=== PATIENT | male | born 1950 | race Caucasian/White ===

== ENCOUNTER → 2017-04-19 09:27 | Outpatient (CLI) | payer MEDICARE, OTHER, SELFPAY ==
[2017-04-19 13:12] LABS: Absolute Lymphocyte Count 1.11 X10^3/ul (0.83-4.51); Absolute Neutrophil Count 2.2 X10^3/uL (2.0-7.7); Basophil# 0.03 X10^3/uL; Basophil% 0.7 % (0-1); Eosinophil# 0.35 X10^3/uL; Eosinophils% 8.4 % (0-5); Hematocrit 38.7 % (40-54); Hemoglobin 12.4 g/dl (13.0-16.5); Lymphocyte # 1.11 X10^3/ul (4.0); Lymphocyte % 26.7 % (19-41); Mean Corpuscular Hgb 27.6 pg (27.0-32.0); Mean Platelet Vol. 10.4 fl (6.2-12.0); Monocyte# 0.52 X10^3/uL; Monocyte% 12.5 % (0-10); Neutrophil # 2.15 X10^3/uL (2.7-7.7); Neutrophil % 51.7 % (47-70); Platelet Count 192 K/mm3 (150-450); RBC Distribution Width CV 13.1 % (11.6-14.6); RBC Distribution Width SD 41.6 fl (35.1-43.9); White Blood Count 4.2 K/mm3 (4.4-11.0)
[2017-04-19 13:13] LABS: POSITIVE COUNT NO; POSITIVE DIFFERENTIAL NO; POSITIVE MORPHOLOGY NO
[2017-04-19 13:40] LABS: ALB/GLOB Ratio 1.2 RATIO (0.9-2.4); AST(SGOT) 14 U/L (15-37); Alanine Aminotransfer ALT/SGPT 23 U/L (16-61); Albumin, Serum 3.5 g/dL (3.2-5.0); Alkaline Phosphatase 82 U/L (45-117); Anion Gap 8 (5-15); BUN 18 mg/dL (7-18); BUN/Creat Ratio 18.8 RATIO (10-20); Calcium,Total 8.6 mg/dL (8.5-10.1); Chloride 106 mmol/L (98-107); Creatinine, Serum 0.96 mg/dL (0.70-1.30); EST Glomerular Filtration Rate 84 mL/min (>60); Est Glom Filt Rate - Afr Amer 101 mL/min (>60); Glucose 89 mg/dL (74-106); PSA,Total - Annual Screen 0.61 ng/mL (0.00-4.00); Potassium 4.3 mmol/L (3.5-5.1); Protein, Total 6.5 g/dL (6.4-8.2); Sodium Level 142 mmol/L (136-145); Thyroid Stim Hormone (TSH) 1.74 uIU/mL (0.358-3.74)
[2017-04-20 07:22] LABS: Hep C Antibodies <0.1 s/co ratio (0.0-0.9)
== END ==
PROVIDERS: Family Provider Family Medicine Geriatric Medicine; PCP Family Medicine Geriatric Medicine; Visit Provider Family Medicine Geriatric Medicine
DX: F52.8 Other sexual dysfunction not due to a substance or known physiological condition (principal); I10 Essential (primary) hypertension; Z12.5 Encounter for screening for malignant neoplasm of prostate; Z13.89 Encounter for screening for other disorder
CPT/HCPCS: 36415; 80053; 84153; 84403; 84443; 85025; 86803; G0103

== ENCOUNTER → 2017-07-12 08:42 | Outpatient (CLI) | payer MEDICARE, OTHER, SELFPAY ==
--- NOTE | 2017-07-12 08:48 | RAD_ITS ---
STUDY: X-RAY - PELVIS AND RIGHT HIP REASON FOR EXAM: Male, 67 years old. Right hip pain, no injury TECHNIQUE: Radiological exam, hip, unilateral, with pelvis when performed; 2 or 3 views. COMPARISON: None. FINDINGS: There is a non-specific bowel gas pattern. Normal visualized soft tissue structures. Normal bilateral iliac wings, sacroiliac joints and visualized sacrum. Normal bilateral superior and inferior pubic rami. Normal pubic symphysis. Normal bilateral ischial tuberosities. There are osteoarthritic changes of the femoral head with marginal osteophyte formation. Normal acetabulum. There is mild articular joint space narrowing of the hip. RAD/Hip 2-3 Views with Pelvis IMPRESSION: Mild degenerative change of the right hip Electronically Signed: Clayton Enriquez DO at 12:26 EDT Tel , Service support ,
== END ==
PROVIDERS: Family Provider Family Medicine Geriatric Medicine; PCP Family Medicine Geriatric Medicine; Visit Provider Nurse Practitioner Family
DX: M25.551 Pain in right hip (principal)
CPT/HCPCS: 73502

== ENCOUNTER → 2017-10-18 10:34 | Outpatient (CLI) | payer MEDICARE, OTHER, SELFPAY ==
[2017-10-18 12:49] LABS: Absolute Lymphocyte Count 1.34 X10^3/ul (0.83-4.51); Absolute Neutrophil Count 2.3 X10^3/uL (2.0-7.7); Basophil# 0.02 X10^3/uL; Basophil% 0.4 % (0-1); Eosinophil# 0.31 X10^3/uL; Eosinophils% 6.8 % (0-5); Hematocrit 41.6 % (40-54); Hemoglobin 14.3 g/dl (13.0-16.5); Lymphocyte # 1.34 X10^3/ul (4.0); Lymphocyte % 29.5 % (19-41); Mean Corp Hgb Conc 34.4 g/gl (32-36); Mean Corpuscular Hgb 29.4 pg (27.0-32.0); Mean Corpuscular Volume 85.4 fL (80-94); Monocyte% 13.2 % (0-10); Neutrophil # 2.27 X10^3/uL (2.7-7.7); Neutrophil % 49.9 % (47-70); Platelet Count 206 K/mm3 (150-450); RBC Distribution Width CV 13.3 % (11.6-14.6); RBC Distribution Width SD 41.5 fl (35.1-43.9); Red Blood Count 4.87 M/mm3 (4.6-6.2); White Blood Count 4.6 K/mm3 (4.4-11.0)
[2017-10-18 12:53] LABS: POSITIVE COUNT NO; POSITIVE DIFFERENTIAL NO; POSITIVE MORPHOLOGY NO
[2017-10-18 13:13] LABS: ALB/GLOB Ratio 1.2 RATIO (0.9-2.4); AST(SGOT) 26 U/L (15-37); Alanine Aminotransfer ALT/SGPT 29 U/L (16-61); Alkaline Phosphatase 82 U/L (45-117); Anion Gap 11 (5-15); BUN 18 mg/dL (7-18); BUN/Creat Ratio 17.6 RATIO (10-20); Calcium,Total 9.1 mg/dL (8.5-10.1); Chloride 103 mmol/L (98-107); Creatinine, Serum 1.02 mg/dL (0.70-1.30); EST Glomerular Filtration Rate 77 mL/min (>60); Est Glom Filt Rate - Afr Amer 94 mL/min (>60); Globulin 3.4 g/dL (2.2-4.2); Glucose 81 mg/dL (74-106); Potassium 4.3 mmol/L (3.5-5.1); Protein, Total 7.4 g/dL (6.4-8.2); Sodium Level 140 mmol/L (136-145); Thyroid Stim Hormone (TSH) 1.66 uIU/mL (0.358-3.74)
[2017-10-19 09:01] LABS: Vitamin D,25 Hydroxy 37.5 ng/mL (29.95-100.01)
[2017-10-22 12:07] LABS: Lyme IgG P18 Ab Absent (.); Lyme IgG P23 Ab Absent (.); Lyme IgG P28 Ab Absent (.); Lyme IgG P30 Ab Absent (.); Lyme IgG P39 Ab Absent (.); Lyme IgG P41 Ab Absent (.); Lyme IgG P45 Ab Absent (.); Lyme IgG P58 Ab Absent (.); Lyme IgG P66 Ab Absent (.); Lyme IgG P93 Ab Absent (.); Lyme IgM P23 Ab Absent (.); Lyme IgM P39 Ab Absent (.); Lyme IgM P41 Ab Absent (.)
[2017-10-22 15:19] LABS: Lyme IgG WB Interpretation Negative (.); Lyme IgM WB Interpretation Negative (.)
== END ==
PROVIDERS: Family Provider Family Medicine Geriatric Medicine; PCP Family Medicine Geriatric Medicine; Visit Provider Family Medicine Geriatric Medicine
DX: E55.9 Vitamin D deficiency, unspecified (principal); F52.8 Other sexual dysfunction not due to a substance or known physiological condition; I10 Essential (primary) hypertension
CPT/HCPCS: 36415; 80053; 82306; 84403; 84443; 85025; 86617

== ENCOUNTER 2017-11-01 12:30 | Outpatient (RCR) | payer MEDICARE, OTHER, SELFPAY ==
--- NOTE | 2017-10-25 12:33 | HP.PTEVAL ---
Patient's Visit Information KATARINA BOWLES is a 67 year old M referred to Physical Therapy by Wallace Chase MD with a diagnosis of BPPV. Date of Evaluation: 10/25/17 Physical Therapist: Wallace Joya DPT, [place] - Visit Plan Frequency: 1x/Week Duration: up to 4 weeks. Plan: weekly as needed for positional treatment with maneuvers and exercises unitl dizzyness abolished. - Subjective Subjective: Saw Dr. Chase from [facility], [place] due to dizzy spells looking up to change lightbulb. Thought it was TMJ initially. Currently gets dizzy with looking up and lying on R side and turning quick. Dizzyness is quick and transient. Feels normal in between these episodes. They have been happening for a year or so. Notices it most with hunting with big caliber gun. Sleep is OK, normal for him. has hemachromatosis. 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 Hobbies include hunting. Basic ADLs are fine. - Objective Walks and trasnfers I and without difficulty with good balance. c/s aROM WFL adn without pain. Hesitant to look up. - L hallpike and + R hallpike behzad for up torsional nystagmus of 10 second duration. Treated with R Morelia and then - Hallpike test. - Goals Goal 1:: Abolish dizzyness with looking up and lying in bed. Goal Time Frame: 2-4 Weeks Goal 2:: Confidently be ready for hunting Goal Time Frame: 2-4 Weeks - Rehabilitation Potential Physical Therapy Diagnosis: R posterior canalithiasis Rehabilitation Potential: Good - Anticipated Interventions Patient/Client Instruction: Educate patient on: Condition, Plan of Care For the Purpose of:: To increase tolerance to activity/condition/position Comment: positional ex and maneuvers For the Purpose of:: To increase tolerance to activity/condition/position Thank you for the opportunity to evaluate your patient. For Medicare and Medicare HMO plans, please review the plan of care and approve it. It will need to be FAXED BACK to us at [phone] for Medicare purposes. Please let me know if there are questions or concerns regarding this plan of care. Physician Signature: Date:
--- NOTE | 2017-11-01 12:33 | HP.PTDCSUM ---
HP - PT D/C Summary It has been my pleasure to treat KATARINA BOWLES under orders from Wallace Chase MD, for the diagnosis of BPPV for a total of 2 visit(s). Discharge Date: 11/01/17 Please see the following information for a summary of their discharge status. - Subjective Subjective: You are awesome. Much better the next day and no dizzyness since. Back on inversion board 4x without a problem. Sleeping is normal but stays elevated a little bit. Walked ridge in [place] without a problem. - Overall Improvement % Improvement: 100 - Objective Objective/Function: Good balance and normal positional tests. - Goals Goal 1:: Abolish dizzyness with looking up and lying in bed. Goal Progress: Goal Met Goal 2:: Confidently be ready for hunting Goal Progress: Goal Met - Plan Plan: D/C - D/C Information Discharge Comments: Positional vertigo treated with Morelia and feeling 100% better. If there are questions or concerns regarding this patient's physical therapy, please feel free to call me at [phone]. Thank you for the referral of this patient. Sincerely, Wallace Joya, ANITAT, [place]
== END 2017-11-01 19:00 | disposition home or self-care (01) ==
LOC: PT 12:30
PROVIDERS: Family Provider Family Medicine Geriatric Medicine; PCP Family Medicine Geriatric Medicine; Visit Provider Otolaryngology
DX: H81.10 Benign paroxysmal vertigo, unspecified ear (principal)
CPT/HCPCS: 97161; 97530

== ENCOUNTER → 2018-02-07 13:05 | Outpatient (CLI) | payer MEDICARE, OTHER, SELFPAY ==
--- NOTE | 2018-02-07 13:35 | MRI_ITS ---
STUDY: MRI RIGHT HIP REASON FOR EXAM: Male, 68 years old. Right hip pain TECHNIQUE: Standardized fat and water weighted pulse sequences were obtained in all 3 orthogonal planes. COMPARISON: X-ray July 12, 2017. FINDINGS: There is mild articular narrowing of the hip joint, with less than 50% loss of the hyaline cartilage. Normal acetabulum. Normal labrum. Normal femoral head. Normal femoral neck and intratrochanteric region. There is no demonstrated fracture. There degenerative changes of the visualized lumbar spine. There is tendinosis with partial tearing of the distal gluteus minimus and medius. Normal iliopsoas tendon and distal insertion. There is trochanteric bursitis, series 5 image /. Normal superior and inferior pubic rami. Normal pubic symphysis. Normal ischial tuberosity. Normal origin of the hamstring tendons. Normal visualized iliac wing, sacroiliac joint, and sacral ala. Normal visualized soft tissue structures of the pelvis. MRI/Lower Ext Joint Only (Routine) IMPRESSION: No fracture or avascular necrosis. Trochanteric bursitis with tendinosis and partial tear of the gluteus medius and minimus. Electronically Signed: Anton Blackwell MD at 9:34 EST , Service support ,
--- OUTSIDE RECORDS SUMMARY | 2018-04-04 17:18 | XMS RPT_ITS ---
:1950 Author Organization [facility] Care Team Providers Name Role Phone GRACEI, CASTRO A Referring Unavailable MASCI, CASTRO A Referring Unavailable MASCI, CASTRO A Referring Unavailable MASCI, CASTRO A Referring Unavailable MASCI, CASTRO A Referring Unavailable MASCI, CASTRO A Referring Unavailable MASCI, CASTRO A Referring Unavailable MASCI, CASTRO A Referring Unavailable MASCI, CASTRO A Attending Unavailable MASCI, CASTRO A Referring Unavailable MASCI, CASTRO A Referring Unavailable MASCI, CASTRO A Referring Unavailable MASCI, CASTRO A Referring Unavailable MASCI, CASTRO A Referring Unavailable MASCI, CASTRO A Referring Unavailable Pramod, John Chi Attending Unavailable Pramod, John Chi Primary Care Unavailable Prebish Ana ASSISTANT HEALTH EDUCATOR-C Attending Unavailable Prebish Ana ASSISTANT HEALTH EDUCATOR-C Referring Unavailable Pramod, John Chi Primary Care Unavailable Pramod, John Chi Attending Unavailable Pramod, John Chi Primary Care Unavailable Wallace Chase Attending Unavailable Wallace Chase Referring Unavailable Pramod, John Chi Primary Care Unavailable Macario Torres Attending Unavailable Macario Torres Referring Unavailable Pramod, John Chi Primary Care Unavailable PROBLEMS PROBLEMS DATE TYPE CONDITION / CODE ATTENDING STATUS SOURCE 11/02/2017 Unknown H81.10 - Benign Chase, Wallace Active [facility] paroxysmal vertigo, Community unspecified ear / Hospital H81.10(ICD-10) Repository 07/12/2017 Unknown M25.551 - Pain in Prebish, Ana Active [facility] right hip / ASSISTANT HEALTH EDUCATOR-C Community M25.551(ICD-10) Hospital Repository 04/19/2017 Unknown 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 - Other sexual Pramod, John Chi Active [facility] dysfunction not due Community to a substance or Hospital known physiological Repository condition / F52.8(ICD-10) 04/19/2017 Unknown I10 - Essential Pramod, John Chi Active [facility] (primary) Community hypertension / Hospital I10(ICD-10) Repository 04/19/2017 Unknown Z12.5 - Encounter for Pramod, John Chi Active [facility] screening for [facility] malignant neoplasm of Hospital prostate / Repository Z12.5(ICD-10) 04/19/2017 Unknown Z13.89 - Encounter Pramod, John Chi Active [facility] for screening for Community other disorder / Hospital Z13.89(ICD-10) Repository 03/30/2017 Active Unknown / NA Active [facility]K(Unknown) [facility] Main [place] Repository 02/19/2015 Active Hereditary NA Active [facility] hemochromatosis / [facility] Main E83.110(ICD-10) [place] Repository PROCEDURES PROCEDURES No Procedure Records FoundRESULTS RESULTS LOWER EXT JOINT ONLY Observed: 02/07/2018 Status: F Source: [place] (ROUTINE) 1:36 PM [facility] REPOSITORY [facility] Imaging Services [address] [place] [id number] Lower Ext Joint Only (Routine) MR#: [id number] Acct: [id number] Name: KATARINA BOWLES Rep #: [id number] : 1950 M 68 From: Anton Blackwell MD PCP: Pramod THAPA,John Schwartz Status: REG CLI Study: Lower Ext Joint Only (Routine) Date of Exam: 02/07/18 Exam# [id number] Ordering Dr: Macario Torres MD STUDY: MRI RIGHT HIP REASON FOR EXAM: Male, 68 years old. Right hip pain TECHNIQUE: Standardized fat and water weighted pulse sequences were obtained in all 3 orthogonal planes. COMPARISON: X-ray July 12, 2017. FINDINGS: There is mild articular narrowing of the hip joint, with less than 50% loss of the hyaline cartilage. Normal acetabulum. Normal labrum. Normal femoral head. Normal femoral neck and intratrochanteric region. There is no demonstrated fracture. There degenerative changes of the visualized lumbar spine. There is tendinosis with partial tearing of the distal gluteus minimus and medius. Normal iliopsoas tendon and distal insertion. There is trochanteric bursitis, series 5 image . Normal superior and inferior pubic rami. Normal pubic symphysis. Normal ischial tuberosity. Normal origin of the hamstring tendons. Normal visualized iliac wing, sacroiliac joint, and sacral ala. Normal visualized soft tissue structures of the pelvis. MRI/Lower Ext Joint Only (Routine) IMPRESSION: No fracture or avascular necrosis. Trochanteric bursitis with tendinosis and partial tear of the gluteus medius and minimus. Electronically Signed: Anton Blackwell MD at 9:34 EST , Service support , CC: Macario Torres; John Benavidez MD Neon Glass Blower: Signed [facility] ABS GR + CBC Collected: 01/29/2018 Status: F Source: [place] 1:44 PM [facility] REPOSITORY TYPE CODE TESTS RESULT OUT OF REFERENCE UNITS RANGE LAB WWBC 3.70-11.00 k/uL [facility] WBC 6.12 LAB WRBC 4.20-6.00 m/uL [facility] RBC 4.81 LAB WHGB 13.0-17.0 g/dL [facility] Hemoglobin 13.9 LAB WHCT 39.0-51.0 % [facility] Hematocrit 42.7 LAB WMCV 80.0-100.0 fL [facility] MCV 88.8 LAB WMCH 26.0-34.0 pg [facility] MCH 28.9 LAB WMCHC 30.5-36.0 g/dL [facility] MCHC 32.6 LAB WRDW 11.5-15.0 % [facility] RDW 14.0 LAB WPLT 150-400 k/uL [facility] Platelet Cnt 200 LAB WMPV 9.0-12.7 fL [facility] MPV 10.4 Result Comment: Test performed at: [facility], [address] [place] [address] Rd[address] [place] [address]. LAB ABGRAN 1.45-7.50 k/uL Absol Gran 3.86 Count FERRITIN Collected: 01/29/2018 Status: F Source: [place] 1:44 PM [facility] REPOSITORY TYPE CODE TESTS RESULT OUT OF REFERENCE UNITS RANGE LAB FERR 30.3-565.7 ng/mL Low Ferritin 19.7 Performed By: #### FERR #### [facility] [address] [address] FERRITIN Collected: 11/22/2017 Status: F Source: [place] 2:27 PM [facility] REPOSITORY TYPE CODE TESTS RESULT OUT OF REFERENCE UNITS RANGE LAB FERR 30.3-565.7 ng/mL Low Ferritin 29.1 Performed By: #### FERR #### [facility] [employer] [address] [address] JANICE ABS GR + CBC Collected: 11/22/2017 Status: F Source: [place] 2:26 PM [facility] REPOSITORY TYPE CODE TESTS RESULT OUT OF REFERENCE UNITS RANGE LAB WWBC 3.70-11.00 k/uL [facility] WBC 10.04 LAB WRBC 4.20-6.00 m/uL [facility] RBC 4.85 LAB WHGB 13.0-17.0 g/dL [facility] Hemoglobin 14.3 LAB WHCT 39.0-51.0 % [facility] Hematocrit 42.8 LAB WMCV 80.0-100.0 fL [facility] MCV 88.2 LAB WMCH 26.0-34.0 pg [facility] MCH 29.5 LAB WMCHC 30.5-36.0 g/dL [facility] MCHC 33.4 LAB WRDW 11.5-15.0 % [facility] RDW 14.1 LAB WPLT 150-400 k/uL [facility] Platelet Cnt 199 LAB WMPV 9.0-12.7 fL [facility] MPV 10.7 Result Comment: Test performed at: [address] [place] [address]. LAB ABGRAN 1.45-7.50 k/uL High Absol 7.83 Gran Count PT D/C SUMMARY (1) Observed: 11/02/2017 Status: F Source: [place] 6:47 AM [facility] REPOSITORY [facility] [address] [place] [address] Fax REHABILITATION SERVICES DISCHARGE SUMMARY MR#: [id number] Acct: [id number] Name: KATARINA BOWLES Rep #: [id number] : 1950 67 From: Wallace Joya DPT, MAITE, CSCS Referring Dr.: Wallace Chase MD Status: REG RCR Insurance: MEDICARE PART A B [employer] HP - PT D/C Summary It has been my pleasure to treat KATARINA BOWLES under orders from Wallace Chase MD, for the diagnosis of BPPV for a total of 2 visit(s). Discharge Date: 11/01/17 Please see the following information for a summary of their discharge status. - Subjective Subjective: You are awesome. Much better the next day and no dizzyness since. Back on inversion board 4x without a problem. Sleeping is normal but stays elevated a little bit. Walked ridge in [place] without a problem. - Overall Improvement % Improvement: 100 - Objective Objective/Function: Good balance and normal positional tests. - Goals Goal 1:: Abolish dizzyness with looking up and lying in bed. Goal Progress: Goal Met Goal 2:: Confidently be ready for hunting Goal Progress: Goal Met - Plan Plan: D/C - D/C Information Discharge Comments: Positional vertigo treated with Morelia and feeling 100% better. If there are questions or concerns regarding this patient's physical therapy, please feel free to call me at [phone]. Thank you for the referral of this patient. Sincerely, Wallace Joya DPT, OC <Electronically signed by Wallace Joya DPT, OCS, CSCS> 11/02/17 0647 CC: Wallace Chase MD; John Benavidez MD EBG Signed INITAL EVALUATION (1) Observed: 10/26/2017 Status: F Source: [place] - PT 6:43 AM [facility] REPOSITORY [facility] [address] [place], [place] [address] Fax REHABILITATION SERVICES INITIAL EVALUATION MR#: [id number] Acct: [id number] Name: KATARINA BOWLES Rep #: [id number] : 1950 67 From: Wallace Joya DPT, OCS, CSCS Referring Dr.: Wallace Chase MD Status: REG RCR Insurance: MEDICARE PART A B [employer] Patient's Visit Information KATARINA BOWLES is a 67 year old M referred to Physical Therapy by Wallace Chase MD with a diagnosis of BPPV. Date of Evaluation: 10/25/17 Physical Therapist: Wallace Joya DPT, OC - Visit Plan Frequency: 1x/Week Duration: up to 4 weeks. Plan: weekly as needed for positional treatment with maneuvers and exercises unitl dizzyness abolished. - Subjective Subjective: Saw Dr. Chase from [facility] due to dizzy spells looking up to change lightbulb. Thought it was TMJ initially. Currently gets dizzy with looking up and lying on R side and turning quick. Dizzyness is quick and transient. Feels normal in between these episodes. They have been happening for a year or so. Notices it most with hunting with big caliber gun. Sleep is OK, normal for him. has hemachromatosis. 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 Hobbies include hunting. Basic ADLs are fine. - Objective Walks and trasnfers I and without difficulty with good balance. c/s aROM WFL adn without pain. Hesitant to look up. - L hallpike and + R hallpike behzad for up torsional nystagmus of 10 second duration. Treated with R Morelia and then - Hallpike test. - Goals Goal 1:: Abolish dizzyness with looking up and lying in bed. Goal Time Frame: 2-4 Weeks Goal 2:: Confidently be ready for hunting Goal Time Frame: 2-4 Weeks - Rehabilitation Potential Physical Therapy Diagnosis: R posterior canalithiasis Rehabilitation Potential: Good - Anticipated Interventions Patient/Client Instruction: Educate patient on: Condition, Plan of Care For the Purpose of:: To increase tolerance to activity/condition/position Comment: positional ex and maneuvers For the Purpose of:: To increase tolerance to activity/condition/position Thank you for the opportunity to evaluate your patient. For Medicare and Medicare HMO plans, please review the plan of care and approve it. It will need to be FAXED BACK to us at [phone] for Medicare purposes. Please let me know if there are questions or concerns regarding this plan of care. Physician Signature: Date: <Electronically signed by Wallace Joya DPT, OCS, CSCS> 10/26/17 0643 CC: Wallace Chase MD; John Benavidez MD EBG Signed For Medicare only, by signing this I certify the plan of care. Physicians Signature Date CBC W/DIFF, AUTOMATED Collected: 10/18/2017 Status: F Source: [place] 10:36 AM [facility] REPOSITORY TYPE CODE TESTS RESULT OUT OF RANGE REFERENCE UNITS LAB L100.1000 4.4-11.0 K/mm3 Normal WBC 4.6 LAB L100.1200 4.6-6.2 M/mm3 Normal RBC 4.87 LAB L100.1300 13.0-16.5 g/dl Normal HGB 14.3 LAB L100.1400 40-54 % Normal HCT 41.6 LAB L100.1500 80-94 fL Normal MCV 85.4 LAB L100.1600 27.0-32.0 pg Normal MCH 29.4 LAB L100.1700 32-36 g/gl Normal MCHC 34.4 LAB L100.1810 11.6-14.6 % Normal RDW CV 13.3 LAB L100.1820 35.1-43.9 fl Normal RDW SD 41.5 LAB L100.1900 150-450 K/mm3 Normal PLT 206 LAB L100.2000 6.2-12.0 fl Normal MPV 11.0 LAB L100.2100 47-70 % Normal NEUT% 49.9 LAB L100.2200 19-41 % Normal LY% 29.5 LAB L100.2300 0-10 % High MONO% 13.2 LAB L100.2400 0-5 % High EO% 6.8 LAB L100.2500 0-1 % Normal BASO% 0.4 LAB L100.2550 0.0-0.9 % Normal IM GRAN % 0.200 Result Comment: IG% - Immature Granulocytes (promyelocytes, myelocytes and metamyelocytes) > 1% indicates that a LEFT SHIFT is Present. LAB L100.2620 2.0-7.7 X10 3/uL Normal Absolute Neut 2.3 LAB L100.2720 0.83-4.51 X10 3/ul Normal Absolute Lymph 1.34 Performed By: #### L100.0100 #### [facility] [address] [place], [address] COMPREHENSIVE METABOLIC Collected: 10/18/2017 Status: F Source: [facility] 10:36 AM [facility] REPOSITORY TYPE CODE TESTS RESULT OUT OF RANGE REFERENCE UNITS LAB L501.0100 74-106 mg/dL Normal GLU 81 Result Comment: Please note revised GLUCOSE reference range effective 2017. LAB L501.1000 7-18 mg/dL Normal BUN 18 LAB L501.1100 0.70-1.30 mg/dL Normal CREAT,SERUM 1.02 Result Comment: The validity of the calculated GFR AND GFRAA in patients over 70 years has not been determined. Clinical correlation is essential. LAB L501.1110 >60 mL/min Normal EST GFR 77 Result Comment: Non- GFR Calc LAB L501.1115 >60 mL/min Normal EST GFR - AA 94 Result Comment: GFR Calc LAB L501.1300 10-20 RATIO Normal BUN/CRE 17.6 LAB L501.1500 6.4-8.2 g/dL T Normal PROT 7.4 LAB L501.1800 3.2-5.0 g/dL Normal ALB 4.0 LAB L501.1950 2.2-4.2 g/dL Normal GLOB 3.4 LAB L501.2000 0.9-2.4 RATIO Normal A/G 1.2 LAB L501.2200 8.5-10.1 mg/dL CA Normal 9.1 LAB L501.4100 15-37 U/L Normal AST 26 LAB L501.4305 45-117 U/L Normal ALK P 82 LAB L501.4405 16-61 U/L Normal ALT 29 LAB L501.4600 0.20-1.00 mg/dL T Normal BILI 0.60 LAB L501.5300 136-145 mmol/L NA Normal 140 LAB L501.5600 3.5-5.1 mmol/L K Normal 4.3 LAB L501.5900 98-107 mmol/L CL Normal 103 LAB L501.6100 21.0-32.0 mmol/L Normal CO2 26.0 LAB L501.6200 5-15 Normal GAP 11 Performed By: #### L500.4050, L501.9520 #### [facility] [address] [place], [place], [address] THYROID STIM HORMONE Collected: 10/18/2017 Status: F Source: [place] (TSH) 10:36 AM [facility] REPOSITORY TYPE CODE TESTS RESULT OUT OF RANGE REFERENCE UNITS LAB L501.9520 0.358-3.74 uIU/mL Normal TSH 1.66 Performed By: #### L500.4050, L501.9520 #### [facility] [address] [place], [place], [address] VITAMIN D,25 HYDROXY Collected: 10/18/2017 Status: F Source: [place] 10:36 AM [facility] REPOSITORY TYPE CODE TESTS RESULT OUT OF RANGE REFERENCE UNITS LAB L506.1000 29.95-100.01 ng/mL Normal Vitamin D 37.5 25-OH Result Comment: Vitamin D 25(OH) Status Range Deficiency <20 ng/mL (50nmol/L) Insuffciency 20 - 30 ng/mL (50 - 75 nmol/L) Sufficiency 30 - 100 ng/mL (75 - 250 nmol/L) Toxicity >100 ng/mL (>250 nmol/L) Performed By: #### L506.1000, L509.3000 #### [facility] [address] [place], [address] TESTOSTERONE, SERUM TOTAL Collected: 10/18/2017 Status: F Source: [place] 10:36 [facility] REPOSITORY TYPE CODE TESTS RESULT OUT OF REFERENCE UNITS RANGE LAB L509.3000 ng/dL Testosterone Normal 521.28 Result Comment: NORMAL REFERENCE RANGES MALE AGE <50 123.06 - 813.86 ng/dL MALE AGE >50 89.98 - 780.10 ng/dL FEMALE PREMENOPAUSE AGE 21 - 60 9.01 - 47.94 ng/dL FEMALE POSTMENOPAUSE AGE 45 - 89 <7.00 - 45.62 ng/dL REFERENCE RANGE AND METHODOLOGY CHANGED 02/28/2017 Performed By: #### L506.1000, L509.3000 #### [facility] [address] [place], [address] LYME ANTIBODIES,W BLOT Collected: 10/18/2017 Status: F Source: [place] 10:36 [facility] REPOSITORY TYPE CODE TESTS RESULT OUT OF RANGE REFERENCE UNITS LAB L7000.5920 . Normal P93 Ab Absent LAB L7000.5940 . Normal P66 Ab Absent LAB L7000.5960 . Normal P58 Ab Absent LAB L7000.5980 . Normal P45 Ab Absent LAB L7000.6000 . Normal P41 Ab Absent LAB L7000.6020 . Normal P39 Ab Absent LAB L7000.6040 . Normal P30 Ab Absent LAB L7000.6060 . Normal P28 Ab Absent LAB L7000.6080 . Normal P23 Ab Absent LAB L7000.6100 . Normal P18 Ab Absent LAB L7000.6200 . Normal LYME IgG Negative INTERP Result Comment: Positive: 5 of the following Borrelia-specific bands: 18,23,28,30,39,41,45,58, 66, and 93. Negative: No bands or banding patterns which do not meet positive criteria. LAB L7000.6320 . Normal P41 Ab Absent LAB L7000.6340 . Normal P39 Ab Absent LAB L7000.6360 . Normal P23 Ab Absent LAB L7000.6400 . Normal LYME IgM Negative INTERP Result Comment: Note: An equivocal or positive EIA result followed by a negative Western Blot result is considered NEGATIVE. An equivocal or positive EIA result followed by a positive Western Blot is considered POSITIVE by the CDC. Positive: 2 of the following bands: 23,39 or 41 Negative: No bands or banding patterns which do not meet positive criteria. Criteria for positivity are those recommended by CDC/ASTPHLD. p23=Osp C, p51=piaxufome Note: Sera from individuals with the following may cross react in the Lyme Western Blot assays: other spirochetal diseases (periodontal disease, leptospirosis, relapsing fever, yaws, and pinta); connective autoimmune (Rheumatoid Arthritis and Systemic Lupus Erythematosus and also individuals with Antinuclear Antibody); other infections (Farber Spotted Fever; Lily-Frazier Virus, and Cytomegalovirus). Performed at: [facility] [id number] Croze Cutter: Lukas Saleh MD, Phone: [phone] Performed By: #### L7000.5800 #### [facility] (refer to report for specific site) refer to report for address and phone number PROGRESS Observed: 09/27/2017 Status: COMPLETED Source: [place] 9:21 AM [facility] [place] REPOSITORY [facility] ID: [id number] Author: Castro Erazo Service: (none) Author Type: Physician Type: Progress Notes Filed: 09/27/2017 9:40 AM Note Text: Diagnosis: 1) Hereditary hemochromatosis. HPI: The patient is a 67 yo male who had iron studies done due to family h/o hemochromatosis. Patient's father had hemochromatosis, but patient didn't know the details of his father's history. Nonfasting iron studies revealed TIBC 145 ug/dL, iron 68 ug/dL and saturation 46.9% with ferritin 1007 ng/mL. 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 Has been undergoing routine phlebotomy since 11/28/10. Presents for ongoing management. Interim history: He continues under the care of pain management for sciatica and right-sided hip bursitis. Has no other complaints. No acute illnesses over the last year. He's had no bouts of fever, chills or night sweats. His appetite is normal. No right upper quadrant pain or episodes of jaundice. No unusual bleeding or unexplained bruising. He's been tolerating phlebotomy well with no post phlebotomy complications. He maintains at least an annual visit with his PCP. He told me today that his cholesterol has been high and when he tries statin drugs he has a lot of leg pain and is very reluctant to undergo medical therapy for hyperlipidemia. I inquired about this based on the results of his ultrasound still demonstrating fatty change of the liver. PMH, medications and allergies as below personally reviewed by me today. Any changes documented in appropriate section. Reconciled outside medications. ROS: Constitutional: Denies episodes of night sweats. Neuro: Denies CISNEROS, vertigo and imbalance. No symptoms of neuropathy. HEENT: No recent change in voice, vision or hearing. Resp: Denies cough, wheeze and hemoptysis. No shortness of breath at rest. No HILTON. CVS: Denies exertional chest pain and LE edema. GI: Denies reflux, n/v, change in bowel habits and abdominal pain. : No dysuria or gross hematuria. Endo: No hot flashes. Musculoskeletal: See above. Derm: No rash. Heme: See above. Psych: Normal mood. PHYSICAL EXAM: Vitals: Blood pressure 133/84, pulse 65, temperature 36.7 ?C (98 ?F), temperature source Oral, weight 87.5 kg (193 lb). Well-appearing and in no acute distress. EYES: Sclerae are anicteric bilaterally. ENT: Oral mucosa is unremarkable. NECK: Supple. LYMPHATIC: There is no palpable cervical, supraclavicular or axillary or inguinal adenopathy. RESPIRATORY: Inspiratory breath sounds are of normal intensity in all silver. No rales, wheezes or rhonchi. Expiratory phase is normal. CARDIOVASCULAR: Rhythm is regular. Normal intensity S1/S2. There is no gallop or murmur. ABDOMEN: The abdomen is nondistended. There is no organomegaly. No tenderness. Extremities: Free of edema. SKIN: No jaundice or rash. No petechiae. NEUROLOGIC: spool carrier II-XII are grossly intact. No focal motor weakness. DTRs are normal. MUSCULOSKELETAL: No joint swelling or tenderness. RADIOLOGY: US 09/24/2017: Pancreas: Not adequately visualized secondary to overlying bowel gas. Liver: ?? ? Echotexture: ?Coarse ?? ? Echogenicity: ?Increased ?? ? Surface contour: ?Smooth ?? ? Lesions: ?None. Biliary: No intrahepatic biliary duct dilation. ?? ? CBD: 0.4 cm at the hilum. ?? ? Gallbladder: ?Normal caliber ?-Contents: ?No cholelithiasis ?-Wall: ?Normal ?-Other: ?No pericholecystic fluid. Right Kidney: No hydronephrosis. ?The right kidney measures approximately 11.5 cm. ASSESSMENT/PLAN: 1) Hereditary hemochromatosis. Tolerating periodic phlebotomy well. Maintaining ferritin under 50 ng/ml. -Currently requiring phlebotomy every other month in order to maintain ferritin under 50. -He has no concerning symptoms or physical exam findings with regards to hemochromatosis. -Reviewed his ultrasound results with him. Persistent changes of fatty liver. -Check hepatitis C. Awaiting results of CMP. Plan: -Continue every other month phlebotomy. -Chemistry panel, ultrasound liver and AFP in a year. -Encouraged him to follow-up with his PCP regarding management of hyperlipidemia and dietary changes to try to address fatty liver. Castro Erazo DO CNOVSP Observed: 09/27/2017 Status: COMPLETED Source: [place] 9:10 AM [facility] REPOSITORY Visit (SP) Office (JOSÉ LUIS) KATARINA BOWLES ([id number]) 1950 M Date Time Provider Department 09/27/17 9:10 AM CASTRO ERAZO During your visit today, we recorded the following information about you: Temperature Pulse Blood pressure Weight 98 degrees 65/minute 133/84 87.5 kg Mamta Blackwell LPN 09/27/2017 9:27 AM Signed Est patient. One year office visit. Discuss recent labs. Mamta Erazo DO 09/27/2017 9:40 AM Signed Diagnosis: 1) Hereditary hemochromatosis. HPI: The patient is a 67 yo male who had iron studies done due to family h/o hemochromatosis. Patient's father had hemochromatosis, but patient didn't know the details of his father's history. Nonfasting iron studies revealed TIBC 145 ug/dL, iron 68 ug/dL and saturation 46.9% with ferritin 1007 ng/mL. 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 Has been undergoing routine phlebotomy since 11/28/10. Presents for ongoing management. Interim history: He continues under the care of pain management for sciatica and right-sided hip bursitis. Has no other complaints. No acute illnesses over the last year. He's had no bouts of fever, chills or night sweats. His appetite is normal. No right upper quadrant pain or episodes of jaundice. No unusual bleeding or unexplained bruising. He's been tolerating phlebotomy well with no post phlebotomy complications. He maintains at least an annual visit with his PCP. He told me today that his cholesterol has been high and when he tries statin drugs he has a lot of leg pain and is very reluctant to undergo medical therapy for hyperlipidemia. I inquired about this based on the results of his ultrasound still demonstrating fatty change of the liver. PMH, medications and allergies as below personally reviewed by me today. Any changes documented in appropriate section. Reconciled outside medications. ROS: Constitutional: Denies episodes of night sweats. Neuro: Denies CISNEROS, vertigo and imbalance. No symptoms of neuropathy. HEENT: No recent change in voice, vision or hearing. Resp: Denies cough, wheeze and hemoptysis. No shortness of breath at rest. No HILTON. CVS: Denies exertional chest pain and LE edema. GI: Denies reflux, n/v, change in bowel habits and abdominal pain. : No dysuria or gross hematuria. Endo: No hot flashes. Musculoskeletal: See above. Derm: No rash. Heme: See above. Psych: Normal mood. PHYSICAL EXAM: Vitals: Blood pressure 133/84, pulse 65, temperature 36.7 ?C (98 ?F), temperature source Oral, weight 87.5 kg (193 lb). Well-appearing and in no acute distress. EYES: Sclerae are anicteric bilaterally. ENT: Oral mucosa is unremarkable. NECK: Supple. LYMPHATIC: There is no palpable cervical, supraclavicular or axillary or inguinal adenopathy. RESPIRATORY: Inspiratory breath sounds are of normal intensity in all silver. No rales, wheezes or rhonchi. Expiratory phase is normal. CARDIOVASCULAR: Rhythm is regular. Normal intensity S1/S2. There is no gallop or murmur. ABDOMEN: The abdomen is nondistended. There is no organomegaly. No tenderness. Extremities: Free of edema. SKIN: No jaundice or rash. No petechiae. NEUROLOGIC: spool carrier II-XII are grossly intact. No focal motor weakness. DTRs are normal. MUSCULOSKELETAL: No joint swelling or tenderness. RADIOLOGY: US 09/24/2017: Pancreas: Not adequately visualized secondary to overlying bowel gas. Liver: ?? ? Echotexture: ?Coarse ?? ? Echogenicity: ?Increased ?? ? Surface contour: ?Smooth ?? ? Lesions: ?None. Biliary: No intrahepatic biliary duct dilation. ?? ? CBD: 0.4 cm at the hilum. ?? ? Gallbladder: ?Normal caliber ?-Contents: ?No cholelithiasis ?-Wall: ?Normal ?-Other: ?No pericholecystic fluid. Right Kidney: No hydronephrosis. ?The right kidney measures approximately 11.5 cm. ASSESSMENT/PLAN: 1) Hereditary hemochromatosis. Tolerating periodic phlebotomy well. Maintaining ferritin under 50 ng/ml. -Currently requiring phlebotomy every other month in order to maintain ferritin under 50. -He has no concerning symptoms or physical exam findings with regards to hemochromatosis. -Reviewed his ultrasound results with him. Persistent changes of fatty liver. -Check hepatitis C. Awaiting results of CMP. Plan: -Continue every other month phlebotomy. -Chemistry panel, ultrasound liver and AFP in a year. -Encouraged him to follow-up with his PCP regarding management of hyperlipidemia and dietary changes to try to address fatty liver. Castro Erazo DO Referring Provider: CASTRO ERAZO [[id number]] Allergies As of Date: 09/27/2017 (No Known Allergies) Date Reviewed: 09/27/2017 Reviewed by: Mamta Blackwell LPN - Fully Assessed Reason for Visit: Established Patient [175] Primary Visit Diagnosis:Hereditary hemochromatosis (HCC) [E83.110] Other Visit Diagnosis:Fatty liver [K76.0] Order(s):US ABD RT UPPER QUADRANT [[id number]] Order #: [id number] FUTURE Follow-up and Disposition History Recorded Prescriptions as of 09/27/2017 Sig: GLUCOSAMINE CHONDROITIN PLUS * Take 4 capsules by mouth once* FINASTERIDE 5 MG TABLET MELOXICAM 7.5 MG TABLET CIALIS 20 MG TABLET 1 tablet. as directed OTC PRODUCT AdvaCAL (1200mg AdvaCAL Calci* AMLODIPINE 10 MG TABLET Take 10 mg by mouth once tyrese* * TRAMADOL 50 MG TABLET Take 50 mg by mouth every 6 h* * ALOE MISC 1 oz daily Medication notes this encounter GLUCOSAMINE CHONDROITIN PLUS ORAL >> Mamta Blackwell LPN 09/27/2017 9:08 AM >> MAMTA BLACKWELL LPN [facility] Sep 27, 2017 9:08 AM Taking twice a day FINASTERIDE 5 MG TABLET >> Mamta Blackwell LPN 09/27/2017 9:08 AM >> MAMTA BLACKWELL LPN [facility] Sep 27, 2017 9:08 AM Once a day MELOXICAM 7.5 MG TABLET >> Mamta Blackewll LPN 09/27/2017 9:08 AM >> MAMTA BLACKWELL LPN [facility] Sep 27, 2017 9:08 AM Taking once a day OTC PRODUCT >> Mamta Blackwell LPN 09/27/2017 9:08 AM >> MAMTA BLACKWELL LPN [facility] Sep 27, 2017 9:08 AM Taking three capsules twice a day Problem List As Of Date 09/27/2017 Noted Resolved Hemochromatosis [E83.119] INVALID FOR*02/19/2015 Hereditary hemochromatosis (HCC) [E83.110] INVALID FOR* Visit Notes: >> Mamta Blackwell LPN [facility] Sep 27, 2017 9:09 AM Status: Signed Est patient. One year office visit. Discuss recent labs. Mamta Blackwell LPN Encounter Status:Closed by CASTRO ERAZO DO on 09/27/17 JANICE ABS GR + CBC Collected: 09/27/2017 Status: F Source: [place] 9:03 AM [facility] [place] REPOSITORY TYPE CODE TESTS RESULT OUT OF REFERENCE UNITS RANGE LAB WWBC 3.70-11.00 k/uL [place] WBC 4.89 LAB WRBC 4.20-6.00 m/uL [place] RBC 4.89 LAB WHGB 13.0-17.0 g/dL [place] Hemoglobin 14.1 LAB WHCT 39.0-51.0 % [place] Hematocrit 41.8 LAB WMCV 80.0-100.0 fL [place] MCV 85.5 LAB WMCH 26.0-34.0 pg [place] MCH 28.8 LAB WMCHC 30.5-36.0 g/dL [place] MCHC 33.7 LAB WRDW 11.5-15.0 % [place] RDW 14.0 LAB WPLT 150-400 k/uL [place] Platelet Cnt 185 LAB WMPV 9.0-12.7 fL [place] MPV 10.4 Result Comment: Test performed at: [facility] [place], [address] [place] [address]. LAB ABGRAN 1.45-7.50 k/uL Absol Gran 2.70 Count COMP METABOLIC PANEL Collected: 09/27/2017 Status: F Source: [place] 9:03 AM [facility] REPOSITORY TYPE CODE TESTS RESULT OUT OF REFERENCE UNITS RANGE LAB TP 6.3-8.0 g/dL Low Protein, Total 5.8 LAB ALB 3.9-4.9 g/dL Albumin 4.0 LAB CA 8.5-10.2 mg/dL Calcium, Total 9.3 LAB TBIL 0.2-1.3 mg/dL Bilirubin, Total 0.5 LAB ALKP 36-108 U/L Alkaline Phosphatase 70 LAB AST 14-40 U/L AST 15 LAB GLU 74-99 mg/dL Glucose 83 Result Comment: The [place] [employer] Association (ADA) provides guidance for cutoff values for fasting glucose and random glucose. The ADA defines fasting as no caloric intake for at least 8 hours. Fas ting plasma glucose results between 100 to 125 mg/dL indicate increased risk for diabetes (prediabetes). Fasting plasma glucose results greater than or equal to 126 mg/dL meet the criteria for diagnosis of diabetes. In the absence of unequivocal hyperglycemia, results should be confirmed by repeat testing. In a patient with classic symptoms of hyperglycemia or hyperglycemic crisis, random plasma glucose results greater than or equal to 200 mg/dL meet the criteria for diagnosis of diabetes. Reference: Standards of Medical Care in Diabetes 2016, [place] [employer] Association. Diabetes Care. 2016.39(Suppl 1). LAB BUN 9-24 mg/dL BUN 17 LAB CRET 0.73-1.22 mg/dL Creatinine 0.99 LAB NA 136-144 mmol/L Sodium 139 LAB K 3.7-5.1 mmol/L Potassium 4.6 LAB CL 97-105 mmol/L Chloride 102 LAB CO2 22-30 mmol/L CO2 29 LAB AGAP 9-18 mmol/L Anion Gap Low 8 LAB ALT 10-54 U/L ALT 14 LAB GFRAA eGFR- Amer. >60 LAB GFRNAA . eGFR-All Other Races >60 Result Comment: eGFR (Estimated GFR) Units of measure: mL/min/1.73 meters squared eGFR is derived from the reexpressed MDRD Study equation using the following parameters: serum creatinine, age, gender and race. The creatinine assay has been calibrated to be traceable to [facility]. An eGFR <60 mL/min/1.73m2 for >3 months is consistent with chronic kidney disease. Refer to KDOQI guidelines for clinical interpretation. In patients with unstable renal function, e.g. those with acute kidney injury, the eGFR may not accurately reflect actual GFR. Performed By: #### CMP, FERR, AFP #### [facility] [address] [place] [address] FERRITIN Collected: 09/27/2017 Status: F Source: [place] 9:03 AM [facility] REPOSITORY TYPE CODE TESTS RESULT OUT OF REFERENCE UNITS RANGE LAB FERR 30.3-565.7 ng/mL Ferritin 31.1 Performed By: #### CMP, FERR, AFP #### [facility] [address] [place] [address] AFP Collected: 09/27/2017 Status: F Source: [place] 9:03 AM [facility] REPOSITORY TYPE CODE TESTS RESULT OUT OF RANGE REFERENCE UNITS LAB AFP <11 ng/mL AFP 3.9 Performed By: #### CMP, FERR, AFP #### [facility] [address] [place] [address] PROGRESS Observed: 09/24/2017 Status: COMPLETED Source: [place] 7:29 AM [facility] REPOSITORY HNO ID: [id number] Author: Yasmeen PopMountain View Regional Medical CenterJody Stewart Service: (none) Author Type: Coverage Specialist Type: Progress Notes Filed: 09/24/2017 7:29 AM Note Text: Radiology Service Progress Note PATIENT NAME: Katarina Bowles DATE OF SERVICE: September 24, 2017 TIME: 7:29 AM PATIENT IDENTITY VERIFICATION COMPLETED USING TWO (2) METHODS: Patient confirmed name verbally and Date of . PATIENT GENDER DATA: Male PATIENT RELEVANT IMPLANT DATA REVIEWED: Not Applicable RADIOLOGY DEPARTMENT: Ultrasound PERIPHERAL IV DATA: Not applicable SIGNED BY: YASMEEN STEWART RDMS RVJose September 24, 2017 7:29 AM US ABD RIGHT UPPER Observed: 09/24/2017 Status: F Source: [facility] 7:26 AM [facility] REPOSITORY * * *Final Report* * * DATE OF EXAM: Sep 24 2017 7:26AM WRU 1032 - US ABD RIGHT UPPER QUADRANT / PROCEDURE REASON: hereditary hemochromatosis * * * * Physician Interpretation * * * * EXAMINATION: RIGHT UPPER QUADRANT ULTRASOUND CLINICAL HISTORY: hereditary hemochromatosis TECHNIQUE: Sonography of the right upper quadrant was performed. Images were obtained and stored in a permanent archive. MQ: [id number]_1 COMPARISON: 03/11/2014. RESULT: Pancreas: Not adequately visualized secondary to overlying bowel gas. Liver: Echotexture: Coarse Echogenicity: Increased Surface contour: Smooth Lesions: None. Biliary: No intrahepatic biliary duct dilation. CBD: 0.4 cm at the hilum. Gallbladder: Normal caliber -Contents: No cholelithiasis -Wall: Normal -Other: No pericholecystic fluid. Right Kidney: No hydronephrosis. The right kidney measures approximately 11.5 cm. Ascites: None. IMPRESSION: Coarse, somewhat heterogeneous and increased liver echotexture, suggesting hepatocellular disease. No focal hepatic mass is identified. No cholelithiasis or biliary dilation. Neon Glass Blower: PSCB Transcribe Date/Time: Sep 24 2017 7:59A Dictated by : VINAYAK KING MD This examination was interpreted and the report reviewed and electronically signed by: VINAYAK KING MD on Sep 24 2017 8:01AM EST [id number] JANICE ABS GR + CBC Collected: 07/19/2017 Status: F Source: [place] 11:39 AM [facility] REPOSITORY TYPE CODE TESTS RESULT OUT OF REFERENCE UNITS RANGE LAB WWBC 3.70-11.00 k/uL [place] WBC 4.20 LAB WRBC 4.20-6.00 m/uL [place] RBC 4.96 LAB WHGB 13.0-17.0 g/dL [place] Hemoglobin 13.6 LAB WHCT 39.0-51.0 % [place] Hematocrit 41.7 LAB WMCV 80.0-100.0 fL [place] MCV 84.1 LAB WMCH 26.0-34.0 pg [place] MCH 27.4 LAB WMCHC 30.5-36.0 g/dL [place] MCHC 32.6 LAB WRDW 11.5-15.0 % [place] RDW 14.1 LAB WPLT 150-400 k/uL [place] Platelet Cnt 179 LAB WMPV 9.0-12.7 fL [place] MPV 10.9 Result Comment: Test performed at: [facility], [address] [place] [address]. LAB ABGRAN 1.45-7.50 k/uL Absol Gran 2.16 Count FERRITIN Collected: 07/19/2017 Status: F Source: [place] 11:39 AM [facility] REPOSITORY TYPE CODE TESTS RESULT OUT OF REFERENCE UNITS RANGE LAB FERR 30.3-565.7 ng/mL Low Ferritin 26.1 Performed By: #### FERR #### [facility] [address] [place] [address] HIP 2-3 VIEWS WITH Observed: 07/12/2017 Status: F Source: [place] PELVIS 8:49 AM [facility] REPOSITORY [facility] Imaging Services [address] [place] [address] Hip 2-3 Views with Pelvis MR#: [id number] Acct: [id number] Name: KATARINA BOWLES Rep #: [id number] : 1950 M 67 From: Clayton Enriquez DO PCP: Pramod THAPA,[facility] Status: REG CLI Study: Hip 2-3 Views with Pelvis Date of Exam: 07/12/17 Exam# [id number] Ordering Dr: Ana Fuentes ASSISTANT HEALTH EDUCATORElisa STUDY: X-RAY - PELVIS AND RIGHT HIP REASON FOR EXAM: Male, 67 years old. Right hip pain, no injury TECHNIQUE: Radiological exam, hip, unilateral, with pelvis when performed; 2 or 3 views. COMPARISON: None. FINDINGS: There is a non-specific bowel gas pattern. Normal visualized soft tissue structures. Normal bilateral iliac wings, sacroiliac joints and visualized sacrum. Normal bilateral superior and inferior pubic rami. Normal pubic symphysis. Normal bilateral ischial tuberosities. There are osteoarthritic changes of the femoral head with marginal osteophyte formation. Normal acetabulum. There is mild articular joint space narrowing of the hip. RAD/Hip 2-3 Views with Pelvis IMPRESSION: Mild degenerative change of the right hip Electronically Signed: Clayton Enriquez DO at 12:26 EDT Tel , Service support , CC: Ana Fuentes; John Benavidez MD Neon Glass Blower: Signed JANICE ABS GR + CBC Collected: 05/24/2017 Status: F Source: [place] 2:33 PM [facility] REPOSITORY TYPE CODE TESTS RESULT OUT OF REFERENCE UNITS RANGE LAB WWBC 3.70-11.00 k/uL [place] WBC 5.49 LAB WRBC 4.20-6.00 m/uL [place] RBC 4.52 LAB WHGB 13.0-17.0 g/dL Low [place] Hemoglobin 12.6 LAB WHCT 39.0-51.0 % Low [place] Hematocrit 38.4 LAB WMCV 80.0-100.0 fL [place] MCV 85.0 LAB WMCH 26.0-34.0 pg [place] MCH 27.9 LAB WMCHC 30.5-36.0 g/dL [place] MCHC 32.8 LAB WRDW 11.5-15.0 % [place] RDW 13.2 LAB WPLT 150-400 k/uL [place] Platelet Cnt 185 LAB WMPV 9.0-12.7 fL [place] MPV 10.4 Result Comment: Test performed at: [facility] [place], [address] [place] [address] [address] [place] [address]. LAB ABGRAN 1.45-7.50 k/uL Absol Gran 2.90 Count FERRITIN Collected: 05/24/2017 Status: F Source: [place] 2:33 PM [facility] REPOSITORY TYPE CODE TESTS RESULT OUT OF REFERENCE UNITS RANGE LAB FERR 30.3-565.7 ng/mL Low Ferritin 20.1 Performed By: #### FERR #### [facility] [address] [place] [id number] CBC W/DIFF, AUTOMATED Collected: 04/19/2017 Status: F Source: [place] 9:29 AM [facility] REPOSITORY TYPE CODE TESTS RESULT OUT OF RANGE REFERENCE UNITS LAB L100.1000 4.4-11.0 K/mm3 Low WBC 4.2 LAB L100.1200 4.6-6.2 M/mm3 Low RBC 4.50 LAB L100.1300 13.0-16.5 g/dl Low HGB 12.4 LAB L100.1400 40-54 % Low HCT 38.7 LAB L100.1500 80-94 fL Normal MCV 86.0 LAB L100.1600 27.0-32.0 pg Normal MCH 27.6 LAB L100.1700 32-36 g/gl Normal MCHC 32.0 LAB L100.1810 11.6-14.6 % Normal RDW CV 13.1 LAB L100.1820 35.1-43.9 fl Normal RDW SD 41.6 LAB L100.1900 150-450 K/mm3 Normal PLT 192 LAB L100.2000 6.2-12.0 fl Normal MPV 10.4 LAB L100.2100 47-70 % Normal NEUT% 51.7 LAB L100.2200 19-41 % Normal LY% 26.7 LAB L100.2300 0-10 % High MONO% 12.5 LAB L100.2400 0-5 % High EO% 8.4 LAB L100.2500 0-1 % Normal BASO% 0.7 LAB L100.2550 0.0-0.9 % Normal IM GRAN % 0.000 Result Comment: IG% - Immature Granulocytes (promyelocytes, myelocytes and metamyelocytes) > 1% indicates that a LEFT SHIFT is Present. LAB L100.2620 2.0-7.7 X10 3/uL Normal Absolute Neut 2.2 LAB L100.2720 0.83-4.51 X10 3/ul Normal Absolute Lymph 1.11 Performed By: #### L100.0100 #### [facility] [address] [place], [place], [address] COMPREHENSIVE METABOLIC Collected: 04/19/2017 Status: F Source: [place] CUE[place] 9:29 AM [facility] REPOSITORY TYPE CODE TESTS RESULT OUT OF RANGE REFERENCE UNITS LAB L501.0100 74-106 mg/dL Normal GLU 89 Result Comment: Please note revised GLUCOSE reference range effective 2017. LAB L501.1000 7-18 mg/dL Normal BUN 18 LAB L501.1100 0.70-1.30 mg/dL Normal CREAT,SERUM 0.96 Result Comment: The validity of the calculated GFR AND GFRAA in patients over 70 years has not been determined. Clinical correlation is essential. LAB L501.1110 >60 mL/min Normal EST GFR 84 Result Comment: Non- GFR Calc LAB L501.1115 >60 mL/min Normal EST GFR - AA 101 Result Comment: GFR Calc LAB L501.1300 10-20 RATIO Normal BUN/CRE 18.8 LAB L501.1500 6.4-8.2 g/dL T Normal PROT 6.5 LAB L501.1800 3.2-5.0 g/dL Normal ALB 3.5 LAB L501.1950 2.2-4.2 g/dL Normal GLOB 3.0 LAB L501.2000 0.9-2.4 RATIO Normal A/G 1.2 LAB L501.2200 8.5-10.1 mg/dL CA Normal 8.6 LAB L501.4100 15-37 U/L Low AST 14 LAB L501.4305 45-117 U/L Normal ALK P 82 LAB L501.4405 16-61 U/L Normal ALT 23 Result Comment: Please note revised ALT reference range effective 2017. LAB L501.4600 0.20-1.00 mg/dL Normal T BILI 0.60 LAB L501.5300 136-145 mmol/L Normal NA 142 LAB L501.5600 3.5-5.1 mmol/L Normal K 4.3 LAB L501.5900 98-107 mmol/L Normal CL 106 LAB L501.6100 21.0-32.0 mmol/L Normal CO2 28.0 LAB L501.6200 5-15 Normal GAP 8 Performed By: #### L500.4050, L501.9520, L501.9910 #### [facility] [address] [place], [place], [address] THYROID STIM HORMONE Collected: 04/19/2017 Status: F Source: [place] (TSH) 9:29 AM [facility] REPOSITORY TYPE CODE TESTS RESULT OUT OF RANGE REFERENCE UNITS LAB L501.9520 0.358-3.74 uIU/mL Normal TSH 1.74 Performed By: #### L500.4050, L501.9520, L501.9910 #### [facility] [address] [facility] [place], [address] PSA,TOTAL - ANNUAL Collected: 04/19/2017 Status: F Source: [place] SCREEN 9:29 AM [facility] REPOSITORY TYPE CODE TESTS RESULT OUT OF RANGE REFERENCE UNITS LAB L501.9910 0.00-4.00 ng/mL Normal PSA,TOT 0.61 SCREEN Result Comment: This test was performed using the TPSA assay method for the Senior[employer] chemistry system. Values obtained with different assay methods cannot be used interchangably. When changing PSA assays in the course of monitoring a patient, additional sequential testing should be carried out to confirm baseline values. Performed By: #### L500.4050, L501.9520, L501.9910 #### [facility] [address] [place], [address] HEPATITIS C ANTIBODIES Collected: 04/19/2017 Status: F Source: [place] 9:29 AM [facility] REPOSITORY TYPE CODE TESTS RESULT OUT OF RANGE REFERENCE UNITS LAB L3100.0650 0.0-0.9 s/co ratio Normal HEP C AB <0.1 Result Comment: Negative: < 0.8 Indeterminate: 0.8 - 0.9 Positive: > 0.9 The CDC recommends that a positive HCV antibody result be followed up with a HCV Nucleic Acid Amplification test (195831). Performed at: [address] [id number] Croze Cutter: Durga Sapp PhD, Phone: [phone] Performed By: #### L3100.0625 #### [facility] (refer to report for specific site) refer to report for address and phone number TESTOSTERONE, SERUM TOTAL Collected: 04/19/2017 Status: F Source: [place] 9:29 AM [facility] REPOSITORY TYPE CODE TESTS RESULT OUT OF REFERENCE UNITS RANGE LAB L509.3000 ng/dL Testosterone Normal 409.40 Result Comment: NORMAL REFERENCE RANGES MALE AGE <50 123.06 - 813.86 ng/dL MALE AGE >50 89.98 - 780.10 ng/dL FEMALE PREMENOPAUSE AGE 21 - 60 9.01 - 47.94 ng/dL FEMALE POSTMENOPAUSE AGE 45 - 89 <7.00 - 45.62 ng/dL REFERENCE RANGE AND METHODOLOGY CHANGED 02/28/2017 Performed By: #### L509.3000 #### [facility] [place], [address] HOSP Observed: 03/30/2017 Status: COMPLETED Source: [place] 2:30 PM [facility] REPOSITORY Infusion Center (HE[facility]) KATARINA BOWLES ([id number]) 1950 M Date Time Provider Department 03/30/17 2:30 PM TREATMENT 7 [facility] W[facility] During your visit today, we recorded the following information about you: Temperature Pulse Blood pressure 97.9 degrees 73/minute 133/92 Referring Provider: CASTRO ERAZO [[id number]] Allergies As of Date: 03/30/2017 (No Known Allergies) Date Reviewed: 03/30/2017 Reviewed by: Kailey (Rn) KANWAL Wise - Fully Assessed Reason for Visit: Phlebotomy [1172] Primary Visit Diagnosis:Hereditary hemochromatosis (HCC) [E83.110] Order(s):[facility] NURSING COMMUNICATION [[id number]] Order #: [id number]: 1 STANDING Prescriptions as of 03/30/2017 Sig: GLUCOSAMINE CHONDROITIN PLUS * Take 4 capsules by mouth once* FINASTERIDE 5 MG TABLET MELOXICAM 7.5 MG TABLET CIALIS 20 MG TABLET 1 tablet. as directed OTC PRODUCT AdvaCAL (1200mg AdvaCAL Calci* AMLODIPINE 10 MG TABLET Take 10 mg by mouth once tyrese* * TRAMADOL 50 MG TABLET Take 50 mg by mouth every 6 h* * ALOE MISC 1 oz daily Problem List As Of Date 03/30/2017 Noted Resolved Hemochromatosis [E83.119] INVALID FOR*02/19/2015 Hereditary hemochromatosis (HCC) [E83.110] INVALID FOR* Encounter Status:Closed by KAILEY WISE on 03/30/17 JANICE ABS GR + CBC Collected: 03/30/2017 Status: F Source: [place] 2:24 PM [facility] REPOSITORY TYPE CODE TESTS RESULT OUT OF REFERENCE UNITS RANGE LAB WWBC 3.70-11.00 k/uL [place] WBC 4.41 LAB WRBC 4.20-6.00 m/uL [place] RBC 4.96 LAB WHGB 13.0-17.0 g/dL [place] Hemoglobin 13.9 LAB WHCT 39.0-51.0 % [place] Hematocrit 42.2 LAB WMCV 80.0-100.0 fL [place] MCV 85.1 LAB WMCH 26.0-34.0 pg [place] MCH 28.0 LAB WMCHC 30.5-36.0 g/dL [place] MCHC 32.9 LAB WRDW 11.5-15.0 % [place] RDW 13.4 LAB WPLT 150-400 k/uL [place] Platelet Cnt 168 LAB WMPV 9.0-12.7 fL [place] MPV 10.1 Result Comment: Test performed at: [facility], [address] [place] [address]. LAB ABGRAN 1.45-7.50 k/uL Absol Gran 2.30 Count FERRITIN Collected: 03/30/2017 Status: F Source: [place] 2:24 PM [facility] REPOSITORY TYPE CODE TESTS RESULT OUT OF REFERENCE UNITS RANGE LAB FERR 30.3-565.7 ng/mL Low Ferritin 23.4 Performed By: #### FERR #### [facility] [address] [place], [place] [address] ALLERGIES ALLERGIES DATE TYPE / CODE NAME / CODE REACTION SEVERITY SOURCE 01/30/2013 Drug No Known Unknown [facility] Allergy/416 Allergies/Y27665 Hospital 633988(SNOM 0388(RXNORM) Repository ED CT) Drug NO KNOWN [facility] Class/94155 ALLERGIES [place] 1003(SNOMED Repository CT) ENCOUNTERS ENCOUNTERS ADMIT/DISCHARGE ACCOUNT ADMITTING ENCOUNTER LOCATION SOURCE NUMBER CLASS 02/07/2018 [id number] [facility] Hospital ing:MRI Repository 01/29/2018/01/31/20 [id number] Ambulatory [address] [place] Repository 01/29/2018/01/31/20 [id number] Ambulatory [address] [place] Repository 11/22/2017/11/24/19 [id number] Ambulatory [address] [place] Repository 11/22/2017/11/24/19 [id number] Ambulatory [address] [place] Repository 11/01/2017/11/02/19 [id number] [address] [facility] ing:PT Repository 10/18/2017 [id number] Ambulatory [facility] Hospital ing:POLAB3 Repository 09/27/2017/09/29/19 [id number] Ambulatory [address] [place] Repository 09/27/2017/09/29/19 [id number] Ambulatory [address] [place] Repository 09/27/2017/09/29/19 [id number] Ambulatory [address] [place] Repository 09/24/2017/09/25/19 [id number] Ambulatory [address] [place] Repository 07/19/2017/07/21/19 [id number] Ambulatory [address] [place] Repository 07/19/2017/07/21/19 [id number] Ambulatory [address] [place] Repository 07/12/2017 [id number] Ambulatory [facility] Hospital ing:RAD Repository 05/24/2017/05/26/19 [id number] Ambulatory [address] [place] Repository 05/24/2017/05/25/19 [id number] Ambulatory [address] [place] Repository 04/19/2017 [id number] [facility] Repository 03/30/2017/04/02/19 [id number] Ambulatory [address] Repository 03/30/2017/03/30/[id number] Repository PAYERS PAYERS ENCOUNTER GUARANTOR PAYER SUBSCRIBER SOURCE 02/07/2018 KATARINA W Primary KATARINA W [place] [id number] Insurance:MEDICARE STEELEDOB: Community [place] PART A BPolicy [place]: [id number] [id number] Repository [address]Bte: 330) Date:2018-02-04 [phone] () 02/07/2018 Secondary KATARINA W [place] Insurance:HUMANA STEELEDOB: [facility] 1990-12-54[facility] Hospital Number: Repository [id number] Date:[id number] [address] [address]BY: 02/07/2018 Tertiary NOT GIVENUNK [place] Insurance:SELF PAY [facility] Number: Effective Repository Date:2018-02-04 11/01/2017 Katarina W Primary Katarina W [place] [id number] Insurance:MEDICARE SteeleDOB: [facility] B[place] PART A BPolicy Number: [id number], [place] [id number] Repository [address]Joq: 330) Date:2014-12-10 [phone] () 11/01/2017 Secondary Katarina W [place] Insurance:HUMANA SteeleDOB: [facility] [id number] Hospital Number: Repository [id number] Date:0428-23-39OY [address] [address]YH: 11/01/2017 Tertiary NOT GIVENUNK [place] Insurance:SELF PAY [facility] Number: Effective Repository Date:2017-10-18 10/18/2017 Katarina W Primary Katarina W [place] [id number] E Insurance:MEDICARE SteeleDOB: [facility] [place] PART A olicy Number: [id number], [place] [id number] Repository [address]Kip: ([phone]) Date:2017-10-18 [phone] () 10/18/2017 Secondary Katarina W Janice Insurance:HUMANA SteeleDOB: [id number] Hospital Number: Repository [id number] Date:[id number] [address] [place] [id number]: 10/18/2017 Tertiary NOT GIVENUNK Janice Insurance:SELF PAY [facility] Number: Effective Repository Date:2017-10-18 07/12/2017 Katarina W Primary Katarina W Janice [id number] Insurance:MEDICARE SteeleDOB: [facility] PART A BPolicy Number: [id number], [place] [id number] Repository [address]Ulr: [phone]) Date:2017-07-12 [phone] () 07/12/2017 Secondary Katarina W Janice Insurance:HUMANA SteeleDOB: [facility] [id number] Hospital Number: Repository [id number] Date:[id number] [address] [place] [id number]: 07/12/2017 Tertiary NOT GIVENUNK [place] Insurance:SELF PAY [facility] Number: Effective Repository Date:2017-07-12 04/19/2017 Katarina W Primary Katarina W [place] [id number] Insurance:MEDICARE SteeleDOB: [facility] PART A BPolicy Number: [id number], [place] [id number] Repository [address]Ray: [phone]) Date:2017-04-19 [phone] () 04/19/2017 Secondary Katarina W Janice Insurance:HUMANA SteeleDOB: [facility] [id number] Hospital Number: Repository [id number] Date:4784-16-18NE [address] [id number]: 04/19/2017 Tertiary NOT GIVENUNK [place] Insurance:SELF PAY [facility] Number: Effective Repository Date:2017-04-19
== END ==
PROVIDERS: Family Provider Family Medicine Geriatric Medicine; PCP Family Medicine Geriatric Medicine; Referring Provider Anesthesiology Pain Medicine; Visit Provider Anesthesiology Pain Medicine
DX: M25.551 Pain in right hip (principal)
CPT/HCPCS: 73721

== ENCOUNTER → 2018-05-10 10:16 | Outpatient (CLI) | payer MEDICARE, OTHER, SELFPAY ==
[2018-05-10 12:45] LABS: Absolute Lymphocyte Count 1.41 X10^3/ul (0.83-4.51); Absolute Neutrophil Count 3.3 X10^3/uL (2.0-7.7); Basophil# 0.02 X10^3/uL; Basophil% 0.4 % (0-1); Eosinophil# 0.23 X10^3/uL; Eosinophils% 4.2 % (0-5); Hematocrit 42.9 % (40-54); Hemoglobin 13.9 g/dl (13.0-16.5); Lymphocyte # 1.41 X10^3/ul (4.0); Mean Corp Hgb Conc 32.4 g/gl (32-36); Mean Corpuscular Hgb 28.1 pg (27.0-32.0); Mean Corpuscular Volume 86.7 fL (80-94); Mean Platelet Vol. 11.4 fl (6.2-12.0); Monocyte# 0.44 X10^3/uL; Monocyte% 8.1 % (0-10); Neutrophil # 3.31 X10^3/uL (2.7-7.7); Neutrophil % 61.1 % (47-70); Platelet Count 232 K/mm3 (150-450); RBC Distribution Width CV 13.8 % (11.6-14.6); RBC Distribution Width SD 42.8 fl (35.1-43.9); Red Blood Count 4.95 M/mm3 (4.6-6.2); White Blood Count 5.4 K/mm3 (4.4-11.0)
[2018-05-10 12:47] LABS: POSITIVE COUNT NO; POSITIVE DIFFERENTIAL NO; POSITIVE MORPHOLOGY NO
[2018-05-10 13:07] LABS: Vitamin D,25 Hydroxy 24.9 ng/mL (29.95-100.01)
[2018-05-10 13:11] LABS: ALB/GLOB Ratio 1.2 RATIO (0.9-2.4); AST(SGOT) 16 U/L (15-37); Alanine Aminotransfer ALT/SGPT 22 U/L (16-61); Alkaline Phosphatase 93 U/L (45-117); Anion Gap 7 (5-15); BUN 21 mg/dL (7-18); BUN/Creat Ratio 21.1 RATIO (10-20); Calcium,Total 8.8 mg/dL (8.5-10.1); Chloride 107 mmol/L (98-107); Creatinine, Serum 0.99 mg/dL (0.70-1.30); EST Glomerular Filtration Rate 79 mL/min (>60); Est Glom Filt Rate - Afr Amer 96 mL/min (>60); Globulin 3.2 g/dL (2.2-4.2); Glucose 82 mg/dL (74-106); PSA,Total - Annual Screen 0.92 ng/mL (0.00-4.00); Potassium 4.6 mmol/L (3.5-5.1); Protein, Total 7.2 g/dL (6.4-8.2); Sodium Level 139 mmol/L (136-145); Thyroid Stim Hormone (TSH) 1.62 uIU/mL (0.358-3.74)
== END ==
PROVIDERS: Family Provider Family Medicine Geriatric Medicine; PCP Family Medicine Geriatric Medicine; Visit Provider Family Medicine Geriatric Medicine
DX: E55.9 Vitamin D deficiency, unspecified (principal); F52.8 Other sexual dysfunction not due to a substance or known physiological condition; I10 Essential (primary) hypertension; Z12.5 Encounter for screening for malignant neoplasm of prostate
CPT/HCPCS: 36415; 80053; 82306; 84153; 84403; 84443; 85025; G0103

== ENCOUNTER → 2018-11-07 | Outpatient (CLI) | payer MEDICARE, OTHER, SELFPAY ==
[2018-11-07 12:16] LABS: Absolute Lymphocyte Count 1.09 X10^3/uL (0.83-4.51); Absolute Neutrophil Count 2.8 X10^3/uL (2.0-7.7); Basophil# 0.03 X10^3/uL; Basophil% 0.7 % (0-1); Eosinophil# 0.05 X10^3/uL; Eosinophils% 1.1 % (0-5); Hematocrit 40.3 % (40-54); Hemoglobin 12.7 g/dL (13.0-16.5); Lymphocyte # 1.09 X10^3/ul (4.0); Lymphocyte % 24.6 % (19-41); Mean Corp Hgb Conc 31.5 g/dL (32-36); Mean Corpuscular Volume 88.8 fL (80-94); Mean Platelet Vol. 10.6 fl (6.2-12.0); Monocyte# 0.49 X10^3/uL; Monocyte% 11.1 % (0-10); NRBC Flagged by Analyzer 0 % (0-5); Neutrophil # 2.76 X10^3/uL (2.7-7.7); Neutrophil % 62.3 % (47-70); Platelet Count 184 K/mm3 (150-450); RBC Distribution Width CV 14.8 % (11.6-14.6); RBC Distribution Width SD 48.3 fl (35.1-43.9); Red Blood Count 4.54 M/mm3 (4.6-6.2); White Blood Count 4.4 K/mm3 (4.4-11.0)
[2018-11-07 12:36] LABS: Vitamin D,25 Hydroxy 27.9 ng/mL (29.95-100.01)
[2018-11-07 12:39] LABS: ALB/GLOB Ratio 1.1 RATIO (0.9-2.4); AST(SGOT) 17 U/L (15-37); Alanine Aminotransfer ALT/SGPT 26 U/L (16-61); Albumin, Serum 3.5 g/dL (3.2-5.0); Alkaline Phosphatase 68 U/L (45-117); Anion Gap 5 (5-15); BUN 22 mg/dL (7-18); BUN/Creat Ratio 19.6 RATIO (10-20); Calcium,Total 8.9 mg/dL (8.5-10.1); Chloride 108 mmol/L (98-107); Creatinine, Serum 1.12 mg/dL (0.70-1.30); EST Glomerular Filtration Rate 69 mL/min (>60); Est Glom Filt Rate - Afr Amer 84 mL/min (>60); Globulin 3.2 g/dL (2.2-4.2); Glucose 104 mg/dL (74-106); Potassium 4.2 mmol/L (3.5-5.1); Protein, Total 6.7 g/dL (6.4-8.2); Sodium Level 141 mmol/L (136-145)
== END | disposition home or self-care (01) ==
LOC: POLAB3 08:37
PROVIDERS: Family Provider Family Medicine Geriatric Medicine; PCP Family Medicine Geriatric Medicine; Visit Provider Family Medicine Geriatric Medicine
DX: E55.9 Vitamin D deficiency, unspecified (principal); F52.8 Other sexual dysfunction not due to a substance or known physiological condition; I10 Essential (primary) hypertension
CPT/HCPCS: 36415; 80053; 82306; 84403; 84443; 85025

== ENCOUNTER 2018-12-20 07:28 | Day surgery (SDC) | payer MEDICARE, OTHER, SELFPAY ==
[2018-12-20 07:53] VITALS: BP 133/87; PULSE 58; RESP 16; TEMP 36.2; O2SAT 99; BMI 27.4
[2018-12-20] MEDS: Lactated Ringers 1,000 ML 100 ML IV (08:10)
[2018-12-20] MEDS: Oxymetazoline 0.05% 1 SPRAY SPRAY.BTL 15 SPRAY (10:20)
[2018-12-20] MEDS: Lidocaine 4% 50 ML Bottle (10:20)
--- NOTE | 2018-12-20 10:28 | PCM.OPRPT ---
Problem List (1) Acquired nasal septal defect Status: Chronic Report of Operation Date of Procedure: 12/20/18 Pre-Operative Diagnosis: Nasal septal perforation Post-Operative Diagnosis: Same Surgery/Procedure Performed:: Placement of 3 cm nasal septal button Description of Surgical Findings:: Alphonso is a 68-year-old male with a nasal septal perforation that caused problems with whistling, crusting, and bleeding. The placement of a Silastic button to cover this and hopefully improve these complaints was offered and he was eager to proceed. The risks, alternatives, potential complications, and benefits were discussed at length and any questions answered to the patient and/or caregiver's satisfaction. Witnessed informed consent was obtained in the office, and the patient and/or caregiver was agreeable to proceed. Procedure went as follows: The patient was identified in the preoperative holding and brought to the operating room, was placed under general anesthesia and intubated. When appropriate anesthesia was obtained, pledgets soaked in a 50-50 mixture of oxymetazoline and 4% topical lidocaine were placed to decongest the nasal mucosa. The nasal septum was then damaged where there is noted to be a larger anterior and smaller posterior septal perforation. A 3 cm Silastic button was then fashioned to fit over both perforations and then placed through the larger anterior perforation and situation within the nasal septum. This resulted in excellent coverage of both areas of perforation in the area any areas that pressed upon the nasal floor were trimmed to alleviate any pressure points. No bleeding was encountered. The patient was then returned to anesthesia, revived and extubated having tolerated the procedure well. Type of Anesthesia:: MAC Anesthesiologist: Isael Bedoya Special Medications: none Specimen's removed: none Drains: none Estimated Blood Loss (mL): 0 mL Fluids Replaced: 100 mL Grafts/Implants Used: 3 cm silastic septal button - Complications none - Admit VTE Documentation VTE Present on Admission: No VTE Mechan Device Prophylaxis: SCD's VTE Pharm Prophylaxis ordered?: No
--- NOTE | 2018-12-20 10:33 | DCINST_ITS ---
- Discharge Diagnoses Current Active Problems: Current Active and Chronic Problems Acquired nasal septal defect (Chronic) You will use the following diet at home:: No restrictions Your food should be the consistency of: Regular Discharge Activity: Return to Normal Activity Call your doctor if your incision/area has: Sudden Increased Bleeding Call your doctor if you observe: Uncontrolled pain Allergies/Adverse Reactions: Allergies No Known Allergies Allergy (Verified 12/13/18 09:58) Medications to take at Discharge Calcium (Elemental) [Caltrate-600] 1,200 mg PO DAILY@0800 01/30/13 Glucosamine HCl/Chondr Armenta A Na [Pv Glucosamine-Chondroit Cplt] 1 each PO DAILY 01/30/13 Meloxicam [Mobic] 7.5 mg PO DAILY 07/24/14 Finasteride 5 mg PO DAILY 12/13/18 Tamsulosin HCl 0.4 mg PO DAILY 12/13/18 Primary Care Physician: John Benavidez Chi, MD [Primary Care Provider] - Test Results: Test results from this visit will be discussed in further detail at your follow- up appointment, if applicable. Please Follow Up With: Wallace Chase MD When: 2 weeks
[2018-12-20 10:35] VITALS: BP 115/86; BP 133/87; PULSE 65; RESP 16; TEMP 36.3; O2SAT 92
[2018-12-20 10:40] VITALS: BP 120/76; BP 133/87; PULSE 65; RESP 16; O2SAT 95
[2018-12-20 10:45] VITALS: BP 125/89; BP 133/87; PULSE 62; RESP 16; O2SAT 96
[2018-12-20 10:50] VITALS: BP 116/87; BP 133/87; PULSE 58; RESP 16; TEMP 36.4; O2SAT 96
[2018-12-20 11:31] VITALS: BP 133/87
== END 2018-12-20 11:33 | disposition home or self-care (01) ==
LOC: SDC 07:28 → AC 07:30
PROVIDERS: Family Provider Family Medicine Geriatric Medicine; PCP Family Medicine Geriatric Medicine; Referring Provider Otolaryngology; Visit Provider Otolaryngology
PROC: (CPT 30520; principal; 2018-12-20 09:00)
DX: J34.89 Other specified disorders of nose and nasal sinuses (principal); H69.93 Unspecified Eustachian tube disorder, bilateral; Z85.828 Personal history of other malignant neoplasm of skin; Z87.891 Personal history of nicotine dependence
CPT/HCPCS: 30220; J7120; J2405

== ENCOUNTER 2019-02-20 06:38 | Day surgery (SDC) | payer MEDICARE, OTHER, SELFPAY ==
--- NOTE | 2019-02-11 12:53 | HP.PCM_ITS ---
Problem List (1) Chronic venous insufficiency Status: Chronic (2) Varicose veins with inflammation Status: Chronic (3) Leg pain, left Status: Chronic (4) BPH (benign prostatic hyperplasia) Status: Chronic (5) History of sciatica Status: Chronic (6) Hemochromatosis Status: Chronic Qualifiers: Hemochromatosis type: hereditary Qualified Code(s): E83.110 - Hereditary hemochromatosis History of Present Illness Date of Admission: 02/20/19 Chief Complaint: Chronic venous insufficiency, varicose veins with inflammation, leg pain?left lower extremity The patient is a 69 year old M with a long-standing history of chronic venous disease in his left lower extremity. For many years, the patient has experienced pain, cutting, hurting, and discomfort in his left lower extremity. His symptoms have become progressively more severe. He denies significant swelling in his lower extremities. He has no history of thrombophlebitis in the past. He is undergone no prior vein procedures. A venous duplex examination was performed, revealing incompetence of the left great saphenous vein, the left small saphenous vein, the left accessory saphenous vein at the S3 position, and the left accessory saphenous vein at the S4 position. The implications of this diagnosis were discussed with the patient in detail. The options of management were fully explained. Conservative treatment measures were implemented, which included leg elevation, avoidance of idle standing and sitting, graduated compression stockings of 20 to 30 mmHg compression, active lifestyle, weight control measures, and anti-inflammatory analgesics. Despite these measures, the patient remained symptomatic, with symptoms which adversely affect the patient's quality of life and daily activities. [] Past Medical History Past Medical History (Chronic Problems): Chronic Problems Acquired nasal septal defect (Chronic) Chronic venous insufficiency (Chronic) Varicose veins with inflammation (Chronic) Leg pain, left (Chronic) BPH (benign prostatic hyperplasia) (Chronic) History of sciatica (Chronic) Hemochromatosis (Chronic) Allergies No Known Allergies Allergy (Verified 12/13/18 09:58) Home Medications: Ambulatory Orders Medication Instructions Recorded Calcium (Elemental) [Caltrate-600] 1,200 mg PO DAILY@0800 01/30/13 Glucosamine HCl/Chondr Armenta A Na [Pv 1 each PO DAILY 01/30/13 Glucosamine-Chondroit Cplt] Meloxicam [Mobic] 7.5 mg PO DAILY 07/24/14 Finasteride 5 mg PO DAILY 12/13/18 Tamsulosin HCl 0.4 mg PO DAILY 12/13/18 Surgical History: - - The patient has undergone arthroscopic surgery in April 2018. He underwent TMJ surgery in 1991. Back surgery was performed in 2001. He has undergone several nasal surgery procedures. Right shoulder surgery was performed in 2012. Psychiatric History: No pertinent psych hx Lives: Spouse/ Significant Other Smoking Status: Never smoker Tobacco Use: Non-smoker Alcohol: Occasional Drugs: None - *Family History Paternal History Items: - - The patient's father at the age of 86 with history of pancreatic cancer. Patient's mother at the age of 73 with a history of diabetes mellitus and heart disease. Patient has a sister who from complications of diabetes mellitus. Review of Systems Constitutional: Denies: Chills, Fever, Weight Change HEENT: Denies: Head Aches, Sinus Congestion, Sinus Drainage Cardiovascular: Denies: Chest Pain, Palpitations Respiratory: Denies: Cough, Shortness of breath at rest, Sputum production Gastrointestinal: Denies: Abdominal Pain, Nausea, Vomiting Genitourinary: Denies: Dysuria Musculoskeletal: Denies: Joint Pain, Joint Tenderness Skin: Denies: Rash, Wounds Neurological: Denies: Numbness, Tingling, Focal weakness Psychiatric: Denies: Anxiety, Depression, Homicidal Ideations, Suicidal Ideations Hematologic/ Lymphatic: Denies: Easy Bruising, Easy Bleeding VTE Information - Inpt Only VTE Present on Admission: No VTE Mechan Device Prophylaxis: SCD's - Right VTE Pharm Prophylaxis ordered?: Yes - Physical Exam Vitals/I&O's: Body Mass Index (BMI) 27.4 General: Alert, Oriented x3, Cooperative, No apparent distress, Well developed, Well nourished HEENT: Atraumatic, PERRLA, EOMI, Normocephalic Neck: Supple, No JVD, Negative Carotid Bruits, No Nodes, No Nuchal Rigidity, Trachea Midline Lungs: Clear to auscultation, Normal air movement, No rhonchi, No wheeze, No rales Cardiovascular: Regular rate, Regular Rhythm, Normal S1, Normal S2, No murmurs Abdomen: Bowel Sounds Present, Soft, Non Tender Extremities: No clubbing, No cyanosis, No edema, Capillary Refill Less than 3 Seconds, No Calf Tenderness, - - There are no open wounds or ulcerations in the patient's lower extremities. There are no significant skin changes. However, multiple small varicosities are noted diffusely in both lower extremities. Skin: No rashes, No breakdown Musculoskeletal: No Tenderness to Palpation of Joints or Extremities, No Muscle Wasting Neurological: Cranial nerves II-XII grossly intact, Neuro grossly intact Psych/Mental Status: Normal Affect, Appropriate, Alert and oriented to time, place, person, mood and affect Assessment/Plan This is a 69-year-old male with a long-standing history of chronic venous disease. For many years, the patient has experienced pain and discomfort in his lower extremities. Venous duplex examination revealed incompetence involving the left great saphenous vein, left small saphenous vein, and two incompetent accessory saphenous veins. The implications of this diagnosis were discussed with the patient in detail. Supportive treatment measures were implemented, which included leg elevation, avoidance of idle standing and sitting, graduated compression stockings, weight control measures, active lifestyle, [id number]-[id number] analgesics, etc. Despite these measures, the patient remained symptomatic, with symptoms which adversely affect his daily activities and his quality of life. The indications and risks of endovenous laser ablation of the left great saphenous vein, the left small saphenous vein, and 2 incompetent left accessory saphenous veins have been discussed with the patient in detail. Plan: Patient is to be admitted for the purpose of elective endovenous laser ablation of the left great saphenous vein, left small saphenous vein, and 2 inc ompetent left accessory saphenous veins. The indications and risks of the procedure have been discussed with patient in detail. The appropriate preprocedure consent process has been undertaken. The patient has indicated his desire to proceed with the procedure.
--- NOTE | 2019-02-12 09:22 | EKG12_ITS ---
Test Reason : PREOP Blood Pressure : / mmHG Vent. Rate : 066 BPM Atrial Rate : 066 BPM P-R Int : 166 ms QRS Dur : 092 ms QT Int : 396 ms P-R-T Axes : 042 -01 026 degrees QTc Int : 415 ms Normal sinus rhythm Normal ECG Confirmed by ANALIA RODRIGUEZ ([id number]), production editor ERNIE ORTIZ ([id number]) on 02/16/2019 9:04:52 AM Referred By: Martin Sykes Confirmed By:ANALIA RODRIGUEZ
[2019-02-12 10:42] LABS: Hematocrit 43.1 % (40-54); Hemoglobin 13.6 g/dL (13.0-16.5); Mean Corp Hgb Conc 31.6 g/dL (32-36); Mean Corpuscular Hgb 27.6 pg (27.0-32.0); Mean Corpuscular Volume 87.6 fL (80-94); Mean Platelet Vol. 10.7 fl (6.2-12.0); Platelet Count 216 K/mm3 (150-450); RBC Distribution Width CV 12.9 % (11.6-14.6); RBC Distribution Width SD 41.3 fl (35.1-43.9); Red Blood Count 4.92 M/mm3 (4.6-6.2); White Blood Count 4.7 K/mm3 (4.4-11.0)
[2019-02-12 11:05] LABS: Partial Thromboplast Time 27.7 Seconds (24.1-36.2)
[2019-02-12 11:07] LABS: Anion Gap 5 (5-15); BUN 19 mg/dL (7-18); BUN/Creat Ratio 18.4 RATIO (10-20); Calcium,Total 8.7 mg/dL (8.5-10.1); Chloride 109 mmol/L (98-107); Creatinine, Serum 1.03 mg/dL (0.70-1.30); EST Glomerular Filtration Rate 76 mL/min (>60); Est Glom Filt Rate - Afr Amer 92 mL/min (>60); Glucose 95 mg/dL (74-106); Potassium 4.1 mmol/L (3.5-5.1); Sodium Level 142 mmol/L (136-145)
[2019-02-20 07:43] VITALS: BP 148/98; PULSE 62; RESP 16; TEMP 36.8; O2SAT 95; BMI 28.8
[2019-02-20] MEDS: Enoxaparin 30 MG/0.3 ML Syringe SC (07:52)
--- NOTE | 2019-02-20 07:53 | PCM.HP.BLA ---
Problem List (1) Chronic venous insufficiency Status: Chronic (2) Varicose veins with inflammation Status: Chronic (3) Leg pain, left Status: Chronic (4) BPH (benign prostatic hyperplasia) Status: Chronic (5) History of sciatica Status: Chronic (6) Hemochromatosis Status: Chronic Qualifiers: Hemochromatosis type: hereditary Qualified Code(s): E83.110 - Hereditary hemochromatosis History and Physical Date of Admission: 02/20/19 History and Physical 02/11/19 1253 MR#: [id number] Acct: [id number] Name: KATARINA BOWLES Rep #: [id number] : 1950 69 From: Martin Sykes MD PCP: Pramod THAPA,John Schwartz Status: PRE [facility] Y Location: [facility] Problem List (1) Chronic venous insufficiency Status: Chronic (2) Varicose veins with inflammation Status: Chronic (3) Leg pain, left Status: Chronic (4) BPH (benign prostatic hyperplasia) Status: Chronic (5) History of sciatica Status: Chronic (6) Hemochromatosis Status: Chronic Qualifiers: Hemochromatosis type: hereditary Qualified Code(s): E83.110 - Hereditary hemochromatosis History of Present Illness Date of Admission: 02/20/19 Chief Complaint: Chronic venous insufficiency, varicose veins with inflammation, leg pain?left lower extremity The patient is a 69 year old M with a long-standing history of chronic venous disease in his left lower extremity. For many years, the patient has experienced pain, cutting, hurting, and discomfort in his left lower extremity. His symptoms have become progressively more severe. He denies significant swelling in his lower extremities. He has no history of thrombophlebitis in the past. He is undergone no prior vein procedures. A venous duplex examination was performed, revealing incompetence of the left great saphenous vein, the left small saphenous vein, the left accessory saphenous vein at the S3 position, and the left accessory saphenous vein at the S4 position. The implications of this diagnosis were discussed with the patient in detail. The options of management were fully explained. Conservative treatment measures were implemented, which included leg elevation, avoidance of idle standing and sitting, graduated compression stockings of 20 to 30 mmHg compression, active lifestyle, weight control measures, and anti-inflammatory analgesics. Despite these measures, the patient remained symptomatic, with symptoms which adversely affect the patient's quality of life and daily activities. [] Past Medical History Past Medical History (Chronic Problems): Chronic Problems Acquired nasal septal defect (Chronic) Chronic venous insufficiency (Chronic) Varicose veins with inflammation (Chronic) Leg pain, left (Chronic) BPH (benign prostatic hyperplasia) (Chronic) History of sciatica (Chronic) Hemochromatosis (Chronic) Allergies No Known Allergies Allergy (Verified 12/13/18 09:58) Home Medications: Ambulatory Orders Medication Instructions Recorded Calcium (Elemental) [Caltrate-600] 1,200 mg PO DAILY@0800 01/30/13 Glucosamine HCl/Chondr Armenta A Na [Pv 1 each PO DAILY 01/30/13 Glucosamine-Chondroit Cplt] Meloxicam [Mobic] 7.5 mg PO DAILY 07/24/14 Finasteride 5 mg PO DAILY 12/13/18 Tamsulosin HCl 0.4 mg PO DAILY 12/13/18 Surgical History: - - The patient has undergone arthroscopic surgery in April 2018. He underwent TMJ surgery in 1991. Back surgery was performed in 2001. He has undergone several nasal surgery procedures. Right shoulder surgery was performed in 2012. Psychiatric History: No pertinent psych hx Lives: Spouse/ Significant Other Smoking Status: Never smoker Tobacco Use: Non-smoker Alcohol: Occasional Drugs: None - *Family History Paternal History Items: - - The patient's father at the age of 86 with history of pancreatic cancer. Patient's mother at the age of 73 with a history of diabetes mellitus and heart disease. Patient has a sister who from complications of diabetes mellitus. Review of Systems Constitutional: Denies: Chills, Fever, Weight Change HEENT: Denies: Head Aches, Sinus Congestion, Sinus Drainage Cardiovascular: Denies: Chest Pain, Palpitations Respiratory: Denies: Cough, Shortness of breath at rest, Sputum production Gastrointestinal: Denies: Abdominal Pain, Nausea, Vomiting Genitourinary: Denies: Dysuria Musculoskeletal: Denies: Joint Pain, Joint Tenderness Skin: Denies: Rash, Wounds Neurological: Denies: Numbness, Tingling, Focal weakness Psychiatric: Denies: Anxiety, Depression, Homicidal Ideations, Suicidal Ideations Hematologic/ Lymphatic: Denies: Easy Bruising, Easy Bleeding VTE Information - Inpt Only VTE Present on Admission: No VTE Mechan Device Prophylaxis: SCD's - Right VTE Pharm Prophylaxis ordered?: Yes - Physical Exam Vitals/I&O's: Body Mass Index (BMI) 27.4 General: Alert, Oriented x3, Cooperative, No apparent distress, Well developed, Well nourished HEENT: Atraumatic, PERRLA, EOMI, Normocephalic Neck: Supple, No JVD, Negative Carotid Bruits, No Nodes, No Nuchal Rigidity, Trachea Midline Lungs: Clear to auscultation, Normal air movement, No rhonchi, No wheeze, No rales Cardiovascular: Regular rate, Regular Rhythm, Normal S1, Normal S2, No murmurs Abdomen: Bowel Sounds Present, Soft, Non Tender Extremities: No clubbing, No cyanosis, No edema, Capillary Refill Less than 3 Seconds, No Calf Tenderness, - - There are no open wounds or ulcerations in the patient's lower extremities. There are no significant skin changes. However, multiple small varicosities are noted diffusely in both lower extremities. Skin: No rashes, No breakdown Musculoskeletal: No Tenderness to Palpation of Joints or Extremities, No Muscle Wasting Neurological: Cranial nerves II-XII grossly intact, Neuro grossly intact Psych/Mental Status: Normal Affect, Appropriate, Alert and oriented to time, place, person, mood and affect Assessment/Plan This is a 69-year-old male with a long-standing history of chronic venous disease. For many years, the patient has experienced pain and discomfort in his lower extremities. Venous duplex examination revealed incompetence involving the left great saphenous vein, left small saphenous vein, and two incompetent accessory saphenous veins. The implications of this diagnosis were discussed with the patient in detail. Supportive treatment measures were implemented, which included leg elevation, avoidance of idle standing and sitting, graduated compression stockings, weight control measures, active lifestyle, grcv-mhb-xekpyld analgesics, etc. Despite these measures, the patient remained symptomatic, with symptoms which adversely affect his daily activities and his quality of life. The indications and risks of endovenous laser ablation of the left great saphenous vein, the left small saphenous vein, and 2 incompetent left accessory saphenous veins have been discussed with the patient in detail. Plan: Patient is to be admitted for the purpose of elective endovenous laser ablation of the left great saphenous vein, left small saphenous vein, and 2 incompetent left accessory saphenous veins. The indications and risks of the procedure have been discussed with patient in detail. The appropriate preprocedure consent process has been undertaken. The patient has indicated his desire to proceed with the procedure. 02/11/19 1314 <Electronically signed by Martin Sykes MD> Date Martin Sykes MD
[2019-02-20] MEDS: Lactated Ringers 1,000 ML 100 ML IV ×2 (07:54→10:57)
[2019-02-20] MEDS: Cefazolin 2 GM in 0.9% Normal Saline 100 ML IV (08:12)
--- NOTE | 2019-02-20 10:45 | DCINST_ITS ---
Discharge Diet: No Restrictions Discharge Activity: May Not Drive May shower in (days): 2 - Then rewrap daily with Regino from base of toes to upper thigh. Weight Bearing Status: Weight bearing as tolerated Lifting Restrictions: 10 pounds Keep extremity elevated above heart level: Left Leg Call your doctor if you observe: Inability to urinate, Shortness of breath, Dizziness, Fainting spells, Chest pain, Prolonged hiccoughing, Increased palpitations (irregular heartbeat), Uncontrolled pain Suture Line Care: Avoid Pulling/Pushing Change Dressing in (Days):: 2 Remove Dressing in (days):: 2 Allergies/Adverse Reactions: Allergies No Known Allergies Allergy (Verified 02/12/19 08:08) Medications to take at Discharge Calcium (Elemental) [Caltrate-600] 1,200 mg PO DAILY@0800 01/30/13 Glucosamine HCl/Chondr Armenta A Na [Pv Glucosamine-Chondroit Cplt] 1 each PO DAILY 01/30/13 Meloxicam [Mobic] 7.5 mg PO QHS 07/24/14 Finasteride 5 mg PO DAILY 12/13/18 Tamsulosin HCl 0.4 mg PO QHS 12/13/18 Orders to be completed after discharge: 12 Lead EKG [CVS] Time Frame: 02/12/19, Facility: [facility], Location: Cardiovascular Services Basic Metabolic Profile (BMP) Time Frame: 02/12/19, Facility: [facility], Location: Laboratory CBC-Complete Blood Cnt No Diff Time Frame: 02/12/19, Facility: [facility], Location: Laboratory Partial Thromboplast Time Time Frame: 02/12/19, Facility: [facility], Location: Laboratory Prothrombin Time w/INR Time Frame: 02/12/19, Facility: [facility], Location: Laboratory Primary Care Physician: John Benavidez Chi, MD [Primary Care Provider] - Test Results: Test results from this visit will be discussed in further detail at your follow- up appointment, if applicable. Please Follow Up With: Martin Sykes MD When: 10-14 days
[2019-02-20 10:47] VITALS: BP 127/70; BP 148/98; PULSE 82; RESP 16; TEMP 36.3; O2SAT 94
[2019-02-20 11:00] VITALS: BP 125/76; BP 148/98; PULSE 79; RESP 16; O2SAT 98
[2019-02-20 11:15] VITALS: BP 128/75; BP 148/98; PULSE 80; RESP 16; O2SAT 98
[2019-02-20 11:20] VITALS: BP 120/73; BP 148/98; PULSE 75; RESP 16; TEMP 36.4; O2SAT 94
[2019-02-20 11:45] VITALS: BP 148/98
--- NOTE | 2019-02-20 20:32 | PCM.OPRPT ---
Problem List (1) Chronic venous insufficiency Status: Chronic (2) Varicose veins with inflammation Status: Chronic (3) Leg pain, left Status: Chronic Report of Operation Date of Procedure: 02/20/19 Pre-Operative Diagnosis: Chronic venous insufficiency, Varicose veins with inflammation, leg pain - Left lower extremity Post-Operative Diagnosis: Chronic venous insufficiency, Varicose veins with inflammation, leg pain - Left lower extremity Surgery/Procedure Performed:: 1. Endovenous laser ablation of the left great saphenous vein. 2. Endovenous laser ablation of the left small saphenous vein. 3. Endovenous laser ablation of the left accessory saphenous vein (S3). 4. Endovenous laser ablation of the left accessory saphenous vein (S4) Description of Surgical Findings:: As above Type of Anesthesia:: General, Tumescent Anesthesiologist: Jonathan Franco Specimen's removed: None Drains: None Estimated Blood Loss (mL): Minimal Description of Procedure: This is a 69-year-old male who presented with a longstanding history of chronic venous disease. His presented with chronic venous insufficiency and varicose veins with inflammation. He complained of pain and discomfort in his left lower extremity, associated with his varicose veins. A preoperative venous duplex examination revealed valvular incompetence involving the left great saphenous vein, the left small saphenous vein, the left accessory saphenous vein at the S3 position, and the left accessory saphenous vein at the S4 position. The implications of this diagnosis were discussed with the patient in detail. The options of management were fully explained. Conservative treatment measures were implemented, which included leg elevation, avoidance of idle standing and sitting, graduated compression stockings, weight control measures, active lifestyle, [id number] analgesics, etc. Despite these measures, the patient remained symptomatic, with symptoms which adversely affected daily activities, quality of life, and job functions. The indications and risks of endovenous laser ablation of the left great saphenous vein, the left small saphenous vein, and 2 incompetent accessory saphenous veins were discussed with the patient in detail. The appropriate preprocedure consent process was undertaken. The patient underwent ultrasound marking of the left great saphenous vein, the left small saphenous vein, and the 2 incompetent accessory saphenous veins in the left lower extremity. He was then brought to the operating room suite, placed supine upon the operating table, where general anesthesia was administered by the anesthesia staff. The patient's left lower extremity and left groin were prepped and draped in the appropriate sterile manner. The patient was placed in reverse Trendelenburg position. Ultrasonography was used to image the left great saphenous vein in the distal calf. The micropuncture technique was used to access the left great saphenous vein percutaneously in the distal calf. In this manner, a 0.018 inch guidewire was advanced intraluminally into the left great saphenous vein, and was visualized by ultrasonography. A micropuncture sheath was advanced over the guidewire. The 0.018 inch guidewire was exchanged for a 0.035 inch guidewire, which was then advanced intraluminally to a level just distal to the left sapheno-femoral junction, as confirmed by ultrasound imaging. A long 4 Vietnamese sheath was then advanced over the guidewire, and its tip was positioned approximately 2 to 2-1/2 cm distal to the left sapheno-femoral junction. Attention was then directed to the incompetent left small saphenous vein. To enhance exposure, the left lower extremity was placed in an externally rotated position with the left knee flexed. Using ultrasound imaging and the micropuncture technique, a micropuncture sheath was introduced intraluminally into the left small saphenous vein near the inferior border of the left gastrocnemius muscle, and was left in place, capped, for subsequent access purposes. Attention was then directed to each of the 2 incompetent accessory saphenous veins, located at the S3 and S4 positions. In each case, ultrasound imaging and the micropuncture technique were utilized to place a micropuncture sheath intraluminally, which were then left in place, capped, for subsequent access purposes. Attention was then redirected to the long 4 Vietnamese sheath which had been previously placed intraluminally within the left great saphenous vein. Perivenous tumescent anesthesia was injected from the 4 Vietnamese sheath exit site up to the left sapheno-femoral junction. This was performed segmentally using ultrasound imaging. The AngioDynamics laser fiber was then introduced into the 4 Vietnamese sheath and coupled appropriately. Ultrasonography was used to confirm that the tip of the laser fiber was positioned within the left great saphenous vein approximately 2-1/2 cm distal to the left sapheno-femoral junction. The patient was placed in Trendelenburg position and the laser fiber was activated. The AngioDynamics laser was slowly withdrawn at a constant rate throughout the length of the left great saphenous vein, thereby ablating the left great saphenous vein segmentally. The energy applied was approximately 60 to 80 J/cm. Following the laser ablation, the laser fiber and sheath were removed, and manual pressure was briefly applied to the percutaneous access site to achieve hemostasis. Attention was then directed to the micropuncture sheath which had been previously placed intraluminally within the left small saphenous vein. A 0.035 inch guidewire was introduced intraluminally and its tip was positioned within the proximal portion of the left small saphenous vein. The long 4 Vietnamese sheath was then advanced over the guidewire and into position intraluminally within the left small saphenous vein. Perivenous tumescent anesthesia was injected from the 4 Vietnamese sheath exit site up to the tip of the sheath within the proximal portion of the left small saphenous vein. This was performed segmentally using ultrasound imaging. The AngioDynamics laser fiber was then introduced into the 4 Vietnamese sheath and coupled appropriately. Ultrasonography was used to confirm that the tip of the laser fiber was positioned within the proximal left small saphenous vein, several centimeters distal to its junction with the deep venous system, and remaining within the superficial portion of the left small saphenous vein. The patient was placed in Trendelenburg position and the laser fiber was activated. The AngioDynamics laser was slowly withdrawn at a constant rate throughout the length of the left small saphenous vein, thereby ablating the left small saphenous vein segmentally. The energy applied was approximately 60 to 80 J/cm. Following the laser ablation, the laser fiber and sheath were removed, and manual pressure was briefly applied to the percutaneous access site to achieve hemostasis. Attention was then directed to each of the 2 incompetent accessory saphenous veins, into which micropuncture sheaths had been previously placed. In each case, a 0.035 inch guidewire was introduced intraluminally and advanced into the proximal portion of the incompetent accessory saphenous vein. Perivenous tumescent anesthesia was then injected from the 4 Vietnamese sheath exit site up to the tip of the sheath in the proximal portion of each accessory saphenous vein. The AngioDynamics laser fiber was then introduced into the 4 Vietnamese sheath in each case. It was then coupled appropriately. Ultrasonography was used to confirm that the tip of the laser fiber was positioned within the proximal accessory saphenous vein in each instance, abutting the previously ablated great saphenous vein. In each case, the patient was placed in Trendelenburg position and the laser fiber was activated. The AngioDynamics laser was slowly withdrawn at a constant rate throughout the length of each accessory saphenous vein, thereby ablating each accessory saphenous vein segmentally. The energy applied was approximately 60 to 80 J/cm. In each instance, following the laser ablation, the laser fiber and sheath were removed, and manual pressure was briefly applied to the percutaneous access sites to achieve hemostasis. After assuring satisfactory hemostasis, the access sites were approximated using Cavilon and Steri-Strips. Dry sterile gauze dressings were applied over each of the access sites, and the leg was wrapped from the base of the toes to the upper thigh with Kerlix, followed by Regino wrap. The blood loss for the procedure was minimal. The sponge, needle, and instrument counts at the end of the procedure were correct. The patient tolerated the procedure well and was transported from the operating room to the postanesthesia care unit in stable condition. The amount of tumescent anesthesia utilized, number of joules applied, and treatment times were recorded separately. - Complications None - Admit VTE Documentation VTE Present on Admission: No VTE Mechan Device Prophylaxis: SCD's - Right VTE Pharm Prophylaxis ordered?: Yes
== END 2019-02-20 12:42 | disposition home or self-care (01) ==
LOC: SDC 06:38 → AC 06:39
PROVIDERS: Family Provider Family Medicine Geriatric Medicine; PCP Family Medicine Geriatric Medicine; Referring Provider Surgery; Visit Provider Surgery
PROC: (CPT 36478; principal; 2019-02-20 07:45)
DX: I83.12 Varicose veins of left lower extremity with inflammation (principal); I83.812 Varicose veins of left lower extremity with pain; E83.110 Hereditary hemochromatosis; N40.0 Benign prostatic hyperplasia without lower urinary tract symptoms; Z85.828 Personal history of other malignant neoplasm of skin; Z79.899 Other long term (current) drug therapy
CPT/HCPCS: 36478; 36479; 36415; 80048; 85027; 85610; 85730; 93005; 93971; J7040; J7120; J2405

== ENCOUNTER → 2019-03-03 10:58 | Outpatient (CLI) | payer MEDICARE, OTHER, SELFPAY ==
[2019-02-20 07:43] VITALS: BMI 28.8
--- NOTE | 2019-03-03 11:00 | VDLE_ITS ---
Reason For Study: Pain Procedure LEFT Exam performed in department. CFV is compressible, spontaneous, phasic, A preliminary report was called and/or faxed competent, and demonstrates normal to Sykes. augmentation. FV is compressible, spontaneous, phasic, competent and demonstrates normal augmentation. POP V is compressible, spontaneous, phasic, competent and demonstrates normal augmentation. T/P Trunk is compressible. PTV is compressible. LT PerV is compressible. GSV, SSV, ASV (S3), ASV (S4) are occluded s/p EVLA 02/20/19. Interpretation Summary Deep veins of the left lower extremity are patent and compressible segmentally. There is no evidence of left lower extremity deep vein thrombosis. Valvular competence appears intact within the proximal deep venous system on the left . The left great saphenous vein, small saphenous vein, accessory saphenous vein (S3), and accessory saphenous vein (S4) are occluded, consistent with a recent endothermal ablation procedure. Ordering Physician: Martin Sykes Referring Physician: John Benavidez Chi Performed By: Mary Mattson RVT
== END ==
PROVIDERS: Family Provider Family Medicine Geriatric Medicine; PCP Family Medicine Geriatric Medicine; Referring Provider Surgery; Visit Provider Surgery
DX: M79.605 Pain in left leg (principal); I83.10 Varicose veins of unspecified lower extremity with inflammation
CPT/HCPCS: 93971

== ENCOUNTER → 2019-05-12 10:03 | Outpatient (CLI) | payer MEDICARE, OTHER, SELFPAY ==
[2019-05-12 12:27] LABS: Absolute Lymphocyte Count 1.39 X10^3/uL (0.83-4.51); Absolute Neutrophil Count 2.9 X10^3/uL (2.0-7.7); Basophil# 0.04 X10^3/uL; Basophil% 0.8 % (0-1); Eosinophil# 0.18 X10^3/uL; Eosinophils% 3.6 % (0-5); Hematocrit 38.1 % (40-54); Hemoglobin 12.1 g/dL (13.0-16.5); Lymphocyte # 1.39 X10^3/ul (4.0); Mean Corp Hgb Conc 31.8 g/dL (32-36); Mean Corpuscular Hgb 26.1 pg (27.0-32.0); Mean Corpuscular Volume 82.3 fL (80-94); Mean Platelet Vol. 11.2 fl (6.2-12.0); Monocyte% 10.1 % (0-10); NRBC Flagged by Analyzer 0 % (0-5); Neutrophil # 2.85 X10^3/uL (2.7-7.7); Neutrophil % 57.3 % (47-70); Platelet Count 235 K/mm3 (150-450); RBC Distribution Width CV 13.5 % (11.6-14.6); RBC Distribution Width SD 40.3 fl (35.1-43.9); Red Blood Count 4.63 M/mm3 (4.6-6.2)
[2019-05-12 12:37] LABS: Vitamin D,25 Hydroxy 33.1 ng/mL
[2019-05-12 12:44] LABS: ALB/GLOB Ratio 1.1 RATIO (0.9-2.4); AST(SGOT) 26 U/L (15-37); Alanine Aminotransfer ALT/SGPT 25 U/L (16-61); Albumin, Serum 3.7 g/dL (3.2-5.0); Alkaline Phosphatase 92 U/L (45-117); Anion Gap 6 (5-15); BUN 18 mg/dL (7-18); BUN/Creat Ratio 16.4 RATIO (10-20); Chloride 106 mmol/L (98-107); EST Glomerular Filtration Rate 71 mL/min (>60); Est Glom Filt Rate - Afr Amer 85 mL/min (>60); Globulin 3.3 g/dL (2.2-4.2); Glucose 94 mg/dL (74-106); PSA,Total - Annual Screen 0.46 ng/mL (0.00-4.00); Potassium 4.4 mmol/L (3.5-5.1); Sodium Level 139 mmol/L (136-145); Thyroid Stim Hormone (TSH) 2.04 uIU/mL (0.358-3.74)
== END ==
PROVIDERS: PCP Family Medicine Geriatric Medicine; Visit Provider Family Medicine Geriatric Medicine
DX: E55.9 Vitamin D deficiency, unspecified (principal); F52.8 Other sexual dysfunction not due to a substance or known physiological condition; I10 Essential (primary) hypertension; Z12.5 Encounter for screening for malignant neoplasm of prostate
CPT/HCPCS: 36415; 80053; 82306; 84153; 84403; 84443; 85025; G0103

== ENCOUNTER → 2019-09-29 09:13 | Outpatient (CLI) | payer MEDICARE, OTHER, SELFPAY ==
--- NOTE | 2019-09-29 09:32 | MRI_ITS ---
STUDY: MRI LUMBAR SPINE WITH AND WITHOUT CONTRAST REASON FOR EXAM: Male, 69 years old. SHOOTING PAIN X 8 MONTHS INTO BILATERAL LEGS, H/O PRIOR LUMBAR SX 2001 TECHNIQUE: Standardized fat and water weighted pulse sequences were obtained in the sagittal and axial planes. IV DOTAREM 17CC was administered for the contrast portion of the examination. COMPARISON: May 21, 2014 FINDINGS: Lumbar lordosis preserved. No significant scoliosis. Conus medullaris terminates normally at the L1 level. No acute fracture. No acute dislocation. No acute bone destruction. No abnormal/unexpected contrast enhancement. Normal retroperitoneum. Sacrum intact. Normal aorta. Normal paraspinal muscles. T12-L1: Schmorl''s nodes. Minimal disc desiccation. Normal bilateral facet joints. Normal central canal and bilateral lateral recesses. Normal bilateral intervertebral neural foramina. L1-2: Normal endplates. Minimal disc desiccation. Normal bilateral facet joints. Normal central canal and bilateral lateral recesses. Normal bilateral intervertebral neural foramina. L2-3: Normal endplates. Minimal disc desiccation. Facet joint arthrosis. Normal central canal and bilateral lateral recesses. Normal bilateral intervertebral neural foramina. L3-4: Normal endplates. Disc bulge with mild central canal narrowing. Facet joint arthrosis. Lateral recess narrowing without impingement. Minimal neural foraminal narrowing. L4-5: Mild endplate spondylosis. Disc bulge without central canal narrowing. Facet joint arthrosis. Lateral recess narrowing without impingement. Neural foraminal narrowing with impingement, left greater than right. Postsurgical change. L5-S1: Minimal end plate spondylosis. Right paracentral disc protrusion (axial image 2 series 5) without central canal narrowing. Facet joint arthrosis. Right lateral recess narrowing with early contact of the right descending nerve root. Neural foraminal narrowing without impingement. Postsurgical change. MRI/Spine Lumbar W/WO Contrast IMPRESSION: No abnormal/expected contrast enhancement Multilevel intervertebral disc disease with mild central canal narrowing at L3-4 Multilevel neural foraminal narrowing without impingement Multilevel lateral recess narrowing with early contact of the right descending L5 nerve root Lumbar straightening with mild/moderate osteoarthritis and postsurgical change Electronically Signed: Wallace Darby DO at 11:55 EDT Tel , Service support ,
[2019-09-29 10:30] LABS: EGFR FINGERSTICK > 60.0000 mL/min (>60)
== END ==
PROVIDERS: PCP Family Medicine Geriatric Medicine; Referring Provider Nurse Practitioner Family; Visit Provider Nurse Practitioner Family
DX: Z01.818 Encounter for other preprocedural examination (principal); M12.9 Arthropathy, unspecified; M51.37 Other intervertebral disc degeneration, lumbosacral region; M51.26 Other intervertebral disc displacement, lumbar region; M96.1 Postlaminectomy syndrome, not elsewhere classified; M47.817 Spondylosis without myelopathy or radiculopathy, lumbosacral region
CPT/HCPCS: 72158; A9575

== ENCOUNTER → 2019-11-01 09:50 | Outpatient (CLI) | payer MEDICARE, OTHER, SELFPAY ==
--- NOTE | 2019-11-01 12:36 | NEURO ---
NCS and/or EMG Patient Report Ordering Doctor: John Benavidez Chi DATE OF SERVICE: 11/01/19 Indication: Bilateral lower extremity pain and paresthesias. Findings: Nerve conduction studies were performed in the right and left lower extremities. The right peroneal motor study recording the extensor digitorum brevis showed a reduced amplitude, normal distal latency and mildly slowed conduction velocity. No conduction block or focal slowing was present across the fibular neck. The right tibial motor study recording the abductor hallucis brevis showed a slightly reduced amplitude, normal distal latency and normal conduction velocity. Right peroneal minimal F-wave latencies were absent. Right tibial minimal F-wave latencies were prolonged. Right sural sensory response showed an absent response. Right superficial peroneal sensory response showed an absent response. The left peroneal motor study recording the extensor digitorum brevis showed a reduced amplitude, normal distal latency and slightly slowed conduction velocity. Mild focal slowing was present across the fibular neck. The left tibial motor study recording the abductor hallucis brevis showed a normal amplitude, normal distal latency and normal conduction velocity. Left peroneal minimal F-wave latencies were absent. Left tibial minimal F-wave latencies were prolonged. Left sural sensory response showed an absent response. Left superficial peroneal sensory response showed an absent response. Needle EMG of the bilateral lower extremities was performed. The lumbar paraspinal muscles were not sampled due to the patient's prior history of back surgery. No denervation was present in any muscle. Motor unit morphology, activation, and recruitment patterns were normal. In both lower extremities there was a length-dependent pattern of reinnervation. Distal muscles revealed large amplitude, long duration, mildly polyphasic motor units with diminished recruitment. Similar, but more subtle changes were noted in proximal muscles. The degree of reinnervation appeared symmetric between sides. Impression: This is an abnormal study. There is electrophysiologic evidence of a length dependent, chronic, axonal, sensorimotor peripheral polyneuropathy. There is no active denervation in distal muscles to suggest ongoing nerve degeneration. Please note, due to the inability to needle the lumbar paraspinal muscles (prior spine surgery) a superimposed L5/S1 radiculopathy cannot be entirely excluded by this examination. Casa Whittington D.O.
== END ==
PROVIDERS: PCP Family Medicine Geriatric Medicine; Referring Provider Family Medicine Geriatric Medicine; Visit Provider Family Medicine Geriatric Medicine
DX: R20.2 Paresthesia of skin (principal)
CPT/HCPCS: 95885; 95886; 95911

== ENCOUNTER → 2019-11-06 09:55 | Outpatient (CLI) | payer MEDICARE, OTHER, SELFPAY ==
[2019-11-06 12:16] LABS: Absolute Lymphocyte Count 1.15 X10^3/uL (0.83-4.51); Absolute Neutrophil Count 1.8 X10^3/uL (2.0-7.7); Basophil# 0.03 X10^3/uL; Basophil% 0.8 % (0-1); Eosinophil# 0.12 X10^3/uL; Eosinophils% 3.4 % (0-5); Hemoglobin 11.9 g/dL (13.0-16.5); Lymphocyte # 1.15 X10^3/ul (4.0); Lymphocyte % 32.1 % (19-41); Mean Corp Hgb Conc 30.5 g/dL (32-36); Mean Corpuscular Hgb 24.1 pg (27.0-32.0); Mean Corpuscular Volume 79.1 fL (80-94); Mean Platelet Vol. 10.8 fl (6.2-12.0); Monocyte# 0.46 X10^3/uL; Monocyte% 12.8 % (0-10); NRBC Flagged by Analyzer 0 % (0-5); Neutrophil # 1.81 X10^3/uL (2.7-7.7); Neutrophil % 50.6 % (47-70); Platelet Count 206 K/mm3 (150-450); RBC Distribution Width CV 19.5 % (11.6-14.6); RBC Distribution Width SD 53.3 fl (35.1-43.9); Red Blood Count 4.93 M/mm3 (4.6-6.2); White Blood Count 3.6 K/mm3 (4.4-11.0)
[2019-11-06 12:31] LABS: Vitamin D,25 Hydroxy 65.7 ng/mL
[2019-11-06 12:38] LABS: ALB/GLOB Ratio 1.1 RATIO (0.9-2.4); AST(SGOT) 14 U/L (15-37); Alanine Aminotransfer ALT/SGPT 22 U/L (16-61); Albumin, Serum 3.4 g/dL (3.2-5.0); Alkaline Phosphatase 74 U/L (45-117); Anion Gap 4 (5-15); BUN 21 mg/dL (7-18); BUN/Creat Ratio 20.4 RATIO (10-20); Calcium,Total 8.9 mg/dL (8.5-10.1); Chloride 107 mmol/L (98-107); Creatinine, Serum 1.03 mg/dL (0.70-1.30); EST Glomerular Filtration Rate 76 mL/min (>60); Est Glom Filt Rate - Afr Amer 92 mL/min (>60); Globulin 3.1 g/dL (2.2-4.2); Glucose 79 mg/dL (74-106); Potassium 3.9 mmol/L (3.5-5.1); Protein, Total 6.5 g/dL (6.4-8.2); Sodium Level 141 mmol/L (136-145)
== END ==
PROVIDERS: PCP Family Medicine Geriatric Medicine; Visit Provider Family Medicine Geriatric Medicine
DX: E55.9 Vitamin D deficiency, unspecified (principal); F52.8 Other sexual dysfunction not due to a substance or known physiological condition; I10 Essential (primary) hypertension
CPT/HCPCS: 36415; 80053; 82306; 84403; 84443; 85025

== ENCOUNTER 2019-12-03 06:53 | Day surgery (SDC) | payer MEDICARE, OTHER, SELFPAY ==
[2019-11-11 14:14] VITALS: BMI 28.8
--- NOTE | 2019-11-12 12:57 | HP_ITS ---
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 Required: No Is patient in pain?: No Allergies No Known Allergies Allergy (Verified 11/11/19 14:13) Medications Calcium (Elemental) [Caltrate-600] 1,200 mg PO DAILY@0800 01/30/13 [History Confirmed 11/11/19] Glucosamine HCl/Chondr Armenta A Na [Pv Glucosamine-Chondroit Cplt] 1 ea PO DAILY 01/30/13 [History Confirmed 11/11/19] Meloxicam [Mobic] 7.5 mg PO QHS 07/24/14 [History Confirmed 11/11/19] Finasteride 5 mg PO DAILY 12/13/18 [History Confirmed 11/11/19] Tamsulosin HCl 0.4 mg PO QHS 12/13/18 [History Confirmed 11/11/19] PFSH Medical History Acquired nasal septal defect (Chronic) Chronic venous insufficiency (Chronic) Varicose veins with inflammation (Chronic) Leg pain, left (Chronic) BPH (benign prostatic hyperplasia) (Chronic) History of sciatica (Chronic) Hemochromatosis (Chronic) Surgical History History of mandibular surgery (Acute) Previous back surgery (Acute) s/p nasal button (Acute) s/p right hip surgery (Acute) Family History Mother Heart disease Hypertension CAD (coronary artery disease) Diabetes Father Cancer pancreatic Social History (Updated 11/12/19 @ 12:[address] Neal Saenz MD) Smoking Status: Never smoker HPI HPI Surgical H&P: Yes HPI: KATARINA BOWLES, is a 69 M who presents to the office today for Evaluation for endoscopy. Patient has been recently started on proton pump inhibitor for chronic cough his ENT physician(Dr. Chase) wants him to have an upper scope to make sure that there is nothing in the esophagus that would preclude him from staying on a proton pump inhibitor. Patient has been having a chronic cough particularly when he lies down. Brings up phlegm he has had a evaluation by an ear nose and throat physician who identified irritation in his back of his larynx. Patient has not been diagnosed with Asthma. ROS General General: No weight change, appetite, fatigue, colon cancer, breast cancer or weakness HEENT HEENT: No difficulty swallowing, eye injury, eye surgery, swollen glands or hoarseness Endo Endocrine: No thyroid disease, diabetes mellitus, thyroid cancer, Hair loss, heat intolerance or cold intolerance Skin Skin: No rash or changing moles Breast Breast: No left breast lump, right breast lump, nipple discharge, breast pain, abnormal mammogram, abnormal US or breast enlargement Musc Musculoskeletal: Yes back problems and arthritis; no rheumatoid arthritis, gout or joint pain Cardio Cardiovascular: No murmur, pacemaker, heart disease, atrial fibrillation, high blood pressure, heart attack, heart stent, palpitations, shortness of breat with exertion or chest pain Psych Psychiatric: No depression, anxiety or hearing voices Resp Respiratory: No shortness of breath, No sleep apnea, No cough, No COPD, No asthma, No emphysema, No wheezing Gastro Gastrointestinal: No abdominal pain, No nausea or vomiting, No diarrhea, Yes constipation, No blood in stool, Yes acid reflux, No hemorrhoids, No ulcers, No gallbladder problem, No black,tarry stools Angelo Hematologic: No blood thinners, No blood disorders, No bleeding, No anemia, No blood clots Neuro Neurologic: No system reviewed and no additional complaints, except as docu, No as per HPI, No abnormal walking, No abnormal hearing, No abnormal movements, No abnormal speech, No behavioral changes, No burning sensations, No confusion, No seizure-like activity, No unsteadiness, No dizziness, No localized weakness, No frequent falls, No headache(s), No lack of coordination, No loss of vision, No memory loss, Yes numbness, No other visual disturbances, No radiating pain, No restless legs, No sensory deficit, No fainting, Yes tingling, No tremor(s), No weakness, No other Exam Const General: no acute distress, well developed, well hydrated Orientation: oriented to person, oriented to place, oriented to time [facility] Head: normocephalic, atraumatic Ears: external ears normal Mouth: moist mucous membranes Eyes Sclera: sclerae normal Pupils: normal by confrontation Neck Neck: no lymphadenopathy noted Neck mass: No Thyroid: thyroid normal, symmetrical Chest Chest palpation & inspection: normal inspection of the chest Breast Palpation: No nipple discharge Resp Effort & Inspection: normal respiratory effort Auscultation: clear to auscultation bilaterally Percussion: percussion normal Cardio Rate: regular rate Rhythm: regular rhythm Heart Sounds: no murmurs GI Palpation: soft, no hepatosplenomegaly, no masses, nontender Rectal Exam: other Other: Rectal exam deferred. Extrem General: normal to inspection, no clubbing, cyanosis or edema Assessment & Plan Problems 1. Gastroesophageal reflux disease, esophagitis presence not specified K21.9 Plan I have discussed the above with the patient. I have offered the patient esophagogastroduodenoscopy for evaluation. I have explained the risks/benefits of the procedure and described the procedure. I have discussed the risks with the patient, including but not limited to: infection, bleeding, perforation of the GI tract requiring emergency surgery, inability to complete the procedure, injury to any internal organs, complications of anesthesia, etc. - the patient understands and agrees to proceed. I have answered all the patient's questions to the patient's satisfaction and the patient has no further questions. The patient has been given instructions for the colon cleansing preparation. Coding Level of Care Code Off vis,new,level 3 Diagnoses Gastroesophageal reflux disease, esophagitis presence not specified K21.9 ??Esophagitis presence: esophagitis presence not specified COVID (Procedure Consent) Procedure Criteria Procedure Criteria: Yes Elective The surgeon/proceduralist and patient have discussed in detail the risk of exposure to and/or potential harm posed by the COVID-19 virus with having a surgery/procedure at this time versus the risk of? delaying the surgery/procedure. It is not possible to know either the risk of delaying the surgery or procedure or chance of getting an infection with perfect accuracy, but a joint decision was made between the patient and the surgeon/proceduralist ?to proceed at this time with the scheduled surgery/procedure as indicated on the consent form. 11/12/19 1258 <Electronically signed by Neal la MD> Date _ Neal Saenz MD I have re-examined the patient. There are no clinical changes since date of exam.
[2019-12-03 07:18] VITALS: BP 144/91; PULSE 66; RESP 16; TEMP 36.3; O2SAT 97; BMI 28.4
[2019-12-03] MEDS: Lactated Ringers 1,000 ML 100 ML IV (07:31)
[2019-12-03 08:09] VITALS: BP 103/60; BP 144/91; PULSE 63; RESP 16; TEMP 36.4; O2SAT 97
--- NOTE | 2019-12-03 08:09 | OP.EGD_ITS ---
Patient Name: José Huizar Procedure Date: 12/03/2019 7:50 AM Date of : 1950 Age: 69 Procedure: Upper GI endoscopy Indications: Suspected gastro-esophageal reflux disease Providers: Neal Saenz MD Referring MD: John Benavidez MD Medicines: See the Anesthesia note for documentation of the administered medications Patient Profile: This is a 69 year old male. Refer to note in patient chart for documentation of history and physical. Complications: No immediate complications. Procedure: Pre-Anesthesia Assessment: - Prior to the procedure, a History and Physical was performed, and patient medications and allergies were reviewed. The patient's tolerance of previous anesthesia was also reviewed. The risks and benefits of the procedure and the sedation options and risks were discussed with the patient. All questions were answered, and informed consent was obtained. Prior Anticoagulants: The patient has taken no previous anticoagulant or antiplatelet agents. ASA Grade Assessment: II - A patient with mild systemic disease. After reviewing the risks and benefits, the patient was deemed in satisfactory condition to undergo the procedure. After obtaining informed consent, the endoscope was passed under direct vision. Throughout the procedure, the patient's blood pressure, pulse, and oxygen saturations were monitored continuously. The gastroscope was introduced through the mouth, and advanced to the second part of duodenum. The upper GI endoscopy was accomplished without difficulty. The patient tolerated the procedure well. Scope In: 8:01:41 AM Scope Out: 8:04:18 AM Total Procedure Duration Time 0 hours 2 minutes 37 seconds Findings: A small hiatal hernia was present. No biopsies or other specimens were collected for this exam. The Z-line was variable and was found 38 cm from the incisors. No biopsies or other specimens were collected for this exam. The entire examined stomach was normal. No biopsies or other specimens were collected for this exam. The examined duodenum was normal. No biopsies or other specimens were collected for this exam. Impression: - Small hiatal hernia. No specimens collected. - Z-line variable, 38 cm from the incisors. No specimens collected. - Normal stomach. No specimens collected. - Normal examined duodenum. No specimens collected. Recommendation: - Discharge patient to home. - Resume previous diet. - Continue present medications. - Repeat upper endoscopy (date not yet determined) for screening purposes. - Return to referring physician (date not yet determined). Procedure Code(s): --- Professional --- 86264, Esophagogastroduodenoscopy, flexible, transoral; diagnostic, including collection of specimen(s) by brushing or washing, when performed (separate procedure) Diagnosis Code(s): --- Professional --- K44.9, Diaphragmatic hernia without obstruction or gangrene K22.8, Other specified diseases of esophagus CPT copyright 2017 [employer]. All rights reserved. The codes documented in this report are preliminary and upon batch plant operator review may be revised to meet current compliance requirements. MD Neal Cartagena MD 12/03/2019 8:08:42 AM This report has been signed electronically. Number of Addenda: 0 Note Initiated On: 12/03/2019 7:50 AM
--- NOTE | 2019-12-03 08:09 | OP.CCLET_ITS ---
12/03/2019 John Benavidez MD [address] [place] [address] Re : Upper GI endoscopy procedure for José Huizar Dear Dr. Benavidez This procedure was performed on Tuesday, December 03, 2019. My impressions and recommendations are as follows: Impressions : - Small hiatal hernia. No specimens collected. - Z-line variable, 38 cm from the incisors. No specimens collected. - Normal stomach. No specimens collected. - Normal examined duodenum. No specimens collected. Recommendations : - Discharge patient to home. - Resume previous diet. - Continue present medications. - Repeat upper endoscopy (date not yet determined) for screening purposes. - Return to referring physician (date not yet determined). My findings are described in the full procedure note, which is enclosed. If I can be of further assistance, please feel free to contact me at Doctor phone number(s): , Fax: [phone], Work: . Sincerely, MD Neal Cartagena MD 12/03/2019 8:08:42 AM This report has been signed electronically.
[2019-12-03 08:14] VITALS: BP 105/59; BP 144/91; PULSE 62; RESP 16; O2SAT 97
[2019-12-03 08:19] VITALS: BP 144/91; BP 98/59; PULSE 58; RESP 16; O2SAT 97
[2019-12-03 08:24] VITALS: BP 120/87; BP 144/91; PULSE 53; RESP 16; TEMP 36.4; O2SAT 16
[2019-12-03 08:43] VITALS: BP 144/91
== END 2019-12-03 08:49 | disposition home or self-care (01) ==
LOC: EN 06:53 → AC 06:54
PROVIDERS: Anesthesiology; PCP Family Medicine Geriatric Medicine; Referring Provider Family Medicine Geriatric Medicine; Visit Provider Surgery
PROC: 0DJ08ZZ Inspection of Upper Intestinal Tract, Via Natural or Artificial Opening Endoscopic (ICD-10-PCS; CPT 43235; principal; 2019-12-03 07:55)
DX: K21.9 Gastro-esophageal reflux disease without esophagitis (principal); K44.9 Diaphragmatic hernia without obstruction or gangrene; Z11.59 Encounter for screening for other viral diseases; I83.10 Varicose veins of unspecified lower extremity with inflammation; N40.0 Benign prostatic hyperplasia without lower urinary tract symptoms; E83.119 Hemochromatosis, unspecified; Z79.899 Other long term (current) drug therapy
CPT/HCPCS: 43235; 87635; 96360; 96361; C9803; J7120; J2405; U0003

== ENCOUNTER → 2020-05-12 09:36 | Outpatient (CLI) | payer MEDICARE, OTHER, SELFPAY ==
[2020-05-12 12:22] LABS: Absolute Lymphocyte Count 1.76 X10^3/uL (0.83-4.51); Absolute Neutrophil Count 7.1 X10^3/uL (2.0-7.7); Basophil# 0.04 X10^3/uL; Basophil% 0.4 % (0-1); Eosinophil# 0.11 X10^3/uL; Eosinophils% 1.1 % (0-5); Hematocrit 41.4 % (40-54); Hemoglobin 12.3 g/dL (13.0-16.5); Lymphocyte # 1.76 X10^3/ul (4.0); Lymphocyte % 18.2 % (19-41); Mean Corp Hgb Conc 29.7 g/dL (32-36); Mean Corpuscular Hgb 24.3 pg (27.0-32.0); Mean Corpuscular Volume 81.7 fL (80-94); Mean Platelet Vol. 10.4 fl (6.2-12.0); Monocyte# 0.66 X10^3/uL; Monocyte% 6.8 % (0-10); NRBC Flagged by Analyzer 0 % (0-5); Neutrophil # 7.07 X10^3/uL (2.7-7.7); Neutrophil % 73.3 % (47-70); Platelet Count 201 K/mm3 (150-450); RBC Distribution Width CV 16.1 % (11.6-14.6); RBC Distribution Width SD 47.6 fl (35.1-43.9); Red Blood Count 5.07 M/mm3 (4.6-6.2); White Blood Count 9.7 K/mm3 (4.4-11.0)
[2020-05-12 12:36] LABS: Vitamin D,25 Hydroxy 38.3 ng/mL
[2020-05-12 12:43] LABS: AST(SGOT) 16 U/L (15-37); Alanine Aminotransfer ALT/SGPT 23 U/L (16-61); Albumin, Serum 3.7 g/dL (3.2-5.0); Alkaline Phosphatase 96 U/L (45-117); Anion Gap 5 (5-15); BUN 28 mg/dL (7-18); BUN/Creat Ratio 22.8 RATIO (10-20); Chloride 106 mmol/L (98-107); Creatinine, Serum 1.23 mg/dL (0.70-1.30); EST Glomerular Filtration Rate 62 mL/min (>60); Est Glom Filt Rate - Afr Amer 75 mL/min (>60); Globulin 3.7 g/dL (2.2-4.2); Glucose 98 mg/dL (74-106); PSA,Total - Annual Screen 0.35 ng/mL (0.00-4.00); Potassium 4.7 mmol/L (3.5-5.1); Protein, Total 7.4 g/dL (6.4-8.2); Sodium Level 139 mmol/L (136-145); Thyroid Stim Hormone (TSH) 1.85 uIU/mL (0.358-3.74)
== END ==
PROVIDERS: PCP Family Medicine Geriatric Medicine; Visit Provider Family Medicine Geriatric Medicine
DX: E55.9 Vitamin D deficiency, unspecified (principal); F52.8 Other sexual dysfunction not due to a substance or known physiological condition; I10 Essential (primary) hypertension; Z12.5 Encounter for screening for malignant neoplasm of prostate
CPT/HCPCS: 36415; 80053; 82306; 84153; 84403; 84443; 85025; G0103

== ENCOUNTER 2020-11-09 10:02 | Emergency (ER) | payer MEDICARE, OTHER, SELFPAY ==
[2020-11-09] VITALS (8 sets, daily range): BP systolic 98–134; BP diastolic 51–85; PULSE 63–78; RESP 18–22; TEMP 37.6; O2SAT 90–97; BMI 29.2
--- NOTE | 2020-11-09 10:19 | EKG12_ITS ---
Test Reason : CP Blood Pressure : / mmHG Vent. Rate : 074 BPM Atrial Rate : 074 BPM P-R Int : 160 ms QRS Dur : 088 ms QT Int : 378 ms P-R-T Axes : 036 007 031 degrees QTc Int : 419 ms Normal sinus rhythm Inferior infarct , age undetermined , cannot be excluded Abnormal ECG Confirmed by OSEAS THAPA, RADHA ([id number]), newspaper managing editor SOLEDAD CULLEN ([id number]) on 11/11/2020 8:43:59 AM Referred By: Confirmed By:RADHA FAROOQ MD
--- NOTE | 2020-11-09 10:19 | CT_ITS ---
EXAM: CT HEAD WITHOUT INTRAVENOUS CONTRAST : 1950 CLINICAL INDICATION: Fall, struck head, unknown LOC TECHNIQUE: Multiple axial images were obtained of the head without intravenous contrast. This CT exam was performed using one or more of the following dose reduction techniques: automated exposure control, adjustment of the mA and/or kV according to patient size, and/or use of iterative reconstruction technique. This report was created using [employer] report generation technology. COMPARISON: None. FINDINGS: BRAIN AND EXTRA-AXIAL SPACES: There is mild hypoattenuation in the periventricular white matter. No intra- or extra-axial hemorrhage. No evidence of acute infarct. No intracranial mass or mass effect. There is preservation of the watson/white matter interface. Posterior fossa structures are unremarkable. No hydrocephalus. Basal cisterns are patent. BONES/JOINTS: Unremarkable. No discrete lytic or blastic abnormalities. SINUSES: There is mucosal thickening in both maxillary sinuses. MASTOID AIR CELLS: Unremarkable. Clear. ORBITS: Visualized globes, extraocular muscles, optic nerves and retrobulbar fat appear unremarkable. CT/Brain/Head without Contrast IMPRESSION: No acute findings in the head/brain. Individualized dose optimization techniques were used for this CT. at 1126 Reported and signed by: Fabio Diaz MD Electronically Signed: Fabio Diaz MD at 11:25 EDT Tel , Service support ,
--- NOTE | 2020-11-09 10:25 | EX.ED.DYSGE1 ---
HPI History of Present Illness Chief Complaint: Syncope Informant: patient Narrative Narrative: Patient is a 70-year-old male who presents to the emergency department after being tested positive for Covid today. He states his symptom onset was last Sunday. He had cough, dizziness and fevers. He went to urgent care today for his test which did come back positive. At the urgent care he states he got very dizzy and went unresponsive briefly. He denies having this happen before. 1 week ago whenever he was dizzy at the onset of symptoms he did fall and strike his head. He is unsure if he lost consciousness. He is not on blood thinning medications. He is denying a significant headache or neck pain. Patient is not vaccinated for Covid. No known sick exposure. He denies any vomiting or diarrhea. He has not been taking anything for his symptoms. [facility] Medical History Acquired nasal septal defect BPH (benign prostatic hyperplasia) Chronic venous insufficiency Hemochromatosis History of sciatica Leg pain, left Varicose veins with inflammation Home Medications calcium carbonate 1,200 mg PO DAILY@0800 01/30/13 [History Last Taken Unknown] glucosamine-chondroitin 1 ea PO DAILY 01/30/13 [History Last Taken Unknown] finasteride 5 mg PO DAILY 12/13/18 [History Last Taken Unknown] tamsulosin 0.4 mg PO QHS 12/13/18 [History Last Taken Unknown] Allergy/AdvReac Type Severity Reaction Status Date / Time No Known Allergies Allergy Verified 11/09/20 13:13 Family History Mother Heart disease Hypertension CAD (coronary artery disease) Diabetes Father Cancer pancreatic Surgical History History of mandibular surgery Previous back surgery s/p nasal button s/p right hip surgery Social History Smoking Status: Never smoker alcohol intake: current alcohol intake frequency: holidays/special occasions only ROS ROS ED Constitutional Constitutional ED: Reports chills and fever(s) Eyes Eyes: Denies change in vision ENT ENT ED: Denies epistaxis or rhinorrhea Cardiovascular Cardiovascular: Denies chest pain or palpitations Respiratory/Chest Respiratory/Chest: Reports cough, dyspnea and sputum Gastrointestinal Gastrointestinal: Denies abdominal pain, diarrhea, nausea or vomiting Genitourinary Genitourinary ED: Denies dysuria, hematuria or urinary frequency Musculoskeletal Musculoskeletal: Denies back pain or neck pain Integumentary Denies rash Neurologic Neurologic: Reports other Details: Dizziness ; Denies headache(s) or weakness EXAM Physical Exam Const Vital Signs: 11/09/20 10:04 11/09/20 10:08 11/09/20 10:10 Temperature 99.6 F H 99.6 F H Temperature Source Temporal Temporal Pulse Rate 78 78 Respiratory Rate 22 H 22 H Respiratory Effort Normal Short of Breath Respiratory Depth Respiratory Pattern Blood Pressure 98/51 L 98/51 L Blood Pressure Mean 66 66 Pulse Ox 90 90 Oxygen Delivery Method Room Air Room Air 11/09/20 10:11 11/09/20 10:25 11/09/20 10:34 Temperature Temperature Source Pulse Rate Respiratory Rate Respiratory Effort Normal Short of Breath Respiratory Depth Normal Respiratory Pattern Normal Blood Pressure 109/70 118/70 Blood Pressure Mean 83 86 Pulse Ox Oxygen Delivery Method Room Air 11/09/20 12:15 11/09/20 12:57 Temperature Temperature Source Pulse Rate 68 63 Respiratory Rate 21 H 18 Respiratory Effort Respiratory Depth Respiratory Pattern Blood Pressure 131/79 H 134/85 H Blood Pressure Mean 96 Pulse Ox 95 97 Oxygen Delivery Method Room Air Positive well nourished and well developed General Appearance ED: well developed and NAD HEENT Reports normocephalic and head/scalp atraumatic Eyes PERRL and EOMs intact bilaterally Neck supple General: Negative for tenderness Chest Wall inspection of chest normal Resp normal respiratory effort and clear to auscultation bilaterally Auscultation: Negative for rales, rhonchi or wheezes Cardio regular rate, regular rhythm and no murmurs GI normal to inspection, nondistended, normoactive bowel sounds and non-tender Palpation: soft; Negative for guarding or rebound tenderness present Back/Spine Cervical Spine: Negative for cervical spine tenderness Extremity normal to inspection General Extremety ED: Negative for edema or tenderness General Extremity: Negative for edema Neuro oriented x3, CN's II-XII intact bilaterally and no sensory deficits noted Sensorium / Orientation: alert Motor Exam: strength 5/5 throughout Psych mental status grossly normal Skin no rashes or lesions noted MDM MDM MDM Narrative Medical decision making narrative: Patient presents to the ED for dizziness and brief loss of consciousness while sitting on exam table at urgent care. He did test positive for Covid at that time. On arrival he is hypotensive but did receive nitro by EMS. He is satting 90% at rest and mildly tachypneic on arrival. Will check basic lab work, chest x-ray. Will check D-dimer test. Given the fact patient had a set has been having dizziness will check CT scan of the head. CT imaging of the head was negative. His lab work-up showed a leukopenia consistent with Covid infection. He also has thrombocytopenia. His creatinine is mildly elevated compared to previous. His troponin is within normal limits. Chest x-ray did not reveal acute cardiopulmonary abnormality. Throughout course of ED stay he is feeling much better. He was up ambulating without difficulty. During ambulation test he is satting 96% on room air. He was given a dose of Decadron. At this time patient does not meet inpatient criteria. He is feeling much better and does feel comfortable going home. I recommended getting a home pulse oximeter. He is outside of the window for monoclonal antibody treatment. He otherwise is to follow-up with his PCP. Return precautions reviewed. All questions were answered. Lab Data Labs: Laboratory Results - last 24 hr 11/09/20 11/09/20 11/09/20 10:10 10:10 10:10 WBC 2.7 L RBC 5.22 Hgb 14.3 Hct 44.2 MCV 84.7 MCH 27.4 MCHC 32.4 RDW Std Deviation 41.8 RDW Coeff of Natalya 13.5 Plt Count 128 L MPV 10.9 Immature Gran % (Auto) 0.400 Neut % (Auto) 63.5 Lymph % (Auto) 24.7 Hemphill % (Auto) 11.4 H Eos % (Auto) 0.0 Baso % (Auto) 0.0 Absolute Neuts (auto) 1.7 L Absolute Lymphs (auto) 0.67 L Nucleated RBC % 0 D-Dimer Quant (PE/DVT) 0.41 Sodium 134 L Potassium 3.8 Chloride 101 Carbon Dioxide 27.0 Anion Gap 6 BUN 24 H Creatinine 1.42 H Estim Creat Clear Calc 51.56 Est GFR (MDRD) Af Amer 63 Est GFR (MDRD) Non-Af 52 L BUN/Creatinine Ratio 16.9 Glucose 114 H Calcium 8.9 Total Bilirubin 0.50 AST 27 ALT 27 Alkaline Phosphatase 66 Troponin I High Sens 10 Total Protein 7.5 Albumin 3.6 Globulin 3.9 Albumin/Globulin Ratio 0.9 Radiography Diagnostic Testing: Radiology Impression Brain CT 11/09/20 10:19 IMPRESSION: No acute findings in the head/brain. Individualized dose optimization techniques were used for this CT. at 1126 Reported and signed by: Fabio Diaz MD Electronically Signed: Fabio Diaz MD at 11:25 EDT Tel , Service support , Chest X-Ray 11/09/20 10:58 IMPRESSION: No acute findings in the chest. at 1144 Reported and signed by: Fabio Diaz MD Electronically Signed: Fabio Diaz MD at 11:42 EDT Tel , Service support , Discharge Plan Triage Chief Complaint: Syncope ED Provider: Sathish Burton Dx/Rx/DC Orders Clinical Impression: COVID-19 Instructions: Coronavirus Disease 2019 (COVID-19): Caring for Yourself or Others, COVID-19: Lying in a Prone Position (Proning) Prescriptions: No Action calcium carbonate 600 MG tablet 1,200 mg PO DAILY@0800 RF: 0 glucosamine-chondroitin 1 EACH capsule 1 ea PO DAILY RF: 0 tamsulosin 0.4 MG capsule 0.4 mg PO QHS RF: 0 finasteride 5 MG tablet 5 mg PO DAILY RF: 0 Other Ambulatory Orders: COVID Outpatient Monoclonal Antibody Referral (Routine) Location: None Selected Ordered By: Dr. Sathish Burton Primary Care Provider: John Benavidez Chi Referrals: John Benavidez Chi, MD [Primary Care Provider] - 1 Week Disposition Disposition: Home, Self Care Discharge Date/Time: 11/09/20 13:04
[2020-11-09] MEDS: dexAMETHasone 10 MG/ML Vial 8 MG IV (10:30)
[2020-11-09 10:36] LABS: Absolute Lymphocyte Count 0.67 X10^3/uL (0.83-4.51); Absolute Neutrophil Count 1.7 X10^3/uL (2.0-7.7); Hematocrit 44.2 % (40-54); Hemoglobin 14.3 g/dL (13.0-16.5); Lymphocyte # 0.67 X10^3/ul (0.83-4.51); Lymphocyte % 24.7 % (19-41); Mean Corp Hgb Conc 32.4 g/dL (32-36); Mean Corpuscular Hgb 27.4 pg (27.0-32.0); Mean Corpuscular Volume 84.7 fL (80-94); Mean Platelet Vol. 10.9 fl (6.2-12.0); Monocyte# 0.31 X10^3/uL; Monocyte% 11.4 % (0-10); NRBC Flagged by Analyzer 0 % (0-5); Neutrophil # 1.72 X10^3/uL (2.7-7.7); Neutrophil % 63.5 % (47-70); Platelet Count 128 K/mm3 (150-450); RBC Distribution Width CV 13.5 % (11.6-14.6); RBC Distribution Width SD 41.8 fl (35.1-43.9); Red Blood Count 5.22 M/mm3 (4.6-6.2); White Blood Count 2.7 K/mm3 (4.4-11.0)
[2020-11-09 10:40] LABS: D-Dimer Quantitative (DVT/PE) 0.41 FEU/ug/m (0.27-0.49)
[2020-11-09 10:49] LABS: ALB/GLOB Ratio 0.9 RATIO (0.9-2.4); AST(SGOT) 27 U/L (15-37); Alanine Aminotransfer ALT/SGPT 27 U/L (16-61); Albumin, Serum 3.6 g/dL (3.2-5.0); Alkaline Phosphatase 66 U/L (45-117); Anion Gap 6 (5-15); BUN 24 mg/dL (7-18); BUN/Creat Ratio 16.9 RATIO (10-20); Calcium,Total 8.9 mg/dL (8.5-10.1); Chloride 101 mmol/L (98-107); Creatinine, Serum 1.42 mg/dL (0.70-1.30); EST Glomerular Filtration Rate 52 mL/min (>60); Est Glom Filt Rate - Afr Amer 63 mL/min (>60); Estimated Creatinine Clearance 51.56 ml/min; Globulin 3.9 g/dL (2.2-4.2); Glucose 114 mg/dL (74-106); Potassium 3.8 mmol/L (3.5-5.1); Protein, Total 7.5 g/dL (6.4-8.2); Sodium Level 134 mmol/L (136-145); Troponin-I HS 10 pg/mL (3.0-78.0)
--- NOTE | 2020-11-09 10:58 | RAD_ITS ---
EXAM: XR CHEST, 1 VIEW : 1950 CLINICAL INDICATION: Cough, SOB, COVID TECHNIQUE: Frontal view of the chest. This report was created using [employer] report generation technology. COMPARISON: 01/30/2013 FINDINGS: LUNGS AND PLEURAL SPACES: Unremarkable. No consolidation or edema. No pneumothorax. No effusion. HEART: Unremarkable. Cardiac silhouette not enlarged. MEDIASTINUM: Central airways and mediastinal contour are unremarkable. BONES/JOINTS: There are old healed left-sided rib fractures. SOFT TISSUES: Unremarkable. RAD/Chest 1 View (Portable) IMPRESSION: No acute findings in the chest. at 1144 Reported and signed by: Fabio Diaz MD Electronically Signed: Fabio Diaz MD at 11:42 EDT Tel , Service support ,
== END 2020-11-09 13:04 | disposition home or self-care (01) ==
PROVIDERS: Emergency Provider Emergency Medicine; PCP Family Medicine Geriatric Medicine
DX: U07.1 COVID-19 (principal); D69.6 Thrombocytopenia, unspecified; I87.2 Venous insufficiency (chronic) (peripheral); E83.119 Hemochromatosis, unspecified; N40.0 Benign prostatic hyperplasia without lower urinary tract symptoms; Z79.899 Other long term (current) drug therapy
CPT/HCPCS: 36415; 70450; 71045; 80053; 84484; 85025; 85379; 93005; 96374; 99285; A4216

== ENCOUNTER 2020-11-10 16:51 | Outpatient (CLI) | payer MEDICARE, OTHER, SELFPAY ==
[2020-11-10 17:19] VITALS: BP 131/81; PULSE 65; RESP 16; TEMP 36.7; O2SAT 98; BMI 26.4
[2020-11-10] MEDS: 0.9% Saline Lock 10 ML Syringe IV (17:27)
[2020-11-10 17:52] VITALS: BP 144/79; PULSE 66; RESP 16; TEMP 36.7; O2SAT 100
[2020-11-10 18:52] VITALS: BP 148/88; PULSE 69; RESP 16; TEMP 36.9; O2SAT 100
== END 2020-11-10 19:10 | disposition home or self-care (01) ==
LOC: ICUOUT 16:51 → MS2 16:52
PROVIDERS: PCP Family Medicine Geriatric Medicine; Referring Provider Nurse Practitioner Acute Care; Visit Provider Nurse Practitioner Acute Care
DX: Z23 Encounter for immunization (principal); U07.1 COVID-19
CPT/HCPCS: J7050; M0243; A4216; Q0244

== ENCOUNTER → 2020-11-25 10:17 | Outpatient (CLI) | payer MEDICARE, OTHER, SELFPAY ==
[2020-11-25 10:42] LABS: Absolute Lymphocyte Count 1.12 X10^3/uL (0.83-4.51); Absolute Neutrophil Count 2.8 X10^3/uL (2.0-7.7); Basophil# 0.03 X10^3/uL; Basophil% 0.7 % (0-1); Eosinophil# 0.07 X10^3/uL; Eosinophils% 1.5 % (0-5); Hematocrit 43.5 % (40-54); Hemoglobin 13.8 g/dL (13.0-16.5); Lymphocyte # 1.12 X10^3/ul (0.83-4.51); Lymphocyte % 24.7 % (19-41); Mean Corp Hgb Conc 31.7 g/dL (32-36); Mean Corpuscular Hgb 27.4 pg (27.0-32.0); Mean Corpuscular Volume 86.5 fL (80-94); Monocyte# 0.51 X10^3/uL; Monocyte% 11.2 % (0-10); NRBC Flagged by Analyzer 0 % (0-5); Neutrophil # 2.81 X10^3/uL (2.7-7.7); Neutrophil % 61.9 % (47-70); Platelet Count 328 K/mm3 (150-450); RBC Distribution Width CV 13.6 % (11.6-14.6); RBC Distribution Width SD 41.6 fl (35.1-43.9); Red Blood Count 5.03 M/mm3 (4.6-6.2); White Blood Count 4.5 K/mm3 (4.4-11.0)
[2020-11-25 11:21] LABS: Vitamin D,25 Hydroxy 66.1 ng/mL
[2020-11-25 11:22] LABS: ALB/GLOB Ratio 0.8 RATIO (0.9-2.4); AST(SGOT) 19 U/L (15-37); Alanine Aminotransfer ALT/SGPT 27 U/L (16-61); Albumin, Serum 3.4 g/dL (3.2-5.0); Alkaline Phosphatase 84 U/L (45-117); Anion Gap 7 (5-15); BUN 20 mg/dL (7-18); BUN/Creat Ratio 19.8 RATIO (10-20); Calcium,Total 8.8 mg/dL (8.5-10.1); Chloride 106 mmol/L (98-107); Creatinine, Serum 1.01 mg/dL (0.70-1.30); EST Glomerular Filtration Rate 77 mL/min (>60); Est Glom Filt Rate - Afr Amer 94 mL/min (>60); Globulin 4.2 g/dL (2.2-4.2); Glucose 96 mg/dL (74-106); Potassium 4.3 mmol/L (3.5-5.1); Protein, Total 7.6 g/dL (6.4-8.2); Sodium Level 138 mmol/L (136-145); Thyroid Stim Hormone (TSH) 1.24 uIU/mL (0.358-3.74)
[2020-11-30 03:07] LABS: Lyme IgG P18 Ab Absent (.); Lyme IgG P23 Ab Absent (.); Lyme IgG P28 Ab Absent (.); Lyme IgG P30 Ab Absent (.); Lyme IgG P39 Ab Absent (.); Lyme IgG P41 Ab Absent (.); Lyme IgG P45 Ab Absent (.); Lyme IgG P58 Ab Absent (.); Lyme IgG P66 Ab Absent (.); Lyme IgG P93 Ab Absent (.); Lyme IgM P23 Ab Absent (.); Lyme IgM P39 Ab Absent (.); Lyme IgM P41 Ab Absent (.)
[2020-11-30 14:03] LABS: Lyme IgG WB Interpretation Negative (.); Lyme IgM WB Interpretation Negative (.)
== END ==
PROVIDERS: PCP Family Medicine Geriatric Medicine; Referring Provider Family Medicine Geriatric Medicine; Visit Provider Family Medicine Geriatric Medicine
DX: I10 Essential (primary) hypertension (principal); E55.9 Vitamin D deficiency, unspecified; F52.8 Other sexual dysfunction not due to a substance or known physiological condition
CPT/HCPCS: 36415; 80053; 82306; 84403; 84443; 85025; 86617

== ENCOUNTER → 2020-12-28 08:24 | Outpatient (CLI) | payer MEDICARE, OTHER, SELFPAY ==
--- NOTE | 2020-12-28 08:33 | US_ITS ---
STUDY: ABDOMINAL ULTRASOUND - ELASTOGRAPHY REASON FOR VISIT: Male, 70 years old. Fatty infiltration of the liver. TECHNIQUE: Liver stiffness measurements were obtained on a [employer] RS 85 ultrasound machine using a CA 1-7 probe following the SRU guidelines. 3 measurements were obtained using a 2-D-SWE method. The IQR/M was 19% suggesting a quality data set. TECHNICAL QUALITY: Adequate. COMPARISON: None. FINDINGS: Liver: There is evidence of fatty infiltration of the liver. Median liver stiffness measured 6.7 kPa. US/Elastography Parenchyma/Organ IMPRESSION: Liver stiffness measures 6.7 kPa compatible with F2 Metavir score. Electronically Signed: Jim Donald MD at 10:10 EDT , Service support ,
== END ==
PROVIDERS: PCP Internal Medicine; Referring Provider Internal Medicine; Visit Provider Internal Medicine
DX: K76.0 Fatty (change of) liver, not elsewhere classified (principal)
CPT/HCPCS: 76981

== ENCOUNTER 2021-03-22 06:52 | Outpatient (CLI) | payer MEDICARE, OTHER, SELFPAY ==
--- NOTE | 2021-03-22 06:54 | ECHOD_ITS ---
Reason For Study: CHEST PAIN Procedure This was a 2D Doppler, Color Flow transthoracic echocardiogram. The study was technically difficult. Exam performed in department. Left Ventricle Normal LV size. Left ventricular systolic function is normal. The estimated ejection fraction is 60 %. No evidence for diastolic dysfunction. No regional wall motion abnormalities noted. Right Ventricle Normal RV size. Normal systolic function. Atria Normal left atrium. Normal right atrium. No doppler evidence for ASD. Bubble contrast study negative for right to left interatrial shunt. Mitral Valve There is no mitral annular calcification. Normal mitral valve. Trivial mitral valve insufficiency. Tricuspid Valve Normal tricuspid valve. Trivial tricuspid valve insufficiency. Right ventricular systolic pressure estimated to be 26 mmHg. Aortic Valve Trisinus/trileaflet aortic valve. Mild diffuse aortic valve thickening. Mild focal aortic valve calcification. Pulmonic Valve The pulmonic valve is not well visualized. Great Vessels Normal sized aortic root. Pericardium/Pleural No pericardial effusion. Medication Performed a rapid injection of agitated mix of 9 cc saline and 1cc air to assess for atrial septal defect. MMode/2D Measurements & Calculations LVIDd: 4.6 cm IVSd: 1.4 cm Ao root diam: 3.6 cm LVIDs: 3.1 cm LVPWd: 1.1 cm RVDd: 2.9 cm FS: 32.4 % LAV(MOD-bp): 52.4 ml LA A4 area: 15.9 cm2 LA dimension(2D): 3.5 cm LAV(MOD-bp) Indexed: 25.3 ml/m2 LAV(MOD-sp2): 49.2 ml LAV(MOD-sp4): 49.5 ml Time Measurements MV dec time: 0.26 sec Doppler Measurements & Calculations MV E max carlos: 54.0 cm/sec Lat Peak E' Carlos: 7.2 cm/sec Med Peak E' Carlos: 8.0 cm/sec MV A max carlos: 73.3 cm/sec E/E' lat: 7.5 E/E' med: 6.7 MV E/A: 0.74 Ao V2 max: 117.2 cm/sec LV V1 max: 115.9 cm/sec PA V2 max: 145.3 cm/sec Ao max P.5 mmHg LV V1 max P.4 mmHg TR max carlos: 241.1 cm/sec TR max P.3 mmHg ECHO/Echo Complete Interpretation Summary The study was technically difficult. Left ventricular systolic function is normal. The estimated ejection fraction is 60 %. Trivial mitral valve insufficiency. Trivial tricuspid valve insufficiency. Mild diffuse aortic valve thickening. Mild focal aortic valve calcification. Right ventricular systolic pressure estimated to be 26 mmHg. No evidence for diastolic dysfunction. Bubble contrast study negative for right to left interatrial shunt. Ordering Physician: Lefty^Castro^^^ Referring Physician: Cira Valverde Performed By: Symone Shankar, RDCS, RVT
--- NOTE | 2021-03-22 09:07 | STRESSREP ---
Stress Test Report Date: 03-22-2021 Procedure: Exercise tolerance test/imaging study Indications: Syncope; chest pain; shortness of breath/dyspnea Consent: Per the patient Procedure: The patient exercised on a Omari protocol for 9 minutes completing Stage III achieving a peak heart rate of 160 bpm (110% predicted maximal heart rate) with a peak blood pressure 210/98 mmHg and a peak MET capacity of 10 METs. The baseline ECG demonstrated normal sinus rhythm. The peak exercise ECG demonstrated approximately 0.5 to [address] segment depression in leads II, III, aVF, and V3 through V6 with resolution towards baseline beginning less than 1 minute in recovery. There was a rare PAC during exercise and an isolated PVC during recovery. The functional capacity was considered good. There was no complaint of chest discomfort during exercise or recovery. The examination was discontinued secondary to dyspnea. Impression: 1. Technically adequate (percent predicted maximal heart rate greater than 85%) exercise tolerance test 2. Peak exercise ECG with approximately 0.5 to 1.[address] segment depression in leads II, III, aVF, and V3 through V6 with resolution towards baseline beginning less than 1 minute in recovery 3. There was a rare PAC during exercise and an isolated PVC during recovery 4. Nuclear images pending Myocardial perfusion imaging study: Technique: The patient was injected with 11.4 mCi of technetium 99m Cardiolite and subsequently rest SPECT Cardiolite nuclear imaging was obtained in the horizontal long, vertical long, and short axis views. The patient exercised on a Omari protocol for 9 minutes completing Stage III achieving a peak heart rate of 160 bpm (110% predicted maximal heart rate) with a peak blood pressure 210/98 mmHg and a peak MET capacity of 10 METs. The patient was injected with 33.7 mCi of technetium 99m Cardiolite and subsequently stress SPECT Cardiolite nuclear imaging was obtained in the horizontal long, vertical long, and short axis views. A gated Cardiolite study at peak stress was obtained. Interpretation: Rest and stress SPECT Cardiolite nuclear imaging status post realignment, normalization, and attenuation correction, demonstrates at rest the appearance of a small area of subtle diminished tracer uptake near the apical segments which appears to improve/normalize status post stress. There is end systolic thickening and brightening. The gated Cardiolite study demonstrates myocardial thickening and inward wall motion. The reported LVEF is 64%. Impression: 1. Rest and stress SPECT Cardiolite nuclear imaging demonstrate myocardial perfusion changes at rest which appear to improve/normalize following stress appearing compatible with shifting soft tissue attenuation/artifact with no myocardial perfusion changes considered diagnostic for associated stress-induced myocardial ischemia. 2. The gated Cardiolite study reports an LVEF of 64%. This note was generated with [employer] software. It may contain incorrect words, spelling, and punctuation that were not noted in checking the note before signing.
== END 2021-03-22 23:59 | disposition short-term general hospital (02) ==
LOC: CVS 06:53
PROVIDERS: PCP Internal Medicine; Referring Provider Internal Medicine Cardiovascular Disease; Visit Provider Internal Medicine Cardiovascular Disease
DX: R55 Syncope and collapse (principal); E83.110 Hereditary hemochromatosis; R07.9 Chest pain, unspecified; R06.02 Shortness of breath; R42 Dizziness and giddiness; E78.2 Mixed hyperlipidemia; I10 Essential (primary) hypertension
CPT/HCPCS: 78452; 93017; 93225; 93226; 93306; A9500; A4216

== ENCOUNTER 2021-04-04 09:58 | Outpatient (CLI) | payer MEDICARE, OTHER, SELFPAY ==
--- NOTE | 2021-04-04 10:12 | MRI_ITS ---
STUDY: MRI ABDOMEN WITH AND WITHOUT CONTRAST REASON FOR EXAM: Male, 71 years old. FATTY LIVER, CIRRHOSIS, NO PAIN TECHNIQUE: Standardized fat and water weighted pulse sequences were obtained in all 3 orthogonal planes post contrast administration. 18ML IV DOTAREM was administered for the contrast portion of the examination. COMPARISON: None. FINDINGS: The visualized lung bases are unremarkable. The visualized portions of the heart are within normal limits. There is a mild contour abnormality of the liver which could represent early cirrhosis. Normal gallbladder and extrahepatic biliary system. Normal spleen. Normal pancreas. Normal bilateral adrenal glands. Normal right kidney. Normal left kidney. Normal visualized stomach. Normal small intestine. Normal colon. There is diffuse atherosclerotic calcification of the abdominal aorta, without a demonstrated aneurysm. Normal inferior vena cava. Normal retroperitoneum. Normal abdominal wall. There are diffuse degenerative changes of the visualized lumbar spine. MRI/MRI Abd WITH and W/O Contrast IMPRESSION: Mild contour abnormality of the liver which could represent early cirrhosis. No suspicious arterially hyperenhancing mass. No evidence of portal hypertension. Electronically Signed: Casa Malone MD at 16:19 EST Tel , Service support ,
[2021-04-04 10:41] LABS: EGFR FINGERSTICK > 60.0000 mL/min (>60)
== END 2021-04-04 23:59 | disposition short-term general hospital (02) ==
LOC: MRI 10:00
PROVIDERS: PCP Internal Medicine; Referring Provider Internal Medicine Gastroenterology; Visit Provider Internal Medicine Gastroenterology
DX: K74.60 Unspecified cirrhosis of liver (principal); K76.0 Fatty (change of) liver, not elsewhere classified
CPT/HCPCS: 74183; A9575; A4216

== ENCOUNTER 2021-04-13 11:47 | Outpatient (CLI) | payer MEDICARE, OTHER, SELFPAY ==
[2021-04-14 12:28] LABS: AFP, Tumor Marker 2.3 ng/mL (0.0-8.3)
== END 2021-04-13 23:59 | disposition short-term general hospital (02) ==
LOC: PSN 11:49
PROVIDERS: PCP Internal Medicine; Referring Provider Internal Medicine Gastroenterology; Visit Provider Internal Medicine Gastroenterology
DX: K74.60 Unspecified cirrhosis of liver (principal)
CPT/HCPCS: 36415; 82105; C9803

== ENCOUNTER 2021-04-20 08:07 | Outpatient (CLI) | payer MEDICARE, OTHER, SELFPAY | END 2021-04-20 23:59 | disposition home or self-care (01) | LOC: PSN 08:08 | PROVIDERS: PCP Internal Medicine; Referring Provider Internal Medicine Gastroenterology; Visit Provider Internal Medicine Gastroenterology | DX: Z11.59 Encounter for screening for other viral diseases (principal) | CPT/HCPCS: 87426; C9803 ==

== ENCOUNTER → 2022-06-15 | Outpatient (CLI) | payer MEDICARE, OTHER, SELFPAY ==
--- NOTE | 2022-06-15 10:46 | RAD_ITS ---
INDICATION: LEFT HIP PAIN EXAMINATION/TECHNIQUE: X-RAY - XR Hip Unilateral with Pelvis when performed; 2-3 Views COMPARISON: July 12, 2017 FINDINGS: PELVIC BONES: No displaced fracture, destructive or sclerotic lesions. Note that overlapping bowel shadows may however obscure fine detail. Sacroiliac joints are unremarkable. No widening of the pubic symphysis. HIPS: There are bilateral degenerative changes of the hips characterized by joint space narrowing and subchondral sclerosis. SOFT TISSUES: No soft tissue swelling or gas. There are phleboliths. RAD/HIP, UNI W/ Pelvis 2-3 Views IMPRESSION: Degenerative changes of the hips. Electronically Signed: Martha Kaminski MD at 12:38 EDT ,
== END | disposition home or self-care (01) ==
PROVIDERS: PCP Internal Medicine; Referring Provider Anesthesiology Pain Medicine; Visit Provider Anesthesiology Pain Medicine
DX: M25.552 Pain in left hip (principal)
CPT/HCPCS: 73502

== ENCOUNTER → 2023-04-17 | Outpatient (CLI) | payer MEDICARE, OTHER, SELFPAY ==
[2023-04-17 10:48] LABS: Absolute Lymphocyte Count 1.81 X10^3/uL (0.83-4.51); Basophil# 0.04 X10^3/uL; Basophil% 0.7 % (0-1); Eosinophil# 0.11 X10^3/uL; Hematocrit 39.2 % (40-54); Hemoglobin 12.3 g/dL (13.0-16.5); Lymphocyte # 1.81 X10^3/ul (0.83-4.51); Lymphocyte % 32.7 % (19-41); Mean Corp Hgb Conc 31.4 g/dL (32-36); Mean Corpuscular Hgb 24.8 pg (27.0-32.0); Mean Platelet Vol. 10.2 fl (6.2-12.0); Monocyte% 10.8 % (0-10); NRBC Flagged by Analyzer 0 % (0-5); Neutrophil # 2.95 X10^3/uL (2.7-7.7); Neutrophil % 53.4 % (47-70); Platelet Count 220 K/mm3 (150-450); RBC Distribution Width CV 16.2 % (11.6-14.6); Red Blood Count 4.96 M/mm3 (4.6-6.2); White Blood Count 5.5 K/mm3 (4.4-11.0)
[2023-04-17 11:32] LABS: Anion Gap 4 (5-15); BUN 21 mg/dL (7-18); BUN/Creat Ratio 18.8 RATIO (10-20); Calcium,Total 9.2 mg/dL (8.5-10.1); Chloride 106 mmol/L (98-107); Creatinine, Serum 1.12 mg/dL (0.70-1.30); EST Glomerular Filtration Rate 68 mL/min (>60); Est Glom Filt Rate - Afr Amer 83 mL/min (>60); Glucose 89 mg/dL (74-106); Sodium Level 135 mmol/L (136-145)
== END | disposition home or self-care (01) ==
LOC: LAB 09:34
PROVIDERS: PCP Internal Medicine; Referring Provider Clinical Nurse Specialist Adult Health; Visit Provider Clinical Nurse Specialist Adult Health
DX: Z79.899 Other long term (current) drug therapy (principal)
CPT/HCPCS: 36415; 80048; 85025

== ENCOUNTER 2023-08-29 08:30 | Outpatient (RCR) | payer MEDICARE, OTHER, SELFPAY ==
--- NOTE | 2023-07-31 09:15 | HP.PTEVAL ---
Patient's Visit Information Visit Information Visit Information: KATARINA BOWLES is a 73 year old M referred to Physical Therapy by Dr. Macario Torres MD with a diagnosis of Radiculopathy, Lumbosacral region. Date of Evaluation: 07/31/23 Physical Therapist: Silvia Her DPT Visit Plan Frequency: 2x /Week Duration: 4 Weeks Plan: Focus on LE and core strength/stabilization- Postural correction and lifting mechanics HEP Given IE: SKTC, DKTC, Hamstring Stretch, TA Contraction, Bridge, Postural Correction Subjective Subjective: Patient reports that he has been having lower caudal injections every 3 months for the last several years- this time they did not bring the sensation back. They use to last 8-9 months but now they aren't really lasting. He has issues with the left foot. He had back surgery 2001 or 2003 and that helped but he still had sciatic issues on the right side, but that was really from the right hip issues. He was in a tractor issues- then he had hip surgery and then he had hip surgery and that helped. Currently he has soreness along the back left side of the back and he is constantly cold from the knees down on both sides. He has some N/T in both feet. No radiating pain down the legs. Describes the pain in the back as dull and achy. Worst: 10 Agg: sitting in a bad type of chair, trimming bushes yesterday, cutting firewood. Eases: riding his bike- usually rides 5 miles a day on the bike trail, rest Best: 03/21. Sleep: wakes him up every couple of hours. He does not lay on his belly it makes him worse. He likes to be on his left side. No loss or change in bowel or bladder. He has had an x-ray but no recent MRI. He is hopeful to get an MRI after PT. 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 He tries to be active but is not very active in the winter but more in the summer. He does use an inversion board but only when he has to. PMHx: skin cancer Meds: Celebrex Objective Objective: Posture: forward head, rounded shoulder, increased kyphosis- can correct with verbal and tactile cues but does not maintain Gait: no deviation noted- good arm swing and trunk rotation HR/TR: able without UE support SLS: Left: 15 seconds Right: 5 seconds Sensation: WNL to gross touch bilateral LE Reflex: WNL to patella bilateral ROM: Lumbar: Flexion: hands to knees reports stiffness in back and dizziness, Extn: WNL no pain, SB: WNL bilateral no pain, Rot: WNL bilateral no pain, LE bilateral: WNL Strength: Core: fair minus, Left LE: Hip: Flexion: 4+/5, Abd: 4/5, Clams: 4/5, IR/ER: 4+/5, Extn: 4/5, Knee: 5/5, Ankle: 5/5 Right: Hip: 4+/5 throughout, Knee: 5/5 Ankle: 5/5 Flex: Hamstring: severe Gastroc: severe Special Tests L/S Slump test left side: Negative L/S Slump test right side: Negative L/S Left Straight Leg Raise: Negative L/S Right Straight Leg Raise: Negative Balance/Special Test Scores Oswestry Low Back Score: 11 Goals Goal 1:: Patient will be I with HEP and progression Goal Time Frame: 4-6 Weeks Goal 2:: Patient will maintain proper posture t/o tx session to demo increased core s/s Goal Time Frame: 4-6 Weeks Goal 3:: Patient will report 80% improvement Goal Time Frame: 4-6 Weeks Goal 4:: Patient will SLS on the right for 15 seconds Goal Time Frame: 4-6 Weeks Rehabilitation Potential Physical Therapy Diagnosis: Patient presents with hypomobility- he has decreased lumbar ROM, LE and core strength/stabilization, flex, proprioception and muscular endurance leading to poor posture and increased pain with ADL's. Rehabilitation Potential: Fair Anticipated Interventions Patient/Client Instruction: Educate patient on: Benefits of Fitness Program Therapeutic Exercise to Include: Strength training, Endurance training, Balance training, Agility training, Body mechanics, Postural training, Flexibilty training, Gait and locomotor training, Neuromotor development, Passive ROM, Active ROM, Dynamic Lumbar Stabilization and Scapular Strength/Stabilization For the Purpose of:: To improve muscle performance and motor function Text: Thank you for the opportunity to evaluate your patient. For Medicare and Medicare HMO plans, please review the plan of care and approve it. It will need to be FAXED BACK to us at [phone] for Medicare purposes. For Medicare only, by signing this I certify the plan of care. Please let me know if there are questions or concerns regarding this plan of care. Physician Signature: Date:
--- NOTE | 2023-08-29 09:21 | HP.PTDCSUM_ITS ---
Discharge Summary D/C summary: It has been my pleasure to treat KATARINA BOWLES referred by Dr. Macario Torres MD, with the diagnosis of Radiculopathy, Lumbosacral region for a total of 10 visit(s). Discharge Date: Please see the following information for a summary of their discharge status. Subjective Subjective: Patient reports that he had an injection yesterday and feels that he is a lot better. He can't even feel that spot any better. He has bands and ex ercises and feels confident using them. He is impressed with how much PT has really worked. Pain Left LB: Pain Intensity (Out of 10): 0 Overall Improvement % Improvement: 99 Objective Objective/Function: Posture: good throughout tx session Gait: no deviation noted- good arm swing and trunk rotation HR/TR: able without UE support Sensation: WNL to gross touch bilateral LE Reflex: WNL to patella bilateral ROM: Lumbar: WNL in all planes Strength: Core: fair, Hip: 4+/5 throughout, Knee: 5/5, Ankle: 5/5 Flex: Hamstring: severe Gastroc: severe Goals Goal 1:: Patient will be I with HEP and progression Goal Progress: Goal Met Goal 2:: Patient will maintain proper posture t/o tx session to demo increased core s/s Goal Progress: Goal Met Goal 3:: Patient will report 80% improvement Goal Progress: Goal Met Goal 4:: Patient will SLS on the right for 15 seconds Goal Progress: Progressing Plan Plan: 08/29/23: Discharge to home exercise program- encourage to call if questions or concerns arise. Focus on LE and core strength/stabilization. Postural correction and lifting mechanics D/C Information d/c sentence: If there are questions or concerns regarding this patient's physical therapy, please feel free to call me at [phone]. Thank you for the referral of this patient. Sincerely, Silvia Her, DPT Balance/Gait/Functional tests Balance/Special Test Scores Oswestry Low Back Score: 0 Improvement % Improvement: 99
== END 2023-08-29 19:00 | disposition home or self-care (01) ==
LOC: PT 08:30
PROVIDERS: PCP Internal Medicine; Referring Provider Anesthesiology Pain Medicine; Visit Provider Anesthesiology Pain Medicine
DX: M54.17 Radiculopathy, lumbosacral region (principal); M51.37 Other intervertebral disc degeneration, lumbosacral region
CPT/HCPCS: 97110; 97162; 97530

== ENCOUNTER → 2023-10-04 | Outpatient (CLI) | payer MEDICARE, OTHER, SELFPAY ==
[2023-10-04 11:56] LABS: SERUM TEARS COLLECTION SPECIMEN PROCESSED
== END | disposition home or self-care (01) ==
PROVIDERS: PCP Internal Medicine; Referring Provider Ophthalmology; Visit Provider Ophthalmology
DX: Z00.00 Encounter for general adult medical examination without abnormal findings (principal)
CPT/HCPCS: 36415

== ENCOUNTER → 2023-11-13 | Outpatient (CLI) | payer MEDICARE, OTHER, SELFPAY ==
--- NOTE | 2023-11-13 09:18 | US_ITS ---
STUDY: ABDOMINAL ULTRASOUND - RIGHT UPPER QUADRANT; ELASTOGRAPHY REASON FOR VISIT: Male, 73 years old. Cirrhosis. Screen for hepatocellular carcinoma. TECHNIQUE: Ultrasound evaluation of the right upper quadrant was performed with real-time and static watson-scale imaging. Point quantification shear wave elastography was performed (Animoto). TECHNICAL QUALITY: Adequate. COMPARISON: None. FINDINGS: Liver: The liver measures 14.6 cm. There is increased echogenicity consistent with fatty infiltration. The bile ducts are within normal limits. There is hepatic color flow. The direction of portal flow is hepatopetal. There is no demonstrated mass lesion. Median liver stiffness measured 12.1 kPa. Gallbladder: Normal distended gallbladder. The gallbladder wall measures 2.0 mm. There is a negative sonographic Lyon''s sign. There is no pericholecystic fluid. There are no gallstones. Common Bile Duct (C.B.D.): The common bile duct measures 2.9 mm. Pancreas: There is normal echogenicity of the visualized pancreas. There is no demonstrated pancreatic mass or cyst. Right Kidney: Normal size of the right kidney. The right kidney measures 10.9 cm x 4.9 cm x 5.5 cm. Normal renal cortex. The right cortex measures 1.2 cm. There is no demonstrated renal mass or cyst. There is no right hydronephrosis. US/ABD Limited w/ Elastography IMPRESSION: 1. Liver stiffness measures 12.1 kPa compatible with F2-F3 (Mild to moderate liver fibrosis) Metavir score. Electronically Signed: Jim Donald MD at 14:40 EDT ,
== END | disposition home or self-care (01) ==
LOC: US 09:11
PROVIDERS: PCP Internal Medicine; Referring Provider Internal Medicine; Visit Provider Internal Medicine
DX: K74.60 Unspecified cirrhosis of liver (principal)
CPT/HCPCS: 76705; 76981

== ENCOUNTER → 2024-04-12 | Outpatient (CLI) | payer MEDICARE, OTHER, SELFPAY ==
--- NOTE | 2024-04-12 08:30 | MRI_ITS ---
PROCEDURE: SPINE LUMBAR (ROUTINE) REASON FOR EXAM: Radiculopathy TECHNIQUE: Lumbar spine MRI without intravenous gadolinium-based contrast. COMPARISON: None. FINDINGS: Vertebrae: Lumbar vertebral body heights are preserved. Bone marrow signal is unremarkable. Alignment: Normal. No spondylolisthesis. Conus Medullaris: Normally positioned. L1-2: Unremarkable L2-3: Unremarkable L3-4: Unremarkable L4-5: Broad-based disc bulge with ventral thecal sac indentation and mild bilateral neural foraminal stenotic change right slightly worse than left. Facet hypertrophy. Disc desiccation is noted. L5-S1: Broad-based disc bulge with moderate ventral thecal sac indentation and mild bilateral neural foraminal stenotic change right slightly worse than left. Facet hypertrophy. Disc desiccation is noted. Sacrum: Visualized upper sacrum and SI joints are unremarkable. MRI/Spine Lumbar (Routine) IMPRESSION: No acute MR process. Moderate lumbosacral spondylolysis particularly L5-S1. Reading Location: [facility]
== END | disposition home or self-care (01) ==
PROVIDERS: PCP Internal Medicine; Referring Provider Anesthesiology Pain Medicine; Visit Provider Anesthesiology Pain Medicine
DX: M54.17 Radiculopathy, lumbosacral region (principal)
CPT/HCPCS: 72148

== ENCOUNTER → 2024-05-21 | Outpatient (CLI) | payer MEDICARE, OTHER, SELFPAY ==
--- NOTE | 2024-05-21 14:25 | NEURO ---
NCS and/or EMG Patient Report Ordering Doctor: Carlos Richter DATE OF SERVICE: 05/21/24 José presents with complaints of numbness and tingling in the lower limbs and poor balance. Electrodiagnostic findings: Left peroneal motor nerve demonstrates normal distal latency, amplitude and conduction velocity when measured at the tibialis anterior. Tibial motor responses within normal limits bilaterally. Prolonged tibial and peroneal F?waves. Prolonged H?reflex bilaterally. Absent sural response bilaterally. Prolonged superficial peroneal latency bilaterally. Needle EMG testing was performed the lower limbs. All muscles tested showed no evidence of denervation with normal motor unit action potentials. Electrodiagnostic impression: This is an abnormal study in the lower limbs 1. Electrodiagnostic findings suggestive of peripheral polyneuropathy, sensory greater than motor. 2. There is no electrodiagnostic evidence for lumbosacral radiculopathy. Multi Select Codes Neurology Neurology Interp Codes: 28571-05 Musc test done w/n test comp (interp) (2) and 83624-16 Nrv cndj test 11-12 studies (interp)
== END | disposition home or self-care (01) ==
LOC: PSN 06:48
PROVIDERS: PCP Internal Medicine; Referring Provider Orthopaedic Surgery Orthopaedic Surgery of the Spine; Visit Provider Orthopaedic Surgery Orthopaedic Surgery of the Spine
DX: R20.0 Anesthesia of skin (principal); G62.9 Polyneuropathy, unspecified
CPT/HCPCS: 95886; 95912

== ENCOUNTER → 2025-03-06 | Outpatient (CLI) | payer MEDICARE, SELFPAY ==
--- NOTE | 2025-03-06 10:15 | MRI_ITS ---
PROCEDURE: BRAIN W/WO CONTRAST 03/06/2025 REASON FOR EXAM: ASYMETRIC HEARING LOSS TECHNIQUE: Procedure Code: [id number] Modality: MR Procedure: BRAIN W/WO CONTRAST Multiplanar and multisequence images were obtained. CONTRAST: Leida scan VOLUME: 18 mL FINDINGS: Study also includes dedicated imaging of the internal auditory canals. Normal craniocervical junction. Tiny punctate area of increased diffusion signal on diffusion image 15 could represent a tiny subacute lacunar type infarction. Normal brainstem. No pathologic flow voids. Mild atrophy. Mild periventricular chronic microvascular change. The orbits are symmetric. There is mucosal thickening in the right maxillary sinus with hypointense internal secretions or debris which may reflect fungal colonization. Normal optic chiasm. Symmetric signal within the vestibule and cochlear on volumetric images at the skull base. No contour deformity of the internal auditory canals. No evidence of labyrinthine hemorrhage. No abnormal canalicular or middle ear enhancement. No dural sinus thrombosis. Whole brain postcontrast images are unremarkable MRI/Brain W/WO Contrast IMPRESSION: Chronic right maxillary sinus mucosal thickening. No etiology for hearing loss identified. Question the presence of a tiny subacute punctate lacunar type infarction in the right lenticular nucleus. Reading Location: [facility]
--- OUTSIDE RECORDS SUMMARY | 2025-03-06 10:16 | XMS RPT_ITS | CCD ---
Author Organization [facility] Care Team Providers Care Community Leader Name Role Phone Dyu Valverde MD Unavailable Alphonso , Dr. Calixto Unavailable Dr. Durga Werner Unavailable ADAM Fuchs LPN Unavailable Unavailable Unavailable Unavailable Duy Valverde MD Primary Care Provider Duy Valverde MD Unavailable Jamie Hale LPN Unavailable Unavailable Henna Al LPN Unavailable Unavailable Duy Valverde MD Primary Care Provider Duy Valverde MD Primary Care Provider Duy Valverde MD Primary Care Provider Mei Brewster MA Unavailable Unavailable Dr. Duy Valverde Primary Care Provider Dr. Duy Valverde Referring Provider Dr. Castro Olea Attending Provider Duy Valverde MD Attending Unavailable Duy Valverde MD Referring Unavailable Duy Valverde MD Consulting Unavailable Duy Valverde MD Primary Care Provider Connor Herzog Unavailable Durga Werner MD Unavailable Duy Valverde MD Primary Care Provider Dr. Duy Valverde MD Primary Care Provider Brian THAPA Dr. Macario Attending Provider Brian THAPA, Dr. Sorto Referring Provider Abram THAPA, Dr. Denis Referring Provider Rober THAPA, Dr. Gonzalez Attending Provider Katina THAPA, Dr. Girard Attending Provider Rober THAPA, Dr. Gonzalez Referring Provider Rober THAPA, Dr. Gonzalez Other Provider Rick THAPA, Dr. Sandoval Attending Provider [phone] BONEZZI, DUY M Primary Care Unavailable STACIE CHASE Attending Unavailable BONEZZI, DUY M Primary Care Unavailable STACIE CHASE Attending Unavailable Bonejohn THAPA, Dr. Denis Primary Care Provider Abram THAPA, Dr. Denis Referring Provider Trevor THAPA, Dr. Bower Attending Provider [phone] BONEZZI, DUY M Primary Care Unavailable MASCI, CASTRO A Referring Unavailable MASCI, CASTRO Dean Attending Unavailable MASCI, CASTRO A Referring Unavailable BONEZZI, DUY M Primary Care Unavailable BONEZZI, DUY M Primary Care Unavailable MASCI, CASTRO A Referring Unavailable BONEZZI, DUY M Primary Care Unavailable MASCI, CASTRO A Referring Unavailable BONEZZI, DUY M Primary Care Unavailable MASCI, CASTRO A Referring Unavailable BONEZZI, DUY M Primary Care Unavailable MASCI, CASTRO A Referring Unavailable BONEZZI, DUY M Primary Care Unavailable MASCI, CASTRO A Referring Unavailable BONEZZI, DUY M Primary Care Unavailable MASCI, CASTRO A Referring Unavailable MARÍA VALLE Attending Unavailable MASCI, CASTRO A Referring Unavailable BONEZZI, DUY M Primary Care Unavailable BONEZZI, DUY M Primary Care Unavailable MASCI, CASTRO A Referring Unavailable BONEZZI, DUY M Primary Care Unavailable MASCI, CASTRO A Referring Unavailable Bonezzi, Duy Primary Care Unavailable Bonezzi, Duy Referring Unavailable Carlos Richter Attending Unavailable Sathish Murray Attending Unavailable Bonezzi, Duy Primary Care Unavailable Carlos Richter Referring Unavailable Bonezzi, Duy Primary Care Unavailable Jaime Cabrera Attending Unavailable Carlos Richter Consulting Unavailable RichterCarlos Referring Unavailable Bonezzi, Duy Primary Care Unavailable Bonejovanii, Duy Referring Unavailable Carlos Richter Attending Unavailable Macario Torres Attending Unavailable Macario Torres Referring Unavailable Bonezzi, Duy Primary Care Unavailable RichterCarlos Referring Unavailable Bonezzi, Duy Primary Care Unavailable Carlos Richter Attending Unavailable Shaji Ambriz Attending Unavailable Bonezzi, Duy Primary Care Unavailable Allergies Allergy Classification Reported Allergen(s) Allergy Type Date of Onset Reaction(s) Facility (5 sources) Oqtcdlw-Ddv-Vvn Reductase Inhibitor Propensity to adverse reactions 2 Intolereant [facility] (7 sources) HMG-CoA reductase inhibitor; Translations: [GAUEYSS-UNP-EH A REDUCTASE INHIBITORS] Propensity to adverse reactions to drug 1 Other (See Comments) [facility] (1 source) Uxtrisw-Hyu-Rip Reductase Inhibitor Drug allergy (disorder) 5 [facility] Repository Medications Current Medications Medication Drug Class(es) Dates Sig (Normalized) Sig (Original) ALOE CAPE (ALOE MISC) (17 sources) ALOE CAPE (ALOE MISC) Indications: Hemochromatosis , Erectile dysfunction , Hyperglycemia 1 oz once daily. 1 oz daily Active ALOE CAPE (ALOE MISC) Indications: Hemochromatosis , Erectile dysfunction , Hyperglycemia 1 oz once daily. 1 oz daily 0 Active ALOE CAPE (ALOE MISC) Indications: Hemochromatosis , Erectile dysfunction , Hyperglycemia 1 oz daily 0 Active Comment on above: 1 oz daily 1 oz once daily. 1 o z daily calcium carbonate 1500 mg oral tablet (20 sources) Start: 01-30-2013 calcium carbonate (OS-SAMANTHA) 600 mg calcium (1,500 mg) tablet Take 2 (two) tablets (1,200 mg total) by mouth . 01/30/2013 Active Start: 01-30-2013 take 2 tablets by [facility] once daily Calcium Carbonate 600 MG tablet Active 1200 mg PO DAILY@799January 30, 2013 1:00am Start: 01-30-2013 take 1200 mg by mouth once louise ly Calcium Carbonate Active 1200 MG PO DAILY@799January 30, 2013 12:00am celecoxib 200 mg oral capsule (18 sources) Nonsteroidal Anti-inflammatory Drug Start: 01-01-2023 take 1 capsule by mouth once daily celecoxib (CELEBREX) 200 mg capsule Take 200 mg by mouth once daily. 01/01/2023 Active Comment on above: pain doc Take 200 mg by mouth once daily. chondroitin sulfates 400 mg / glucosamine hydrochloride 500 mg oral tablet (11 sources) Start: 01-30-2013 glucosamine-meggan droitin 500-400 mg tablet Take 2,013 Unspecified by mouth . 01/30/2013 Active Start: 01-30-2013 End: 05-15-2024 Glucosamine-Chondroitin 1 EA CH capsule Discontinued 1 NMA PO DAILY January 30, 2013 1:00am May 15, 2024 1:29pm Start: 01-30-2013 Glucosamine-Ch ondroitin Active 1 EACH PO DAILY January 30, 2013 12:00am cyanocobalamin, vitamin B-12, (VITAMIN B-12 INJECTION) (1 source) cyanocobalamin, vitamin B-12, (VITAMIN B-12 INJECTION) by INJECTION(UNSPECIFIED PARENTERAL ROUTES) route once every month. Active DULoxetine 30 mg delayed release oral capsule (6 sources) Serotonin and Norepinephrine Reuptake Inhibitor Start: 2023 take 1 capsule by mouth once daily Duloxetine 30 mg capsule,delayed release(DR/EC) Active 30 mg PO daily May 15, 2024 1:00am finasteride 5 mg oral tablet (20 sources) 5-alpha Reductase Inhibitor Start: 2016 End: 2024 take 1 tablet by mouth once daily finasteride (PROSCAR) 5 mg tablet Take 5 mg by mouth once daily. 09/26/2016 Active Comment on above: Take 5 mg by mouth o nce daily. fish oil-omega-3 fatty acids 1,000 mg capsule (6 sources) Start: 2020 fish oil-omega-3 fatty acids 1,000 mg capsule Take 1 Unspecified by mouth . 02/24/2021 Active Start: 02-24-2021 fish oil-omega -3 fatty acids 1,000 mg capsule Take 1 Unspecified by mouth . 0 02/24/2021 Active GLUC/CHND/OM3/DHA/EPA/FISH/S TR (GLUCOSAMINE CHONDROITIN PLUS ORAL) (17 sources) take 1 capsule by mouth twice daily GLUC/CHND/OM3/DHA/EPA/FISH/STR (GLUCOSAMINE CHONDROITIN PLUS ORAL) Take 1 capsule by mouth twice daily. Active take 1 capsule by [facility] twice daily GLUC/CHND/OM3/DHA/EPA/FISH/STR (GLUCOSAM INE CHONDROITIN PLUS ORAL) Take 1 capsule by mouth twice daily. 0 Active Comment on above: Take 1 capsule by [facility] twice daily. glucosamine sulfate 1000 mg oral capsule (5 sources) Start: 05-15-2024 take 1 capsule by mouth once daily Glucosamine Sulfate 1,000 mg capsule Active 1000 mg PO daily May 15, 2024 1:00am administer with a meal Start: 01-02-2023 take 1 capsule by [facility] twice daily at mealtime glucosamine sulfate 1,000 mg oral capsule 1 Capsule 2 times per day;administer with meals for 0 days Quantity: 60 {Capsule} Refills: 0 Ordered: 02-Jan-2023 Abram THAPA, Duy Valverde MD, Duy Dominguez Start : 02-Jan-2023 Active Ujzacdxrt-O5-Lxo98-Algal Oil (Metanx (Algal Oil)) 3 mg-35 mg-2 mg -90.314 mg capsule (2 sources) Start: 05-15-2024 take 1 capsule by mouth twice daily Pijqfdywz-Q8-Wov66-Algal Oil (Metanx (Algal Oil)) 3 mg-35 mg-2 mg -90.314 mg capsule Active 1 NMA PO TWICE A DAY May 15, 2024 1:00am losartan potassium 50 mg oral tablet (20 sources) Angiotensin 2 Receptor Mary Start: 06-05-2022 take 1 tablet by mouth once daily Losartan 50 mg tablet Active 50 mg PO daily May 15, 2024 1:00am Comment on above: Take 50 mg by mouth once daily. magnesium oxide 400 mg oral tablet (1 source) take 400 mg by mouth once daily magnesium oxide (MAG-OXIDE ORAL) Take 400 mg by mouth once daily. Active omeprazole 20 mg delayed release oral tablet (20 sources) Proton Pump Inhibitor Start: 05-15-2024 take 1 tablet by mouth once daily Omeprazole Magnesium (Prilosec Otc) 20 mg tablet,delayed release (DR/EC) Active 20 mg PO daily May 15, 2024 1:00am Start: 01-02-2023 take 1 tablet by [facility] once daily PriLOSEC OTC 20 mg oral tablet, delayed release (enteric coated) 1 Tablet daily for 0 days Quantity: 30 {Tablet} Refills: 0 Ordered: 02-Jan-2023 Duy Valverde MD, MD, Duy Dominguez Start : 02-Jan-2023 Active Start: 11-24-2019 End: 11-09-2020 take 1 capsule by mouth once daily Omeprazole 40 MG capsule,delayed release(DR/EC) Discontinued 40 mg PO DAILY November 24, 2019 12:00am November 09, 2020 9:02am take 1 capsule by mo [facility] twice daily omeprazole (PRILOSEC) 40 MG capsule Take 1 (one) capsule (40 mg total) by mouth 2 (two) times a day . Active Comment on above: Take 40 mg by mouth twice daily. Take 40 mg by mouth once daily. OTC PRODUCT (19 sources) OTC PRODUCT Acti ve take 1 tablet by mouth twice louise ly OTC PRODUCT Take 1 tablet by mouth two times a day. Liver MD Active take 1 tablet by mouth once tyrese y OTC PRODUCT Take 1 tablet by mouth once daily. Thistle Seed Active take 1 tablet by mouth twice louise ly OTC PRODUCT Take 1 tablet by mouth two times a day. Liver MD 0 Active take 1 tablet by mouth once tyrese y OTC PRODUCT Take 1 tablet by mouth once daily. Thistle Seed 0 Active Comment on above: Take 1 tablet by william th two times a day. Liver MD Take 1 tablet by william th once daily. Thistle Seed pregabalin 25 mg oral capsule (2 sources) Start: 07-29-2024 take 1 capsule by mouth three times daily pregabalin (LYRICA) 25 MG capsule Take 1 (one) capsule (25 mg total) by mouth 3 (three) times a day . 07/29/2024 Active take 1 capsule by mouth twice da loli pregabalin (LYRICA) 25 mg capsule Take 25 mg by mouth two times a day. Active red yeast rice 600 mg oral capsule (2 sources) Start: 05-15-2024 take 1 capsule by mouth once daily Red Yeast Rice 600 mg capsule Active 600 mg PO daily May 15, 2024 1:00am give with meal/snack sildenafil 100 mg oral tablet (20 sources) Phosphodiesterase 5 Inhibitor Start: 05-15-2024 take 1 tablet by mouth once daily as needed Sildenafil 100 mg tablet Active 100 mg PO daily as needed May 15, 2024 1:00am Start: 02-23-2022 sildenafiL 100 mg oral tablet 1 Tablet daily;sexual activity;administer 30 minutes to 4 hours before activity for 0 days Quantity: 30 {Tablet} Refills: 3 Ordered: 23-Feb-2022 Henna Al LPN Start : 23-Feb-2022 Active Comments: had Good RX coupon Start: 02-18-2021 End: 05-15-2024 Sildenafil 25 mg tablet Disc ontinued 75 mg PO DAILY as needed February 18, 2021 1:00am May 15, 2024 1:29pm administer 30 minutes to 4 hours before activity Start: 02-18-2021 Sildenafil Act ruy 75 MG PO DAILY February 18, 2021 12:00am administer 30 minutes to 4 hours before activity Comment on above: had Good RX coupon tadalafil 20 mg oral tablet (20 sources) Phosphodiesterase 5 Inhibitor Start: 03-18-19 14 CIALIS 20 mg tablet 1 tablet. as directed 03/18/2013 Active Comment on above: 1 tablet. as directe d tamsulosin hydrochloride 0.4 mg oral capsule (20 sources) alpha-Adrenergic Mary Start: 12-14-19 19 take 1 capsule by mouth at bedtime Tamsulosin 0.4 MG capsule Active 0.4 mg PO AT BEDTIME December 13, 2018 12:00am Comment on above: Take 0.4 mg by mouth once daily. Completed/Discontinued Medications Medication Drug Class(es) Dates Sig (Normalized) Sig (Original) amitriptyline hydrochloride 10 mg oral tablet (20 sources) Tricyclic Antidepressant Start: 10-06-2021 End: 03-14-2022 amitriptyline 10 mg oral tablet 3 (three) Tablet at HS as needed for 0 days Quantity: 90 {Tablet} Refills: 3 Ordered: 14-Mar-2022 Abram THAPA, Duy Mendosa MD Start : 06-Oct-2021 End : 14-Mar-2022 Inactive Comments: Medication taken as needed. Start: 06-21-2021 Amitriptyline HCl 10 MG Oral Tablet 1 or 2 Tablet at HS as needed for 0 days Quantity: 180 {Tablet} Refills: 3 Ordered: 21-Jun-2021 Abram THAPA, Duy Mendosa MD Start : 21-Jun-2021 Active Comments: Medication taken as needed. Start: 05-24-2021 End: 05-15-2024 take 2 tablets by mouth once daily Amitriptyline 10 mg tablet Discontinued 20 mg PO DAILY May 24, 2021 8:34am May 15, 2024 1:29pm Start: 05-24-2021 take 20 mg by mouth once daily Amitriptyline Active 20 MG PO DAILY May 24, 2021 7:34am Start: 02-08-2021 End: 05-24-2021 take 1 tablet by mouth once daily as needed Amitriptyline 10 mg tablet Discontinued 10 mg PO DAILY as needed February 24, 2021 1:00am May 24, 2021 8:36am Comment on above: Medication taken as needed. amLODIPine 10 mg oral tablet (7 sources) Dihydropyridine Calcium Channel Mary Start: 10-09-19 13 take 1 tablet by mouth once daily AMLODIPINE 10 mg tablet Indications: Hemochromatosis Take 10 mg by mouth once daily. 0 10/08/2012 Active Comment on above: Take 10 mg by mouth once daily. aspirin 81 mg delayed release oral tablet (20 sources) Platelet Aggregation Inhibitor, Nonsteroidal Anti-inflammatory Drug Start: 02-25-20 End: 05-26-19 take 1 tablet by mouth once daily Aspirin (Adult Low Dose Aspirin) 81 mg tablet,delayed release (DR/EC) Discontinued 81 mg PO DAILY May 24, 2021 8:36am May 25, 2022 11:02am Does not take on a regular basis Start: 12-21-2020 End: 07-17-2022 take 1 tablet by mouth once daily aspirin 81 mg oral tablet,chewable 1 (one) Tablet daily for 0 days Quantity: 30 {Tablet} Refills: 0 Ordered: 17-Jul-2022 Henna Al LPN Start : 21-Dec-2020 End : 17-Jul-2022 Inactive ezetimibe 10 mg oral tablet (15 sources) Dietary Cholesterol Absorption Inhibitor Start: 02-23-2022 End: 07-17-2022 take 1 tablet by mouth in the morning ezetimibe 10 mg oral tablet 1 (one) tablet in am for 0 days Quantity: 30 {Tablet} Refills: 6 Ordered: 17-Jul-2022 Henna Al LPN Start : 23-Feb-2022 End : 17-Jul-2022 Inactive fluticasone propionate 0.05 mg/actuat metered dose nasal spray (5 sources) Corticosteroid Start: 02-24-2021 End: 05-25-2022 take 50 ug nasal route once daily Fluticasone Propionate (Flonase Allergy Relief) 50 mcg/actuation spray,suspension Discontinued 1 NMA INTRANASAL DAILY February 24, 2021 1:00am May 25, 2022 11:03am administer into each nostril Start: 02-24-2021 End: 05-25-2022 take 1 spray(s) nasal route once daily Fluticasone Propionate (Flonase Allergy Relief) 50 mcg/actuation spray,suspension Discontinued 1 SPRAY INTRANASAL DAILY February 24, 2021 12:00am May 25, 2022 10:03am administer into each nostril gabapentin 300 mg oral capsule (5 sources) Anti-epileptic Agent Start: 11-24-2019 End: 11-09-2020 take 1 capsule by mouth twice daily at mealtime Gabapentin 300 MG capsule Discontinued 300 mg PO TWICE DAILY WITH MEALS November 24, 2019 12:00am November 09, 2020 9:01am meloxicam 7.5 mg oral tablet (12 sources) Nonsteroidal Anti-inflammatory Drug Start: 07-24-2014 End: 11-09-2020 take 1 tablet by mouth at bedtime Meloxicam 7.5 MG tablet Discontinued 7.5 mg PO AT BEDTIME July 24, 2014 12:00am November 09, 2020 9:02am Comment on above: Take 7.5 mg by mouth once daily. Bellona-3 Fatty Acids (Fish Oil Concentrate) 1,000 mg capsule (5 sources) Start: 02-24-2021 End: 05-15-2024 take 1 capsule by mouth once daily Bellona-3 Fatty Acids (Fish Oil Concentrate) 1,000 mg capsule Discontinued 1000 mg PO DAILY February 24, 2021 1:00am May 15, 2024 1:29pm Start: 02-24-2021 take 1 capsule by mo uth once daily Bellona-3 Fatty Acids (Fish Oil Concentrate) 1,000 mg capsule Active 1000 MG PO DAILY February 24, 2021 1:00am Start: 02-24-2021 take 1 capsule by mo uth once daily Bellona-3 Fatty Acids (Fish Oil Concentrate) 1,000 mg capsule Active 1000 MG PO DAILY February 24, 2021 12:00am shark cartilage extract 500 mg oral capsule (20 sources) Start: 01-02-2023 take 1 capsule by mouth twice daily shark cartilage 500 mg oral capsule 1 (one) capsule bid for 30 days Refills: 0 Ordered: 02-Jan-2023 Abram THAPA, Duy Valverde MD, Duy Dominguez Start : 02-Jan-2023 Active Start: 05-24-2021 End: 05-15-2024 take 1 capsule by mouth twice daily Shark Cartilage 500 mg capsule Discontinued 2000 mg PO TWICE A DAY May 24, 2021 12:00am May 15, 2024 1:29pm Start: 05-24-2021 take 2000 mg by mout h twice daily Shark Cartilage Active 2000 MG PO TWICE A DAY May 24, 2021 12:00am Start: 05-24-2021 take 2000 mg by mout h twice daily Shark Cartilage Active 2000 MG PO TWICE A DAY May 23, 2021 11:00pm take 2250 mg by mout h twice daily SHARK CARTILAGE ORAL Take 2,250 mg by mouth 2 (two) times a day . Active take 2250 mg by mout h twice daily SHARK CARTILAGE ORAL Take 2,250 mg by mouth twice daily. Active take 2250 mg by mout h twice daily SHARK CARTILAGE ORAL Take 2,250 mg by mouth 2 (two) times a day . 0 Active take 2250 mg by mout h twice daily SHARK CARTILAGE ORAL Take 2,250 mg by mouth twice daily. 0 Active Comment on above: Take 2,250 mg by william th twice daily. temazepam 15 mg oral capsule (15 sources) Benzodiazepine Start: 022 End: take 1 capsule by mouth once daily at bedtime RestoriL 15 mg oral capsule 1 Capsule every day at bedtime;sleep for 0 days Quantity: 20 {Capsule} Refills: 0 Ordered: 17-Jul-2022 Henna Al LPN Start : 23-Feb-2022 End : 17-Jul-2022 Inactive Comments: twenty Comment on above: twenty traZODone hydrochloride 50 mg oral tablet (13 sources) Serotonin Reuptake Inhibitor Start: 023 End: traZODone 50 mg oral tablet 1 (one) tablet at night for 0 days Quantity: 30 {Tablet} Refills: 1 Ordered: 17-Jul-2022 Henna Al LPN Start : 14-Mar-2022 End : 17-Jul-2022 Inactive vitamin b12 2.5 mg sublingual tablet (14 sources) Vitamin B12 Start: take 1 tablet under the tongue once daily cyanocobalamin (vit B-12) 2,500 mcg sublingual tablet 1 Tablet daily for 0 days Quantity: 30 {Tablet} Refills: 0 Ordered: 02-Jan-2023 Abram THAPA, Duy Valverde MD, Duy Dominguez Start : 02-Jan-2023 Active Start: 02-24-2021 take 1 tablet by william th once daily Cyanocobalamin (Vitamin B-12) 1,000 mcg tablet Active 1000 ug PO DAILY February 24, 2021 1:00am Problems Active Problems Problem Classification Problem Date Documented Date Episodic/Chronic Abdominal hernia (20 sources) Hiatal hernia; Translations: [Hiatal hernia] 02-08-2021 Episodic Comment on above: EGD 9-20 Alcohol-related disorders (20 sources) Nondependent alcohol abuse, episodic; Translations: [Alcohol abuse, episodic (Renamed from Nondependent alcohol abuse, episodic drinking behavior)] 02-08-2021 Chronic Comment on above: now sleep better TCA . now sleep better TCA . ibuprofen helping pain not drink as much knows needs to stop etoh sleep better TCA but felt groggy in am and rather have etoh. nsaids helping pain. not drink as much 3 ounces whiskey at night no more Blindness and vision defects (6 sources) Eye / vision finding; Translations: [Change in vision] 01-02-2023 Episodic Comment on above: glasses not working Calculus of urinary tract (20 sources) History of calculus of kidney; Translations: [History of nephrolithiasis] 02-08-2021 Episodic Conditions associated with dizziness or vertigo (6 sources) Dizziness; Translations: [Dizziness and giddiness] 05-24-2021 Episodic Coronary atherosclerosis and other heart disease (14 sources) Coronary atherosclerosis and other heart disease Disorders of lipid metabolism (20 sources) Hyperlipidemia; Translations: [Hyperlipidemia, mild] 02-08-2021 Chronic Comment on above: LDL went down 123 wi th diet sometry cholesterol meds not sleep. lipoprot a and homocysteine good ldl 134 he eats alot eggs cheese. wiluse harrison greese at time he loves his eggs so laurence will try to cut out snacking on cheese go to raw tree nuts and cut out harrison grease.try cholesterol meds not sleep. lipoprot a and homocysteine good eat alot animal and not able to restrict. will add zetiatry cholesterol meds not sleep. lipoprot a and homocysteine good eat alot animal and not able to restrict. will refuse meds less 130 now like less than 100try cholesterol meds not sleep. lipoprot a and homocysteine good Disorders of teeth and jaw (20 sources) Temporomandibular joint disorder; Translations: [TMJ (temporomandibular joint disorder)] 04-18-2022 Episodic Comment on above: got bite plate and h elp alot less ringing and pain Esophageal disorders (20 sources) Gastroesophageal reflux disease; Translations: [GERD (gastroesophageal reflux disease)] 02-08-2021 Chronic Essential hypertension (20 sources) Essential hypertension; Translations: [Essential (primary) hypertension] 06-05-2022 Chronic Hyperplasia of prostate (20 sources) Benign prostatic hyperplasia; Translations: [BPH (benign prostatic hyperplasia)] 02-08-2021 Chronic Immunizations and screening for infectious disease (6 sources) Needs influenza immunization; Translations: [Need for prophylactic vaccination and inoculation against influenza (Renamed from Need for immunization against influenza)] 01-02-2023 Episodic Miscellaneous mental health disorders (20 sources) Male erectile disorder; Translations: [Erectile dysfunction of nonorganic origin] 02-23-2022 Chronic Comment on above: talkabout taking uyen lis daily so that help HTN and BPH Neoplasms of unspecified nature or uncertain behavior (20 sources) Neoplasm of uncertain behavior of skin; Translations: [Neoplasm of uncertain behavior of skin] 03-14-2022 Episodic Nonspecific chest pain (6 sources) Chest pain; Translations: [Chest pain, unspecified] 05-24-2021 Episodic Nutritional deficiencies (3 sources) Cobalamin deficiency; Translations: [Deficiency of other specified B group vitamins] Onset: 5 10-13-2024 Episodic Comment on above: Recommend B12 replac ement as noted above. Osteoarthritis (13 sources) Osteoarthritis of left hip joint; Translations: [Osteoarthritis of left hip, unspecified osteoarthritis type] 07-17-2022 Chronic Comment on above: Dr. torres did deep hip injections help little right now on advil. Other acquired deformities (3 sources) Lumbar spondylolisthesis; Translations: [Spondylolisthesis, lumbar region] 05-15-2024 Episodic Other bone disease and musculoskeletal deformities (20 sources) Osteopenia; Translations: [Osteopenia] 02-08-2021 Episodic Other connective tissue disease (20 sources) Pain in lower limb; Translations: [Leg pain] 02-08-2021 Episodic Other connective tissue disease (5 sources) Pain in left lower limb; Translations: [Pain in left leg] 11-11-2019 Episodic Other diseases of veins and lymphatics (20 sources) Peripheral venous insufficiency; Translations: [Chronic venous insufficiency] 02-08-2021 Episodic Other ear and sense organ disorders (20 sources) Bilateral tinnitus; Translations: [Tinnitus, bilateral] 02-23-2022 Episodic Comment on above: related to jaw injur y and jaw issues bite plate help right now off so ringing is back Other infections; including parasitic (20 sources) Late effects of other and unspecified infectious and parasitic diseases; 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 Werner EGD 2021, MRI 2021, AFP 04-02 Newly diagnosed. Non alcoholic Other lower respiratory disease (20 sources) Dyspnea; Translations: [SOB (shortness of breath)] Resolved: 2 02-08-2021 Episodic Comment on above: notice starting this spring before covid hard to carry turkey up [place]. worse year. will see head porter. Other lower respiratory disease (1 source) Shortness of breath; Translations: [Shortness of breath] 05-25-2022 Episodic Other nervous system disorders (3 sources) Peripheral nerve disease ; Translations: [Polyneuropathy, unspecified] 05-15-2024 Chronic Comment on above: Patient has neuropat hy which appears to be polyneuropathy primarily sensory documented by EMG and nerve conduction study. Patient's symptoms include difficulty feeling his feet difficulty with balance due to loss of vibratory sense and proprioception. Patient is noted to have B12 deficiency which may account for these changes. Patient is currently receiving therapy for replacement of B12 deficiency. He is receiving injections as well as oral dosing. There does not appear to be a familial tendency for B12 deficiency or malabsorption. He does not appear to have an obvious cause for B12 deficiency such as pernicious anemia or diseases of the stomach or terminal ileum. Other nervous system disorders (3 sources) Neuropathy; Translations: [Polyneuropathy, unspecified] 05-15-2024 Chronic Other nervous system disorders (2 sources) Polyneuropathy, unspecified; Translations: [Polyneuropathy, unspecified] Onset: 5 Chronic Other nervous system disorders (5 sources) H/O: Disorder; Translations: [Personal history of other diseases of the nervous system and sense organs] 02-18-2021 Episodic Other nervous system disorders (3 sources) Impairment of balance; Translations: [Other abnormalities of gait and mobility] 05-15-2024 Episodic Other non-traumatic joint disorders (20 sources) Pain in right knee; Translations: [Knee pain, bilateral] 02-08-2021 Episodic Comment on above: will do home exercis e first looks like patellafemoral syndrome Other nutritional; endocrine; and metabolic disorders (20 sources) Hereditary hemochromatosis; Translations: [Hereditary hemochromatosis] Onset: 5 Chronic Other nutritional; endocrine; and metabolic disorders (2 sources) Hereditary hemochromatosis; Translations: [Hereditary hemochromatosis] Onset: 5 Chronic Other nutritional; endocrine; and metabolic disorders (11 sources) Body mass index 25-29 - overweight; Translations: [BMI 28.0-28.9,adult] 02-08-2021 Episodic Other nutritional; endocrine; and metabolic disorders (20 sources) Overweight in adulthood with body mass index of 25 or more but less than 30; Translations: [BMI 28.0-28.9,adult] 10-06-2021 Episodic Other screening for suspected conditions (not mental disorders or infectious disease) (20 sources) Screening status; Translations: [Encounter for screening for malignant neoplasm of colon (Renamed from Special screening for malignant neoplasms, colon)] 02-08-2021 Episodic Other upper respiratory disease (20 sources) Acquired deviated nasal septum; Translations: [Acquired deflected nasal septum] 02-08-2021 Episodic Other upper respiratory disease (2 sources) Acquired nasal septal defect; Translations: [Other specified disorders of nose and nasal sinuses] 11-11-2019 Episodic Other upper respiratory disease (12 sources) Perforation of nasal septum; Translations: [Other specified disorders of nose and nasal sinuses] Onset: 2 Episodic Other upper respiratory disease (4 sources) Nasal mucosa dry; Translations: [Other specified disorders of nose and nasal sinuses] Episodic Other upper respiratory disease (3 sources) Disorder of nasal septum; Translations: [Other specified disorders of nose and nasal sinuses] 11-11-2019 Episodic Other upper respiratory disease (2 sources) Other specified disorders of nose and nasal sinuses; Translations: [Other specified disorders of nose and nasal sinuses] Onset: 2 Episodic Other upper respiratory infections (20 sources) Chronic sinusitis; Translations: [Chronic sinusitis] 02-08-2021 Chronic Comment on above: he has had fractures in nose and sinus. had surgery in right maxillary had cut open by monisha and not work then Dr. chase use button and work well Residual codes; unclassified (20 sources) Disturbance in sleep behavior; Translations: [Sleep disturbance] 02-08-2021 Episodic Comment on above: had for years pain i s better. not have caffiene in afternoon. no ambien with cirrhosis and etoh. restoril willtry aware CANNOT use with etoh. aware of risk but need to get him sleeping.TCA --irritable, otc meds not work, had for years pain i s better. not have caffiene in afternoon. no ambien with cirrhosis and etoh. restoril--unsteady in night and am has to use cane. willtry trazodone.TCA --irritable, otc meds not work, had for years pain i s better. not have caffiene in afternoon. no ambien with cirrhosis and etoh. restoril--unsteady in night and am has to use canean use trazadone to reset sleep for week and works.TCA --irritable, otc meds not work, Residual codes; unclassified (20 sources) Non-smoker; Translations: [Non-smoker] 06-06-2021 Episodic Residual codes; unclassified (5 sources) Disorientated; Translations: [Disorientation, unspecified] 02-18-2021 Episodic Residual codes; unclassified (20 sources) History of chest pain; Translations: [History of chest pain] 02-23-2022 Episodic Comment on above: saw cardio had echo stress ? related to covid 2021 saw cardio work up n egative. Respiratory failure; insufficiency; arrest (adult) (20 sources) Respiratory failure; insufficiency; arrest (adult) Spondylosis; intervertebral disc disorders; other back problems (20 sources) Degeneration of lumbar intervertebral disc; Translations: [DDD (degenerative disc disease), lumbar] 02-08-2021 Chronic Comment on above: had MRI 09/29/19 dis c disease L3-4 with central canal narrowing, multi level neural foraminal without impingement, multi level recess narrowing with early contact of right descending L5 nerve root, mild/moderate osteoarthritis lumbar area Ana Fuentes/Dr. Johnathan suárez on TCA getting injec tions.had MRI 09/29/19 disc disease L3-4 with central canal narrowing, multi level neural foraminal without impingement, multi level recess narrowing with early contact of right descending L5 nerve root, mild/moderate osteoarthritis lumbar area not able to take gabapentin on TCA getting injec tions.had MRI 09/29/19 disc disease L3-4 with central canal narrowing, multi level neural foraminal without impingement, multi level recess narrowing with early contact of right descending L5 nerve root, mild/moderate osteoarthritis lumbar area not able to take gabapentin on TCA --irritable s o off. getting injections. will use whiskey to sleep if in pain. injection help so not usehad MRI 09/29/19 disc disease L3-4 with central canal narrowing, multi level neural foraminal without impingement, multi level recess narrowing with early contact of right descending L5 nerve root, mild/moderate osteoarthritis lumbar area not able to take gabapentin or TCA on TCA --irritable s o off. getting injections. will use whiskey to sleep if in pain. injection help so not use. last about three weeks the besthad MRI 09/29/19 disc disease L3-4 with central canal narrowing, multi level neural foraminal without impingement, multi level recess narrowing with early contact of right descending L5 nerve root, mild/moderate osteoarthritis lumbar area not able to take gabapentin or TCA Syncope (6 sources) Syncope; Translations: [Syncope and collapse] 05-24-2021 Episodic Unclassified (20 sources) Unclassified (14 sources) Encounter for well adult exam with abnormal findings Unclassified (20 sources) DDD (degenerative disc disease), lumbar Unclassified (20 sources) Osteoarthritis of lumbar spine Unclassified (20 sources) Acquired deflected nasal septum Unclassified (20 sources) 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 Unclassified (20 sources) Alcohol abuse, episodic (Renamed from Nondependent alcohol abuse, episodic drinking behavior) Unclassified (13 sources) BMI 28.0-28.9,adult Unclassified (14 sources) Sleep disturbance Unclassified (14 sources) Knee pain, bilateral Unclassified (14 sources) Encounter for screening for malignant neoplasm of colon (Renamed from Special screening for malignant neoplasms, colon) Unclassified (14 sources) Immunity status testing Unclassified (4 sources) Non-smoker Unclassified (1 source) PHLEBO Onset: 5 Unclassified (1 source) Low back pain, unspecified; Translations: [Low back pain, unspecified] Onset: 5 Varicose veins of lower extremity (5 sources) Venous varices; Translations: [Varicose veins of unspecified lower extremity with inflammation] 11-11-2019 Episodic Viral infection (5 sources) Disease caused by 2019-nCoV; Translations: [COVID-19] 02-18-2021 Episodic Past or Other Problems Problem Classification Problem Date Documented Da te Episodic/Chronic Other nervous system disorders (2 sources) Anesthesia of skin; Translations: [Anesthesia of skin] Onset: 06-24-2024 Episodic Other nutritional; endocrine; and metabolic disorders (20 sources) Hemochromatosis; Translations: [Hemochromatosis] Onset: 11-21-2010 Resolved: 02-19-2015 02-08-2021 Chronic Comment on above: Dr. Erazo he gave bl ood through his adult life before knew. was dx 2000 Other upper respiratory disease (2 sources) Bleeding from nose; Translations: [Epistaxis] Onset: 02-18-2024 02-18-2024 Episodic Other upper respiratory disease (1 source) Epistaxis; Translations: [Epistaxis] Onset: 02-18-2024 Episodic Spondylosis; intervertebral disc disorders; other back problems (20 sources) Sciatica; Translations: [Sciatica] Onset: 04-29-2024 02-08-2021 Episodic Unclassified (3 sources) BMI 29.0-29.9,adult Unclassified (5 sources) s/p nasal button 09-30-2021 Unclassified (5 sources) s/p right hip surgery 09-30-2021 Results Test Name Value Interpretation Reference Range Facility AFP SerPl-mCncon 11-13-2024 AFP [Mass/Vol] 2.30 ng/mL Normal <9.00 [facility] Comment on above: Order Comment: Chavez covarrubias Type: BLOOD SPECIMEN Ordering Facility: [facility] Address: [address] [place] [address] Result Comment: The Alpha-Fetoprotein test was performed using the [employer] DxI immunoenzymatic assay. Results obtained with different assay methods or kits cannot be used interchangeably. Performed By: #### 1 834-1 #### [facility] CLIA [id number] [address] [place] [address] [place] CBC W Auto Differential pane l (Bld)on 11-13-2024 Basophils (Bld) [#/Vol] 0.04 10*3/uL Normal <0.11 [facility] Comment on above: Order Comment: Chavez covarrubias Type: BLOOD SPECIMEN Ordering Facility: [facility] Address: [address] [place] [address] Performed By: #### 5 7021-8 #### [facility] CLIA [id number] [address] [place] [address] [place] Basophils/100 WBC (Bld) 0.9 % Normal [facility] Comment on above: Order Comment: Chavez covarrubias Type: BLOOD SPECIMEN Ordering Facility: [facility] Address: [address] [place] [address] Performed By: #### 5 7021-8 #### [facility] CLIA [id number] [address] [place] [address] [place] Differential cell count method Nom (Bld) Auto Normal [facility] Comment on above: Order Comment: Speci men Type: BLOOD SPECIMEN Ordering Facility: [facility] Address: [address] [place] [address] Performed By: #### 5 7021-8 #### [facility] CLIA [id number] [address] [place] [address] [place] Eosinophils (Bld) [#/Vol] 0.12 10*3/uL Normal <0.46 [facility] Comment on above: Order Comment: Speci men Type: BLOOD SPECIMEN Ordering Facility: [facility] Address: [address] [place] [address] Performed By: #### 5 7021-8 #### [facility] CLIA [id number] [address] [place] [address] [place] Eosinophils/100 WBC (Bld) 2.7 % Normal [facility] Comment on above: Order Comment: Speci men Type: BLOOD SPECIMEN Ordering Facility: [facility] Address: [address] [place] [address] Performed By: #### 5 7021-8 #### [facility] CLIA [id number] [address] [place] [address] [place] Erythrocyte distribution width (RBC) [Ratio] 14.7 % Normal 11.5-15.0 [facility] Comment on above: Order Comment: Speci men Type: BLOOD SPECIMEN Ordering Facility: [facility] Address: [address] [place] [address] Performed By: #### 5 7021-8 #### [facility] CLIA [id number] [address] [place] [address] [place] Hematocrit (Bld) [Volume fraction] 42.2 % Normal 39.0-51.0 [facility] Comment on above: Order Comment: Speci men Type: BLOOD SPECIMEN Ordering Facility: [facility] Address: [address] [place] [address] Performed By: #### 5 7021-8 #### [facility] CLIA [id number] [address] [place] [address] [place] Hemoglobin (Bld) [Mass/Vol] 13.7 g/dL Normal 13.0-17.0 [facility] Comment on above: Order Comment: Speci men Type: BLOOD SPECIMEN Ordering Facility: [facility] Address: [address] [place] [address] Performed By: #### 5 7021-8 #### [facility] CLIA [id number] [address] [place] [address] [place] Immature granulocytes (Bld) [#/Vol] 10*3/uL Normal <0.10 [facility] Comment on above: Order Comment: Speci men Type: BLOOD SPECIMEN Ordering Facility: [facility] Address: [address] [place] [address] Performed By: #### 5 7021-8 #### [facility] CLIA [id number] [address] [place] [address] [place] Immature granulocytes/100 WBC (Bld) 0.2 % Normal [facility] Comment on above: Order Comment: Speci men Type: BLOOD SPECIMEN Ordering Facility: [facility] Address: [address] [place] [address] Performed By: #### 5 7021-8 #### [facility] CLIA [id number] [address] [place] [address] [place] Lymphocytes (Bld) [#/Vol] 1.55 10*3/uL Normal 1.00-4.00 [facility] Comment on above: Order Comment: Speci men Type: BLOOD SPECIMEN Ordering Facility: [facility] Address: [address] [place] [address] Performed By: #### 5 7021-8 #### [facility] CLIA [id number] [address] [place] [address] [place] Lymphocytes/100 WBC (Bld) 35.1 % Normal [facility] Comment on above: Order Comment: Speci men Type: BLOOD SPECIMEN Ordering Facility: [facility] Address: [address] [place] [address] Performed By: #### 5 7021-8 #### [facility] CLIA [id number] [address] [place] [address] [place] MCH (RBC) [Entitic mass] 27.5 pg Normal 26.0-34.0 [facility] Comment on above: Order Comment: Speci men Type: BLOOD SPECIMEN Ordering Facility: [facility] Address: [address] [place] [address] Performed By: #### 5 7021-8 #### [id number] [address] [place] [address] [place] MCHC (RBC) [Mass/Vol] 32.5 g/dL Normal 30.5-36.0 [facility] Comment on above: Order Comment: Speci men Type: BLOOD SPECIMEN Ordering Facility: [facility] Address: [address] [place] [address] Performed By: #### 5 7021-8 #### [id number] [address] [place] [address] [place] MCV (RBC) [Entitic vol] 84.7 fL Normal 80.0-100.0 [facility] Comment on above: Order Comment: Speci men Type: BLOOD SPECIMEN Ordering Facility: [facility] Address: [address] [place] [address] Performed By: #### 5 7021-8 #### [facility] CLIA [id number] [address] [place] [address] [place] Monocytes (Bld) [#/Vol] 0.38 10*3/uL Normal <0.87 [facility] Comment on above: Order Comment: Speci men Type: BLOOD SPECIMEN Ordering Facility: [facility] Address: [address] [place] [address] Performed By: #### 5 7021-8 #### [facility] CLIA [id number] [address] [place] [address] [place] Monocytes/100 WBC (Bld) 8.6 % Normal [facility] Comment on above: Order Comment: Speci men Type: BLOOD SPECIMEN Ordering Facility: [facility] Address: [address] [place] [address] Performed By: #### 5 7021-8 #### [facility] CLIA [id number] [address] [place] [address] [place] Neutrophils (Bld) [#/Vol] 2.31 10*3/uL Normal 1.45-7.50 [facility] Comment on above: Order Comment: Speci men Type: BLOOD SPECIMEN Ordering Facility: [facility] Address: [address] [place] [address] Performed By: #### 5 7021-8 #### [facility] CLIA [id number] [address] [place] [address] [place] Neutrophils/100 WBC (Bld) 52.5 % Normal [facility] Comment on above: Order Comment: Speci men Type: BLOOD SPECIMEN Ordering Facility: [facility] Address: [address] [place] [address] Performed By: #### 5 7021-8 #### [facility] CLIA [id number] [address] [place] [address] [place] Nucleated RBC (Bld) [#/Vol] 10*3/uL Normal <0.01 [facility] Comment on above: Order Comment: Speci men Type: BLOOD SPECIMEN Ordering Facility: [facility] Address: [address] [place] [address] Performed By: #### 5 7021-8 #### [facility] CLIA [id number] [address] [place] [address] [place] Nucleated RBC/100 WBC (Bld) [Ratio] 0.0 /100 WBC Normal [facility] Comment on above: Order Comment: Speci men Type: BLOOD SPECIMEN Ordering Facility: [facility] Address: [address] [place] [address] Performed By: #### 5 7021-8 #### [facility] CLIA [id number] [address] [place] [address] [place] Platelet mean volume (Bld) [Entitic vol] 10.2 fL Normal 9.0-12.7 [facility] Comment on above: Order Comment: Speci men Type: BLOOD SPECIMEN Ordering Facility: [facility] Address: [address] [place] [address] Performed By: #### 5 7021-8 #### [facility] CLIA [id number] [address] [place] [address] [place] Platelets (Bld) [#/Vol] 197 10*3/uL Normal 150-400 [facility] Comment on above: Order Comment: Speci men Type: BLOOD SPECIMEN Ordering Facility: [facility] Address: [address] [place] [address] Performed By: #### 5 7021-8 #### [facility] CLIA [id number] [address] [place] [address] [place] RBC (Bld) [#/Vol] 4.98 10*6/uL Normal 4.20-6.00 [facility] Comment on above: Order Comment: Speci men Type: BLOOD SPECIMEN Ordering Facility: [facility] Address: [address] [place] [address] Performed By: #### 5 7021-8 #### [facility] CLIA [id number] [address] [place] [address] [place] WBC (Bld) [#/Vol] 4.41 10*3/uL Normal 3.70-11.00 [facility] Comment on above: Order Comment: Speci men Type: BLOOD SPECIMEN Ordering Facility: [facility] Address: [address] [place] [address] Performed By: #### 5 7021-8 #### [facility] CLIA [id number] [address] [place], [place] [id number] [place] [address] [place] CNOVSPon 11-13-2024 CNOVSP Visit (SP) Office (H EMAWS) -- JOSÉ BOWLES ([id number]) 1950 M Date Time Provider Department 11/13/24 11:30 AM CASTRO ERAZO During your visit today, we recorded the following information about you: Temperature Pulse Blood pressure Weight 97.8 degrees 71/minute 147/87 95.3 kg Castro Erazo DO 11/13/2024 11:33 AM Signed Diagnosis: 1) Hereditary hemochromatosis. HPI: The patient is a 74 yo male who had iron studies done due to family h/o hemochromatosis. Patient's father had hemochromatosis, but patient didn't know the details of his father's history. Nonfasting iron studies revealed TIBC 145 ug/dL, iron 68 ug/dL and saturation 46.9% with ferritin 1007 ng/mL. 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 Has been undergoing routine phlebotomy since 11/28/10. Was diagnosed with cirrhosis. Saw Dr. Werner--MRI liver-- Presents for ongoing management. Interim history: Saw neurologist for worsening neuropathy affecting balance. Diagnosed with B12 deficiency. Started injections couple months ago. Balance much better. Was able to get up twice on water skis. No longer using a cane. No black or bloody stools. PMH, medications and allergies as below personally reviewed by me today. Any changes documented in appropriate section. ROS: Constitutional: Denies episodes of fever and night sweats. Neuro: Denies CISNEROS, vertigo and imbalance. HEENT: No recent change in voice, vision or hearing. Resp: Denies cough, wheeze and hemoptysis. No shortness of breath at rest. CVS: Denies exertional chest pain and LE edema. GI: Denies reflux, n/v, and abdominal pain. : No dysuria or gross hematuria. Endo: No hot flashes. Musculoskeletal: See above. Derm: No rash. Heme: No unusual bleeding or unexplained bruising. Psych: Normal mood. PHYSICAL EXAM: Vitals: Blood pressure 147/87, pulse 71, temperature 36.6 ?C (97.8 ?F), temperature source Temporal, weight 95.3 kg (210 lb), SpO2 99%. Well-appearing and in no acute distress. EYES: Sclerae are anicteric bilaterally. LYMPHATIC: There is no palpable cervical or supraclavicular adenopathy. CARDIOVASCULAR: Rhythm is regular. ABDOMEN: The abdomen is nondistended. SKIN: No jaundice. ASSESSMENT/PLAN: (E83.110) Hereditary hemochromatosis (HCC) (primary encounter diagnosis) Assessment: -Tolerating periodic phlebotomy well. -Ferritin consistently under 50 ng/mL. -Recent B12 deficiency--unusual that counts were okay and he had such significant neuropathy. - He has not required phlebotomy in quite some time. Ferritin staying low. Could be malabsorption secondary to PPI use. However we discussed obtaining full iron studies to determine iron saturation. If low then potentially will need repeat colonoscopy and/or EGD in light of his diagnosis of cirrhosis. Also needs a check of AFP. Plan: -No phlebotomy indicated today. -Check iron saturation and serum iron as well as TIBC. -Check AFP. -Continue every 3 month possible phlebotomy. -Threshold for phlebotomy hematocrit 45%. -OV in a year. Portions of this documentation were copied and pasted from my previous office visit note dated 01/12/2023 in order to provide a cohesive continuity of the history. The note has been reviewed and edited and updated as necessary. I spent a total of 25 minutes on the date of the service which included preparing to see the patient, [id number] patient care, completing clinical documentation, obtaining and/or reviewing separately obtained history, counseling and educating the patient/family/caregiver, ordering medications, tests, or procedures, communicating with other HCPs (not separately reported), and communicating results to the patient/family/caregiver. Castro Erazo DO Referring Provider: CASTRO ERAZO [[id number]] Allergies As of Date: 11/13/2024 (No Known Allergies) Date Reviewed: 11/13/2024 Reviewed by: Castro Erazo DO - Fully Assessed Reason for Visit: Established Patient [175] Primary Visit Diagnosis:Hereditary hemochromatosis [E83.110] Order(s):IRON AND TIBC [SQIRON] Order #: [id number] FUTURE ALPHA FETOPROTEIN [SQAFP] Order #: [id number] FUTURE Follow-up and Disposition History for Encounter Date Provider Department Center 11/13/2024 [id number] ERAZO [facility]WS [facility] Prescriptions as of 11/13/2024 - pregabalin (LYRICA) 25 mg capsule Take 25 mg by mouth two times a day. - DULoxetine DR (CYMBALTA) 30 mg capsule Take 30 mg by mouth once daily. - OTC PRODUCT - cyanocobalamin, vitamin B-12, (VITAMIN B-12 INJECTION) by INJECTION(UNSPECIFIED PARENTERAL ROUTES) route once every month. - magnesium oxide (MAG-OXIDE ORAL) Take 400 mg by mouth once daily. - OTC PRODUCT Take 1 tablet by mouth two times a day. Liver MD - OTC PRODUCT Take 1 tablet by mouth once daily. [employer] - celecoxib (CELEBREX) 200 m (more content not included)... Normal [facility] Ferritin SerPl-mCncon 2024 Ferritin [Mass/Vol] 23.0 ng/mL Low 30.3-565.7 [facility] Comment on above: Order Comment: Speci marci Type: BLOOD SPECIMEN Ordering Facility: [facility] Address: [address] [place] [address] Performed By: #### 2 276-4 #### [facility] CLIA [id number] [address] [place] [address] [place] [address] [place] Iron and Iron binding capaci ty panelon 11-13-2024 Iron [Mass/Vol] 62 ug/dL Normal 41-186 [facility] Comment on above: Order Comment: Speci men Type: BLOOD SPECIMEN Ordering Facility: [facility] Address: [address] [place] [address] Performed By: #### 1 834-1 #### [facility] CLIA [id number] [address] [place] [address] STATES [facility] Iron binding capacity [Mass/Vol] 347 ug/dL Normal 232-386 [facility] Comment on above: Order Comment: Speci men Type: BLOOD SPECIMEN Ordering Facility: [facility] Address: [address] [place] [address] Performed By: #### 1 834-1 #### [facility] CLIA [id number] [address] [place] [address] [place] Iron/TIBC [Molar ratio] 17.9 % Normal 15.0-57.0 [facility] Comment on above: Order Comment: Speci men Type: BLOOD SPECIMEN Ordering Facility: [facility] Address: [address] [place] [address] Performed By: #### 1 834-1 #### [facility] CLIA [id number] [address] [place] [address] [place] Neurology Visit Reporton Neurology Visit Report [facility] [address] [place] [address], [address] [place] [address] OFFICE VISIT Date of Service: 10/13/24 MR#: [id number] Acct: [id number] Name: JOSÉ BOWLES Rep #: [id number] : 1950 Provider: Dr. Sathish rivera MD Age/Sex: 74/M Location: [facility] [place] Status: Signed HPI HPI Details: The patient is a 74-year-old right-handed male who presents to [facility]. He was referred 06/05/[address] Carlos Richter with [facility] for polyneuropathy. This patient presents with his for evaluation of peripheral neuropathy. 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 Patient's symptoms include numbness and occasional lancinating pains below the knees extending to the toes. Patient has some difficulty identifying placement of feet which may be the cause of his balance problem. Patient has 1 sister with advanced diabetes and has peripheral neuropathy. He has 1 sister with lumbar disc disease and secondary radiculopathy. This patient has had prior back surgery and several herniated disc but appears to be stable from prior back surgeries. Patient has fallen down twice in the medeiros. He is an avid rj. 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 Patient's had screenings for various diseases including autoimmune disease and has been noted to have hemochromatosis. He appears to have control of hemochromatosis with recurrent phlebotomies. His hemochromatosis affected his liver and he has cirrhosis but he does not have brain heart or other organ involvement as far as I can determine from reviewing the chart. Patient does have mixed hyperlipidemia. He also has B12 deficiency. He is currently being treated for his B12 deficiency. Review of Systems: HEENT no headaches loss of vision. Has had prior nose fractures with repair plastic implant. No difficulty swallowing. Respiratory: No recent pneumonias. No recent viral illnesses. No hemoptysis. Cardiac: No chest pain palpitations heart surgery or MIs Abdomen: Does not vomit blood or passed blood in stool. No abdominal discomfort. Positive for cirrhosis due to hemochromatosis. : No difficulty controlling bowel or bladder. Extremities: No injuries or fractures noted. Skin: No wounds or lesions identified. Neurologic: No strokes or seizures. Positive for peripheral neuropathy Psychiatric: Negative. Exam Const Other: Blood pressure is 136/84 pulse 71 respiration 16 temperature 90.3 O2 sat 96% on room air. Patient's BMI is 29.6%. General appearance that well-developed well-nourished male no acute distress HEENT: Normocephalic. Conjunctiva clear. No hearing aids or IOLs. Prior history of nose fractures with plastic implants. Respiratory: Few scattered airway sounds heard in the apices. Cardiac: No murmurs. Regular rhythm. Abdomen: Not distended Extremities: No evidence of trauma. Skin and nails on feet normal appearance. Pulses dorsalis pedis posterior tibial arteries palpable more prominent on the left than right Skin: No obvious lesions or obvious skin changes consistent with cutaneous hemochromatosis. Neurologic examination Mental status: Awake alert oriented to person place day month and year. Memory shows the patient recalled 3 out of 3 objects at 3 minutes and 10 minutes without difficulty. 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 Insight and judgment intact. No delusions or hallucinations identified. CN II-XII: Pupils equal round 4 mm. Visual silver full to confrontation. Extraocular muscles intact. Slight saccade in pursuit noted. No diplopia. Motor and sensory function of face is intact. Hearing swallowing phonation tongue normal. Motor examination: No focal weakness noted. No fasciculations seen on arms or distal legs. Cerebellar testing: Minimal accentuation of physiologic tremor both hands symmetric. No cogwheeling rigidity tremor bradykinesia or ataxia. Reflexes: 1+ at biceps 1+ at knees 0 at ankles toes down bilaterally. Sensory exam: Patient reports intact to tactile sense all 4 extremities. Definite decrease to vibration below the knees and becoming obvious at ankles and complete loss at toes. Patient also has some difficulty with proprioception testing of the feet. Station gait shows that he has a mild foot slap when he walks bilaterally. He has normal arm swing. Romberg testing shows mild wavering. Patient does not turn en bloc. Assessment and Plan Assessment and Plan (1) Peripheral neuropathy: Status: Chronic Qualifiers: Peripheral neuropathy type: polyneuropathy, unspecified Qualified Code(s): G62.9 - Polyneuropathy, unspecified Comment: Patient has neuropathy which appears to be polyneuropathy primarily sensory (more content not included)... Normal [facility] CBC W Auto Differential pane l (Bld)on 08-21-2024 Basophils (Bld) [#/Vol] 0.04 10*3/uL Normal <0.11 [facility] Comment on above: Order Comment: Speci men Type: BLOOD SPECIMEN Ordering Facility: [facility] Address: [address] [place] [address] Performed By: #### 5 7021-8 #### [facility] CLIA [id number] [address] [place] [address] [place] Basophils/100 WBC (Bld) 0.7 % Normal [facility] Comment on above: Order Comment: Speci men Type: BLOOD SPECIMEN Ordering Facility: [facility] Address: [address] [place] [address] Performed By: #### 5 7021-8 #### [facility] CLIA [id number] [address] [place] [address] [place] Differential cell count method Nom (Bld) Auto Normal [facility] Comment on above: Order Comment: Speci men Type: BLOOD SPECIMEN Ordering Facility: [facility] Address: [address] [place] [address] Performed By: #### 5 7021-8 #### [facility] CLIA [id number] [address] [place] [address] [place] Eosinophils (Bld) [#/Vol] 0.15 10*3/uL Normal <0.46 [facility] Comment on above: Order Comment: Speci men Type: BLOOD SPECIMEN Ordering Facility: [facility] Address: [address] [place] [address] Performed By: #### 5 7021-8 #### [facility] CLIA [id number] [address] [place] [address] [place] Eosinophils/100 WBC (Bld) 2.7 % Normal [facility] Comment on above: Order Comment: Speci men Type: BLOOD SPECIMEN Ordering Facility: [facility] Address: [address] [place] [address] Performed By: #### 5 7021-8 #### [facility] CLIA [id number] [address] [place] [address] [place] Erythrocyte distribution width (RBC) [Ratio] 13.4 % Normal 11.5-15.0 [facility] Comment on above: Order Comment: Speci men Type: BLOOD SPECIMEN Ordering Facility: [facility] Address: [address] [place] [address] Performed By: #### 5 7021-8 #### [facility] CLIA [id number] [address] [place] [address] [place] Hematocrit (Bld) [Volume fraction] 38.5 % Low 39.0-51.0 [facility] Comment on above: Order Comment: Speci men Type: BLOOD SPECIMEN Ordering Facility: [facility] Address: [address] [place] [address] Performed By: #### 5 7021-8 #### [facility] CLIA [id number] [address] [place] [address] [place] Hemoglobin (Bld) [Mass/Vol] 12.5 g/dL Low 13.0-17.0 [facility] Comment on above: Order Comment: Speci men Type: BLOOD SPECIMEN Ordering Facility: [facility] Address: [address] [place] [address] Performed By: #### 5 7021-8 #### [facility] CLIA [id number] [address] [place] [address] [place] Immature granulocytes (Bld) [#/Vol] 10*3/uL Normal <0.10 [facility] Comment on above: Order Comment: Speci men Type: BLOOD SPECIMEN Ordering Facility: [facility] Address: [address] [place] [address] Performed By: #### 5 7021-8 #### [facility] CLIA [id number] [address] [place] [address] [place] Immature granulocytes/100 WBC (Bld) 0.0 % Normal [facility] Comment on above: Order Comment: Speci men Type: BLOOD SPECIMEN Ordering Facility: [facility] Address: [address] [place] [address] Performed By: #### 5 7021-8 #### [facility] CLIA [id number] [address] [place] [address] [place] Lymphocytes (Bld) [#/Vol] 1.70 10*3/uL Normal 1.00-4.00 [facility] Comment on above: Order Comment: Speci men Type: BLOOD SPECIMEN Ordering Facility: [facility] Address: [address] [place] [address] Performed By: #### 5 7021-8 #### [facility] CLIA [id number] [address] [place] [address] [place] Lymphocytes/100 WBC (Bld) 30.7 % Normal [facility] Comment on above: Order Comment: Speci men Type: BLOOD SPECIMEN Ordering Facility: [facility] Address: [address] [place] [address] Performed By: #### 5 7021-8 #### [id number] [address] [place] [address] [place] MCH (RBC) [Entitic mass] 27.5 pg Normal 26.0-34.0 [facility] Comment on above: Order Comment: Speci men Type: BLOOD SPECIMEN Ordering Facility: [facility] Address: [address] [place] [address] Performed By: #### 5 7021-8 #### [facility] CLIA [id number] [address] [place] [address] [place] MCHC (RBC) [Mass/Vol] 32.5 g/dL Normal 30.5-36.0 [facility] Comment on above: Order Comment: Speci men Type: BLOOD SPECIMEN Ordering Facility: [facility] Address: [address] [place] [address] Performed By: #### 5 7021-8 #### [id number] [address] [place] [address] [place] MCV (RBC) [Entitic vol] 84.8 fL Normal 80.0-100.0 [facility] Comment on above: Order Comment: Speci men Type: BLOOD SPECIMEN Ordering Facility: [facility] Address: [address] [place] [address] Performed By: #### 5 7021-8 #### [facility] CLIA [id number] [address] [place] [address] [place] Monocytes (Bld) [#/Vol] 0.53 10*3/uL Normal <0.87 [facility] Comment on above: Order Comment: Speci men Type: BLOOD SPECIMEN Ordering Facility: [facility] Address: [address] [place] [address] Performed By: #### 5 7021-8 #### [facility] CLIA [id number] [address] [place] [address] [place] Monocytes/100 WBC (Bld) 9.6 % Normal [facility] Comment on above: Order Comment: Speci men Type: BLOOD SPECIMEN Ordering Facility: [facility] Address: [address] [place] [address] Performed By: #### 5 7021-8 #### [facility] CLIA [id number] [address] [place] [address] [place] Neutrophils (Bld) [#/Vol] 3.12 10*3/uL Normal 1.45-7.50 [facility] Comment on above: Order Comment: Speci men Type: BLOOD SPECIMEN Ordering Facility: [facility] Address: [address] [place], [place] [address] Performed By: #### 5 7021-8 #### [facility] CLIA [id number] [address] [place] [address] [place] Neutrophils/100 WBC (Bld) 56.3 % Normal [facility] Comment on above: Order Comment: Speci men Type: BLOOD SPECIMEN Ordering Facility: [facility] Address: [address] [place] [address] Performed By: #### 5 7021-8 #### [facility] CLIA [id number] [address] [place] [address] [place] Nucleated RBC (Bld) [#/Vol] 10*3/uL Normal <0.01 [facility] Comment on above: Order Comment: Speci men Type: BLOOD SPECIMEN Ordering Facility: [facility] Address: [address] [place] [address] Performed By: #### 5 7021-8 #### [facility] CLIA [id number] [address] [place] [address] [place] Nucleated RBC/100 WBC (Bld) [Ratio] 0.0 /100 WBC Normal [facility] Comment on above: Order Comment: Speci men Type: BLOOD SPECIMEN Ordering Facility: [facility] Address: [address] [place] [address] Performed By: #### 5 7021-8 #### [facility] CLIA [id number] [address] [place] [address] [place] Platelet mean volume (Bld) [Entitic vol] 10.2 fL Normal 9.0-12.7 [facility] Comment on above: Order Comment: Speci men Type: BLOOD SPECIMEN Ordering Facility: [facility] Address: [address] [place] [address] Performed By: #### 5 7021-8 #### [facility] CLIA [id number] [address] [place] [address] [place] Platelets (Bld) [#/Vol] 203 10*3/uL Normal 150-400 [facility] Comment on above: Order Comment: Speci men Type: BLOOD SPECIMEN Ordering Facility: [facility] Address: [address] [place] [address] Performed By: #### 5 7021-8 #### [facility] CLIA [id number] [address] [place] [address] [place] RBC (Bld) [#/Vol] 4.54 10*6/uL Normal 4.20-6.00 [facility] Comment on above: Order Comment: Speci men Type: BLOOD SPECIMEN Ordering Facility: [facility] Address: [address] [place] [address] Performed By: #### 5 7021-8 #### [facility] CLIA [id number] [address] [place] [address] [place] WBC (Bld) [#/Vol] 5.54 10*3/uL Normal 3.70-11.00 [facility] Comment on above: Order Comment: Speci men Type: BLOOD SPECIMEN Ordering Facility: [facility] Address: [address] [place] [address] Performed By: #### 5 7021-8 #### [facility] CLIA [id number] [address] [place] [address] [place] Ferritin SerPl-ncon 2024 Ferritin [Mass/Vol] 20.0 ng/mL Low 30.3-565.7 [facility] Comment on above: Order Comment: Speci men Type: BLOOD SPECIMEN Ordering Facility: [facility] Address: [address] [place] [address] Performed By: #### 2 276-4 #### [facility] CLIA [id number] [address] [place] [address] [place] Orthopedic Visit Reporton Orthopedic Visit Report [facility] [address] [place] [address] [address] [place] [address] OFFICE VISIT Date of Service: 06/05/24 MR#: [id number] Acct: [id number] Name: JOSÉ BOWLES Rep #: [id number] : 1950 Provider: Dr. Carlos Richter MD Age/Sex: 74/M Location: [facility] [place] Status: Signed Intake Vital Signs 05/15/24 11:56 Height 5 ft 11 in Weight: 204 lb 8 oz BMI 28.5 Intake Visit Reasons: LUMBAR SPINE Allergies Llhnjdk-HKP-WhV Reductase Inhibitor Adverse Reaction (Unknown, Verified 06/05/24 08:32) Intolereant Medications ???Medication ???Instructions ???Recorded ???Confirmed ???Type calcium carbonate 1,200 mg PO DAILY@0800 01/30/13 History tamsulosin 0.4 mg capsule 0.4 mg PO QHS 12/13/18 06/05/24 Hi story cyanocobalamin (vitamin B-12) 1,000 mcg PO DAILY 02/24/21 History 1,000 mcg tablet celecoxib 200 mg capsule 200 mg PO QDAY 05/15/24 06/05/24 H istory duloxetine 30 mg capsule,delayed 30 mg PO QDAY 05/15/24 06/05/24 Hi story release glucosamine sulfate 1,000 mg 1,000 mg PO QDAY 05/15/24 06/05/24 History capsule levomefolate Ca 3 mg-B6 35 1 cap PO BID 05/15/24 06/05/24 His tory mg-meB12 2 mg-algal oil 90.314 mg capsule (Metanx (algal oil)) losartan 50 mg tablet 50 mg PO QDAY 05/15/24 06/05/24 Hi story omeprazole magnesium 20 mg 20 mg PO QDAY 05/15/24 06/05/24 Hi story tablet,delayed release (Prilosec OTC) red yeast rice 600 mg capsule 600 mg PO QDAY 05/15/24 06/05/24 H istory sildenafil 100 mg tablet 100 mg PO QDAY PRN 05/15/24 History Have you fallen in the past year?: Yes PFSH Medical History Cirrhosis of liver Shortness of breath Dizziness Chest pain, unspecified Syncope GERD (gastroesophageal reflux disease) Mixed hyperlipidemia Essential hypertension COVID-19 Disorientation, unspecified Hemochromatosis History of sciatica BPH (benign prostatic hyperplasia) Leg pain, left Varicose veins with inflammation Chronic venous insufficiency Acquired nasal septal defect Surgical History History of rotator cuff surgery History of mandibular surgery Previous back surgery s/p nasal button s/p right hip surgery Family History Mother Heart disease Hypertension CAD (coronary artery disease) Diabetes Father Cancer pancreatic Social History Smoking Status: Never smoker alcohol intake: current alcohol intake frequency: holidays/special occasions only substance use type: does not use caffeine: Yes Type: coffee Number of servings: 1 HPI LUMBAR SPINE Details: This documentation accurately reflects the service provided and the decisions made by me, Dr. Carlos Richter MD 06/05/24 0827. Part of today???s visit was documented by Melva WHEELER, acting as scribe. JOSÉ BOWLES is a 74 year old M here today for EMG review bilateral lower extremities. He states most of his pain is in his left leg and both of his legs feel cold constantly. 05/15/24: JOSÉ BOWLES is a 74 year old M NEW patient here today for low back pain and sciatic pain down the left leg. He has been having pain since fall of 2023. His pain is more on the left side of his lower back. He states that his back is starting to affect his balance. He does have weakness in both legs but more on the left. His feet do go numb but when he gets injection with Dr. Torres it seems to help some with the numbness. Patient did have a recent MRI of his lumbar spine on 04/12/24. His last injection was a lumbar caudal injection that he had done in March. He has had a previous surgery of the right side of his lumbar spine but is unable to recall the exact procedure that was done in the that was done by Dr. Coronado. He states that from January to February he had fallen 6 times due to the balance issues and weakness. If he is going to be walking for long periods of time he does use a cane but is not using it today. Ortho Exam General General: Yes no acute distress Neurologic: Yes alert and Yes oriented x3 Spine SPINE TESTING CERVICAL THORACIC LUMBAR Musculoskeletal Strength 0=absent - 5=normal Details: Examination the back shows prior midline incision well-healed in lower lumbar spine. There is some mild midline and paraspinal tenderness slightly at the top end of the incision. Neurologic motion of lower extremity shows 5 x 5 power normal shows normal sensations in all dermatomes. There is no hyperreflexia. Romberg's is positive. Tandem gait shows severe imbalance. Coding Level of Care Code Off vis,est,level 4 Diagnoses Peripheral polyneuropathy (more content not included)... Normal [facility] CBC W Auto Differential pane l (Bld)on 05-29-2024 Basophils (Bld) [#/Vol] 10*3/uL Normal <0.11 [facility] Comment on above: Order Comment: Speci men Type: BLOOD SPECIMEN Ordering Facility: [facility] Address: [address] [place] [address] Performed By: #### 1 834-1 #### [facility] CLIA [id number] [address] [place] [address] [place] Basophils/100 WBC (Bld) 0.4 % Normal [facility] Comment on above: Order Comment: Speci men Type: BLOOD SPECIMEN Ordering Facility: [facility] Address: [address] [place] [address] Performed By: #### 1 834-1 #### [facility] CLIA [id number] [address] [place] [address] [place] Differential cell count method Nom (Bld) Auto Normal [facility] Comment on above: Order Comment: Speci men Type: BLOOD SPECIMEN Ordering Facility: [facility] Address: [address] [place] [address] Performed By: #### 1 834-1 #### [facility] CLIA [id number] [address] [place] [address] [place] Eosinophils (Bld) [#/Vol] 0.04 10*3/uL Normal <0.46 [facility] Comment on above: Order Comment: Speci men Type: BLOOD SPECIMEN Ordering Facility: [facility] Address: [address] [place] [address] Performed By: #### 1 834-1 #### [facility] CLIA [id number] [address] [place] [address] [place] Eosinophils/100 WBC (Bld) 0.8 % Normal [facility] Comment on above: Order Comment: Speci men Type: BLOOD SPECIMEN Ordering Facility: [facility] Address: [address] [place] [address] Performed By: #### 1 834-1 #### [facility] CLIA [id number] [address] [place] [address] [place] Erythrocyte distribution width (RBC) [Ratio] 15.2 % High 11.5-15.0 [facility] Comment on above: Order Comment: Speci men Type: BLOOD SPECIMEN Ordering Facility: [facility] Address: [address] [place] [address] Performed By: #### 1 834-1 #### [facility] CLIA [id number] [address] [place] [address] [place] Hematocrit (Bld) [Volume fraction] 41.0 % Normal 39.0-51.0 [facility] Comment on above: Order Comment: Speci men Type: BLOOD SPECIMEN Ordering Facility: [facility] Address: [address] [place] [address] Performed By: #### 1 834-1 #### [facility] CLIA [id number] [address] [place] [address] [place] Hemoglobin (Bld) [Mass/Vol] 13.2 g/dL Normal 13.0-17.0 [facility] Comment on above: Order Comment: Speci men Type: BLOOD SPECIMEN Ordering Facility: [facility] Address: [address] [place] [address] Performed By: #### 1 834-1 #### [facility] CLIA [id number] [address] [place], [place] [address] [place] Immature granulocytes (Bld) [#/Vol] 10*3/uL Normal <0.10 [facility] Comment on above: Order Comment: Speci men Type: BLOOD SPECIMEN Ordering Facility: [facility] Address: [address] [place] [address] Performed By: #### 1 834-1 #### [facility] CLIA [id number] [address] [place] [address] [place] Immature granulocytes/100 WBC (Bld) 0.2 % Normal [facility] Comment on above: Order Comment: Speci men Type: BLOOD SPECIMEN Ordering Facility: [facility] Address: [address] [place] [address] Performed By: #### 1 834-1 #### [facility] CLIA [id number] [address] [place] [address] [place] Lymphocytes (Bld) [#/Vol] 0.77 10*3/uL Low 1.00-4.00 [facility] Comment on above: Order Comment: Speci men Type: BLOOD SPECIMEN Ordering Facility: [facility] Address: [address] [place] [address] Performed By: #### 1 834-1 #### [facility] CLIA [id number] [address] [place] [address] [place] Lymphocytes/100 WBC (Bld) 15.4 % Normal [facility] Comment on above: Order Comment: Speci men Type: BLOOD SPECIMEN Ordering Facility: [facility] Address: [address] [place] [address] Performed By: #### 1 834-1 #### [facility] CLIA [id number] [address] [place] [address] [place] MCH (RBC) [Entitic mass] 27.3 pg Normal 26.0-34.0 [facility] Comment on above: Order Comment: Speci men Type: BLOOD SPECIMEN Ordering Facility: [facility] Address: [address] [place] [address] Performed By: #### 1 834-1 #### [facility] CLIA [id number] [address] [place] [address] [place] MCHC (RBC) [Mass/Vol] 32.2 g/dL Normal 30.5-36.0 [facility] Comment on above: Order Comment: Speci men Type: BLOOD SPECIMEN Ordering Facility: [facility] Address: [address] [place] [address] Performed By: #### 1 834-1 #### [facility] CLIA [id number] [address] [place] [address] [place] MCV (RBC) [Entitic vol] 84.9 fL Normal 80.0-100.0 [facility] Comment on above: Order Comment: Speci men Type: BLOOD SPECIMEN Ordering Facility: [facility] Address: [address] [place] [address] Performed By: #### 1 834-1 #### [facility] CLIA [id number] [address] [place] [address] [place] Monocytes (Bld) [#/Vol] 0.61 10*3/uL Normal <0.87 [facility] Comment on above: Order Comment: Speci men Type: BLOOD SPECIMEN Ordering Facility: [facility] Address: [address] [place] [address] Performed By: #### 1 834-1 #### [facility] CLIA [id number] [address] [place] [address] [place] Monocytes/100 WBC (Bld) 12.2 % Normal [facility] Comment on above: Order Comment: Speci men Type: BLOOD SPECIMEN Ordering Facility: [facility] Address: [address] [place] [address] Performed By: #### 1 834-1 #### [facility] CLIA [id number] [address] [place] [address] [place] Neutrophils (Bld) [#/Vol] 3.55 10*3/uL Normal 1.45-7.50 [facility] Comment on above: Order Comment: Speci men Type: BLOOD SPECIMEN Ordering Facility: [facility] Address: [address] [place] [address] Performed By: #### 1 834-1 #### [facility] CLIA [id number] [address] [place] [address] [place] Neutrophils/100 WBC (Bld) 71.0 % Normal [facility] Comment on above: Order Comment: Speci men Type: BLOOD SPECIMEN Ordering Facility: [facility] Address: [address] [place] [address] Performed By: #### 1 834-1 #### [facility] CLIA [id number] [address] [place] [address] [place] Nucleated RBC (Bld) [#/Vol] 10*3/uL Normal <0.01 [facility] Comment on above: Order Comment: Speci men Type: BLOOD SPECIMEN Ordering Facility: [facility] Address: [address] [place] [address] Performed By: #### 1 834-1 #### [facility] CLIA [id number] [address] [place] [address] [place] Nucleated RBC/100 WBC (Bld) [Ratio] 0.0 /100 WBC Normal [facility] Comment on above: Order Comment: Speci men Type: BLOOD SPECIMEN Ordering Facility: [facility] Address: [address] [place] [address] Performed By: #### 1 834-1 #### [facility] CLIA [id number] [address] [place] [address] [place] Platelet mean volume (Bld) [Entitic vol] 9.5 fL Normal 9.0-12.7 [facility] Comment on above: Order Comment: Speci men Type: BLOOD SPECIMEN Ordering Facility: [facility] Address: [address] [place] [address] Performed By: #### 1 834-1 #### [facility] CLIA [id number] [address] [place] [address] [place] Platelets (Bld) [#/Vol] 182 10*3/uL Normal 150-400 [facility] Comment on above: Order Comment: Speci men Type: BLOOD SPECIMEN Ordering Facility: [facility] Address: [address] [place] [address] Performed By: #### 1 834-1 #### [facility] CLIA [id number] [address] [place] [address] [place] RBC (Bld) [#/Vol] 4.83 10*6/uL Normal 4.20-6.00 [facility] Comment on above: Order Comment: Speci men Type: BLOOD SPECIMEN Ordering Facility: [facility] Address: [address] [place] [address] Performed By: #### 1 834-1 #### [facility] CLIA [id number] [address] [place] [address] [place] WBC (Bld) [#/Vol] 5.00 10*3/uL Normal 3.70-11.00 [facility] Comment on above: Order Comment: Speci men Type: BLOOD SPECIMEN Ordering Facility: [facility] Address: [address] [place] [address] Performed By: #### 1 834-1 #### [facility] CLIA [id number] [address] [place] [address] [place] Ferritin SerPl-mCncon 2024 Ferritin [Mass/Vol] 26.2 ng/mL Low 30.3-565.7 [facility] Comment on above: Order Comment: Speci men Type: BLOOD SPECIMEN Ordering Facility: [facility] Address: [address] [place] [address] Performed By: #### 2 276-4 #### [facility] CLIA [id number] [address] [place] [address] [place] NCS and/or EMG Patienton NCS and/or EMG Patient [facility] Pulmonary Services/Neurology [address] [place] [address] MR#: [id number] Acct: [id number] Name: JOSÉ BOWLES Rep #: [id number] : 1950 74 From: Jaime Cabrera MD Referring Dr: Carlos Richter MD Status: REG CLI Location: PSN Date: 05/21/24 Sex: M C NCS and/or EMG Patient Report Ordering Doctor: Carlos Richter DATE OF SERVICE: 05/21/24 José presents with complaints of numbness and tingling in the lower limbs and poor balance. Electrodiagnostic findings: Left peroneal motor nerve demonstrates normal distal latency, amplitude and conduction velocity when measured at the tibialis anterior. Tibial motor responses within normal limits bilaterally. Prolonged tibial and peroneal F???waves. Prolonged H???reflex bilaterally. Absent sural response bilaterally. Prolonged superficial peroneal latency bilaterally. Needle EMG testing was performed the lower limbs. All muscles tested showed no evidence of denervation with normal motor unit action potentials. Electrodiagnostic impression: This is an abnormal study in the lower limbs 1. Electrodiagnostic findings suggestive of peripheral polyneuropathy, sensory greater than motor. 2. There is no electrodiagnostic evidence for lumbosacral radiculopathy. Multi Select Codes Neurology Neurology Interp Codes: 84620-88 Musc test done w/n test comp (interp) (2) and 89646-81 Nrv cndj test 11-12 studies (interp) 05/21/24 1428 Date Jaime Cabrera MD CC: Dr. Jaime Cabrera MD; Dr. Carlos Richter MD; Dr. Duy Valverde MD Date Dictated: 05/21/241424 Date Transcribed: 05/21/241424 Thermostat Repairer: AA Signed Normal [facility] L/S Spine Min 4 Viewson 03 L/S Spine Min 4 Views [facility] Imaging Services [address] [place] [address] L/S Spine Min 4 Views MR#: [id number] Acct: [id number] Name: JOSÉ BOWLES Rep #: [id number] : 1950 M 74 From: Israel Da Silva MD PCP: Dr. Duy Valverde MD Status: DEP AMB Study: L/S Spine Min 4 Views Date of Exam: 05/15/24 Exam# [id number] Ordering Dr: Jossy Ramirez PROCEDURE: L/S SPINE MIN 4 VIEWS REASON FOR EXAM: Pain TECHNIQUE: PA, lateral, and lateral flexion and extension views of the lumbar spine were obtained. COMPARISON: 04/12/2024 FINDINGS: Fracture/dislocation: None visible. Vertebral body heights: Preserved. Alignment: Unremarkable. No abnormal motion with flexion or extension. Disc spaces: Variable disc height loss up to moderate at L4-L5 and L5-S1 with osteophytes. Facets: Facet arthropathy greatest from L3-S1. Soft tissues: Presumed pelvic phleboliths. Few small left renal calculi versus calcifications within superimposed bowel. Foreign bodies: None visible. Bone mineralization: Grossly unremarkable. RAD/L/S Spine Min 4 Views IMPRESSION: 1. No visible acute displaced fracture. 2. Overall moderate radiographically evident lower lumbar spondylosis as above. 3. Additional description as above. Reading Location: [facility] CC: LEAH Willis; Dr. Duy Valverde MD Thermostat Repairer: Signed Normal [facility] Orthopedic Visit Reporton Orthopedic Visit Report [facility] [address] [place] [address] [address] [place] [address] OFFICE VISIT Date of Service: 05/15/24 MR#: [id number] Acct: [id number] Name: JOSÉ BOWLES Rep #: [id number] : 1950 Provider: Dr. Carlos Richter MD Age/Sex: 74/M Location: [facility] [place] Status: Signed Intake Vital Signs 05/25/22 11:02 05/15/24 11:56 Height 5 ft 11 in 5 ft 11 in Weight: 204 lb 8 oz BMI 28.5 Intake Visit Reasons: LUMBAR SPINE Allergies Vhqxpxo-MXP-JjG Reductase Inhibitor Adverse Reaction (Unknown, Verified 05/25/22 11:02) Intolereant Medications ???Medication ???Instructions ???Recorded ???Confirmed ???Type calcium carbonate 1,200 mg PO DAILY@0800 01/30/13 History tamsulosin 0.4 mg capsule 0.4 mg PO QHS 12/13/18 05/15/24 Hi story cyanocobalamin (vitamin B-12) 1,000 mcg PO DAILY 02/24/21 History 1,000 mcg tablet celecoxib 200 mg capsule 200 mg PO QDAY 05/15/24 05/15/24 H istory duloxetine 30 mg capsule,delayed 30 mg PO QDAY 05/15/24 05/15/24 Hi story release glucosamine sulfate 1,000 mg 1,000 mg PO QDAY 05/15/24 05/15/24 History capsule levomefolate Ca 3 mg-B6 35 1 cap PO BID 05/15/24 05/15/24 His tory mg-meB12 2 mg-algal oil 90.314 mg capsule (Metanx (algal oil)) losartan 50 mg tablet 50 mg PO QDAY 05/15/24 05/15/24 Hi story omeprazole magnesium 20 mg 20 mg PO QDAY 05/15/24 05/15/24 Hi story tablet,delayed release (Prilosec OTC) red yeast rice 600 mg capsule 600 mg PO QDAY 05/15/24 05/15/24 H istory sildenafil 100 mg tablet 100 mg PO QDAY PRN 05/15/24 History Have you fallen in the past year?: Yes PFSH Medical History Cirrhosis of liver Shortness of breath Dizziness Chest pain, unspecified Syncope GERD (gastroesophageal reflux disease) Mixed hyperlipidemia Essential hypertension COVID-19 Disorientation, unspecified Hemochromatosis History of sciatica BPH (benign prostatic hyperplasia) Leg pain, left Varicose veins with inflammation Chronic venous insufficiency Acquired nasal septal defect Surgical History History of rotator cuff surgery History of mandibular surgery Previous back surgery s/p nasal button s/p right hip surgery Family History Mother Heart disease Hypertension CAD (coronary artery disease) Diabetes Father Cancer pancreatic Social History Smoking Status: Never smoker alcohol intake: current alcohol intake frequency: holidays/special occasions only substance use type: does not use caffeine: Yes Type: coffee Number of servings: 1 HPI LUMBAR SPINE Details: This documentation accurately reflects the service provided and the decisions made by me, Dr. Carlos Richter MD 05/15/24 1155. Part of today???s visit was documented by Melva WHEELER, acting as scribe. JOSÉ BOWLES is a 74 year old M NEW patient here today for low back pain and sciatic pain down the left leg. He has been having pain since fall of 2023. His pain is more on the left side of his lower back. He states that his back is starting to affect his balance. He does have weakness in both legs but more on the left. His feet do go numb but when he gets injection with Dr. Torres it seems to help some with the numbness. Patient did have a recent MRI of his lumbar spine on 04/12/24. His last injection was a lumbar caudal injection that he had done in March. He has had a previous surgery of the right side of his lumbar spine but is unable to recall the exact procedure that was done in the that was done by Dr. Coronado. He states that from January to February he had fallen 6 times due to the balance issues and weakness. If he is going to be walking for long periods of time he does use a cane but is not using it today. Ortho Exam General General: Yes no acute distress Neurologic: Yes alert and Yes oriented x3 Spine SPINE TESTING CERVICAL THORACIC LUMBAR Musculoskeletal Strength 0=absent - 5=normal Details: Examination the back shows prior midline incision well-healed in lower lumbar spine. There is some mild midline and paraspinal tenderness slightly at the top end of the incision. Neurologic motion of lower extremity shows 5 x 5 power normal shows normal sensations in all dermatomes. There is no hyperreflexia. Romberg's is positive. Tandem gait shows severe imbalance. Coding Level of Care Code Off vis,new,level 4 Diagnoses Spondylolisthesis, lumbar region M43.16 Spinal stenosis of lumbar region with neurogenic claudication M48.062 Balance problem R26.89 Neuropathy G62.9 Time Spent (min) 45 Ass (more content not included)... Normal [facility] Spine Lumbar (Routine)on Spine Lumbar (Routine) [facility] Imaging Services [address] [place] [address] Spine Lumbar (Routine) MR#: [id number] Acct: [id number] Name: JOSÉ BOWLES Rep #: [id number] : 1950 M 74 From: Chico Doan MD PCP: Dr. Duy Valverde MD Status: REG CLI Study: Spine Lumbar (Routine) Date of Exam: 04/12/24 Exam# [id number] Ordering Dr: Macario Torres MD PROCEDURE: SPINE LUMBAR (ROUTINE) REASON FOR EXAM: Radiculopathy TECHNIQUE: Lumbar spine MRI without intravenous gadolinium-based contrast. COMPARISON: None. FINDINGS: Vertebrae: Lumbar vertebral body heights are preserved. Bone marrow signal is unremarkable. Alignment: Normal. No spondylolisthesis. Conus Medullaris: Normally positioned. L1-2: Unremarkable L2-3: Unremarkable L3-4: Unremarkable L4-5: Broad-based disc bulge with ventral thecal sac indentation and mild bilateral neural foraminal stenotic change right slightly worse than left. Facet hypertrophy. Disc desiccation is noted. L5-S1: Broad-based disc bulge with moderate ventral thecal sac indentation and mild bilateral neural foraminal stenotic change right slightly worse than left. Facet hypertrophy. Disc desiccation is noted. Sacrum: Visualized upper sacrum and SI joints are unremarkable. MRI/Spine Lumbar (Routine) IMPRESSION: No acute MR process. Moderate lumbosacral spondylolysis particularly L5-S1. Reading Location: [facility] CC: Dr. Duy Valverde MD; Dr. Macario Torres MD Thermostat Repairer: Signed Normal [facility] CBC W Auto Differential pane l (Bld)on 03-06-2024 Basophils (Bld) [#/Vol] 0.04 10*3/uL Normal <0.11 [facility] Comment on above: Order Comment: Speci men Type: BLOOD SPECIMEN Ordering Facility: [facility] Address: [address] [place] [address] Performed By: #### 1 834-1 #### [facility] CLIA [id number] [address] [place] [address] [place] Basophils/100 WBC (Bld) 0.8 % Normal [facility] Comment on above: Order Comment: Speci men Type: BLOOD SPECIMEN Ordering Facility: [facility] Address: [address] [place] [address] Performed By: #### 1 834-1 #### [facility] CLIA [id number] [address] [place] [address] [place] Differential cell count method Nom (Bld) Auto Normal [facility] Comment on above: Order Comment: Speci men Type: BLOOD SPECIMEN Ordering Facility: [facility] Address: [address] [place] [address] Performed By: #### 1 834-1 #### [facility] CLIA [id number] [address] [place] [address] [place] Eosinophils (Bld) [#/Vol] 0.13 10*3/uL Normal <0.46 [facility] Comment on above: Order Comment: Speci men Type: BLOOD SPECIMEN Ordering Facility: [facility] Address: [address] [place] [address] Performed By: #### 1 834-1 #### [facility] CLIA [id number] [address] [place] [address] [place] Eosinophils/100 WBC (Bld) 2.7 % Normal [facility] Comment on above: Order Comment: Speci men Type: BLOOD SPECIMEN Ordering Facility: [facility] Address: [address] [place] [address] Performed By: #### 1 834-1 #### [facility] CLIA [id number] [address] [place] [address] [place] Erythrocyte distribution width (RBC) [Ratio] 14.5 % Normal 11.5-15.0 [facility] Comment on above: Order Comment: Speci men Type: BLOOD SPECIMEN Ordering Facility: [facility] Address: [address] [place] [address] Performed By: #### 1 834-1 #### [facility] CLIA [id number] [address] [place] [address] [place] Hematocrit (Bld) [Volume fraction] 40.9 % Normal 39.0-51.0 [facility] Comment on above: Order Comment: Speci men Type: BLOOD SPECIMEN Ordering Facility: [facility] Address: [address] [place] [address] Performed By: #### 1 834-1 #### [facility] CLIA [id number] [address] [place] [address] [place] Hemoglobin (Bld) [Mass/Vol] 13.1 g/dL Normal 13.0-17.0 [facility] Comment on above: Order Comment: Speci men Type: BLOOD SPECIMEN Ordering Facility: [facility] Address: [address] [place] [address] Performed By: #### 1 834-1 #### [facility] CLIA [id number] [address] [place] [address] [place] Immature granulocytes (Bld) [#/Vol] 10*3/uL Normal <0.10 [facility] Comment on above: Order Comment: Speci men Type: BLOOD SPECIMEN Ordering Facility: [facility] Address: [address] [place] [address] Performed By: #### 1 834-1 #### [facility] CLIA [id number] [address] [id number] [address] [place] Immature granulocytes/100 WBC (Bld) 0.2 % Normal [facility] Comment on above: Order Comment: Speci men Type: BLOOD SPECIMEN Ordering Facility: [facility] Address: [address] [place] [address] Performed By: #### 1 834-1 #### [facility] CLIA [id number] [address] [place] [address] [place] Lymphocytes (Bld) [#/Vol] 1.65 10*3/uL Normal 1.00-4.00 [facility] Comment on above: Order Comment: Speci men Type: BLOOD SPECIMEN Ordering Facility: [facility] Address: [address] [place] [address] Performed By: #### 1 834-1 #### [facility] CLIA [id number] [address] [place] [address] [place] Lymphocytes/100 WBC (Bld) 33.9 % Normal [facility] Comment on above: Order Comment: Speci men Type: BLOOD SPECIMEN Ordering Facility: [facility] Address: [address] [place] [address] Performed By: #### 1 834-1 #### [facility] CLIA [id number] [address] [place] [address] [place] MCH (RBC) [Entitic mass] 26.8 pg Normal 26.0-34.0 [facility] Comment on above: Order Comment: Speci men Type: BLOOD SPECIMEN Ordering Facility: [facility] Address: [address] [place] [address] Performed By: #### 1 834-1 #### [facility] CLIA [id number] [address] [place] [address] [place] MCHC (RBC) [Mass/Vol] 32.0 g/dL Normal 30.5-36.0 [facility] Comment on above: Order Comment: Speci men Type: BLOOD SPECIMEN Ordering Facility: [facility] Address: [address] [place] [address] Performed By: #### 1 834-1 #### [facility] CLIA [id number] [address] [place] [address] [place] MCV (RBC) [Entitic vol] 83.6 fL Normal 80.0-100.0 [facility] Comment on above: Order Comment: Speci men Type: BLOOD SPECIMEN Ordering Facility: [facility] Address: [address] [place] [address] Performed By: #### 1 834-1 #### [facility] CLIA [id number] [address] [place] [address] [place] Monocytes (Bld) [#/Vol] 0.50 10*3/uL Normal <0.87 [facility] Comment on above: Order Comment: Speci men Type: BLOOD SPECIMEN Ordering Facility: [facility] Address: [address] [place] [address] Performed By: #### 1 834-1 #### [facility] CLIA [id number] [address] [place] [address] [place] Monocytes/100 WBC (Bld) 10.3 % Normal [facility] Comment on above: Order Comment: Speci men Type: BLOOD SPECIMEN Ordering Facility: [facility] Address: [address] [place] [address] Performed By: #### 1 834-1 #### [facility] CLIA [id number] [address] [place] [address] [place] Neutrophils (Bld) [#/Vol] 2.54 10*3/uL Normal 1.45-7.50 [facility] Comment on above: Order Comment: Speci men Type: BLOOD SPECIMEN Ordering Facility: [facility] Address: [address] [place] [address] Performed By: #### 1 834-1 #### [facility] CLIA [id number] [address] [place] [address] [place] Neutrophils/100 WBC (Bld) 52.1 % Normal [facility] Comment on above: Order Comment: Speci men Type: BLOOD SPECIMEN Ordering Facility: [facility] Address: [address] [place] [address] Performed By: #### 1 834-1 #### [facility] CLIA [id number] [address] [place] [address] [place] Nucleated RBC (Bld) [#/Vol] 10*3/uL Normal <0.01 [facility] Comment on above: Order Comment: Speci men Type: BLOOD SPECIMEN Ordering Facility: [facility] Address: [address] [place] [address] Performed By: #### 1 834-1 #### [facility] CLIA [id number] [address] [place] [address] [place] Nucleated RBC/100 WBC (Bld) [Ratio] 0.0 /100 WBC Normal [facility] Comment on above: Order Comment: Speci men Type: BLOOD SPECIMEN Ordering Facility: [facility] Address: [address] [place] [address] Performed By: #### 1 834-1 #### [facility] CLIA [id number] [address] [place] [address] [place] Platelet mean volume (Bld) [Entitic vol] 10.2 fL Normal 9.0-12.7 [facility] Comment on above: Order Comment: Speci men Type: BLOOD SPECIMEN Ordering Facility: [facility] Address: [address] [place] [address] Performed By: #### 1 834-1 #### [facility] CLIA [id number] [address] [place] [address] [place] Platelets (Bld) [#/Vol] 214 10*3/uL Normal 150-400 [facility] Comment on above: Order Comment: Speci men Type: BLOOD SPECIMEN Ordering Facility: [facility] Address: [address] [place] [address] Performed By: #### 1 834-1 #### [facility] CLIA [id number] [address] [place] [address] [place] RBC (Bld) [#/Vol] 4.89 10*6/uL Normal 4.20-6.00 [facility] Comment on above: Order Comment: Speci men Type: BLOOD SPECIMEN Ordering Facility: [facility] Address: [address] [place] [address] Performed By: #### 1 834-1 #### [facility] CLIA [id number] [address] [place] [address] [place] WBC (Bld) [#/Vol] 4.87 10*3/uL Normal 3.70-11.00 [facility] Comment on above: Order Comment: Speci men Type: BLOOD SPECIMEN Ordering Facility: [facility] Address: [address] [place] [address] Performed By: #### 1 834-1 #### [facility] CLIA [id number] [address] [place] [address] [place] Ferritin SerPl-mCncon 2023 Ferritin [Mass/Vol] 19.6 ng/mL Low 30.3-565.7 [facility] Comment on above: Order Comment: Speci men Type: BLOOD SPECIMEN Ordering Facility: [facility] Address: [address] [place] [address] Performed By: #### 2 276-4 #### [facility] CLIA [id number] [address] [place] [address] [place] CBC W Auto Differential pane l (Bld)on 12-13-2023 Basophils (Bld) [#/Vol] 0.03 10*3/uL Normal <0.11 [facility] Comment on above: Order Comment: Speci men Type: BLOOD SPECIMEN Ordering Facility: [facility] Address: [address] [place] [address] Performed By: #### 1 834-1 #### [facility] CLIA [id number] [address] [place] [address] [place] Basophils/100 WBC (Bld) 0.8 % Normal [facility] Comment on above: Order Comment: Speci men Type: BLOOD SPECIMEN Ordering Facility: [facility] Address: [address] [place] [address] Performed By: #### 1 834-1 #### [facility] CLIA [id number] [address] [place] [address] [place] Differential cell count method Nom (Bld) Auto Normal [facility] Comment on above: Order Comment: Speci men Type: BLOOD SPECIMEN Ordering Facility: [facility] Address: [address] [place] [address] Performed By: #### 1 834-1 #### [facility] CLIA [id number] [address] [place] [address] [place] Eosinophils (Bld) [#/Vol] 0.14 10*3/uL Normal <0.46 [facility] Comment on above: Order Comment: Speci men Type: BLOOD SPECIMEN Ordering Facility: [facility] Address: [address] [place] [address] Performed By: #### 1 834-1 #### [facility] CLIA [id number] [address] [place] [address] [place] Eosinophils/100 WBC (Bld) 3.6 % Normal [facility] Comment on above: Order Comment: Speci men Type: BLOOD SPECIMEN Ordering Facility: [facility] Address: [address] [place] [address] Performed By: #### 1 834-1 #### [facility] CLIA [id number] [address] [place] [address] [place] Erythrocyte distribution width (RBC) [Ratio] 14.7 % Normal 11.5-15.0 [facility] Comment on above: Order Comment: Speci men Type: BLOOD SPECIMEN Ordering Facility: [facility] Address: [address] [place] [address] Performed By: #### 1 834-1 #### [facility] CLIA [id number] [address] [place] [address] [place] Hematocrit (Bld) [Volume fraction] 39.4 % Normal 39.0-51.0 [facility] Comment on above: Order Comment: Speci men Type: BLOOD SPECIMEN Ordering Facility: [facility] Address: [address] [place] [address] Performed By: #### 1 834-1 #### [facility] CLIA [id number] [address] [place] [address] [place] Hemoglobin (Bld) [Mass/Vol] 12.7 g/dL Low 13.0-17.0 [facility] Comment on above: Order Comment: Speci men Type: BLOOD SPECIMEN Ordering Facility: [facility] Address: [address] [place] [address] Performed By: #### 1 834-1 #### [facility] CLIA [id number] [address] [place] [address] [place] Immature granulocytes (Bld) [#/Vol] 10*3/uL Normal <0.10 [facility] Comment on above: Order Comment: Speci men Type: BLOOD SPECIMEN Ordering Facility: [facility] Address: [address] [place] [address] Performed By: #### 1 834-1 #### [facility] CLIA [id number] [address] [place] [address] [place] Immature granulocytes/100 WBC (Bld) 0.0 % Normal [facility] Comment on above: Order Comment: Speci men Type: BLOOD SPECIMEN Ordering Facility: [facility] Address: [address] [place] [address] Performed By: #### 1 834-1 #### [facility] CLIA [id number] [address] [place] [address] [place] Lymphocytes (Bld) [#/Vol] 1.28 10*3/uL Normal 1.00-4.00 [facility] Comment on above: Order Comment: Speci men Type: BLOOD SPECIMEN Ordering Facility: [facility] Address: [address] [place] [address] Performed By: #### 1 834-1 #### [facility] CLIA [id number] [address] [place] [address] [place] Lymphocytes/100 WBC (Bld) 32.9 % Normal [facility] Comment on above: Order Comment: Speci men Type: BLOOD SPECIMEN Ordering Facility: [facility] Address: [address] [place] [address] Performed By: #### 1 834-1 #### [facility] CLIA [id number] [address] [place] [address] [place] MCH (RBC) [Entitic mass] 26.6 pg Normal 26.0-34.0 [facility] Comment on above: Order Comment: Speci men Type: BLOOD SPECIMEN Ordering Facility: [facility] Address: [address] [place] [address] Performed By: #### 1 834-1 #### [facility] CLIA [id number] [address] [place] [address] [place] MCHC (RBC) [Mass/Vol] 32.2 g/dL Normal 30.5-36.0 [facility] Comment on above: Order Comment: Speci men Type: BLOOD SPECIMEN Ordering Facility: [facility] Address: [address] [place] [address] Performed By: #### 1 834-1 #### [facility] CLIA [id number] [address] [place] [address] [place] MCV (RBC) [Entitic vol] 82.4 fL Normal 80.0-100.0 [facility] Comment on above: Order Comment: Speci men Type: BLOOD SPECIMEN Ordering Facility: [facility] Address: [address] [place] [address] Performed By: #### 1 834-1 #### [facility] CLIA [id number] [address] [place] [address] [place] Monocytes (Bld) [#/Vol] 0.44 10*3/uL Normal <0.87 [facility] Comment on above: Order Comment: Speci men Type: BLOOD SPECIMEN Ordering Facility: [facility] Address: [address] [place] [address] Performed By: #### 1 834-1 #### [facility] CLIA [id number] [address] [place] [address] [place] Monocytes/100 WBC (Bld) 11.3 % Normal [facility] Comment on above: Order Comment: Speci men Type: BLOOD SPECIMEN Ordering Facility: [facility] Address: [address] [place] [address] Performed By: #### 1 834-1 #### [facility] CLIA [id number] [address] [place] [address] [place] Neutrophils (Bld) [#/Vol] 2.00 10*3/uL Normal 1.45-7.50 [facility] Comment on above: Order Comment: Speci men Type: BLOOD SPECIMEN Ordering Facility: [facility] Address: [address] [place] [address] Performed By: #### 1 834-1 #### [facility] CLIA [id number] [address] [place] [address] [place] Neutrophils/100 WBC (Bld) 51.4 % Normal [facility] Comment on above: Order Comment: Speci men Type: BLOOD SPECIMEN Ordering Facility: [facility] Address: [address] [place] [address] Performed By: #### 1 834-1 #### [facility] CLIA [id number] [address] [place] [address] [place] Nucleated RBC (Bld) [#/Vol] 10*3/uL Normal <0.01 [facility] Comment on above: Order Comment: Speci men Type: BLOOD SPECIMEN Ordering Facility: [facility] Address: [address] [place] [address] Performed By: #### 1 834-1 #### [facility] CLIA [id number] [address] [place] [address] [place] Nucleated RBC/100 WBC (Bld) [Ratio] 0.0 /100 WBC Normal [facility] Comment on above: Order Comment: Speci men Type: BLOOD SPECIMEN Ordering Facility: [facility] Address: [address] [place] [address] Performed By: #### 1 834-1 #### [facility] CLIA [id number] [address] [place] [address] [place] Platelet mean volume (Bld) [Entitic vol] 9.7 fL Normal 9.0-12.7 [facility] Comment on above: Order Comment: Speci men Type: BLOOD SPECIMEN Ordering Facility: [facility] Address: [address] [place] [address] Performed By: #### 1 834-1 #### [facility] CLIA [id number] [address] [place] [address] [place] Platelets (Bld) [#/Vol] 185 10*3/uL Normal 150-400 [facility] Comment on above: Order Comment: Speci men Type: BLOOD SPECIMEN Ordering Facility: [facility] Address: [address] [place] [address] Performed By: #### 1 834-1 #### [facility] CLIA [id number] [address] [place] [address] [place] RBC (Bld) [#/Vol] 4.78 10*6/uL Normal 4.20-6.00 [facility] Comment on above: Order Comment: Speci men Type: BLOOD SPECIMEN Ordering Facility: [facility] Address: [address] [place] [address] Performed By: #### 1 834-1 #### [facility] CLIA [id number] [address] [place] [address] [place] WBC (Bld) [#/Vol] 3.89 10*3/uL Normal 3.70-11.00 [facility] Comment on above: Order Comment: Speci men Type: BLOOD SPECIMEN Ordering Facility: [facility] Address: [address] [place] [address] Performed By: #### 1 834-1 #### [facility] CLIA [id number] [address] [place] [address] [place] CNOVSPon 12-13-2023 CNOVSP Visit (SP) Office (H EMAWS) -- STEFANI BOWLESH El ([id number]) 1950 M Date Time Provider Department 12/13/23 9:00 AM MARÍA VALLE During your visit today, we recorded the following information about you: Temperature Pulse Blood pressure Weight 97.5 degrees 78/minute 139/93 94.1 kg María Valle APRN.CNP 12/13/2023 9:14 AM Signed Chief Complaint Patient presents with: Established Patient HPI: José Bowles is a 73 year old male who presents here today for follow up HH. Per Dr. Erazo's previous note: H/o who had iron studies done due to family h/o hemochromatosis. Patient's father had hemochromatosis, but patient didn't know the details of his father's history. Nonfasting iron studies revealed TIBC 145 ug/dL, iron 68 ug/dL and saturation 46.9% with ferritin 1007 ng/mL. 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 Has been undergoing routine phlebotomy since 11/28/10. Not seen since 2019. Came in for phlebotomy. Had Covid 2019. Was diagnosed with cirrhosis. Saw Dr. Werner--MRI liver-- Says he had colonoscopy and EGD. No new concerns today. Appetite:Too good. Energy level:It's the motivation part. Denies fevers or recent illness. Resp:denies cough or sob Cardiac:denies chest pain/palpitations GI:denies abd pain, n/v, moving bowels regularly-occ. constipation-taking prunes :denies dysuria/hematuria Extrem:chronic back pain-followed by pain mgmt.-having back inj next week by Dr. Crawford. 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 Past medical history, appointments, medications, allergies reviewed. No changes. EXAM: BP 139/93 Pulse 78 Temp 36.4 ?C (97.5 ?F) (Temporal) Wt 94.1 kg (207 lb 7.3 oz) SpO2 97% BMI 29.37 kg/m? APPEARANCE Well appearing, alert, in no acute distress, well-hydrated, well nourished. HEART RRR with normal S1 and S2, no murmurs LUNG clear to auscultation LYMPH NODES No cervical lymphadenopathy, No supraclavicular lymphadenopathy, and No axillary lymphadenopathy. ABDOMEN bowel sounds normoactive, soft, non-tender EXTREMITIES No edema NEURO Awake, alert and oriented x 3, Normal gait, and No involuntary motions. SKIN Skin color, texture, turgor normal, no suspicious rashes or lesions LABS: Latest Ref Rng 06/28/2023 09/20/2023 12/13/2023 WBC 3.70 - 11.00 k/uL 4.05 5.53 3.89 RBC 4.20 - 6.00 m/uL 4.95 4.84 4.78 Hemoglobin 13.0 - 17.0 g/dL 12.6 (L) 12.8 (L) 12.7 (L) Hematocrit 39.0 - 51.0 % 39.6 40.4 39.4 MCV 80.0 - 100.0 fL 80.0 83.5 82.4 MCH 26.0 - 34.0 pg 25.5 (L) 26.4 26.6 MCHC 30.5 - 36.0 g/dL 31.8 31.7 32.2 RDW-CV 11.5 - 15.0 % 15.7 (H) 15.8 (H) 14.7 Platelet Count 150 - 400 k/uL 204 201 185 MPV 9.0 - 12.7 fL 9.8 9.9 9.7 Neut% % 52.9 63.7 51.4 Abs Neut (ANC) 1.45 - 7.50 k/uL 2.14 3.52 2.00 Lymph% % 30.6 26.0 32.9 Abs Lymph 1.00 - 4.00 k/uL 1.24 1.44 1.28 Kent% % 12.3 8.1 11.3 Abs Kent <0.87 k/uL 0.50 0.45 0.44 Eosin% % 3.2 1.3 3.6 Abs Eosin <0.46 k/uL 0.13 0.07 0.14 Baso% % 1.0 0.7 0.8 Abs Baso <0.11 k/uL 0.04 0.04 0.03 Immature Gran % % 0.0 0.2 0.0 IMMATURE GRANS (ABS) <0.10 k/uL <0.03 <0.03 <0.03 NRBC /100 WBC 0.0 0.0 0.0 Absolute nRBC <0.01 k/uL <0.01 <0.01 <0.01 DTYPE Auto Auto Auto Ferritin: Pending ASSESSMENT/PLAN: 1. Hereditary hemochromatosis (HCC) - ICD9: 275.01, ICD10: E83.[address] Erazo's previous note: Assessment: -Tolerating periodic phlebotomy well. -Ferritin consistently under 50 ng/mL over the last year. Reviewed trend with him. -Question GI blood loss. -Diagnosed with cirrhosis since last seen 3 years ago. Plan: -Obtain MRI report and records from Dr. Werner. -Change to every 3 month possible phlebotomy. -Threshold for phlebotomy hematocrit 45%. -OV in a year. - No concerning findings on exam. - Reviewed CBC with pt. - Ferritin pending. - Continue current medications. - Continue follow up with PCP/specialists. - No phlebotomy needed today. Hct. 39.4% today. - CBC/ferritin/possible phlebotomy every 3 months. - Follow up with Dr. Erazo in one year. - Pt. aware to call office with any questions/concerns. The patient indicates understanding of these issues and agrees with the plan. All documentation from previous visit of 01/12/23-Dr. Erazo was copied and pasted, documentation has been reviewed and edited as necessary for today's visit. María Valle APRN.CHARISMA Referring Provider: CASTRO ERAZO [[id number]] Allergies As of Date: 12/13/2023 (No Known Allergies) Date Reviewed: 12/13/2023 Reviewed by: María Valle APRN.FINANCIAL SERVICES EDUCATION CONSULTANT - Fully Assessed Reason for Visit: Established Patient [175] Primary Visit Diagnosis:Hereditary hemochromatosis (HCC) [E83.110] Follow-up and Disposition History for Encounter Date Provider Department Center 12/13/2023 [id number], DARBY (more content not included)... Normal [facility] Ferritin SerPl-mCncon 2023 Ferritin [Mass/Vol] 16.8 ng/mL Low 30.3-565.7 [facility] Comment on above: Order Comment: Speci men Type: BLOOD SPECIMEN Ordering Facility: [facility] Address: [address] [place] [address] Performed By: #### 2 276-4 #### [facility] CLIA [id number] [address] [place], [place] [address] [address] [place] Absolute lymphocyte countOrd ered By: Karen Yoo on 04-17-2023 Lymphocytes Auto (Unsp spec) [#/Vol] 1.81 10*3/uL 0.83-4.51 [facility] Automated lymphocyte count a s percentage of total leukocytesOrdered By: Karen Yoo on 04-17-2023 Lymphocytes/100 WBC Auto (Unsp spec) 32.7 % 19-41 [facility] Basophil percentageOrdered B y: [facility] on 04-17-2023 Basophils/100 WBC (Bld) 0.7 % 0-1 [facility] Chloride [Moles/Vol] 106 mmol/L 98-107 [facility] Eosinophils/100 WBC (Bld) 2.0 % 0-5 [facility] Glucose [Mass/Vol] 89 mg/dL 74-106 [facility] Hemoglobin (Bld) [Mass/Vol] 12.3 g/dL 13.0-16.5 [facility] Monocytes/100 WBC (Bld) 10.8 % 0-10 [facility] Neutrophils (Bld) [#/Vol] 3.0 10*3/uL 2.0-7.7 [facility] Neutrophils/100 WBC (Bld) 53.4 % 47-70 [facility] Potassium [Moles/Vol] 4.0 mmol/L 3.5-5.1 [facility] Sodium [Moles/Vol] 135 mmol/L 136-145 [facility] WBC (Bld) [#/Vol] 5.5 10*3/uL 4.4-11.0 [facility] Determination of erythrocyte mean corpuscular volume (MCV)Ordered By: [facility]o on 04-17-2023 MCV (RBC) [Entitic vol] 79.0 fL 80-94 [facility] Erythrocyte distribution wid th ratioOrdered By: Roberts Chapel on 04-17-2023 Erythrocyte distribution width (RBC) [Ratio] 16.2 % 11.6-14.6 [facility] Erythrocyte distribution wid th standard deviationOrdered By: Roberts Chapel on 04-17-2023 Erythrocyte distribution width (RBC) [Entitic vol] 46.0 fL 35.1-43.9 [facility] Hematocrit Auto (Bld) [Volum e fraction]Ordered By: Roberts Chapel on 04-17-2023 Hematocrit (Bld) [Volume fraction] 39.2 % 40-54 [facility] Immature granulocytes/100 WB C Auto (Bld)Ordered By: [facility]o on 04-17-2023 Immature granulocytes/100 WBC (Bld) 0.400 % 0.0-0.9 [facility] Comment on above: IG% - Immature Granu locytes (promyelocytes, myelocytes and metamyelocytes) > 1% indicates that a LEFT SHIFT is Present. Laboratory - Chemistry and C hemistry - challengeOrdered By: Karen Yoo on 04-17-2023 CO2 [Moles/Vol] 25.0 mmol/L 21.0-32.0 [facility] Urea nitrogen/Creatinine [Mass ratio] 18.8 mg/mg 10-20 [facility] Laboratory - Hematology and Cell countsOrdered By: Karen Yoo on 04-17-2023 MCH (RBC) [Entitic mass] 24.8 pg 27.0-32.0 [facility] MCHC (RBC) [Mass/Vol] 31.4 g/dL 32-36 [facility] Nucleated RBC/100 WBC (Bld) [Ratio] 0 % 0-5 [facility] Platelet mean volume (Bld) [Entitic vol] 10.2 fL 6.2-12.0 [facility] Platelets (Bld) [#/Vol] 220 10*3/uL 150-450 [facility] No Panel InformationOrdered By: Karen Yoo on 04-17-2023 Estimated GFR (MDRD) Amer 83 mL/min >60 [facility] Comment on above: GFR Calc Estimated GFR (MDRD) Non-Af Amer 68 mL/min >60 [facility] Comment on above: Non- GFR Calc RBC Auto (Bld) [#/Vol]Ordere d By: Karen Yoo on 04-17-2023 RBC (Bld) [#/Vol] 4.96 10*6/uL 4.6-6.2 [facility] Serum or plasma calcium sanket urement (mass/volume)Ordered By: Karen Fredo on 04-17-2023 Calcium [Mass/Vol] 9.2 mg/dL 8.5-10.1 [facility] Serum or plasma creatinine m easurement (mass/volume)Ordered By: [facility]o on 04-17-2023 Creatinine [Mass/Vol] 1.12 mg/dL 0.70-1.30 [facility] Comment on above: The validity of the calculated GFR & GFRAA in patients over 70 years has not been determined. Clinical correlation is essential. Serum or plasma urea nitroge n measurement (mass/volume)Ordered By: Karen Yoo on 04-17-2023 Urea nitrogen [Mass/Vol] 21 mg/dL 7-18 [facility] Thin prep Papanicolaou smear with manual screeningOrdered By: Karen Yoo on 04-17-2023 Thin prep Papanicolaou smear with manual screening 4 5-15 [facility] HEPATIC FUNCTION PANEL ([id number] [id number])Ordered By: Creative Per[employer] on 07-07-2022 Albumin [Mass/Vol] 4.2 g/dL Normal 3.7-4.7 [facility] Work Phone: Comment on above: PATIENT WAS FASTINGP ERFORMED BY: CB [facility] [id number] Jim[address] [facility]so [facility]At[facility] [id number] ALP [Catalytic activity/Vol] 104 U/L Normal 44-121 [facility]; [facility] Work Phone: Comment on above: PATIENT WAS FASTINGP ERFORMED BY: [facility] [id number] Jimenez [facility] [id number] ALT [Catalytic activity/Vol] 17 U/L Normal 0-44 [facility]; [facility] Work Phone: Comment on above: PATIENT WAS FASTINGP ERFORMED BY: CB [facility] [id number] Jimenez [facility] [id number] AST [Catalytic activity/Vol] 22 U/L Normal 0-40 [facility]; [facility] Work Phone: Comment on above: PATIENT WAS FASTINGP ERFORMED BY: CB [facility] [id number] [facility] [id number] Bilirubin [Mass/Vol] 0.4 mg/dL Normal 0.0-1.2 [facility] Work Phone: Comment on above: PATIENT WAS FASTINGP ERFORMED BY: [facility] [id number] Jimenez [facility] [id number] Bilirubin.direct [Mass/Vol] 0.10 mg/dL Normal 0.00-0.40 [facility]; [facility] Work Phone: Comment on above: PATIENT WAS FASTINGP ERFORMED BY: WINTER [facility] [id number] Jimenez RoadDublin [place] [id number] Protein [Mass/Vol] 6.4 g/dL Normal 6.0-8.5 [facility]; [facility] Work Phone: Comment on above: PATIENT WAS FASTINGP ERFORMED BY: WINTER [facility] [id number] Jimenez RoadDublin [place] [id number] LIPID PANEL ([id number])Ordered B y: [employer] on 07-07-2022 Cholesterol [Mass/Vol] 195 mg/dL Normal 100-199 [facility]; [facility] Work Phone: Comment on above: PATIENT WAS FASTINGP ERFORMED BY: WINTER [facility] [id number] Jimenez RoadDublin [place] [id number] Cholesterol in HDL [Mass/Vol] 42 mg/dL Normal [facility]; [facility] Work Phone: Comment on above: PATIENT WAS FASTINGP ERFORMED BY: WINTER [facility] [id number] Jimenez RoadDublin [place] [id number] Triglyceride [Mass/Vol] 134 mg/dL Normal 0-149 [facility]; [facility] Work Phone: Comment on above: PATIENT WAS FASTINGP ERFORMED BY: WINTER [facility] [id number] Jimenez RoadDublin [place] [id number] LIPID PANEL ([id number]) 24 mg/dL Normal 5-40 [facility]; [facility] Work Phone: Comment on above: PATIENT WAS FASTINGP ERFORMED BY: WINTER [facility] [id number] [address] RoadDublin [place] [id number] LIPID PANEL (27773) 129 mg/dL Abnormal 0-99 [facility]; [facility] Work Phone: Comment on above: PATIENT WAS FASTINGP ERFORMED BY: WINTER [facility] [id number] Jimenez RoadDublin [place] [id number] LIPID PANEL (50399) 3.1 {ratio} Normal 0.0-3.6 [facility]; [facility] Work Phone: Comment on above: LDL/HDL Ratio Men Wo men 1/2 Avg.Risk 1.0 1.5 Avg.Risk 3.6 3.2 2X Avg.Risk 6.2 5.0 3X Avg.Risk 8.0 6.1 PATIENT WAS FASTINGP ERFORMED BY: [id number] Somero EnterprisesUNC [facility] [id number] (821 05)Ordered By: Creative Perfumer on 02-08-2022 AFP.tumor marker [Mass/Vol] 2.3 ng/mL Normal 0.0-8.4 [facility]; [facility] Work Phone: Comment on above: Oversi El ectrochemiluminescence Immunoassay (ECLIA) .Values obtained with different assay methods or kits cannot beused interchangeably. Results cannot be interpreted as absoluteevidence of the presence or absence of malignant disease. .This test is not interpretable in females. PATIENT WAS FASTINGP ERFORMED BY: [facility] [id number] AMMONIA ([id number])Ordered By: S ystem Perioperative Educator on 02-08-2022 Ammonia (P) [Mass/Vol] 45 ug/dL Normal 31-169 [facility]; [facility] Work Phone: Comment on above: PATIENT WAS FASTINGP ERFORMED BY: [id number] [facility]ICAt[facility] [id number] FERRITIN ([id number])Ordered By: Creative Perfumer on 02-08-2022 Ferritin [Mass/Vol] 12 ng/mL Abnormal 30-400 [facility] Internal [facility]; [facility] Work Phone: Comment on above: PATIENT WAS FASTINGP ERFORMED BY: [id number] NEMOPTICFormerly [facility] [place] [id number] PSA (PROSTATE SPECIFIC ANTIG EN) (V76.44)Ordered By: Creative Perfumer on 02-08-2022 Prostate specific Ag [Mass/Vol] 0.4 ng/mL Normal 0.0-4.0 [facility]; [facility] Work Phone: Comment on above: Aishwarya ECLIA methodol ogy. .According to the [place] [employer], Serum PSA shoulddecrease and remain at undetectable levels after radicalprostatectomy. The AUA defines biochemical recurrence as an initialPSA value 0.2 ng/mL or greater followed by a subsequent confirmatoryPSA value 0.2 ng/mL or greater.Values obtained with different assay methods or kits cannot be usedinterchangeably. Results cannot be interpreted as absolute evidenceof the presence or absence of malignant disease. PATIENT WAS FASTINGP ERFORMED BY: [employer] [place] [id number]-[id number] ([id number])Ordered By: Creative Perfumer on 09-21-2021 AFP.tumor marker [Mass/Vol] 2.2 ng/mL Normal 0.0-8.4 [facility]; [facility] Work Phone: Comment on above: [employer] [place] ectrochemiluminescence Immunoassay (ECLIA) .Values obtained with different assay methods or kits cannot beused interchangeably. Results cannot be interpreted as absoluteevidence of the presence or absence of malignant disease. .This test is not interpretable in females. PERFORMED BY: [employer] [place] [id number] AMMONIA ([id number])Ordered By: Erick ystem Perioperative Educator on 09-21-2021 Ammonia (P) [Mass/Vol] 63 ug/dL Normal 31-169 [facility]; [facility] Work Phone: Comment on above: PERFORMED BY: [employer] [place] [id number] CBC with auto diff ([id number])Or dered By: Creative Perfumer on 09-21-2021 Basophils (Bld) [#/Vol] 0.0 10*3/uL Normal 0.0-0.2 [facility]; [facility] Work Phone: Comment on above: PERFORMED BY: [employer] [place] [id number] Basophils/100 WBC (Bld) 1 % Normal [facility]; [facility] Work Phone: Comment on above: PERFORMED BY: Illumioox RoadFormerly [facility] [place] [id number] Eosinophils (Bld) [#/Vol] 0.1 10*3/uL Normal 0.0-0.4 [facility]; [facility] Work Phone: Comment on above: PERFORMED BY: [id number] [place] [id number] Eosinophils/100 WBC (Bld) 4 % Normal [facility]; [facility] Work Phone: Comment on above: PERFORMED BY: Cleverlize70 [address] RoadFormerly [facility], [facility] [place] [id number] Erythrocyte distribution width (RBC) [Ratio] 12.9 % Normal 11.6-15.4 [facility]; [facility] Work Phone: Comment on above: PERFORMED BY: Borqs Jimenez [facility] [id number] Hematocrit (Bld) [Volume fraction] 38.8 % Normal 37.5-51.0 [facility]; [facility] Work Phone: Comment on above: PERFORMED BY: Cleverlize[address] Oso TechnologiesAtrium Health [facility] [id number] Hemoglobin (Bld) [Mass/Vol] 12.9 g/dL Abnormal 13.0-17.7 [facility]; [facility] Work Phone: Comment on above: PERFORMED BY: [id number] [facility] [place] [id number] Immature granulocytes (Bld) [#/Vol] 0.0 10*3/uL Normal 0.0-0.1 [facility]; [facility] Work Phone: Comment on above: PERFORMED BY: Cleverlize70 [address] [facility] [place] [id number] Immature granulocytes/100 WBC (Bld) 0 % Normal [facility]; [facility] Work Phone: Comment on above: PERFORMED BY: [id number] RoadFormerly [facility] [place] [id number] Lymphocytes (Bld) [#/Vol] 1.3 10*3/uL Normal 0.7-3.1 [facility]; [facility] Work Phone: Comment on above: PERFORMED BY: Magency DigitalUNC [facility] [id number] Lymphocytes/100 WBC (Bld) 36 % Normal [facility]; [facility] Work Phone: Comment on above: PERFORMED BY: Mag[employer] DigitalUNC [facility] [id number] MCH (RBC) [Entitic mass] 27.8 pg Normal 26.6-33.0 [facility]; [facility] Work Phone: Comment on above: PERFORMED BY: Magency DigitalUNC [facility] [id number] MCHC (RBC) [Mass/Vol] 33.2 g/dL Normal 31.5-35.7 [facility]; [facility] Work Phone: Comment on above: PERFORMED BY: Magency DigitalUNC [facility] [id number] MCV (RBC) [Entitic vol] 84 fL Normal 79-97 [facility]; [facility] Work Phone: Comment on above: PERFORMED BY: Cleverlize70 NEMOPTICAtrium Health [facility] [id number] Monocytes (Bld) [#/Vol] 0.4 10*3/uL Normal 0.1-0.9 [facility]; [facility] Work Phone: Comment on above: PERFORMED BY: [facility]iAt[facility] [id number] Monocytes/100 WBC (Bld) 10 % Normal [facility]; [facility] Work Phone: Comment on above: PERFORMED BY: Magency DigitalUNC [facility] [id number] Neutrophils (Bld) [#/Vol] 1.7 10*3/uL Normal 1.4-7.0 [facility]; [facility] Work Phone: Comment on above: PERFORMED BY: [id number] [address] RoadMarioblin [place] [id number] Neutrophils/100 WBC (Bld) 49 % Normal [facility]; [facility] Work Phone: Comment on above: PERFORMED BY: [id number] [address] RoadMarioblin [place] [id number] Platelets (Bld) [#/Vol] 210 10*3/uL Normal 150-450 [facility]; [facility] Work Phone: Comment on above: PERFORMED BY: [id number] [address] RoadDublin [place] [id number] RBC (Bld) [#/Vol] 4.64 10*6/uL Normal 4.14-5.80 Compr ehensive Internal Medicine; [facility] Work Phone: Comment on above: PERFORMED BY: [id number] [address] RoadMarioblin [place] [id number] WBC (Bld) [#/Vol] 3.5 10*3/uL Normal 3.4-10.8 Compre hensive Internal Medicine; [facility] Work Phone: Comment on above: PERFORMED BY: [id number] [place] [id number] LIPID PANEL (26117)Ordered B y: Creative Perfumer on 09-21-2021 Cholesterol [Mass/Vol] 196 mg/dL Normal 100-199 [facility]; [facility] Work Phone: Comment on above: PERFORMED BY: [id number] [facility] [place] [id number] Cholesterol in HDL [Mass/Vol] 43 mg/dL Normal [facility]; [facility] Work Phone: Comment on above: PERFORMED BY: [id number] [facility] HospitalElitecore Technologiesblin [place] [id number] Triglyceride [Mass/Vol] 102 mg/dL Normal 0-149 [facility]; [facility] Work Phone: Comment on above: PERFORMED BY: Cleverlize[address] [place] [id number] LIPID PANEL (00175) 19 mg/dL Normal 5-40 [facility]; [facility] Work Phone: Comment on above: PERFORMED BY: [id number] [facility] [id number] LIPID PANEL (47198) 134 mg/dL Abnormal 0-99 [facility]; [facility] Work Phone: Comment on above: PERFORMED BY: Borqs [facility] [id number] LIPID PANEL (84855) 3.1 {ratio} Normal 0.0-3.6 [facility]; [facility] Work Phone: Comment on above: LDL/HDL Ratio Men Wo men 1/2 Avg.Risk 1.0 1.5 Avg.Risk 3.6 3.2 2X Avg.Risk 6.2 5.0 3X Avg.Risk 8.0 6.1 PERFORMED BY: Borqs [facility] [id number] METABOLIC PANEL, COMPREHENSI VE (37543)Ordered By: Creative Perfumer on 09-21-2021 Albumin [Mass/Vol] 4.6 g/dL Normal 3.7-4.7 [facility]; [facility] Work Phone: Comment on above: PERFORMED BY: [email or web address] [facility] [id number] Albumin/Globulin [Mass ratio] 2.3 {ratio} Abnormal 1.2-2.2 [facility]; [facility] Work Phone: Comment on above: PERFORMED BY: [email or web address] [facility] [id number] ALP [Catalytic activity/Vol] 93 U/L Normal 44-121 [facility]; [facility] Work Phone: Comment on above: PERFORMED BY: Borqs Jim[address] [facility] [id number] ALT [Catalytic activity/Vol] 13 U/L Normal 0-44 [facility]; [facility] Work Phone: Comment on above: PERFORMED BY: [id number] [place] [id number] AST [Catalytic activity/Vol] 18 U/L Normal 0-40 [facility]; [facility] Work Phone: Comment on above: PERFORMED BY: [id number] [place] [id number] Bilirubin [Mass/Vol] 0.5 mg/dL Normal 0.0-1.2 Comp rehensive Internal Medicine; [facility] Work Phone: Comment on above: PERFORMED BY: [id number] [place] [id number] Calcium [Mass/Vol] 9.2 mg/dL Normal 8.6-10.2 [facility]; [facility] Work Phone: Comment on above: PERFORMED BY: [id number] [facility]UNC [facility] [id number] Chloride [Moles/Vol] 106 mmol/L Normal 96-106 Comp rehensive Internal Medicine; [facility] Work Phone: Comment on above: PERFORMED BY: [id number] [place] [id number] CO2 [Moles/Vol] 21 mmol/L Normal 20-29 Comprehen sive Internal Medicine; [facility] Work Phone: Comment on above: PERFORMED BY: [id number] [facility] ManUNC [facility] [id number] Creatinine [Mass/Vol] 1.10 mg/dL Normal 0.76-1.27 [facility]; [facility] Work Phone: Comment on above: PERFORMED BY: [id number] [facility] ManUNC [facility] [id number] GFR/1.73 sq M.predicted among non-blacks MDRD (S/P/Bld) [Vol rate/Area] 72 mL/min/{1.73_m2} Normal Comprehensiv e Internal Medicine; [facility] Work Phone: Comment on above: PERFORMED BY: [id number] [address] RoadElitecore Technologiesblin [place] [id number] Globulin (S) [Mass/Vol] 2.0 g/dL Normal 1.5-4.5 [facility]; [facility] Work Phone: Comment on above: PERFORMED BY: [id number] [address] RoadDublin [place] [id number] Glucose [Mass/Vol] 101 mg/dL Abnormal 65-99 [facility]; [facility] Work Phone: Comment on above: PERFORMED BY: Cleverlize[address] [place] [id number] Potassium [Moles/Vol] 4.4 mmol/L Normal 3.5-5.2 [facility]; [facility] Work Phone: Comment on above: PERFORMED BY: Cleverlize[address] [place] [id number] Protein [Mass/Vol] 6.6 g/dL Normal 6.0-8.5 [facility]; [facility] Work Phone: Comment on above: PERFORMED BY: Cleverlize[address] [place] [id number] Sodium [Moles/Vol] 140 mmol/L Normal 134-144 [facility]; [facility] Work Phone: Comment on above: PERFORMED BY: Cleverlize[address] [place] [id number] Urea nitrogen [Mass/Vol] 16 mg/dL Normal 8-27 [facility]; [facility] Work Phone: Comment on above: PERFORMED BY: Cleverlize[address] [place] [id number] Urea nitrogen/Creatinine [Mass ratio] 15 mg/mg Normal 10-24 [facility]; [facility] Work Phone: Comment on above: PERFORMED BY: [id number] [place] [id number] HEPATIC FUNCTION PANEL (8007 6)Ordered By: Creative Perfumer on 05-30-2021 Albumin [Mass/Vol] 4.6 g/dL Normal 3.7-4.7 [facility]; [facility] Work Phone: Comment on above: PATIENT WAS FASTINGP ERFORMED BY: CB [facility] [id number] Jimenez RoadDublin [place] [id number] ALP [Catalytic activity/Vol] 88 U/L Normal 44-121 [facility]; [facility] Work Phone: Comment on above: PATIENT WAS FASTINGP ERFORMED BY: CB [facility] [id number] Jimenez RoadDublin [place] [id number] ALT [Catalytic activity/Vol] 18 U/L Normal 0-44 [facility]; [facility] Work Phone: Comment on above: PATIENT WAS FASTINGP ERFORMED BY: CB [facility] [id number] Jimenez RoadDublin [place] [id number] AST [Catalytic activity/Vol] 23 U/L Normal 0-40 [facility]; [facility] Work Phone: Comment on above: PATIENT WAS FASTINGP ERFORMED BY: CB [facility] [id number] Jimenez RoadDublin [place] [id number] Bilirubin [Mass/Vol] 0.5 mg/dL Normal 0.0-1.2 [facility] Internal Medicine; [facility] Work Phone: Comment on above: PATIENT WAS FASTINGP ERFORMED BY: CB [facility] [id number] Jimenez RoadDublin [place] [id number] Bilirubin.direct [Mass/Vol] 0.15 mg/dL Normal 0.00-0.40 [facility]; [facility] Work Phone: Comment on above: PATIENT WAS FASTINGP ERFORMED BY: CB [facility] [id number] [address]enez RoadDublin [place] [id number] Protein [Mass/Vol] 7.0 g/dL Normal 6.0-8.5 [facility]; [facility] Work Phone: Comment on above: PATIENT WAS FASTINGP ERFORMED BY: CB [facility] [id number] Jimenez RoadDublin [place] [id number] LIPID PANEL (64417)Ordered B y: Creative Perfumer on 05-30-2021 Cholesterol [Mass/Vol] 167 mg/dL Normal 100-199 [facility]; [facility] Work Phone: Comment on above: PATIENT WAS FASTINGP ERFORMED BY: WINTER Treviñolin6[address] [facility] [place] [id number]; fu 3- Cholesterol in HDL [Mass/Vol] 45 mg/dL Normal [facility]; [facility] Work Phone: Comment on above: PATIENT WAS FASTINGP ERFORMED BY: WINTER Labnadeen TreviñoHkiljr9523 Jim[address] RoadFormerly [facility], [facility]in [place] [id number]; fu 3-28 Triglyceride [Mass/Vol] 87 mg/dL Normal 0-149 [facility]; [facility] Work Phone: Comment on above: PATIENT WAS FASTINGP ERFORMED BY: WINTER Treviñolin6[address] [facility] [place] [id number]; fu 3-28 LIPID PANEL (38622) 16 mg/dL Normal 5-40 Compr ehensive Internal Medicine; [facility] Work Phone: Comment on above: PATIENT WAS FASTINGP ERFORMED BY: WINTER Treviñolin6[address] [facility] [place] [id number]; fu 3- LIPID PANEL (02249) 106 mg/dL Abnormal 0-99 Compr ehensive Internal Medicine; [facility] Work Phone: Comment on above: PATIENT WAS FASTINGP ERFORMED BY: WINTER Labnadeen Ahmuww7[address] [facility] [place] [id number]; fu 3-28 LIPID PANEL (10187) 2.4 {ratio} Normal 0.0-3.6 [facility] hospitalensive [facility]; [facility] Work Phone: Comment on above: LDL/HDL Ratio Men Wo men 1/2 Avg.Risk 1.0 1.5 Avg.Risk 3.6 3.2 2X Avg.Risk 6.2 5.0 3X Avg.Risk 8.0 6.1 PATIENT WAS FASTINGP ERFORMED BY: [facility] [id number] [facility] [id number]; fu 06-06 SARS-CoV-2 Semi-Quantitative Total Antibody, Adrian (57359)Ordered By: Creative Perfumer on 01-21-2021 SARS-CoV-2 Semi-Quantitative Total Antibody, Adrian (72890) 1425.0 U/mL Normal [facility]; [facility] Work Phone: Comment on above: Antibodies against t he SARS-CoV-2 spike protein receptor bindingdomain (RBD) were detected. It is yet undetermined what level ofantibody to SARS-CoV-2 spike protein correlates to immunity againstdeveloping symptomatic SARS-CoV-2 disease. Studies are underway tomeasure the quantitative levels of specific SARS-CoV-2 antibodiesfollowing vaccination. Such studies will provide valuable insightsinto the correlation between protection from vaccination andantibody levels. Test(s) 234119-ERHQ- CoV-2 Semi-Quant Total Ab; 033515-SXMX-EsB-6 Adrian Ab Interphas not been FDA cleared or approved. This test hasbeen authorized by FDA under an Emergency Use Authorization(EUA). This test is only authorized for the duration of thedeclaration that circumstances exist justifying the authorizationof emergency use of in vitro diagnostics for detection and/ordiagnosis of COVID-19 under Section 564(b)(1) of the Act, 21U.S.C. 360bbb-3(b)(1), unless the authorization is terminated orrevoked sooner. This test has been authorized only for detectingthe presence of antibodies against SARS-CoV-2, not for any otherviruses or pathogens.PATIENT NOT FASTINGPERFORMED BY: [facility] [id number] [facility] [id number] Information: NURSE DRAW SARS-CoV-2 Semi-Quantitative Total Antibody, Adrian (88682) Positive Normal [facility]; [facility] Work Phone: Comment on above: Aishwarya [employer] Anti-S ARS-CoV-2 S Test(s) 126555-MIMR- CoV-2 Semi-Quant Total Ab; 169430-PDEB-BmE-3 Adrian Ab Interphas not been FDA cleared or approved. This test hasbeen authorized by FDA under an Emergency Use Authorization(EUA). This test is only authorized for the duration of thedeclaration that circumstances exist justifying the authorizationof emergency use of in vitro diagnostics for detection and/ordiagnosis of COVID-19 under Section 564(b)(1) of the Act, 21U.S.C. 360bbb-3(b)(1), unless the authorization is terminated orrevoked sooner. This test has been authorized only for detectingthe presence of antibodies against SARS-CoV-2, not for any otherviruses or pathogens.PATIENT NOT FASTINGPERFORMED BY: [facility]6370 [facility] [id number] Information: NURSE DRAW Vital Signs Date Time Vital Sign Value Performing Clinician Facility 11-13-2024 10:58-0400 Body mass index (BMI) [Ratio] 29.73 kg/m2 Castro BrisenoWinchannel Work Phone: [facility] 11-13-2024 10:58-0400 Body temperature 97.81 [degF] Castro BrisenoCoinKeeper DO Work Phone: [facility] 11-13-2024 10:58-0400 Body weight 95.25 kg Castro BrisenoWinchannel Work Phone: [facility] 11-13-2024 10:58-0400 Diastolic blood pressure 87 mm[Hg] Castro BrisenoCoinKeeper DO Work Phone: [facility] 11-13-2024 10:58-0400 Heart rate 71 /min Castro BrisenoWinchannel Work Phone: [facility] 11-13-2024 10:58-0400 SaO2% (BldA) [Mass fraction] 99 % Castro Pownce DO Work Phone: [facility] 11-13-2024 10:58-0400 Systolic blood pressure 147 mm[Hg] Castro BrisenoWinchannel Work Phone: [facility] 10-13-2024 08:22-0400 Body height 180.[address] Duy Valverde MD Work Phone: [facility] 10-13-2024 08:22-0400 Body mass index (BMI) [Ratio] 29.6 kg/m2 Dr. Duy Valverde MD Work Phone: [facility] 10-13-2024 08:22-0400 Body temperature 98.3 [degF] Dr. Duy Vlaverde MD Work Phone: [facility] 10-13-2024 08:22-0400 Body weight 96.[address] Duy Valverde MD Work Phone: [facility] 10-13-2024 08:22-0400 Diastolic blood pressure 84 mm[Hg] Dr. Duy Valverde MD Work Phone: [facility] 10-13-2024 08:22-0400 Heart rate 71 /min Dr. Duy Valverde MD Work Phone: [facility] 10-13-2024 08:22-0400 Respiratory rate 16 /min Dr. Duy Valverde MD Work Phone: [facility] 10-13-2024 08:22-0400 SaO2% (BldA) [Mass fraction] 96 % Dr. Duy Valverde MD Work Phone: [facility] 10-13-2024 08:22-0400 Systolic blood pressure 136 mm[Hg] Dr. Duy Valverde MD Work Phone: [facility] 08-26-2024 09:57-0400 Body height 175.3 cm Stacie Chase MD Work Phone: [facility] 08-26-2024 09:57-0400 Body mass index (BMI) [Ratio] 31.32 kg/m2 Stacie Chase MD Work Phone: [facility] 08-26-2024 09:57-0400 Body temperature 97.9 [degF] Stacie Chase MD Work Phone: [facility] 08-26-2024 09:57-0400 Body weight 96.21 kg Stacie Chase MD Work Phone: [facility] 05-15-2024 11:56-0500 Body height 180.[address] Duy Valverde MD Work Phone: [facility] 05-15-2024 11:56-0500 Body mass index (BMI) [Ratio] 28.5 kg/m2 Dr. Duy Valverde MD Work Phone: [facility] 05-15-2024 11:56-0500 Body weight 92.[address] Duy Valverde MD Work Phone: [facility] 02-18-2024 10:06-0500 Body height 175.3 cm Stacie Chase MD Work Phone: [facility] 02-18-2024 10:06-0500 Body mass index (BMI) [Ratio] 30.08 kg/m2 Stacie Chase MD Work Phone: [facility] 02-18-2024 10:06-0500 Body temperature 97.59 [degF] Stacie Chase MD Work Phone: [facility] 02-18-2024 10:06-0500 Body weight 92.4 kg Stacie Chase MD Work Phone: [facility] 12-13-2023 08:50-0400 Body mass index (BMI) [Ratio] 29.37 kg/m2 María Valle APRN.FINANCIAL SERVICES EDUCATION CONSULTANT Work Phone: [facility] 12-13-2023 08:50-0400 Body temperature 97.5 [degF] María Valle SENIOR RESEARCH SCIENTIST.FINANCIAL SERVICES EDUCATION CONSULTANT Work Phone: [facility] 12-13-2023 08:50-0400 Body weight 94.1 kg María Valle SENIOR RESEARCH SCIENTIST.FINANCIAL SERVICES EDUCATION CONSULTANT Work Phone: [facility] 12-13-2023 08:50-0400 Diastolic blood pressure 93 mm[Hg] María Valle SENIOR RESEARCH SCIENTIST.FINANCIAL SERVICES EDUCATION CONSULTANT Work Phone: [facility] 12-13-2023 08:50-0400 Heart rate 78 /min María Valel APRN.FINANCIAL SERVICES EDUCATION CONSULTANT Work Phone: [facility] 12-13-2023 08:50-0400 SaO2% (BldA) [Mass fraction] 97 % María Valle SENIOR RESEARCH SCIENTIST.FINANCIAL SERVICES EDUCATION CONSULTANT Work Phone: [facility] 12-13-2023 08:50-0400 Systolic blood pressure 139 mm[Hg] Maríaaraceli Valle SENIOR RESEARCH SCIENTIST.FINANCIAL SERVICES EDUCATION CONSULTANT Work Phone: [facility] 08-14-2023 08:32-0400 Body height 175.3 cm Stacie Chase MD Work Phone: [facility] 08-14-2023 08:32-0400 Body mass index (BMI) [Ratio] 30.64 kg/m2 Stacie Chase MD Work Phone: [facility] 08-14-2023 08:32-0400 Body temperature 98.29 [degF] Stacie Chase MD Work Phone: [facility] 08-14-2023 08:32-0400 Body weight 94.12 kg Stacie Chase MD Work Phone: [facility] 01-01-2023 14:01-0400 Body height 176.53 cm Duy Valverde MD Work Phone: [facility] Work Phone: 01-01-2023 14:01-0400 Body mass index (BMI) [Ratio] 29.88 kg/m2 Duy Valverde MD Work Phone: [facility]; [facility] Work Phone: 01-01-2023 14:01-0400 Body surface area Derived from formula 2.1 m2 Duy Valverde MD Work Phone: [facility]; [facility] Work Phone: 01-01-2023 14:01-0400 Body temperature 98.1 [degF] Duy Valverde MD Work Phone: [facility]; [facility] Work Phone: Comment on above: Method: Oral 01-01-2023 14:01-0400 Body weight 93.1 kg Duy Valverde MD Work Phone: [facility]; [facility] Work Phone: 01-01-2023 14:01-0400 Diastolic blood pressure 72 mm[Hg] Duy Valverde MD Work Phone: [facility]; [facility] Work Phone: Comment on above: Patient Position: Sitting; Cuff Location : Left Arm; Cuff Size: Standard 01-01-2023 14:01-0400 Heart rate 73 /min Duy Valverde MD Work Phone: [facility]; [facility] Work Phone: Comment on above: Pattern: Regular 01-01-2023 14:01-0400 Respiratory rate 18 /min Duy Valverde MD Work Phone: [facility]; [facility] Work Phone: Comment on above: Pattern: Unlabored 01-01-2023 14:01-0400 SaO2% (BldA) [Mass fraction] 98 % Duy Valverde MD Work Phone: [facility]; [facility] Work Phone: Comment on above: Room air 01-01-2023 14:01-0400 Systolic blood pressure 120 mm[Hg] Duy Valverde MD Work Phone: [facility]; [facility] Work Phone: Comment on above: Patient Position: Sitting; Cuff Location : Left Arm; Cuff Size: Standard 08-14-2022 08:37-0400 Body height 175.3 cm Stacie Chase MD Work Phone: [facility] 08-14-2022 08:37-0400 Body mass index (BMI) [Ratio] 30.72 kg/m2 Stacie Chase MD Work Phone: [facility] 08-14-2022 08:37-0400 Body temperature 97.9 [degF] Stacie Chase MD Work Phone: [facility] 08-14-2022 08:37-0400 Body weight 94.35 kg Stacie Chase MD Work Phone: [facility] 07-17-2022 07:58-0400 Body height 176.53 cm Henna Al LPN [facility]; [facility] Work Phone: 07-17-2022 07:58-0400 Body mass index (BMI) [Ratio] 29.44 kg/m2 Henna Al LPN [facility]; [facility] Work Phone: 07-17-2022 07:58-0400 Body surface area Derived from formula 2.09 m2 Henna Al LPN [facility]; [facility] Work Phone: 07-17-2022 07:58-0400 Body temperature 98.1 [degF] Henna Al LPN [facility]; [facility] Work Phone: 07-17-2022 07:58-0400 Body weight 91.74 kg Henna Al LPN [facility]; [facility] Work Phone: 07-17-2022 07:58-0400 Diastolic blood pressure 72 mm[Hg] Henna Al LPN [facility]; [facility] Work Phone: Comment on above: Patient Position: Sitting; Cuff Location : Left Arm; Cuff Size: Standard 07-17-2022 07:58-0400 Heart rate 66 /min Henna Al LPN [facility]; [facility] Work Phone: Comment on above: Pattern: Regular 07-17-2022 07:58-0400 Respiratory rate 16 /min Henna Al LPN [facility]; [facility] Work Phone: Comment on above: Pattern: Unlabored 07-17-2022 07:58-0400 SaO2% (BldA) [Mass fraction] 96 % Henna Al LPN [facility]; [facility] Work Phone: Comment on above: Room air 07-17-2022 07:58-0400 Systolic blood pressure 120 mm[Hg] Henna Al LPN [facility]; [facility] Work Phone: Comment on above: Patient Position: Sitting; Cuff Location : Left Arm; Cuff Size: Standard 05-25-2022 11:02-0400 Body height 180.[address] Duy Valverde Work Phone: [facility] 05-25-2022 11:02-0400 Body mass index (BMI) [Ratio] 28.8 kg/m2 Dr. Duy Valverde Work Phone: [facility] 05-25-2022 11:02-0400 Body weight 93.[address] Duy Valverde Work Phone: [facility] 05-25-2022 11:02-0400 Diastolic blood pressure 88 mm[Hg] Dr. Duy Valverde Work Phone: [facility] 05-25-2022 11:02-0400 Heart rate 64 /min Dr. Duy Valverde Work Phone: [facility] 05-25-2022 11:02-0400 Respiratory rate 16 /min Dr. Duy Valverde Work Phone: [facility] 05-25-2022 11:02-0400 Systolic blood pressure 142 mm[Hg] Dr. Duy Valverde Work Phone: [facility] 04-18-2022 09:18-0500 Body height 176.53 cm Henna Al LPN [facility]; [facility] Work Phone: 04-18-2022 09:18-0500 Body mass index (BMI) [Ratio] 30.35 kg/m2 Henna Al LPN [facility]; [facility] Work Phone: 04-18-2022 09:18-0500 Body surface area Derived from formula 2.11 m2 Henna Al LPN [facility]; [facility] Work Phone: 04-18-2022 09:18-0500 Body temperature 98.1 [degF] Henna Al LPN [facility]; [facility] Work Phone: 04-18-2022 09:18-0500 Body weight 94.58 kg Henna Al LPN [facility]; [facility] Work Phone: 04-18-2022 09:18-0500 Diastolic blood pressure 88 mm[Hg] Henna Al LPN [facility]; [facility] Work Phone: Comment on above: Patient Position: Sitting; Cuff Location : Left Arm; Cuff Size: Standard 04-18-2022 09:18-0500 Heart rate 76 /min Henna Al MARTIN [facility]; [facility] Work Phone: Comment on above: Pattern: Regular 04-18-2022 09:18-0500 Respiratory rate 16 /min Henna Al MARTIN [facility]; [facility] Work Phone: Comment on above: Pattern: Unlabored 04-18-2022 09:18-0500 SaO2% (BldA) [Mass fraction] 99 % Henna Al HARDWARE TRAINER [facility]; [facility] Work Phone: Comment on above: Room air 04-18-2022 09:18-0500 Systolic blood pressure 148 mm[Hg] Henna Al LPN [facility]; [facility] Work Phone: Comment on above: Patient Position: Sitting; Cuff Location : Left Arm; Cuff Size: Standard 03-14-2022 08:34-0500 Body height 176.53 cm Henna Al MARTIN [facility]; [facility] Work Phone: 03-14-2022 08:34-0500 Body mass index (BMI) [Ratio] 29.58 kg/m2 Henna Al MARTIN [facility]; [facility] Work Phone: 03-14-2022 08:34-0500 Body surface area Derived from formula 2.09 m2 Henna Mikaela MARTIN [facility]; [facility] Work Phone: 03-14-2022 08:34-0500 Body temperature 98.1 [degF] Henna Al MARTIN [facility]; [facility] Work Phone: 03-14-2022 08:34-0500 Body weight 92.19 kg Henna Al MARTIN [facility]; [facility] Work Phone: 03-14-2022 08:34-0500 Diastolic blood pressure 80 mm[Hg] Henna Al MARTIN [facility]; [facility] Work Phone: Comment on above: Patient Position: Sitting; Cuff Location : Left Arm; Cuff Size: Standard 03-14-2022 08:34-0500 Heart rate 75 /min Henna Al MARTIN [facility]; [facility] Work Phone: Comment on above: Pattern: Regular 03-14-2022 08:34-0500 Respiratory rate 16 /min Hennasalma Al MARTIN [facility]; [facility] Work Phone: Comment on above: Pattern: Unlabored 03-14-2022 08:34-0500 SaO2% (BldA) [Mass fraction] 98 % Henna Al MARTIN [facility]; [facility] Work Phone: Comment on above: Room air 03-14-2022 08:34-0500 Systolic blood pressure 126 mm[Hg] Henna Al MARTIN [facility]; [facility] Work Phone: Comment on above: Patient Position: Sitting; Cuff Location : Left Arm; Cuff Size: Standard 02-22-2022 17:28-0500 Body height 176.53 cm Mei Brewster MA [facility]; [facility] Work Phone: 02-22-2022 17:28-0500 Body mass index (BMI) [Ratio] 29.58 kg/m2 Mei Brewster MA [facility]; [facility] Work Phone: 02-22-2022 17:28-0500 Body surface area Derived from formula 2.09 m2 Mei Brewster MA [facility]; [facility] Work Phone: 02-22-2022 17:28-0500 Body temperature 97.2 [degF] Mei Brewster MA [facility]; [facility] Work Phone: 02-22-2022 17:28-0500 Body weight 92.19 kg Mei Brewster MA [facility]; [facility] Work Phone: 02-22-2022 17:28-0500 Diastolic blood pressure 80 mm[Hg] Mei Brewster MA [facility]; [facility] Work Phone: Comment on above: Patient Position: Sitting; Cuff Location : Left Arm; Cuff Size: Standard 02-22-2022 17:28-0500 Heart rate 68 /min Mei Brewster MA [facility]; [facility] Work Phone: Comment on above: Pattern: Regular 02-22-2022 17:28-0500 Respiratory rate 18 /min Mei Brewster MA [facility]; [facility] Work Phone: Comment on above: Pattern: Unlabored 02-22-2022 17:28-0500 SaO2% (BldA) [Mass fraction] 96 % Mei Brewster MA [facility]; [facility] Work Phone: Comment on above: Room air 02-22-2022 17:28-0500 Systolic blood pressure 140 mm[Hg] Mei Brewster MA [facility]; [facility] Work Phone: Comment on above: Patient Position: Sitting; Cuff Location : Left Arm; Cuff Size: Standard 02-13-2022 13:02-0500 Body temperature 98.6 [degF] Stacie Chase MD Work Phone: [facility] 02-13-2022 13:02-0500 Body weight 92.53 kg Stacie Chase MD Work Phone: [facility] 02-13-2022 13:02-0500 Diastolic blood pressure 87 mm[Hg] Stacie Chase MD Work Phone: [facility] 02-13-2022 13:02-0500 Heart rate 71 /min Stacie Chase MD Work Phone: [facility] 02-13-2022 13:02-0500 SaO2% (BldA) [Mass fraction] 95 % Stacie Chase MD Work Phone: [facility] 02-13-2022 13:02-0500 Systolic blood pressure 157 mm[Hg] Stacie Chase MD Work Phone: [facility] 02-09-2022 15:47-0500 Diastolic blood pressure 92 mm[Hg] Treatment Wstr Work Phone: [facility] 02-09-2022 15:47-0500 Heart rate 69 /min Treatment Wstr Work Phone: [facility] 02-09-2022 15:47-0500 Systolic blood pressure 162 mm[Hg] Treatment Wstr Work Phone: [facility] 02-09-2022 15:20-0500 Body temperature 98.1 [degF] Treatment [facility]str Work Phone: [facility] 02-09-2022 15:20-0500 Respiratory rate 16 /min Treatment Wstr Work Phone: [facility] 11-17-2021 15:41-0400 Diastolic blood pressure 96 mm[Hg] Treatment Wstr Work Phone: [facility] 11-17-2021 15:41-0400 Heart rate 74 /min Treatment Wstr Work Phone: [facility] 11-17-2021 15:41-0400 Systolic blood pressure 144 mm[Hg] Treatment Wstr Work Phone: [facility] 11-17-2021 15:26-0400 Body temperature 97.7 [degF] Treatment Wstr Work Phone: [facility] 10-06-2021 07:09-0400 Body height 176.53 cm Henna Al LPN [facility]; [facility] Work Phone: Comment on above: BP recheck: 140/78 10-06-2021 07:09-0400 Body mass index (BMI) [Ratio] 29.58 kg/m2 Henna Al MARTIN [facility]; [facility] Work Phone: Comment on above: BP recheck: 140/78 10-06-2021 07:09-0400 Body surface area Derived from formula 2.09 m2 Henna Al MARTIN [facility]; [facility] Work Phone: Comment on above: BP recheck: 140/78 10-06-2021 07:09-0400 Body temperature 98.1 [degF] Henna Al MARTIN [facility]; [facility] Work Phone: Comment on above: BP recheck: 140/78 10-06-2021 07:09-0400 Body weight 92.19 kg Henna Al MARTIN [facility]; [facility] Work Phone: Comment on above: BP recheck: 140/78 10-06-2021 07:09-0400 Diastolic blood pressure 96 mm[Hg] Henna Al MARTIN [facility]; [facility] Work Phone: Comment on above: Patient Position: Sitting; Cuff Location : Left Arm; Cuff Size: Standard BP recheck: 140/78 10-06-2021 07:09-0400 Heart rate 76 /min Henna Al MARTIN [facility]; [facility] Work Phone: Comment on above: Pattern: Regular BP recheck: 140/78 10-06-2021 07:09-0400 Respiratory rate 16 /min Henna Al MARTIN [facility]; [facility] Work Phone: Comment on above: Pattern: Unlabored BP recheck: 140/78 10-06-2021 07:09-0400 SaO2% (BldA) [Mass fraction] 97 % Henna Al MARTIN [facility]; [facility] Work Phone: Comment on above: Room air BP recheck: 140/78 10-06-2021 07:09-0400 Systolic blood pressure 162 mm[Hg] Henna Mikaela LPN [facility]; [facility] Work Phone: Comment on above: Patient Position: Sitting; Cuff Location : Left Arm; Cuff Size: Standard BP recheck: 140/78 08-25-2021 15:27-0400 Diastolic blood pressure 93 mm[Hg] Treatment Wstr Work Phone: [facility] 08-25-2021 15:27-0400 Heart rate 74 /min Treatment Wstr Work Phone: [facility] 08-25-2021 15:27-0400 Respiratory rate 16 /min Treatment [facility]str Work Phone: [facility] 08-25-2021 15:27-0400 Systolic blood pressure 153 mm[Hg] Treatment Wstr Work Phone: [facility] 08-25-2021 15:14-0400 Body temperature 97.5 [degF] Treatment Wstr Work Phone: [facility] 08-25-2021 15:14-0400 SaO2% (BldA) [Mass fraction] 96 % Treatment [facility]str Work Phone: [facility] 06-06-2021 08:10-0400 Body height 176.53 cm ADAM Fuchs LPN [facility]; [facility] Work Phone: 06-06-2021 08:10-0400 Body mass index (BMI) [Ratio] 29.4 kg/m2 ADAM Fuchs LPN [facility]; [facility] Work Phone: 06-06-2021 08:10-0400 Body surface area Derived from formula 2.09 m2 ADAM Fuchs LPN [facility]; [facility] Work Phone: 06-06-2021 08:10-0400 Body temperature 97.9 [degF] ADAM Fuchs LPN [facility] Work Phone: Comment on above: Method: Temporal 06-06-2021 08:10-0400 Body weight 91.63 kg ADAM Fuchs LPN [facility]; [facility] Work Phone: 06-06-2021 08:10-0400 Diastolic blood pressure 80 mm[Hg] ADAM Fuchs LPN [facility]; [facility] Work Phone: Comment on above: Patient Position: Sitting; Cuff Location : Left Arm; Cuff Size: Large 06-06-2021 08:10-0400 Heart rate 84 /min ADAM Fuchs LPN [facility]; [facility] Work Phone: Comment on above: Pattern: Regular 06-06-2021 08:10-0400 Respiratory rate 20 /min ADAM Fuchs LPN [facility] Work Phone: Comment on above: Pattern: Unlabored 06-06-2021 08:10-0400 SaO2% (BldA) [Mass fraction] 98 % ADAM Fuchs LPN [facility]; [facility] Work Phone: Comment on above: Room air 06-06-2021 08:10-0400 Systolic blood pressure 128 mm[Hg] ADAM Fuchs LPN [facility]; [facility] Work Phone: Comment on above: Patient Position: Sitting; Cuff Location : Left Arm; Cuff Size: Large 06-02-2021 14:32-0400 Diastolic blood pressure 88 mm[Hg] Treatment Wstr Work Phone: [facility] 06-02-2021 14:32-0400 Heart rate 96 /min Treatment Wstr Work Phone: [facility] 06-02-2021 14:32-0400 Respiratory rate 18 /min Treatment Wstr Work Phone: [facility] 06-02-2021 14:32-0400 Systolic blood pressure 139 mm[Hg] Treatment Wstr Work Phone: [facility] 06-02-2021 14:00-0400 Body temperature 97.3 [degF] Treatment Wstr Work Phone: [facility] 02-08-2021 07:39-0500 Body height 176.53 cm ADAM Fuchs LPN [facility]; [facility] Work Phone: 02-08-2021 07:39-0500 Body mass index (BMI) [Ratio] 28.1 kg/m2 ADAM Fuchs LPN [facility]; [facility] Work Phone: 02-08-2021 07:39-0500 Body surface area Derived from formula 2.05 m2 ADAMSAMUEL Fuchs LPN [facility]; [facility] Work Phone: 02-08-2021 07:39-0500 Body temperature 97.9 [degF] ADAM Jef MARTIN [facility]; [facility] Work Phone: Comment on above: Method: Temporal 02-08-2021 07:39-0500 Body weight 87.57 kg ADAMSAMUEL Fuchs LPN [facility]; [facility] Work Phone: 02-08-2021 07:39-0500 Diastolic blood pressure 74 mm[Hg] ADAM Fuchs LPN [facility]; [facility] Work Phone: Comment on above: Patient Position: Sitting; Cuff Location : Left Arm; Cuff Size: Large 02-08-2021 07:39-0500 Heart rate 76 /min ADAM Fuchs LPN [facility]; [facility] Work Phone: Comment on above: Pattern: Regular 02-08-2021 07:39-0500 Respiratory rate 20 /min ADAM Fuchs MARTIN [facility]; [facility] Work Phone: Comment on above: Pattern: Unlabored 02-08-2021 07:39-0500 SaO2% (BldA) [Mass fraction] 97 % ADAMSAMUEL Fuchs LPN [facility]; [facility] Work Phone: Comment on above: Room air 02-08-2021 07:39-0500 Systolic blood pressure 114 mm[Hg] ADAM Fuchs LPN [facility]; [facility] Work Phone: Comment on above: Patient Position: Sitting; Cuff Location : Left Arm; Cuff Size: Large 12-21-2020 11:30-0400 Body height 180.34 cm ADAM Fuchs LPN [facility]; [facility] Work Phone: Encounters Encounter Date Encounter Type Care Provider Facility Start: 11-13-2024 End: 11-13-2024 Patient encounter procedure Castro Erazo DO Work Phone: Hematology/Oncology Start: 11-13-2024 End: 11-13-2024 ambulatory Castro Dianne Castro DO Work Phone: Hematology/Oncology Comment on above: Hereditary hemochrom atosis (Primary Dx) Start: 10-13-2024 End: 10-13-[address] Sathish Murray MD -[facility] Work Phone: Start: 10-13-2024 End: 10-13-[address] Duy Valverde MD Work Phone: -[facility] Start: 08-26-2024 End: 08-26-2024 Office outpatient visit 10 minutes Stacie Chase MD Work Phone: [facility] [place] Comment on above: Nasal septal perfora tion (Primary Dx) Start: 08-26-2024 End: [facility] Start: 08-21-2024 End: 08-21-2024 ambulatory Treatment Rm 5 [facility] Work Phone: Hematology/Oncology Comment on above: Hereditary hemochrom atosis (Primary Dx) Start: 06-05-2024 End: 06-05-2024 ambulatory Duy [employer] [facility] Facility:[facility] Start: 05-29-2024 End: 05-29-2024 ambulatory Treatment Rm 4 [facility] Work Phone: Hematology/Oncology Comment on above: Hereditary hemochrom atosis (HCC) (Primary Dx) Start: 05-21-2024 ambulatory Duy [employer] Facility:[facility] Start: 05-21-2024 Non-patient / Non-visit Dr. Jaime merritt MD -[facility]- Start: 05-21-2024 End: 05-21-[address] Duy Valverde MD Work Phone: [facility] Work Phone: Start: 05-21-2024 End: 05-21-[address] Carlos Richter MD -Pulmonary Services/Neurology Work Phone: Start: 05-21-2024 End: 05-21-2024 ambulatory Carlos Richter Facility:[facility] Start: 05-15-2024 End: 05-15-[address] Carlos Richter MD -[facility] Work Phone: Start: 05-15-2024 End: 05-15-2024 ambulatory [facility] Facility:[facility] [place] Start: 04-12-2024 End: 04-12-[address] Macario Torres MD -[facility] Work Phone: Start: 04-12-2024 End: 04-12-2024 ambulatory Macario Torres Facility:[facility] Start: 03-06-2024 End: 03-06-2024 ambulatory Treatment Rm 5 [facility] Work Phone: Hematology/Oncology Comment on above: Hereditary hemochrom atosis (HCC) (Primary Dx) Start: 02-18-2024 End: 02-18-2024 Office outpatient visit 10 minutes Stacie Chase MD Work Phone: [facility] [place] Comment on above: Nasal septal perfora tion (Primary Dx); Nasal dryness; Epistaxis Start: 02-18-2024 End: 02-18-2024 ambulatory [facility] Start: 12-13-2023 End: 12-13-2023 Patient encounter procedure María Valle APRN.[employer] EDUCATION CONSULTANT Work Phone: Hematology/Oncology Start: 12-13-2023 End: 12-13-2023 ambulatory María Valle APRN.[employer] EDUCATION CONSULTANT Work Phone: Hematology/Oncology Comment on above: Hereditary hemochrom atosis (HCC) (Primary Dx) Start: 09-20-2023 End: 09-20-2023 ambulatory Treatment Rm 12 [facility] Work Phone: Hematology/Oncology Comment on above: Hereditary hemochrom atosis (HCC) (Primary Dx) Start: 08-14-2023 End: 08-14-2023 Office outpatient visit 15 minutes Stacie Chase MD Work Phone: [facility] [place] Comment on above: Nasal septal perfora tion (Primary Dx); Nasal dryness; Vertigo Start: 06-28-2023 End: 06-28-2023 ambulatory Treatment Rm 11 [facility] Work Phone: Hematology/Oncology Comment on above: Hereditary hemochrom atosis (HCC) (Primary Dx) Start: 06-27-2023 Orders Only Castro Sloan Work Phone: Hematology/Oncology Comment on above: Hereditary hemochrom atosis (HCC) (Primary Dx) Start: 04-17-2023 End: 04-17-2023 ambulatory [facility] Work Phone: Start: 04-17-2023 End: 04-17-2023 Patient encounter procedure [facility] Work Phone: Start: 01-12-2023 End: 01-12-2023 ambulatory Treatment Rm 12 [facility] Work Phone: Hematology/Oncology Comment on above: Hereditary hemochrom atosis (HCC) (Primary Dx) Start: 01-02-2023 End: 01-02-2023 Office outpatient visit 25 minutes Duy Valverde MD Work Phone: [facility] Start: 01-02-2023 End: 01-02-2023 Patient encounter status Duy Valverde MD Work Phone: [facility]; [facility] Work Phone: Start: 08-14-2022 End: 08-14-2022 Office outpatient visit 10 minutes Stacie Chase MD Work Phone: [facility] Comment on above: Nasal septal perfora tion (Primary Dx) Start: 07-18-2022 Telephone encounter Castro lopez DO Work Phone: Hematology/Oncology Comment on above: Appointment Start: 07-17-2022 ambulatory Duy Valverde MD [facility] Internal [facility] Start: 07-17-2022 End: 07-17-2022 Office outpatient visit 25 minutes Duy Valverde MD Work Phone: [facility] Start: 07-17-2022 End: 07-17-2022 Patient encounter status Duy Valverde MD Work Phone: [facility]; [facility] Work Phone: Comment on above: [facility] 06-06-21 02-08-21 [facility] physical: PSA 11-, MOCA 27/30, cognivue 76, immunizations are up to date, refuse covid vaccine had colonoscopy 2-22 polyp due at 5 years. Start: 06-15-2022 End: 06-15-[address] Duy Valverde Work Phone: [facility] Work Phone: Start: 06-15-2022 End: 06-15-[address] Duy Valverde Work Phone: [facility] Start: 06-05-2022 End: 06-05-2022 Phone Encounter Duy Valverde MD Work Phone: [facility] Start: 05-25-2022 End: 05-25-[address] Duy Valverde Work Phone: [facility] Start: 04-18-2022 End: 04-18-2022 Office outpatient visit 15 minutes Duy Valverde MD Work Phone: [facility] Start: 03-14-2022 End: 03-15-2022 Office outpatient visit 15 minutes Duy Valverde MD Work Phone: [facility] Start: 03-14-2022 Review Duy Melendez Work Phone: [facility] Start: 02-23-2022 End: 02-23-2022 Patient encounter procedure Duy Valverde MD Work Phone: [facility] Start: 02-23-2022 End: 02-23-2022 Patient encounter status Duy Valverde MD Work Phone: [facility]; [facility] Work Phone: Comment on above: AMP 06-06-21 02-08-21 [facility] physical: PSA 11-21, MOCA 27/30, cognivue 76, immunizations are up to date, refuse covid vaccine had colonoscopy 2-22 polyp due at 5 years. Start: 02-13-2022 End: 02-13-2022 Office outpatient visit 15 minutes Stacie Chase MD Work Phone: [facility] [place] Comment on above: Nasal septal perfora tion (Primary Dx); Nasal dryness Start: 02-09-2022 End: 02-09-2022 ambulatory Treatment Rm 5 [facility] Work Phone: Hematology/Oncology Comment on above: Hereditary hemochrom atosis (HCC) (Primary Dx) Start: 02-06-2022 End: 02-06-2022 Lab Order Duy Valverde MD Work Phone: [facility] Start: 11-17-2021 End: 11-17-2021 ambulatory Treatment Rm 5 [facility] Work Phone: Hematology/Oncology Comment on above: Hereditary hemochrom atosis (HCC) (Primary Dx) Start: 10-06-2021 End: 10-24-2021 Office outpatient visit 15 minutes Duy Valverde MD Work Phone: [facility] Start: 10-06-2021 End: 10-24-2021 Patient encounter status Duy Valverde MD Work Phone: [facility]; [facility] Work Phone: Comment on above: AMP 06-06-21 02-08-21 [facility] physical: PSA 11-21, MOCA 27/30, cognivue 76, immunizations are up to date, refuse covid vaccine had colonoscopy 2-22 polyp due at 5 years. Start: 08-25-2021 End: 08-25-2021 ambulatory Treatment Rm 6 [facility] Work Phone: Hematology/Oncology Comment on above: Hereditary hemochrom atosis (HCC) (Primary Dx) Start: 08-24-2021 Orders Only Castro Sloan Work Phone: Hematology/Oncology Comment on above: Hereditary hemochrom atosis (HCC) (Primary Dx) Start: 06-06-2021 End: 06-06-2021 Office outpatient visit 15 minutes Duy Valverde MD Work Phone: [facility] Start: 06-06-2021 End: 06-06-2021 Patient encounter status Duy Valverde MD Work Phone: [facility]; [facility] Work Phone: Comment on above: AMP 06-06-21 02-08-21 [facility] physical: PSA 01-30, MOCA , cognivue 76, immunizations are up to date, refuse covid vaccine had colonoscopy 05-03 Start: 06-02-2021 End: 06-02-2021 ambulatory Treatment Rm 13 [facility] Work Phone: Hematology/Oncology Comment on above: Hereditary hemochrom atosis (HCC) (Primary Dx) Start: 06-01-2021 Orders Only Castro Sloan Work Phone: Hematology/Oncology Comment on above: Hereditary hemochrom atosis (HCC) (Primary Dx) Start: 04-27-2021 End: 04-27-2021 Phone Encounter Duy Valverde MD Work Phone: [facility] Start: 02-08-2021 End: 02-08-2021 Office outpatient visit 25 minutes Duy Valverde MD Work Phone: [facility] Start: 02-08-2021 End: 02-08-2021 Patient encounter status Duy Valverde MD Work Phone: [facility] Start: 01-21-2021 End: 01-21-2021 Lab Order Duy Valverde MD Work Phone: [facility] Start: 01-21-2021 End: 01-21-2021 Patient encounter status Duy Valverde MD Work Phone: [facility] Start: 01-14-2021 End: 01-26-2021 Office outpatient visit 25 minutes Duy Valverde MD Work Phone: [facility] Start: 12-21-2020 End: 12-21-2020 Office outpatient visit 25 minutes Duy Valverde MD Work Phone: [facility] Patient encounter status Duy Valverde MD Work Phone: [facility]; [facility] Work Phone: Comment on above: 02-08-21 [facility] physi samantha: PSA 11-21, MOCA 27/30, cognivue 76, immunizations are up to date, refuse covid vaccine had coosncopy 2015 hx of polyps so due End: 05-09-2021 Patient encounter status ADAM Fuchs LPN [facility]; [facility] Work Phone: Patient encounter status Henna Mckeon [facility]; [facility] Work Phone: Comment on above: AMP 06-06-21 02-08-21 [facility] physical: PSA 11-21, MOCA 27/30, cognivue 76, immunizations are up to date, refuse covid vaccine had colonoscopy 2-22 polyp due at 5 years. Patient encounter status Henna Mckeon [facility]; [facility] Work Phone: Comment on above: AMP 06-06-21 02-08-21 [facility] physical: PSA 11-21, MOCA 27/30, cognivue 76, immunizations are up to date, refuse covid vaccine had colonoscopy 2-22 polyp due at 5 years. Patient encounter status Henna Mckeon [facility]; [facility] Work Phone: Comment on above: [facility] physical: PSA 11-22, MOCA 28/30, cognivue 77 (was 76), colonoscopy 2-22 polyp due at 5 years Yenny: 01/01, spirometry 01/01, ekg 01/01 Procedures Date Procedure Procedure Detail Performing Clinician Start: 05-15-2024 X-ray of lumbosacral spine Dr. Duy Valverde MD Work Phone: Start: 04-12-2024 MRI of lumbar spine Dr. Duy Valverde MD Work Phone: Start: 06-15-2022 End: 06-16-2022 HIP, UNI W/ Pelvis 2-3 Views Procedure Note: See Note; NOTES: [facility] Imaging Services [address] [place] [address] HIP, UNI W/ Pelvis 2-3 Views MR#: [id number] Acct: [id number] Name: JOSÉ BOWLES Rep #: [id number] : 1950 M 72 From: Martha Kaminski MD PCP: Dr. Duy Valverde MD Status: REG CLI Study: HIP, UNI W/ Pelvis 2-3 Views Date of Exam: 09/01 Exam# [id number] Ordering Dr: Macario Torres MD INDICATION: LEFT HIP PAIN EXAMINATION/TECHNIQUE: X-RAY - XR Hip Unilateral with Pelvis when performed; 2-3 Views COMPARISON: July 12, 2017 FINDINGS: PELVIC BONES: No displaced fracture, destructive or sclerotic lesions. Note that overlapping bowel shadows may however obscure fine detail. Sacroiliac joints are unremarkable. No widening of the pubic symphysis. HIPS: There are bilateral degenerative changes of the hips characterized by joint space narrowing and subchondral sclerosis. SOFT TISSUES: No soft tissue swelling or gas. There are phleboliths. RAD/HIP, UNI W/ Pelvis 2-3 Views IMPRESSION: Degenerative changes of the hips. Electronically Signed: Martha Kaminski MD at 12:38 EDT , CC: Dr. Duy Valverde MD; Dr. Macario Torres MD Thermostat Repairer: Signed Duy Valverde MD Work Phone: Start: 06-15-2022 Plain x-ray of pelvis and lower extremity Dr. Duy Valverde Work Phone: Start: 05-25-2022 End: 05-25-2022 Cardiology Visit Report Procedure Note: See Note; NOTES: [facility] [address] [place] [address] OFFICE VISIT Date of Service: 05/25/22 MR#: [id number] Acct: [id number] Name: JOSÉ BOWLES Rep #: [id number] : 1950 Provider: Dr. Castro munroe MD Age/Sex: 72/M Location[place] [facility] [place] Status: Signed [facility] History of Present Illness Details: This is a 72-year-old white male who presents today for outpatient cardiovascular follow up based upon concerns of syncope as well as other concerns of chest discomfort, shortness of breath/dyspnea especially with exertion, and dizziness. As you recall, he states on November 09 2020 while being evaluated in an outpatient care setting for a cough and after being told he was COVID-19 positive he states he apparently lost consciousness and almost rolled off the examination table. He was subsequently evaluated in the [facility] Emergency Department and had negative cardiac enzymes and no acute ECG changes. He was released home. He has had no recurrent syncopal events. He has also undergone evaluation for concerns of chest discomfort and shortness of breath. He underwent noninvasive cardiovascular evaluation. His studies with respect to an echocardiogram, exercise tolerance test/imaging study, and Holter monitor, are noted below. They have been reviewed with him. At the present time he denies any ongoing chest discomfort suspicious for angina pectoris. There is been no evidence of acute CHF or pulmonary edema. He describes no ongoing palpitations. He reports no recurrent near syncope or syncope. He states he has not required any additional cardiovascular testing. His blood pressure was noted to be somewhat elevated today. He states he does occasionally check it at home. He knows it fluctuates up and down somewhat. Intake Vital Signs 05/24/21 08:28 05/25/22 10:59 05/25/22 11:02 Height 5 ft 11 in 5 ft 11 in 5 ft 11 in Weight: 206 lb 7 oz BMI 28.8 BP 142/88 H Blood Pressure Location Lt brachial Position Sitting Respiration 16 Pulse 64 Pulse Source Auscultation Intake Visit Reasons: 1 Y FU Cat Scan Technologist Required: No Accompanied by: Self Allergies Mcoruco-ETM-PxO Reductase Inhibitor Adverse Reaction (Unknown, Verified 05/25/22 11:02) Intolereant Medications calcium carbonate 600 mg calcium (1,500 mg) tablet 1,200 mg PO DAILY@0800 01/30/13 [History Confirmed 05/25/22] glucosamine-chondroitin 500 mg-400 mg tablet 1 ea PO DAILY 01/30/13 [History Confirmed 05/25/22] finasteride 5 mg tablet 5 mg PO DAILY 12/13/18 [History Confirmed 05/25/22] tamsulosin 0.4 mg capsule 0.4 mg PO QHS 12/13/18 [History Confirmed 05/25/22] sildenafil 25 mg tablet 75 mg PO DAILY PRN 02/18/21 [History Confirmed 05/25/22] cyanocobalamin (vitamin B-12) 1,000 mcg tablet 1,000 mcg PO DAILY 02/24/21 [History Confirmed 05/25/22] omega-3 fatty acids 1,000 mg capsule (Fish Oil Concentrate) 1,000 mg PO DAILY 02/24/21 [History Confirmed 05/25/22] amitriptyline 10 mg tablet 20 mg PO DAILY 05/24/21 [History Confirmed 05/25/22] shark cartilage 500 mg capsule 2,000 mg PO BID 05/24/21 [History Confirmed 05/25/22] PFSH Medical History Acquired nasal septal defect BPH (benign prostatic hyperplasia) Chest pain, unspecified Chronic venous insufficiency Cirrhosis of liver COVID-19 Disorientation, unspecified Dizziness Essential hypertension GERD (gastroesophageal reflux disease) Hemochromatosis History of sciatica Leg pain, left Mixed hyperlipidemia Shortness of breath Syncope Varicose veins with inflammation Surgical History History of mandibular surgery History of rotator cuff surgery Previous back surgery s/p nasal button s/p right hip surgery Family History Mother Heart disease Hypertension CAD (coronary artery disease) Diabetes Father Cancer pancreatic Social History Smoking Status: Never smoker alcohol intake: current alcohol intake frequency: holidays/special occasions only substance use type: does not use caffeine: Yes Type: coffee Number of servings: 1 ROS Const Const: Positive for fatigue; Negative for weakness, body ache, fever(s), headache(s), chills, frequent falls, night sweats, daytime sleepiness, difficulty sleeping, excessive sweating, weight gain, weight loss, increased appetite, poor appetite, anorexia or other Eyes Eyes: Negative for blurry vision or double vision ENT ENT: Positive for balance problems (slight); Negative for headache(s) or dizziness Cardio Chest Pain: No Palpitations: Yes (Rare) feels like its: other (double beat) Edema: None Muscle aches with walking: None Resp Respiratory: Positive for SOB with activity (slightly increased); Negative for SOB at rest, SOB orthopnea SOB lying down, Cough, Coughing up blood/hemoptysis, chest congestion, pain on inspiration, snoring, stridor, wheezing, crackles, paroxysmal nocturnal dyspnea or other Musc Musc: Positive for balance problems (slight); Negative for muscle aches/ myalgia, muscle weakness or joint pain Neuro Neuro: Negative for dizziness, lightheadedness, near syncope, syncope, orthostatic symptoms, frequent falls, headache(s), weakness, confusion, memory loss, restless legs, blurry vision, double vision, vertigo, seizures, lack of coordination or other Endo Endo: Positive for fatigue; Negative for excessive sweating Cardiology Exam Const Appearance: cooperative, healthy appearing, comfortable, no acute distress, well developed and well groomed Nutritional Appearance: well nourished and overweight Orientation: alert, awake and oriented x3 Head Head: normal to inspection, normocephalic and atraumatic Ears: hearing grossly normal bilaterally Nose: external nose normal Face and Sinus: face symmetric Eyes Eyelids: eyelids normal Conjunctivae: conjunctivae normal Pupils: PERRL EOM: EOM intact bilaterally Neck Neck: normal visual inspection, full ROM and no JVD Carotids: normal carotid upstroke Chest Chest inspection: normal inspection of the chest, symmetric chest movement and normal respiratory effort; Negative cough Auscultation: Bilateral: Clear to Auscultation Cardio Palpation: normal PMI Rate: regular rate Rhythm: regular rhythm Heart sounds: S1 normal and S2 normal; Negative rub, gallop or murmur GI GI: normal to inspection, soft and bowel sounds present Neuro General: patient alert, patient awake, patient oriented x3 and moves all extremities Skin Skin: no rashes or lesions noted Extremities Pulses: Normal: Right Posterior Tibial Pulse, Left Posterior Tibial Pulse, Right Radial Pulse and Left Radial Pulse Lower Extremity Edema: None: Bilateral Psych Psychological: normal affect Supplemental Info Supplemental Information Echocardiogram from 03/22/2021: Interpretation Summary The study was technically difficult. Left ventricular systolic function is normal. The estimated ejection fraction is 60 %. Trivial mitral valve insufficiency. Trivial tricuspid valve insufficiency. Mild diffuse aortic valve thickening. Mild focal aortic valve calcification. Right ventricular systolic pressure estimated to be 26 mmHg. No evidence for diastolic dysfunction. Bubble contrast study negative for right to left interatrial shunt. Stress Test Report Date: 03-22-2021 Procedure: Exercise tolerance test/imaging study Indications: Syncope; chest pain; shortness of breath/dyspnea Consent: Per the patient Procedure: The patient exercised on a Omari protocol for 9 minutes completing Stage III achieving a peak heart rate of 160 bpm (110% predicted maximal heart rate) with a peak blood pressure 210/98 mmHg and a peak MET capacity of 10 METs. The baseline ECG demonstrated normal sinus rhythm. The peak exercise ECG demonstrated approximately 0.5 to 1.[address] segment depression in leads II, III, aVF, and V3 through V6 with resolution towards baseline beginning less than 1 minute in recovery. There was a rare PAC during exercise and an isolated PVC during recovery. The functional capacity was considered good. There was no complaint of chest discomfort during exercise or recovery. The examination was discontinued secondary to dyspnea. Impression: 1. Technically adequate (percent predicted maximal heart rate greater than 85%) exercise tolerance test 2. Peak exercise ECG with approximately 0.5 to 1.[address] segment depression in leads II, III, aVF, and V3 through V6 with resolution towards baseline beginning less than 1 minute in recovery 3. There was a rare PAC during exercise and an isolated PVC during recovery 4. Nuclear images pending Myocardial perfusion imaging study: Technique: The patient was injected with 11.4 mCi of technetium 99m Cardiolite and subsequently rest SPECT Cardiolite nuclear imaging was obtained in the horizontal long, vertical long, and short axis views. The patient exercised on a Omari protocol for 9 minutes completing Stage III achieving a peak heart rate of 160 bpm (110% predicted maximal heart rate) with a peak blood pressure 210/98 mmHg and a peak MET capacity of 10 METs. The patient was injected with 33.7 mCi of technetium 99m Cardiolite and subsequently stress SPECT Cardiolite nuclear imaging was obtained in the horizontal long, vertical long, and short axis views. A gated Cardiolite study at peak stress was obtained. Interpretation: Rest and stress SPECT Cardiolite nuclear imaging status post realignment, normalization, and attenuation correction, demonstrates at rest the appearance of a small area of subtle diminished tracer uptake near the apical segments which appears to improve/normalize status post stress. There is end systolic thickening and brightening. The gated Cardiolite study demonstrates myocardial thickening and inward wall motion. The reported LVEF is 64%. Impression: 1. Rest and stress SPECT Cardiolite nuclear imaging demonstrate myocardial perfusion changes at rest which appear to improve/normalize following stress appearing compatible with shifting soft tissue attenuation/artifact with no myocardial perfusion changes considered diagnostic for associated stress-induced myocardial ischemia. 2. The gated Cardiolite study reports an LVEF of 64%. 24-hour Holter monitor from 03/22/2021: Normal sinus rhythm. Minimum heart rate 59 bpm and sinus bradycardia. Maximum heart rate 125 beats minute and sinus tachycardia. Average heart rate 81 bpm. Rare PAC. No runs noted. Rare PVC. No runs noted. Longest R to R interval 1.1 seconds. The patient kept a 24-hour diary and noted chest pain which did not correlate with scan. Labs: LDL Cholesterol 135 mg/dL (0-130) H HDL Cholesterol 55 mg/dL (40-) Triglycerides 91 mg/dL (0-199) INR 1.0 Diagnostics: Electrocardiogram Echocardiogram Stress Test Stress Test Nuclear Medicine Chest X-Ray Venous Doppler Study Pulmonary: No Data to Display Past Visits: No Data to Display Assessment and Plan Assessment and Plan (1) Syncope: Status: Resolved Plan: At the present time the patient appears to have somewhat of a situational syncopal event. Based upon the situation he was in at the time with respect to his underlying pulmonary disease, coughing, and receiving the news that he had COVID-19, this is somewhat suspicious for a vasovagal/neurocardiogenic mediated type event. His noninvasive studies were reviewed with him. The moment he was encouraged to maintain adequate hydration. Hopefully he can take care of any underlying pulmonary process to avoid significant coughing episodes that may bring out this situational type event. (2) Chest pain, unspecified: Status: Resolved Plan: His noninvasive studies were reviewed. He has had no obvious findings that have led to the need for diagnostic cardiac catheterization. He will continue his current course of action and monitor for any concerns (3) Shortness of breath: Status: Chronic Plan: Again his noninvasive studies did not suggest a definitive underlying cardiovascular disease process to explain his symptoms. Overall he believes he is doing reasonably well at this time. It does not appear he requires additional cardiac diagnostic studies at this time. (4) Mixed hyperlipidemia: Status: Acute Plan: The patient states he has a history of hyperlipidemia. He is following with his PCP for his history of hyperlipidemia. (5) Essential hypertension: Status: Acute Plan: He notes his blood pressure does fluctuate somewhat. He was given a blood pressure card to record his blood pressures. He was asked to take that to his PCP at his upcoming visit to review his blood pressure trends. If his blood pressures are trending upward then he may need further evaluation and/or therapy. Plan Details Additional Comments: Overall, from a cardiac standpoint, he will continue his current course of action. He is going to follow-up with his PCP for the aforementioned concerns including his blood pressure. His future outpatient cardiovascular follow-up will be on an as-needed basis. The above was discussed with the patient. He was agreeable to this approach. Thank you for allowing me to participate in the care of your patient. Please don't hesitate to call if any issues arise. This note was generated using a voice recognition system and there may be incorrect words, spelling or punctuation that were not noted when reviewing the office note prior to saving. Follow Up: 05/25/22 (PRN ) COVID (Procedure Consent) Procedure Criteria Procedure Criteria: Yes Elective The surgeon/proceduralist and patient have discussed in detail the risk of exposure to and/or potential harm posed by the COVID-19 virus with having a surgery/procedure at this time versus the risk of??? delaying the surgery/procedure. It is not possible to know either the risk of delaying the surgery or procedure or chance of getting an infection with perfect accuracy, but a joint decision was made between the patient and the surgeon/proceduralist ???to proceed at this time with the scheduled surgery/procedure as indicated on the consent form. Coding Level of Care Code Off vis,est,level 3 Diagnoses Syncope R55 Chest pain, unspecified R07.9 Shortness of breath R06.02 Mixed hyperlipidemia E78.2 Essential hypertension I10 Time Spent (min) 27 Coding Level of Care Code Off vis,est,level 3 Diagnoses Syncope R55 Chest pain, unspecified R07.9 Shortness of breath R06.02 Mixed hyperlipidemia E78.2 Essential hypertension I10 Time Spent (min) 27 05/25/22 1148 <Electronically signed by Castro Olea MD> Date Castro Olea MD Cosigner Signature: Date (if applicable) CC: MD Duy Calderon MD Work Phone: Start: 05-24-2021 End: 05-24-2021 Cardiology Visit Report Comments: See Note; NOTES: [facility] [address] [place] [address]. [address] [place], [place] [id number] OFFICE VISIT Date of Service: 05/24/21 MR#: [id number] Acct: [id number] Name: JOSÉ BOWLES Rep #: [id number] : 1950 Provider: RAFA aguilar Age/Sex: 71/M Location[place] [facility] [place] Status: Signed [facility] History of Present Illness Details: This is a 71-year-old white male who presents today for outpatient cardiovascular consultation based upon concerns of syncope as well as other concerns of chest discomfort, shortness of breath/dyspnea especially with exertion, and dizziness. He states on November 09 2020 while being evaluated in an outpatient care setting for a cough and after being told he was COVID-19 positive he states he apparently lost consciousness and almost rolled off the examination table. He was subsequently evaluated in the [facility] Emergency Department and had negative cardiac enzymes and no acute ECG changes. He was released home. He states since that time he has been recuperating from his COVID-19. He does not feel that he has totally returned to his baseline status with respect to his breathing and/or his stamina. He has had no recurrent syncopal events. He states for some time now separate from this incident he has had chest discomfort. He states he has noticed it has been somewhat different over his left pectoral area when he exerts himself. He does become short of breath and dyspneic especially with exertional activity which he has attributed to age and having been COVID-19 positive as opposed to other medical conditions. He states he has episodes randomly where he feels somewhat dizzy. However, he has not had a recurrent syncopal event. Today, he denies chest, arm, jaw, or neck discomfort. He denies symptoms of shortness of breath with exertion, shortness of breath at rest, orthopnea, PND, sudden weight gain, or bilateral lower extremity edema. He denies chronic cough. He denies palpitations, lightheadedness, dizziness, near syncope, or syncopal episodes. He denies claudication issues. He denies fever or chills. He denies blood in urine, blood in stool, or epistaxis. He denies myalgia. He denies unexplainable fatigue. His exercise tolerance is stable. Intake Vital Signs 05/24/21 08:28 Height 5 ft 11 in Weight: 203 lb BMI 28.3 BP 134/90 H Blood Pressure Location Lt brachial Position Sitting Respiration 16 Pulse 79 Pulse Source Monitor Intake Visit Reasons: 3 M FU Cat Scan Technologist Required: No Accompanied by: None Is patient in pain?: No Allergies Ivhmdst-WCV-PiB Reductase Inhibitor Adverse Reaction (Unknown, Verified 05/24/21 08:32) Intolereant Medications calcium carbonate 1,200 mg PO DAILY@0800 01/30/13 [History Confirmed 05/24/21] glucosamine-chondroitin 1 ea PO DAILY 01/30/13 [History Confirmed 05/24/21] finasteride 5 mg PO DAILY 12/13/18 [History Confirmed 05/24/21] tamsulosin 0.4 mg PO QHS 12/13/18 [History Confirmed 05/24/21] sildenafil 25 mg tablet 75 mg PO DAILY PRN tab 02/18/21 [History Confirmed 05/24/21] cyanocobalamin (vitamin B-12) 1,000 mcg tablet 1,000 mcg PO DAILY 02/24/21 [History Confirmed 05/24/21] fluticasone propionate 50 mcg/actuation nasal spray,suspension 1 spray INTRANASAL DAILY 02/24/21 [History Confirmed 05/24/21] omega-3 fatty acids 1,000 mg capsule 1,000 mg PO DAILY 02/24/21 [History Confirmed 05/24/21] amitriptyline 10 mg tablet 20 mg PO DAILY tab 05/24/21 [History Confirmed 05/24/21] aspirin 81 mg tablet,delayed release 81 mg PO DAILY 05/24/21 [History Confirmed 05/24/21] shark cartilage 500 mg capsule 2,000 mg PO BID cap 05/24/21 [History Confirmed 05/24/21] Ejection fraction %: 60 to 64 [facility] Medical History (Updated 05/24/21 @ 09:03 by Teto Nunn PERSONAL HEALTH COACH, PERSONAL HEALTH COACH-C) Acquired nasal septal defect BPH (benign prostatic hyperplasia) Chest pain, unspecified Chronic venous insufficiency Cirrhosis of liver COVID-19 Disorientation, unspecified Dizziness Essential hypertension GERD (gastroesophageal reflux disease) Hemochromatosis History of sciatica Leg pain, left Mixed hyperlipidemia Shortness of breath Syncope Varicose veins with inflammation Surgical History History of mandibular surgery History of rotator cuff surgery Previous back surgery s/p nasal button s/p right hip surgery Family History Mother Heart disease Hypertension CAD (coronary artery disease) Diabetes Father Cancer pancreatic Social History Smoking Status: Never smoker alcohol intake: current alcohol intake frequency: holidays/special occasions only substance use type: does not use caffeine: Yes Type: coffee Number of servings: 1 ROS Const Const: Negative for fatigue, weakness, headache(s), frequent falls, difficulty sleeping or excessive sweating Eyes Eyes: Negative for loss of peripheral vision, transient loss of vision, blurry vision, double vision or tunnel vision ENT ENT: Positive for balance problems (Occasionally in the mornings after nasal treatments); Negative for headache(s), dizziness or Nosebleed/epistaxis Cardio Chest Pain: No Palpitations: No Edema: None Muscle aches with walking: None Resp Respiratory: Negative for SOB with activity, SOB at rest, SOB orthopnea SOB lying down, Cough or paroxysmal nocturnal dyspnea GI GI: Negative nausea, vomiting, heartburn or black,tarry stools : Negative for hematuria Musc Musc: Positive for joint pain and balance problems (Occasionally in the mornings after nasal treatments); Negative for muscle aches/ myalgia or muscle weakness Skin Skin: Negative non-healing lesions, rash or unusual bruising Neuro Neuro: Negative for dizziness, lightheadedness, near syncope, syncope, frequent falls, headache(s), weakness, blurry vision, double vision or lack of coordination Angelo Hematologic/Lymphatic: Negative for easy bleeding or easy bruising Endo Endo: Negative for fatigue, excessive sweating or increased thirst/drinking Psych Psych: Negative for anxiety or depression Allergy Allergy/Immunology: Negative for hives and Negative for rash Cardiology Exam Const Appearance: cooperative, healthy appearing, comfortable and no acute distress Nutritional Appearance: well nourished and overweight Orientation: alert, awake and oriented x3 Head Head: normal to inspection Ears: hearing grossly normal bilaterally Nose: external nose normal Face and Sinus: face symmetric Mouth: oral mucosae normal Eyes General: appearance normal, both eyes and all related structures Eyelids: eyelids normal EOM: EOM intact bilaterally Neck Neck: normal visual inspection and no JVD Carotids: normal carotid upstroke Chest Chest inspection: normal inspection of the chest, symmetric chest movement and normal respiratory effort; Negative cough Auscultation: Bilateral: Clear to Auscultation Cardio Rate: regular rate Rhythm: regular rhythm Heart sounds: S1 normal and S2 normal; Negative rub, gallop or murmur GI GI: normal to inspection Neuro General: patient alert, patient awake, patient oriented x3 and CN's II-XI intact bilaterally Skin Skin: no rashes or lesions noted Extremities Pulses: Normal: Right Posterior Tibial Pulse, Left Posterior Tibial Pulse, Right Radial Pulse and Left Radial Pulse Lower Extremity Edema: None: Bilateral Psych Psychological: normal affect Supplemental Info Supplemental Information Echocardiogram from 03/22/2021: Interpretation Summary The study was technically difficult. Left ventricular systolic function is normal. The estimated ejection fraction is 60 %. Trivial mitral valve insufficiency. Trivial tricuspid valve insufficiency. Mild diffuse aortic valve thickening. Mild focal aortic valve calcification. Right ventricular systolic pressure estimated to be 26 mmHg. No evidence for diastolic dysfunction. Bubble contrast study negative for right to left interatrial shunt. Stress Test Report Date: 03-22-2021 Procedure: Exercise tolerance test/imaging study Indications: Syncope; chest pain; shortness of breath/dyspnea Consent: Per the patient Procedure: The patient exercised on a Omari protocol for 9 minutes completing Stage III achieving a peak heart rate of 160 bpm (110% predicted maximal heart rate) with a peak blood pressure 210/98 mmHg and a peak MET capacity of 10 METs. The baseline ECG demonstrated normal sinus rhythm. The peak exercise ECG demonstrated approximately 0.5 to 1.[address] segment depression in leads II, III, aVF, and V3 through V6 with resolution towards baseline beginning less than 1 minute in recovery. There was a rare PAC during exercise and an isolated PVC during recovery. The functional capacity was considered good. There was no complaint of chest discomfort during exercise or recovery. The examination was discontinued secondary to dyspnea. Impression: 1. Technically adequate (percent predicted maximal heart rate greater than 85%) exercise tolerance test 2. Peak exercise ECG with approximately 0.5 to 1.[address] segment depression in leads II, III, aVF, and V3 through V6 with resolution towards baseline beginning less than 1 minute in recovery 3. There was a rare PAC during exercise and an isolated PVC during recovery 4. Nuclear images pending Myocardial perfusion imaging study: Technique: The patient was injected with 11.4 mCi of technetium 99m Cardiolite and subsequently rest SPECT Cardiolite nuclear imaging was obtained in the horizontal long, vertical long, and short axis views. The patient exercised on a Omari protocol for 9 minutes completing Stage III achieving a peak heart rate of 160 bpm (110% predicted maximal heart rate) with a peak blood pressure 210/98 mmHg and a peak MET capacity of 10 METs. The patient was injected with 33.7 mCi of technetium 99m Cardiolite and subsequently stress SPECT Cardiolite nuclear imaging was obtained in the horizontal long, vertical long, and short axis views. A gated Cardiolite study at peak stress was obtained. Interpretation: Rest and stress SPECT Cardiolite nuclear imaging status post realignment, normalization, and attenuation correction, demonstrates at rest the appearance of a small area of subtle diminished tracer uptake near the apical segments which appears to improve/normalize status post stress. There is end systolic thickening and brightening. The gated Cardiolite study demonstrates myocardial thickening and inward wall motion. The reported LVEF is 64%. Impression: 1. Rest and stress SPECT Cardiolite nuclear imaging demonstrate myocardial perfusion changes at rest which appear to improve/normalize following stress appearing compatible with shifting soft tissue attenuation/artifact with no myocardial perfusion changes considered diagnostic for associated stress-induced myocardial ischemia. 2. The gated Cardiolite study reports an LVEF of 64%. 24-hour Holter monitor from 03/22/2021: Normal sinus rhythm. Minimum heart rate 59 bpm and sinus bradycardia. Maximum heart rate 125 beats minute and sinus tachycardia. Average heart rate 81 bpm. Rare PAC. No runs noted. Rare PVC. No runs noted. Longest R to R interval 1.1 seconds. The patient kept a 24-hour diary and noted chest pain which did not correlate with scan. Labs: LDL Cholesterol 135 mg/dL (0-130) H HDL Cholesterol 55 mg/dL (40-) Triglycerides 91 mg/dL (0-199) VLDL Cholesterol 18 mg/dL (5-40) Diagnostics: Electrocardiogram Echocardiogram Stress Test NM Stress Test Chest X-Ray Venous Doppler Study Pulmonary: No Data to Display Assessment and Plan Assessment and Plan (1) Syncope: Status: Resolved Shani Nunn PERSONAL HEALTH COACH, PERSONAL HEALTH COACH-C: He denies any reoccurring episodes. His heart rate and blood pressure is well controlled. His 24- hour Holter monitor did not show any significant bradycardia, pauses, or dysrhythmia. At this time, we will continue to monitor. The etiology of his syncope is thought to be vasovagal related in the setting of COVID-19 and cough. (2) Chest pain, unspecified: Status: Resolved Shani Nunn NP, PERSONAL HEALTH COACH-C: His most recent echocardiogram showed a preserved ejection fraction. His most recent stress test was negative for ischemia. He denies any recurrent chest pain since last office visit. At this time, we will continue to monitor. He will continue risk factor and lifestyle modification, most notably blood pressure and cholesterol control. (3) Dizziness: Status: Resolved Shani Nunn NP, PERSONAL HEALTH COACH-C: He denies any reoccurring episodes. His heart rate and blood pressure is well controlled. We will continue to monitor. He was encouraged to remain hydrated and consider compression stockings if dizziness continues. (4) Shortness of breath: Status: Chronic Shani Nunn NP, PERSONAL HEALTH COACH-C: His most recent echocardiogram showed ejection fraction of 60%. There is no significant valvular abnormality. His shortness of breath continues, most notably during long walks. His residual shortness of breath is thought to be related to COVID-19 exposure and ongoing recovery. He was encouraged to continue to remain active and we will continue to monitor. (5) Mixed hyperlipidemia: Status: Acute Plan - Teto Nunn PERSONAL HEALTH COACH, PERSONAL HEALTH COACH-C: This is being monitored by primary care physician. He has been intolerant to statin medication. This was reviewed with him in respect to having this evaluated regularly and consideration for nonstatin medication if necessary. (6) Essential hypertension: Status: Acute Plan - Teto Nunn PERSONAL HEALTH COACH, PERSONAL HEALTH COACH-C: He does knowledge of the blood pressure fluctuates. At last office visit, today, and during echocardiogram his blood pressure noted be elevated. During his stress test his peak blood pressure was noted be 210 systolic. This was reviewed with him in detail in respect to blood pressure management in respect to preventing future cardiovascular issues. He will continue to have this followed with primary care physician and will consider medication ongoing basis. He does not as blood pressure fluctuates and generally feels it to be well controlled. Plan Details Additional Comments: Thank you for allowing me to participate in the care of your patient. Please don't hesitate to call if any issues arise. This note was generated using a voice recognition system and there may be incorrect words, spelling or punctuation that were not noted when reviewing the office note prior to saving. Follow Up: 12-14 Months (PFM) Coding Level of Care Code Off vis,est,level 3 Diagnoses Syncope R55 Chest pain, unspecified R07.9 Dizziness R42 Shortness of breath R06.02 Mixed hyperlipidemia E78.2 Essential hypertension I10 Coding Level of Care Code Off vis,est,level 3 Diagnoses Syncope R55 Chest pain, unspecified R07.9 Dizziness R42 Shortness of breath R06.02 Mixed hyperlipidemia E78.2 Essential hypertension I10 05/24/21 0904 <Electronically signed by Teto Nunn NP PERSONAL HEALTH COACH-C> Date Teto Nunn NP PERSONAL HEALTH COACH-C Cosigner Signature: Date (if applicable) CC: MD Duy Calderon MD Work Phone: Start: 04-27-2021 End: 04-27-2021 Colonoscopy ADAM Fuchs LPN Comment on above: Alphonso repeat 5 years small polyp remove d Start: 04-04-2021 End: 04-04-2021 MRI Abd WITH and W/O Contrast Comments: See Note; NOTES: [facility] Imaging Services [address] [place] [address] MRI Abd WITH and W/O Contrast MR#: [id number] Acct: [id number] Name: JOSÉ BOWLES Rep #: [id number] : 1950 M 71 From: Casa cerda MD PCP: Dr. Duy Valverde MD Status: REG CLI Study: MRI Abd WITH and W/O Contrast Date of Exam: Exam# [id number] Ordering Dr: Durga Werner MD STUDY: MRI ABDOMEN WITH AND WITHOUT CONTRAST REASON FOR EXAM: Male, 71 years old. FATTY LIVER, CIRRHOSIS, NO PAIN TECHNIQUE: Standardized fat and water weighted pulse sequences were obtained in all 3 orthogonal planes post contrast administration. 18ML IV DOTAREM was administered for the contrast portion of the examination. COMPARISON: None. FINDINGS: The visualized lung bases are unremarkable. The visualized portions of the heart are within normal limits. There is a mild contour abnormality of the liver which could represent early cirrhosis. Normal gallbladder and extrahepatic biliary system. Normal spleen. Normal pancreas. Normal bilateral adrenal glands. Normal right kidney. Normal left kidney. Normal visualized stomach. Normal small intestine. Normal colon. There is diffuse atherosclerotic calcification of the abdominal aorta, without a demonstrated aneurysm. Normal inferior vena cava. Normal retroperitoneum. Normal abdominal wall. There are diffuse degenerative changes of the visualized lumbar spine. MRI/MRI Abd WITH and W/O Contrast IMPRESSION: Mild contour abnormality of the liver which could represent early cirrhosis. No suspicious arterially hyperenhancing mass. No evidence of portal hypertension. Electronically Signed: Casa Malone MD at 16:19 EST Tel , Service support , CC: Dr. Duy Valverde MD; Dr. Durga Werner MD Thermostat Repairer: Signed Duy Valverde MD Work Phone: Start: 03-22-2021 End: 03-22-2021 Stress Report Comments: See Note; NOTES: [facility] [address] [place] [address] MR#: [id number] Acct: [id number] Name: JOSÉ BOWLES Rep #: [id number] : 1950 71 From: Castro Olea MD Primary Care: Dr. Duy Valverde MD Status: REG CLI Referring Dr: Castro Olea MD Sex: M C Stress Test Report Date: 03-22-2021 Procedure: Exercise tolerance test/imaging study Indications: Syncope; chest pain; shortness of breath/dyspnea Consent: Per the patient Procedure: The patient exercised on a Omari protocol for 9 minutes completing Stage III achieving a peak heart rate of 160 bpm (110% predicted maximal heart rate) with a peak blood pressure 210/98 mmHg and a peak MET capacity of 10 METs. The baseline ECG demonstrated normal sinus rhythm. The peak exercise ECG demonstrated approximately 0.5 to 1.[address] segment depression in leads II, III, aVF, and V3 through V6 with resolution towards baseline beginning less than 1 minute in recovery. There was a rare PAC during exercise and an isolated PVC during recovery. The functional capacity was considered good. There was no complaint of chest discomfort during exercise or recovery. The examination was discontinued secondary to dyspnea. Impression: 1. Technically adequate (percent predicted maximal heart rate greater than 85%) exercise tolerance test 2. Peak exercise ECG with approximately 0.5 to 1.[address] segment depression in leads II, III, aVF, and V3 through V6 with resolution towards baseline beginning less than 1 minute in recovery 3. There was a rare PAC during exercise and an isolated PVC during recovery 4. Nuclear images pending Myocardial perfusion imaging study: Technique: The patient was injected with 11.4 mCi of technetium 99m Cardiolite and subsequently rest SPECT Cardiolite nuclear imaging was obtained in the horizontal long, vertical long, and short axis views. The patient exercised on a Omari protocol for 9 minutes completing Stage III achieving a peak heart rate of 160 bpm (110% predicted maximal heart rate) with a peak blood pressure 210/98 mmHg and a peak MET capacity of 10 METs. The patient was injected with 33.7 mCi of technetium 99m Cardiolite and subsequently stress SPECT Cardiolite nuclear imaging was obtained in the horizontal long, vertical long, and short axis views. A gated Cardiolite study at peak stress was obtained. Interpretation: Rest and stress SPECT Cardiolite nuclear imaging status post realignment, normalization, and attenuation correction, demonstrates at rest the appearance of a small area of subtle diminished tracer uptake near the apical segments which appears to improve/normalize status post stress. There is end systolic thickening and brightening. The gated Cardiolite study demonstrates myocardial thickening and inward wall motion. The reported LVEF is 64%. Impression: 1. Rest and stress SPECT Cardiolite nuclear imaging demonstrate myocardial perfusion changes at rest which appear to improve/normalize following stress appearing compatible with shifting soft t issue attenuation/artifact with no myocardial perfusion changes considered diagnostic for associated stress-induced myocardial ischemia. 2. The gated Cardiolite study reports an LVEF of 64%. This note was generated with [employer] software. It may contain incorrect words, spelling, and punctuation that were not noted in checking the note before signing. 03/22/21936 <Electronically signed by Castro Olea MD> Date Castro Olea MD CC: Dr. Duy Valverde MD; Dr. Castro Olea MD Date Dictated: 03/22/21906 Date Transcribed: 03/22/21906 Thermostat Repairer: PM Signed Duy Valverde MD Work Phone: Start: 03-22-2021 End: 03-22-2021 Echo Complete Comments: See Note; NOTES: [facility] [address] [place] [address] Echo Complete 03/22/21 0846 MR#: [id number] Acct: [id number] Name: JOSÉ BOWLES Rep #: [id number] : 1950 71 From: Castro Olea MD Attending Dr: Dr. Castro Olea MD Status: RE G [facility] Ordering Dr: Castro Olea MD Date: 03/22/21 Location: [facility] Sex: M C Admitted: Reason For Study: CHEST PAIN Procedure This was a 2D Doppler, Color Flow transthoracic echocardiogram. The study was technically difficult. Exam performed in department. Left Ventricle Normal LV size. Left ventricular systolic function is normal. The estimated ejection fraction is 60 %. No evidence for diastolic dysfunction. No regional wall motion abnormalities noted. Right Ventricle Normal RV size. Normal systolic function. Atria Normal left atrium. Normal right atrium. No doppler evidence for ASD. Bubble contrast study negative for right to left interatrial shunt. Mitral Valve There is no mitral annular calcification. Normal mitral valve. Trivial mitral valve insufficiency. Tricuspid Valve Normal tricuspid valve. Trivial tricuspid valve insufficiency. Right ventricular systolic pressure estimated to be 26 mmHg. Aortic Valve Trisinus/trileaflet aortic valve. Mild diffuse aortic valve thickening. Mild focal aortic valve calcification. Pulmonic Valve The pulmonic valve is not well visualized. Great Vessels Normal sized aortic root. Pericardium/Pleural No pericardial effusion. Medication Performed a rapid injection of agitated mix of 9 cc saline and 1cc air to assess for atrial septal defect. MMode/2D Measurements Calculations LVIDd: 4.6 cm IVSd: 1.4 cm Ao root diam: 3.6 cm LVIDs: 3.1 cm LVPWd: 1.1 cm RVDd: 2.9 cm FS: 32.4 % LAV(MOD-bp): 52.4 ml LA A4 area: 15.9 cm2 LA dimension(2D): 3.5 cm LAV(MOD-bp) Indexed: 25.3 ml/m2 LAV(MOD-sp2): 49.2 ml LAV(MOD-sp4): 49.5 ml Time Measurements MV dec time: 0.26 sec Doppler Measurements Calculations MV E max clarita: 54.0 cm/sec Lat Peak E' Clarita: 7.2 cm/sec Med Peak E' Clarita: 8.0 cm/sec MV A max clarita: 73.3 cm/sec E/E' lat: 7.5 E/E' med: 6.7 MV E/A: 0.74 Ao V2 max: 117.2 cm/sec LV V1 max: 115.9 cm/sec PA V2 max: 145.3 cm/sec Ao max P.5 mmHg LV V1 max P.4 mmHg TR max clarita: 241.1 cm/sec TR max P.3 mmHg ECHO/Echo Complete Interpretation Summary The study was technically difficult. Left ventricular systolic function is normal. The estimated ejection fraction is 60 %. Trivial mitral valve insufficiency. Trivial tricuspid valve insufficiency. Mild diffuse aortic valve thickening. Mild focal aortic valve calcification. Right ventricular systolic pressure estimated to be 26 mmHg. No evidence for diastolic dysfunction. Bubble contrast study negative for right to left interatrial shunt. _ Ordering Physician: Lefty Erazo Dr., MD Referring Physician: Duy Valverde Performed By: Symone Shankar, KATHY, RVT 03/22/21957 Date Castro Olea MD CC: Dr. Duy Valverde MD; Dr. Castro Olea MD Date Dictated: 03/22/21845 Date Transcribed: 03/22/21957 Thermostat Repairer: Signed Duy Valverde MD Work Phone: Start: 02-24-2021 End: 02-24-2021 12 Lead EKG performed by [facility] [place] Comments: See Note; NOTES: [address] [address] 12 Lead EKG performed by [facility] [place] 02/24/21 1028 MR#: [id number] Acct: [id number] Name: JOSÉ BOWLES Rep #: [id number] : 1950 71 From: Castro Olea MD Attending Dr: Dr. Castro Olea MD Status: DE P AMB Ordering Dr: Castro Olea MD Date: 02/24/21 [place] [facility] [place] Sex: M C Admitted: BMS/12 Lead EKG performed by [facility] [place] ECG Report Interpretation Sin us Rhythm Poor R wave progressionElectronically signed on 02/24/2021 at 17:46 by Castro Olea Software Version 8610 02/24/21 269 Date Castro Olea MD CC: Dr. Duy Vavlerde MD Date Dictated: 02/24/211027 Date Transcribed: 02/24/211027 Thermostat Repairer: PM Signed Duy Valverde MD Work Phone: Start: 02-24-2021 End: 02-24-2021 Cardiology Visit Report Comments: See Note; NOTES: [facility] [address] [place] [address] OFFICE VISIT Date of Service: 02/24/21 MR#: [id number] Acct: [id number] Name: JOSÉ BOWLES Rep #: [id number] : 1950 Provider: Dr. Castro munroe MD Age/Sex: 71/M [place] [facility] [place] Status: Signed [facility] History of Present Illness Details: This is a 71-year-old white male who presents today for outpatient cardiovascular consultation based upon concerns of syncope as well as other concerns of chest discomfort, shortness of breath/dyspnea especially with exertion, and dizziness. He states on November 09 of this year while being evaluated in an outpatient care setting for a cough and after being told he was COVID-19 positive he states he apparently lost consciousness and almost rolled off the examination table. He was subsequently evaluated in the [facility] emergency department and had negative cardiac enzymes and no acute ECG changes. He was released home. He states since that time he has been recuperating from his COVID-19. He does not feel that he has totally returned to his baseline status with respect to his breathing and/or his stamina. He has had no recurrent syncopal events. He states for some time now separate from this incident he has had chest discomfort. He states he has noticed it has been somewhat different over his left pectoral area when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 Phone: Start: 02-06-2022 Assay of prostate specific antigen total PSA (PROSTATE SPECIFIC ANTIGEN) (V76.44) [facility]; [facility] Work Phone: Start: 11-10-2021 Influenza vaccination [facility] Start: 06-06-2021 Alpha-fetoprotein serum [id number] ([id number]) [facility]; [facility] Work Phone: Start: 06-06-2021 Assay of ammonia AMMONIA (69429) [facility]; [facility] Work Phone: Start: 06-06-2021 Comprehensive metabolic panel METABOLIC PANEL, COMPREHENSIVE (28588) [facility]; [facility] Work Phone: Start: 06-06-2021 Lipid panel LIPID PANEL (57691) [facility]; [facility] Work Phone: Start: 06-06-2021 Blood count manual cell count each CBC with auto diff (53208) [facility]; [facility] Work Phone: Start: 06-02-2021 End: 08-02-2021 CBC W Auto Differential panel - Blood CBC + DIFF Lab STAT Hereditary hemochromatosis (HCC) Expected: 06/02/2021, Expires: 08/02/2021 [facility] Work Phone: Comment on above: Expected: 06/02/2021, Expires: 2 Start: 06-02-2021 End: 08-02-2021 FERRITIN BLD FERRITIN BLD Lab Routine Hereditary hemochromatosis (HCC) Expected: 06/02/2021, Expires: 08/02/2021 [facility] Work Phone: Comment on above: Expected: 06/02/2021, Expires: 2 Start: 03-12-2021 ADVANCE DIRECTIVE DISCUSSION ADVANCE DIRECTIVE DISCUSSION [facility] Start: 03-12-2021 DEPRESSION ASSESSMENT DEPRESSION ASSESSMENT [facility] Start: 02-08-2021 Lipid panel LIPID PANEL ([id number]) [facility]; [facility] Work Phone: Start: 02-08-2021 Hepatic function panel HEPATIC FUNCTION PANEL ([id number]) [facility]; [facility] Work Phone: Start: 04-26-2020 Shingrix Vaccine (3 of 3) Shingrix Vaccine (3 of 3) [facility] Start: 2015 Fall risk assessment Falls Risk Assessment [facility] Start: 2015 Pneumococcal Vaccine: 65+ (1 - PCV) Pneumococcal Vaccine: 65+ (1 - PCV) [facility] Start: 2015 Pneumococcal Vaccine: 65+ (1 of 1 - PCV) Pneumococcal Vaccine: 65+ (1 of 1 - PCV) [facility] Start: 2015 Pneumococcal Vaccine: Age 65+ (1 - PCV) Pneumococcal Vaccine: Age 65+ (1 - PCV) [facility] Start: 2015 Pneumococcal Vaccine: Age 65+ (1 of 1 - PCV) Pneumococcal Vaccine: Age 65+ (1 of 1 - PCV) [facility] Start: 2015 PNEUMOCOCCAL: 65+ (1 - PCV) PNEUMOCOCCAL: 65+ (1 - PCV) [facility] Start: 2015 PNEUMOVAX AGE 65 AND OVER WITH 5YR LOOKBACK (#1) PNEUMOVAX AGE 65 AND OVER WITH 5YR LOOKBACK (#1) [facility] Start: 12-10-2014 Medicare Annual Wellness Visit Medicare Annual Wellness Visit [facility] Start: 2010 RSV Vaccine (1 - 1-dose 60+ series) RSV Vaccine (1 - 1-dose 60+ series) [facility] Start: 01-08-2000 Administration of herpes zoster vaccine Zoster Vaccines (1 of 2) [facility] Start: 01-08-2000 Pneumococcal Vaccine: 50+ (1 of 1 - PCV) Pneumococcal Vaccine: 50+ (1 of 1 - PCV) [facility] Start: 01-08-2000 Pneumococcal Vaccine: Age 50+ (1 of 1 - PCV) Pneumococcal Vaccine: Age 50+ (1 of 1 - PCV) [facility] Start: 01-08-2000 Screening for malignant neoplasm of colon Flexible sigmoidoscopy [facility] Start: 01-08-2000 SHINGRIX VACCINE (1 of 2) SHINGRIX VACCINE (1 of 2) [facility] Start: 1995 COLOGUARD (FIT-DNA) COLOGUARD (FIT-DNA) [facility] Start: 1995 Colonoscopy COLONOSCOPY [facility] Start: 1995 COLORECTAL CANCER SCREENING COLORECTAL CANCER SCREENING [facility] Start: [address] COLONOGRAPHY [facility] Start: 1995 FECAL OCCULT BLOOD FECAL OCCULT BLOOD [facility] Start: 1995 Screening for malignant neoplasm of colon [facility] Start: 1995 SIGMOIDOSCOPY SIGMOIDOSCOPY [facility] Start: 1985 Lipid 1996 panel - Serum or Plasma Lipid Screening [facility] Start: 1985 Lipid panel Lipid Screening [facility] Start: 1985 LIPID SCREEN LIPID SCREEN [facility] Start: 1969 Urine microalbumin profile [facility] Start: 01-08-1968 Anxiety Screening Anxiety Screening [facility] Start: 01-08-1968 Depression Screening Depression Screening [facility] Start: 01-08-1968 HEPATITIS C SCREENING HEPATITIS C SCREENING [facility] Start: 01-08-1968 Hepatitis C screening Hepatitis C Screening [facility] Start: 1962 Adult depression screening assessment [facility] Start: 1955 COVID-19 VACCINE (#1) COVID-19 VACCINE (#1) [facility] Start: 1955 COVID-19 VACCINE (1) COVID-19 VACCINE (1) [facility] Start: 1953 History and physical examination, annual for health maintenance Wellness Visit [facility] Start: 1953 Medicare Wellness Visit Medicare Wellness Visit [facility] Start: 1950 COVID-19 VACCINE (#1) COVID-19 VACCINE (#1) [facility] Start: 1950 ABDOMINAL AORTIC ANEURYSM SCREENING ABDOMINAL AORTIC ANEURYSM SCREENING [facility] Start: 1950 Abdominal aortic aneurysm screening Abdominal Aortic Aneurysm Screening [facility] Start: 1950 Prostate specific antigen measurement PSA Level [facility] Start: 1950 Screening for malignant neoplasm of colon [facility] Start: 1950 Tetanus vaccination Tetanus: Every 10yrs [facility] End: 08-24-2022 CBC W Auto Differential panel - Blood CBC + DIFF Lab STAT Hereditary hemochromatosis (HCC) Every 3 months for 4 Occurrences starting 08/24/2021 until 08/24/2022 [facility] Work Phone: Comment on above: Every 3 months for 4 Occurrences startin g 08/24/2021 until 08/24/2022 End: 06-26-2024 CBC W Auto Differential panel - Blood COMPLETE BLOOD COUNT AND DIFFERENTIAL Lab STAT Hereditary hemochromatosis (HCC) Every 3 months for 4 Occurrences starting 06/27/2023 until 06/26/2024 [facility] Work Phone: Comment on above: Every 3 months for 4 Occurrences startin g 06/27/2023 until 06/26/2024 End: 08-24-2022 Ferritin [Mass/volume] in Serum or Plasma FERRITIN BLD Lab Routine Hereditary hemochromatosis (HCC) Every 3 months for 4 Occurrences starting 08/24/2021 until 08/24/2022 [facility] Work Phone: Comment on above: Every 3 months for 4 Occurrences startin g 08/24/2021 until 08/24/2022 End: 06-26-2024 Ferritin [Mass/volume] in Serum or Plasma FERRITIN Lab Routine Hereditary hemochromatosis (HCC) Every 3 months for 4 Occurrences starting 06/27/2023 until 06/26/2024 [facility] Work Phone: Comment on above: Every 3 months for 4 Occurrences startin g 06/27/2023 until 06/26/2024 End: 08-17-2023 US ABD RIGHT UPPER QUADRANT US ABD RIGHT UPPER QUADRANT Radiology Routine Hereditary hemochromatosis (HCC) 1 Occurrences starting 07/18/2022 until 08/17/2023 [facility] Work Phone: Comment on above: 1 Occurrences starting 07/18/2022 until 08/17/2023 [facility] Work Phone: [facility] Work Phone: [facility] Work Phone: [facility]; [facility] Work Phone: [facility]; [facility] Work Phone: [facility] Immunizations Immunization Date Immunization Notes Care Provider [facility] 11-25-2020 influenza virus vaccine, unspecified formulation Treatment Ws Work Phone: [facility] 11-10-2020 Seasonal, quadrivalent, recombinant, injectable influenza vaccine, preservative free Duy Valverde MD Work Phone: [facility]; [facility] Work Phone: 02-10-2020 zoster vaccine, live Duy castillo MD Work Phone: [facility]; [facility] Work Phone: 11-11-2019 zoster vaccine, live Duy castillo MD Work Phone: [facility]; [facility] Work Phone: Payers Date Payer Category Payer Medicare (Managed Care) DIONNE LOCKWOOD [id number] 2024 Self-pay [id number] 2021 Medicare [id number] 2015 Managed Care (unspecified) [id number] 2014 Medicare MEDICARE MEDICAR E A AND B [id number] 2014-Present [phone] [place] [address] Medicare [id number] 2014 Medicare [id number] 2014 Private Health Insurance HUMANA HUMANA MEDICARE SUPPLEMENT [id number] 2014-Present [phone] [address] [address] [place] [address] Indemnity [id number] 2014 Private Health Insurance [id number] 2014 Private Health Insurance [id number] 2014 Medicare [id number] 1950 Unknown [id number] 1950 Unknown [id number] 1950 Unknown [id number] Unknown Unknown [id number] Unknown [id number] Unknown [id number] Unknown [id number] Unknown [id number] [id number] Unknown [id number] [id number] Unknown [id number] 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 Start: 05-29-2011 End: 07-27-2022 Living Situation Living Situation [facility]; [facility] Work Phone: Comment on above: lives with s pouse Tobacco Use: Tobacco Use: [facility]; [facility] Work Phone: Start: 05-29-2011 [facility] Start: 11-28-1974 End: 11-28-1984 History of tobacco use Current smoker [facility] Start: 11-28-1974 End: 11-28-1984 History of tobacco use Cigarette Smoker [facility] End: 11-29-2003 History of tobacco use Chews Tobacco [facility] Start: 10-16-2019 End: 11-13-2024 Alcohol intake Current drinker of alcohol (finding) [facility] Start: 1950 Sex Assigned At Not on file [facility] Start: 05-23-2021 End: 02-13-2022 Exposure to SARS-CoV-2 (event) Not sure [facility] Start: 05-29-2011 Tobacco use and exposure Former smokeless tobacco user [facility] Start: 1950 Sex Assigned At Male [facility] Start: 02-13-2022 End: 05-25-2022 Tobacco smoking status NHIS Never smoked tobacco [facility] Start: 02-13-2022 Tobacco use and exposure Smokeless tobacco non-user [facility] Start: 05-25-2022 End: 05-25-2022 Tobacco smoking status HIIS Unknown if ever smoked [facility] Start: 11-24-2019 Non-smoker [facility] Start: 07-27-2022 End: 08-04-2022 Tobacco use panel [facility] Start: 02-11-2012 National Score (1-100), lower number is lower risk 61 [facility] Start: 05-28-2024 Sex Male (finding) [facility] How often to you hav e a drink containing alcohol? 4 or more times a week [facility] How many standard drinks containing alcohol do you have on a typical day? 1 or 2 [facility] How often do you hav e 6 or more drinks on 1 occasion? Daily or almost daily [facility] Medical Equipment Procedure Code Equipment Code Equipment Origin al Text Equipment Identifier Dates Septoplasty, nose BUTTON,SEPTAL NASAL 1 PART FDA Start: 12-20-2018 Septoplasty, nose BUTTON,SEPTAL NASAL 1 PART FDA Start: 12-20-2018 Septoplasty, nose BUTTON,SEPTAL NASAL 1 PART FDA Start: 12-20-2018 Septoplasty, nose BUTTON,SEPTAL NASAL 1 PART FDA Start: 12-20-2018 Septoplasty, nose BUTTON,SEPTAL NASAL 1 PART FDA Start: 12-20-2018 Functional Status Date Assessment Result Facility 11-13-2024 Total score [AUDIT-C] 8 11/14/19 25 10:57 AM Karen Bennett MA [facility] 09-10-2014 Are you deaf, or do you have serious difficulty hearing No 09/10/2014 10:13 AM Deepti Bourne LPN No [facility] 09-10-2014 Are you blind, or do you have serious difficulty seeing, even when wearing glasses No 09/10/2014 10:13 AM EDT Deepti Collazo LPN No [facility] 09-10-2014 Do you have serious difficulty walking or climbing stairs No 09/10/2014 10:13 AM EDT Deepti Collazo LPN No [facility] 09-10-2014 Do you have difficul ty dressing or bathing No 09/10/2014 10:13 AM EDT Deepti Collazo LPN No [facility] 09-10-2014 Because of a physica l, mental, or emotional condition, do you have difficulty doing errands alone such as visiting a physician's office or shopping No 09/10/2014 10:13 AM EDT Deepti Collazo LPN No [facility] Mental Status Date Assessment Result Facility 09-10-2014 Because of a physica l, mental, or emotional condition, do you have serious difficulty concentrating, remembering, or making decisions No 09/10/2014 10:13 AM EDT Deepti Collazo LPN [facility] Clinical Notes 11-21-2010 to 11-13-2024 Castro Erazo DO - 11/13/2024 11:15 AM EDT Note Date & Type Note Facility 11-13-2024 Note HNO ID: [id number] Author: CASTRO ERAZO DO Service: ? Author Type: Physician Type: Progress Notes Filed: 11/13/2024 11:33 Note Text: Diagnosis: 1) Hereditary hemochromatosis. HPI: The patient is a 74 yo male who had iron studies done due to family h/o hemochromatosis. Patient's father had hemochromatosis, but patient didn't know the details of his father's history. Nonfasting iron studies revealed TIBC 145 ug/dL, iron 68 ug/dL and saturation 46.9% with ferritin 1007 ng/mL. 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 Has been undergoing routine phlebotomy since 11/28/10. Was diagnosed with cirrhosis. Saw Dr. Werner--MRI liver-- Presents for ongoing management. Interim history: Saw neurologist for worsening neuropathy affecting balance. Diagnosed with B12 deficiency. Started injections couple months ago. Balance much better. Was able to get up twice on water skis. No longer using a cane. No black or bloody stools. PMH, medications and allergies as below personally reviewed by me today. Any changes documented in appropriate section. ROS: Constitutional: Denies episodes of fever and night sweats. Neuro: Denies CISNEROS, vertigo and imbalance. HEENT: No recent change in voice, vision or hearing. Resp: Denies cough, wheeze and hemoptysis. No shortness of breath at rest. CVS: Denies exertional chest pain and LE edema. GI: Denies reflux, n/v, and abdominal pain. : No dysuria or gross hematuria. Endo: No hot flashes. Musculoskeletal: See above. Derm: No rash. Heme: No unusual bleeding or unexplained bruising. Psych: Normal mood. PHYSICAL EXAM: Vitals: Blood pressure 147/87, pulse 71, temperature 36.6 ?C (97.8 ?F), temperature source Temporal, weight 95.3 kg (210 lb), SpO2 99%. Well-appearing and in no acute distress. EYES: Sclerae are anicteric bilaterally. LYMPHATIC: There is no palpable cervical or supraclavicular adenopathy. CARDIOVASCULAR: Rhythm is regular. ABDOMEN: The abdomen is nondistended. SKIN: No jaundice. ASSESSMENT/PLAN: (E83.110) Hereditary hemochromatosis (HCC) (primary encounter diagnosis) Assessment: -Tolerating periodic phlebotomy well. -Ferritin consistently under 50 ng/mL. -Recent B12 deficiency--unusual that counts were okay and he had such significant neuropathy. - He has not required phlebotomy in quite some time. Ferritin staying low. Could be malabsorption secondary to PPI use. However we discussed obtaining full iron studies to determine iron saturation. If low then potentially will need repeat colonoscopy and/or EGD in light of his diagnosis of cirrhosis. Also needs a check of AFP. Plan: -No phlebotomy indicated today. -Check iron saturation and serum iron as well as TIBC. -Check AFP. -Continue every 3 month possible phlebotomy. -Threshold for phlebotomy hematocrit 45%. -OV in a year. Portions of this documentation were copied and pasted from my previous office visit note dated 01/12/2023 in order to provide a cohesive continuity of the history. The note has been reviewed and edited and updated as necessary. I spent a total of 25 minutes on the date of the service which included preparing to see the patient, [id number] patient care, completing clinical documentation, obtaining and/or reviewing separately obtained history, counseling and educating the patient/family/caregiver, ordering medications, tests, or procedures, communicating with other HCPs (not separately reported), and communicating results to the patient/family/caregiver. Castro Erazo DO [facility] 11-13-2024 History of Present illness Narrative Diagnosis: 1) Hereditary hemochromatosis. HPI: The patient is a 74 yo male who had iron studies done due to family h/o hemochromatosis. Patient's father had hemochromatosis, but patient didn't know the details of his father's history. Nonfasting iron studies revealed TIBC 145 ug/dL, iron 68 ug/dL and saturation 46.9% with ferritin 1007 ng/mL. 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 Has been undergoing routine phlebotomy since 11/28/10. Was diagnosed with cirrhosis. Saw Dr. Werner--MRI liver-- Presents for ongoing management. Interim history: Saw neurologist for worsening neuropathy affecting balance. Diagnosed with B12 deficiency. Started injections couple months ago. Balance much better. Was able to get up twice on water skis. No longer using a cane. No black or bloody stools. PMH, medications and allergies as below personally reviewed by me today. Any changes documented in appropriate section. ROS: Constitutional: Denies episodes of fever and night sweats. Neuro: Denies CISNEROS, vertigo and imbalance. HEENT: No recent change in voice, vision or hearing. Resp: Denies cough, wheeze and hemoptysis. No shortness of breath at rest. CVS: Denies exertional chest pain and LE edema. GI: Denies reflux, n/v, and abdominal pain. : No dysuria or gross hematuria. Endo: No hot flashes. Musculoskeletal: See above. Derm: No rash. Heme: No unusual bleeding or unexplained bruising. Psych: Normal mood. PHYSICAL EXAM: Vitals: Blood pressure 147/87, pulse 71, temperature 36.6 C (97.8 F), temperature source Temporal, weight 95.3 kg (210 lb), SpO2 99%. Well-appearing and in no acute distress. EYES: Sclerae are anicteric bilaterally. LYMPHATIC: There is no palpable cervical or supraclavicular adenopathy. CARDIOVASCULAR: Rhythm is regular. ABDOMEN: The abdomen is nondistended. SKIN: No jaundice. ASSESSMENT/PLAN: (E83.110) Hereditary hemochromatosis (HCC) (primary encounter diagnosis) Assessment: -Tolerating periodic phlebotomy well. -Ferritin consistently under 50 ng/mL. -Recent B12 deficiency--unusual that counts were okay and he had such significant neuropathy. - He has not required phlebotomy in quite some time. Ferritin staying low. Could be malabsorption secondary to PPI use. However we discussed obtaining full iron studies to determine iron saturation. If low then potentially will need repeat colonoscopy and/or EGD in light of his diagnosis of cirrhosis. Also needs a check of AFP. Plan: -No phlebotomy indicated today. -Check iron saturation and serum iron as well as TIBC. -Check AFP. -Continue every 3 month possible phlebotomy. -Threshold for phlebotomy hematocrit 45%. -OV in a year. Portions of this documentation were copied and pasted from my previous office visit note dated 01/12/2023 in order to provide a cohesive continuity of the history. The note has been reviewed and edited and updated as necessary. I spent a total of 25 minutes on the date of the service which included preparing to see the patient, [id number] patient care, completing clinical documentation, obtaining and/or reviewing separately obtained history, counseling and educating the patient/family/caregiver, ordering medications, tests, or procedures, communicating with other HCPs (not separately reported), and communicating results to the patient/family/caregiver. Castro Erazo DO documented in this encounter [facility] 10-13-2024 Progress note [facility] 10-13-2024 Progress note Note Date/Time October 13, 2024 9:25am [facility] [address] [place] [address], [address] [place] [address] OFFICE VISIT Date of Service: 10/13/24 MR#: [id number] Acct: [id number] Name: JELENAJOSÉ HERNANDEZNE Rep #: [id number] : 1950 Provider: Dr. Andreas Murray MD Age/Sex: 74/M Location: [facility] [place] Status: Signed HPI HPI Details: The patient is a 74-year-old right-handed male who presents to [facility]. He was referred 06/05/[address] Carlos Richter with [facility] for polyneuropathy. This patient presents with his for evaluation of peripheral neuropathy. 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 Patient's symptoms include numbness and occasional lancinating pains below the knees extending to the toes. Patient has some difficulty identifying placement of feet which may be the cause of his balance problem. Patient has 1 sister with advanced diabetes and has peripheral neuropathy. He has 1 sister with lumbar disc disease and secondary radiculopathy. This patient has had prior back surgery and several herniated disc but appears to be stable from prior back surgeries. Patient has fallen down twice in the medeiros. He is an avid rj. 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 Patient's had screenings for various diseases including autoimmune disease and has been noted to have hemochromatosis. He appears to have control of hemochromatosis with recurrent phlebotomies. His hemochromatosis affected his liver and he has cirrhosis but he does not have brain heart or other organ involvement as far as I can determine from reviewing the chart. Patient does have mixed hyperlipidemia. He also has B12 deficiency. He is currently being treated for his B12 deficiency. Review of Systems: HEENT no headaches loss of vision. Has had prior nose fractures with repair plastic implant. No difficulty swallowing. Respiratory: No recent pneumonias. No recent viral illnesses. No hemoptysis. Cardiac: No chest pain palpitations heart surgery or MIs Abdomen: Does not vomit blood or passed blood in stool. No abdominal discomfort. Positive for cirrhosis due to hemochromatosis. : No difficulty controlling bowel or bladder. Extremities: No injuries or fractures noted. Skin: No wounds or lesions identified. Neurologic: No strokes or seizures. Positive for peripheral neuropathy Psychiatric: Negative. Exam Const Other: Blood pressure is 136/84 pulse 71 respiration 16 temperature 90.3 O2 sat 96% on room air. Patient's BMI is 29.6%. General appearance that well-developed well-nourished male no acute distress HEENT: Normocephalic. Conjunctiva clear. No hearing aids or IOLs. Prior history of nose fractures with plastic implants. Respiratory: Few scattered airway sounds heard in the apices. Cardiac: No murmurs. Regular rhythm. Abdomen: Not distended Extremities: No evidence of trauma. Skin and nails on feet normal appearance. Pulses dorsalis pedis posterior tibial arteries palpable more prominent on the left than right Skin: No obvious lesions or obvious skin changes consistent with cutaneous hemochromatosis. Neurologic examination Mental status: Awake alert oriented to person place day month and year. Memory shows the patient recalled 3 out of 3 objects at 3 minutes and 10 minutes without difficulty. 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 Insight and judgment intact. No delusions or hallucinations identified. CN II-XII: Pupils equal round 4 mm. Visual silver full to confrontation. Extraocular muscles intact. Slight saccade in pursuit noted. No diplopia. Motor and sensory function of face is intact. Hearing swallowing phonation tongue normal. Motor examination: No focal weakness noted. No fasciculations seen on arms or distal legs. Cerebellar testing: Minimal accentuation of physiologic tremor both hands symmetric. No cogwheeling rigidity tremor bradykinesia or ataxia. Reflexes: 1+ at biceps 1+ at knees 0 at ankles toes down bilaterally. Sensory exam: Patient reports intact to tactile sense all 4 extremities. Definite decrease to vibration below the knees and becoming obvious at ankles and complete loss at toes. Patient also has some difficulty with proprioceptiontesting of the feet. Station gait shows that he has a mild foot slap when he walks bilaterally. He has normal arm swing. Romberg testing shows mild wavering. Patient does not turn en bloc. Assessment and Plan Assessment and Plan (1) Peripheral neuropathy: Status: Chronic Qualifiers: Peripheral neuropathy type: polyneuropathy, unspecified Qualified Code(s): G62.9 - Polyneuropathy, unspecified Comment: Patient has neuropathy which appears to be polyneuropathy primarily sensory documented by EMG and nerve conduction study. Patient's symptoms include difficulty feeling his feet difficulty with balance due to loss of vibratory sense and proprioception. Patient is noted to have B12 deficiency which may account for these changes. Patient is currently receiving therapy for replacement of B12 deficiency. He is receiving injections as well as oral dosing. There does not appear to be a familial tendency for B12 deficiency or malabsorption. He does not appear to have an obvious cause for B12 deficiency such as pernicious anemia or diseases of the stomach or terminal ileum. Plan: 1. Continue B12 replacement. 2. Patient may use Salonpas with lidocaine on feet at night for management of discomfort at night. 3. Magnesium oxide 4 mg p.o. daily may assist with suppressing abnormal feelings or cramping which she may have from time to time. 4. Patient may return to neurology clinic in 6 months or as he feel as needed. (2) B12 deficiency: Status: Chronic Comment: Recommend B12 replacement as noted above. Plan: 1. B12 replacement as noted above. Intake Vital Signs 05/15/24 11:56 10/13/24 08:22 Height 5 ft 11 in 5 ft 11 in Weight: 212 lb 6 oz BMI 29.6 BP 136/84 H Blood Pressure Location Lt brachial Position Sitting Respiration 16 Pulse 71 Pulse Source Monitor Temp 98.3 F Temp Source Temporal Pulse Oximetry (%) 96 Oxygen Delivery Method room air Intake Visit Reasons: POLYNEUROPATHY Cat Scan Technologist Required: No Accompanied by: Is patient in pain?: No Allergies Apickfi-KKW-BzP Reductase Inhibitor Adverse Reaction (Unknown, Verified 10/14/2507:23) Intolereant Medications ?Medication ?Instructions ?Recorded ?Confirmed ?Type calcium carbonate 1,200 mg PO DAILY@0800 01/3010/13/24 History tamsulosin 0.4 mg capsule 0.4 mg PO QHS 12/13/1810/13 History cyanocobalamin (vitamin B-12) 1,000 mcg PO DAILY 02/2410/13/24 History 1,000 mcg tablet celecoxib 200 mg capsule 200 mg PO QDAY 05/15/2407/04 History duloxetine 30 mg capsule,delayed 30 mg PO QDAY 5 10/13/24 History release glucosamine sulfate 1,000 mg 1,000 mg PO QDAY 05/15/24 10/13/24 History capsule levomefolate Ca 3 mg-B6 35 1 cap PO BID 05/15/2410/13 History mg-meB12 2 mg-algal oil 90.314 mg capsule (Metanx (algal oil)) losartan 50 mg tablet 50 mg PO QDAY 05/15/2410/13 History omeprazole magnesium 20 mg 20 mg PO QDAY 05/15/24 08/07/04 History tablet,delayed release (Prilosec OTC) red yeast rice 600 mg capsule 600 mg PO QDAY 05/15/24 10/13/24 History sildenafil 100 mg tablet 100 mg PO QDAY PRN 05/15/24 10/13/24 History Have you fallen in the past year?: Yes (last fall, previously noted) PFSH Medical History Cirrhosis of liver Shortness of breath Dizziness Chest pain, unspecified Syncope GERD (gastroesophageal reflux disease) Mixed hyperlipidemia Essential hypertension COVID-19 Disorientation, unspecified Hemochromatosis History of sciatica BPH (benign prostatic hyperplasia) Leg pain, left Varicose veins with inflammation Chronic venous insufficiency Acquired nasal septal defect Surgical History History of rotator cuff surgery History of mandibular surgery Previous back surgery s/p nasal button s/p right hip surgery Family History Mother Heart disease Hypertension CAD (coronary artery disease) Diabetes Father Cancer pancreatic Social History Smoking Status: Never smoker alcohol intake: current alcohol intake frequency: holidays/special occasions only substance use type: does not use caffeine: Yes Type: coffee Number of servings: 1 Clinical Quality Measures Falls Risk Screening/Assistive Devices Have you fallen in the past year?: Yes (last fall, previously noted) Coding Level of Care Code New Pt Off vis,new,level 3 Patient Type New History Expanded Problem Focused Exam Expanded Problem Focused Medical Decision Making Moderate Complexity Diagnoses Peripheral polyneuropathy G62.9 Peripheral neuropathy type: polyneuropathy, unspecified B12 deficiency E53.8 10/13/24924 <Electronically signed by Sathish hein MD> Date _ Sathish Murray MD Cosigner Signature: Date (if applicable) CC: ~ [facility] Work Phone: [phone] 687-291706-17-2025 NoteOPG [address] [facility] [place] [address] [facility] [address] Dept: [phone] MD Alphonso Gamino 74 y.o. male Patient presents with a chief complaint of 6mo f/u nasal septal button Temp 97.9 degrees F (36.6 degrees C) (Oral) Ht 5' 9 Wt 96.2 kg (212 lb 1.6 oz) BMI 31.32 kg/m History of Presenting Illness: The patient/caregiver reports a history of complaint with the following features: He presents for follow-up of his nasal septal button. He has no complaints. This continues to give him good relief. He uses saline nasal rinses to keep it clear of debris. He reports that he has occasional bleeding from the left with vigorous nose blowing, but that this is infrequent. He has had a basal cell carcinoma removed from the left nasal ala since his last visit. Review of systems covering 10 systems is reviewed and pertinent positives and negatives are noted as above. Past Medical History: Diagnosis Date Cellulitis ED (erectile dysfunction) Fracture of nasal bones GERD (gastroesophageal reflux disease) Hemochromatosis History of colonic polyps Nosebleed Sinusitis Skin lesion of back and of ear Tinnitus TMJ dysfunction Current Outpatient Medications: calcium carbonate (OS-SAMANTHA) 600 mg calcium (1,500 mg) tablet, Take 2 (two) tablets (1,200 mg total) by mouth ., Disp: , Rfl: celecoxib (CELEBREX) 200 MG capsule, Take 1 (one) capsule (200 mg total) by mouth daily TAKE WITH FOOD ., Disp: , Rfl: DULoxetine (CYMBALTA) 30 MG capsule, Take 1 (one) capsule (30 mg total) by mouth daily ., Disp: , Rfl: finasteride (PROSCAR) 5 mg tablet, Take 1 (one) tablet (5 mg total) by mouth daily ., Disp: , Rfl: glucosamine-chondroitin 500-400 mg tablet, Take 2,013 Unspecified by mouth ., Disp: , Rfl: losartan (COZAAR) 50 MG tablet, Take 1 (one) tablet (50 mg total) by mouth daily ., Disp: , Rfl: omeprazole (PRILOSEC) 40 MG capsule, Take 1 (one) capsule (40 mg total) by mouth 2 (two) times a day ., Disp: , Rfl: pregabalin (LYRICA) 25 MG capsule, Take 1 (one) capsule (25 mg total) by mouth 3 (three) times a day ., Disp: , Rfl: SHARK CARTILAGE ORAL, Take 2,250 mg by mouth 2 (two) times a day ., Disp: , Rfl: sildenafiL (VIAGRA) 25 MG tablet, Take 3 (three) tablets (75 mg total) by mouth ., Disp: , Rfl: tadalafiL 20 MG tablet, 1 (one) tablet (20 mg total) ., Disp: , Rfl: tamsulosin (FLOMAX) 0.4 mg capsule, Take by mouth ., Disp: , Rfl: cyanocobalamin (B-12) 1000 MCG tablet, Take 1 (one) tablet (1,000 mcg total) by mouth . (Patient not taking: Reported on 08/26/2024 .), Disp: , Rfl: fish oil-omega-3 fatty acids 1,000 mg capsule, Take 1 Unspecified by mouth . (Patient not taking: Reported on 08/26/2024 .), Disp: , Rfl: Allergies Allergen Reactions [id number]-[id number]-Rgx Reductase Inhibitors Other (See Comments) Intolerant Past Surgical History: Procedure Laterality Date BACK SURGERY 2002 COLONOSCOPY 1995 NASAL SEPTAL BUTTON ROTATOR CUFF REPAIR Right 02/21/2013 SINUS SURGERY TEMPOROMANDIBULAR JOINT SURGERY 1991 Social History Socioeconomic History Marital status: Tobacco Use Smoking status: Never Smokeless tobacco: Never Family History Problem Relation Age of Onset Hypertension Mother Diabetes Mother Heart disease Mother Cancer Father Iron Overload Father Hypertension Sister Diabetes Sister PHYSICAL EXAM: The patient was examined today 08/26/2024 with findings as follows: CONSTITUTIONAL: General Appearance: well-appearing, nontoxic, alert, no acute distress Communication: understanding at normal conversational tones, normal voicing, speech intelligible HEAD/FACE: Head: atraumatic, normocephalic, no lesions Facial Inspection: no lesions, healthy skin Facial Strength: motor strength normal, symmetric strength, symmetric movement Sinuses: no sinus tenderness Salivary Glands: no enlargements of parotid glands, no tenderness of parotid glands, no masses of parotid glands, clear salivary flow on palpation from Stensen's ducts, no duct stones of Stensen's duct, no enlargement of submandibular glands, no tenderness of submandibular glands, no masses of submandibular glands, clear salivary flow from Tomás's ducts, no stones of [place]'s ducts Temporomandibular Joint: no crepitus with motion, no tenderness on palpation, no trismus, motion symmetric EYES: Pupils: PERRLA, extra-ocular movements intact, no nystagmus, sclera white, no redness of eyes, no watering of eyes NOSE: Nasal Skin: scar left nasal ala, well healed, no lesions, no lacerations, no scars Nasal Dorsum: symmetric with no visible or palpable deformities Nasal Tip: normal symmetric nasal tip, normal nasal valves Nasal Mucosa: normal, pink and moist Septum: not markedly deformed, midline, no exposed vessels, no bleeding, no septal granuloma, perforation with button in place, debris removed Turbinates: normal size (more content not included)...[facility] 08-26-2024 History of Present illness Narrative* Stacie Chase MD - 08/26/2024 10:40 AM EDT [facility] [address] [facility] [place] [address] [facility] [address] Dept: [phone] MD Alphonso Gamino 74 y.o. male Patient presents with a chief complaint of 6mo f/u nasal septal button Temp 97.9 F (36.6 C) (Oral) Ht 5' 9 Wt 96.2 kg (212 lb 1.6 oz) BMI 31.32 kg/m History of Presenting Illness: The patient/caregiver reports a history of complaint with the following features: He presents for follow-up of his nasal septal button. He has no complaints. This continues to give him good relief. He uses saline nasal rinses to keep it clear of debris. He reports that he has occasional bleeding from the left with vigorous nose blowing, but that this is infrequent. He has had a basal cell carcinoma removed from the left nasal ala since his last visit. Review of systems covering 10 systems is reviewed and pertinent positives and negatives are noted as above. Past Medical History: Diagnosis Date Cellulitis ED (erectile dysfunction) Fracture of nasal bones GERD (gastroesophageal reflux disease) Hemochromatosis History of colonic polyps Nosebleed Sinusitis Skin lesion of back and of ear Tinnitus TMJ dysfunction Current Outpatient Medications: calcium carbonate (OS-SAMANTHA) 600 mg calcium (1,500 mg) tablet, Take 2 (two) tablets (1,200 mg total) by mouth ., Disp: , Rfl: celecoxib (CELEBREX) 200 MG capsule, Take 1 (one) capsule (200 mg total) by mouth daily TAKE WITH FOOD ., Disp: , Rfl: DULoxetine (CYMBALTA) 30 MG capsule, Take 1 (one) capsule (30 mg total) by mouth daily ., Disp: , Rfl: finasteride (PROSCAR) 5 mg tablet, Take 1 (one) tablet (5 mg total) by mouth daily ., Disp: , Rfl: glucosamine-chondroitin 500-400 mg tablet, Take 2,013 Unspecified by mouth ., Disp: , Rfl: losartan (COZAAR) 50 MG tablet, Take 1 (one) tablet (50 mg total) by mouth daily ., Disp: , Rfl: omeprazole (PRILOSEC) 40 MG capsule, Take 1 (one) capsule (40 mg total) by mouth 2 (two) times a day ., Disp: , Rfl: pregabalin (LYRICA) 25 MG capsule, Take 1 (one) capsule (25 mg total) by mouth 3 (three) times a day ., Disp: , Rfl: SHARK CARTILAGE ORAL, Take 2,250 mg by mouth 2 (two) times a day ., Disp: , Rfl: sildenafiL (VIAGRA) 25 MG tablet, Take 3 (three) tablets (75 mg total) by mouth ., Disp: , Rfl: tadalafiL 20 MG tablet, 1 (one) tablet (20 mg total) ., Disp: , Rfl: tamsulosin (FLOMAX) 0.4 mg capsule, Take by mouth ., Disp: , Rfl: cyanocobalamin (B-12) 1000 MCG tablet, Take 1 (one) tablet (1,000 mcg total) by mouth . (Patient not taking: Reported on 08/26/2024 .), Disp: , Rfl: fish oil-omega-3 fatty acids 1,000 mg capsule, Take 1 Unspecified by mouth . (Patient not taking: Reported on 08/26/2024 .), Disp: , Rfl: Allergies Allergen Reactions Nccajsr-Osx-Art Reductase Inhibitors Other (See Comments) Intolerant Past Surgical History: Procedure Laterality Date BACK SURGERY 2002 COLONOSCOPY 1995 NASAL SEPTAL BUTTON ROTATOR CUFF REPAIR Right 02/21/2013 SINUS SURGERY TEMPOROMANDIBULAR JOINT SURGERY 1991 Social History Socioeconomic History Marital status: Tobacco Use Smoking status: Never Smokeless tobacco: Never Family History Problem Relation Age of Onset Hypertension Mother Diabetes Mother Heart disease Mother Cancer Father Iron Overload Father Hypertension Sister Diabetes Sister PHYSICAL EXAM: The patient was examined today 08/26/2024 with findings as follows: CONSTITUTIONAL: General Appearance: well-appearing, nontoxic, alert, no acute distress Communication: understanding at normal conversational tones, normal voicing, speech intelligible HEAD/FACE: Head: atraumatic, normocephalic, no lesions Facial Inspection: no lesions, healthy skin Facial Strength: motor strength normal, symmetric strength, symmetric movement Sinuses: no sinus tenderness Salivary Glands: no enlargements of parotid glands, no tenderness of parotid glands, no masses of parotid glands, clear salivary flow on palpation from Stensen's ducts, no duct stones of Stensen's duct, no enlargement of submandibular glands, no tenderness of submandibular glands, no masses of subma ndibular glands, clear salivary flow from Tomás's ducts, no stones of [place]'s ducts Temporomandibular Joint: no crepitus with motion, no tenderness on palpation, no trismus, motion symmetric EYES: Pupils: PERRLA, extra-ocular movements intact, no nystagmus, sclera white, no redness of eyes, no watering of eyes NOSE: Nasal Skin: scar left nasal ala, well healed, no lesions, no lacerations, no scars Nasal Dorsum: symmetric with no visible or palpable deformities Nasal Tip: normal symmetric nasal tip, normal nasal valves Nasal Mucosa: normal, pink and moist Septum: not markedly deformed, midline, no exposed vessels, no bleeding, no septal granuloma, perforation with button in place, debris removed Turbinates: normal size and conformation Nasopharynx: normal SKIN: General Appearance: no lesions, warm and dry, normal turgor, no bruising NEUROLOGICAL SYSTEM: Orientation: oriented to time, oriented to place, oriented to person Cranial Nerves: Cranial Nerves II-XII intact, normal facial movement PSYCHIATRIC: Mood and affect: normal mood, normal affect Assessment and Plan: He continues with very good relief with his septal button. This is cleared of dry mucous today. Periodic return for cleaning is advised. I see no obvious bleeding site in the left nostril. If this becomes more persistent, return with active or recently bleeding to determine the location is suggested. The patient and/or caregiver is advised on the application of anterior nasal pressure for the control of repeat bleeding and is able to demonstrate this in the office. I have advised the use of saline nasal rinses for moisturization of the nasal cavities and an informational sheet on the preparation and use of saline is provided. We have discussed the topical application of Bacitracin or other antibiotic ointment to the anterior nasal septum twice daily as well as the maintenance of proper humidity in the home and the avoidance of nasal trauma to prevent further bleeding. The patient and/or caregiver is to notify the office if no improvement or worsening of symptoms is noted prior to the chiqui eduled follow-up for sooner evaluation. The patient and/or caregiver is able to state an understanding of these recommendations and is agreeable to the treatment plan. 1. Nasal septal perforation Return in about 6 months (around 02/25/2025). The patient and/or caregiver is to notify the office if no improvement or worsening of symptoms is noted prior to the scheduled follow-up for sooner evaluation. The patient and/or caregiver is able to state an understanding of these recommendations and is agreeable to the treatment plan. --Stacie Chase MD on 08/26/2024 at 10:43 AM An electronic signature was used to authenticate this note. * Fouzia Valencia MA - 08/26/2024 10:01 AM EDT Review of Systems Constitutional: Negative. HENT: Positive for hearing loss, sneezing and tinnitus. Eyes: Negative. Respiratory: Negative. Cardiovascular: Negative. Gastrointestinal: Positive for constipation. Endocrine: Negative. Genitourinary: Negative. Musculoskeletal: Positive for back pain. Skin: Negative. Allergic/Immunologic: Positive for environmental allergies. Neurological: Negative. Hematological: Bruises/bleeds easily. Psychiatric/Behavioral: Negative. documented in this [id number] Procedure note [facility]Neurology [address] [place] [address] MR#: [id number] Acct: [id number] Name: JOSÉ BOWLES Rep #:[id number] : 1950 74 From: Jaime Cabrera MD Referring Dr: Carlos Richter MD Statu s: REG CLI Location: PSN Date: 05/21/24 Sex: M C NCS and/or EMG Patient Report Ordering Doctor: Carlos Richter DATE OF SERVICE: 05/21/24 José presents with complaints of numbness and tingling in the lower limbs andpoor balance. Electrodiagnostic findings: Left peroneal motor nerve demonstrates normal distallatency, amplitude and conduction velocity when measured at the tibialis anterior. Tibial motor responses within normallimits bilaterally. Prolonged tibial and peroneal F?waves. Prolonged H?reflex bilaterally. Absent sural response bilaterally. Prolonged superficial peroneal latency bilaterally. Needle EMG testing was performed the lower limbs. All muscles tested showed no evidence of denervation with normal motor unit action potentials. Electrodiagnostic impression: This is an abnormal study in the lower limbs 1. Electrodiagnostic findings suggestive of peripheral polyneuropathy, sensory greater than motor. 2. There is no electrodiagnostic evidence for lumbosacral radiculopathy. Multi Select Codes Neurology Neurology Interp Codes: 49265-56 Musc test done w/n test comp (interp) (2) and 71151-58 [facility] cndj test 11-12 studies (interp) 05/21/24 1428 D> Date _ Jaime Cabrera MD CC: Dr. Jaime Cabrera MD; Dr. Carlos Richter MD; Dr. Duy Valverde MD ~ Date Dictated: 03/12/25 1425 Date Transcribed: 05/21/24 6979 Thermostat Repairer: BHARAT Signed [facility]03-06-2025 Evaluation note* Diagnosis Onset Date Resolution Status Admit Date Balance problem acute May 11:52am Neuropathy acute May 15 11:52am Spinal stenosis of lumbar re gion with neurogenic claudication acute May 11:52am Spondylolisthesis, lumbar region acu te May 15, 2024 11:52am [facility] Work Phone: 1(339) 521-869612-09-2024 NoteOPG [address] [facility] [place] [address] [facility] [address] Dept: [phone] MD Alphonso Gamino 74 y.o. male Patient presents with a chief complaint of 6mo f/u nasal septal button Temp 97.6 degrees F (36.4 degrees C) (Temporal) Ht 5' 9 Wt 92.4 kg (203 lb 11.2 oz) BMI 30.08 kg/m History of Presenting Illness: The patient/caregiver reports a history of complaint with the following features: He presents for follow-up of his nasal septal button. He has no complaints. This continues to give him good relief. He uses saline nasal rinses to keep it clear of debris. He reports that he has occasional bleeding from the left with vigorous nose blowing, but that this is infrequent. Review of systems covering 10 systems is reviewed and pertinent positives and negatives are noted as above. Past Medical History: Diagnosis Date Cellulitis ED (erectile dysfunction) Fracture of nasal bones GERD (gastroesophageal reflux disease) Hemochromatosis History of colonic polyps Nosebleed Sinusitis Skin lesion of back and of ear Tinnitus TMJ dysfunction Current Outpatient Medications: calcium carbonate (OS-SAMANTHA) 600 mg calcium (1,500 mg) tablet, Take 2 (two) tablets (1,200 mg total) by mouth ., Disp: , Rfl: celecoxib (CELEBREX) 200 MG capsule, Take 1 (one) capsule (200 mg total) by mouth daily TAKE WITH FOOD ., Disp: , Rfl: cyanocobalamin (B-12) 1000 MCG tablet, Take 1 (one) tablet (1,000 mcg total) by mouth ., Disp: , Rfl: DULoxetine (CYMBALTA) 30 MG capsule, Take 1 (one) capsule (30 mg total) by mouth daily ., Disp: , Rfl: finasteride (PROSCAR) 5 mg tablet, Take 1 (one) tablet (5 mg total) by mouth daily ., Disp: , Rfl: fish oil-omega-3 fatty acids 1,000 mg capsule, Take 1 Unspecified by mouth ., Disp: , Rfl: glucosamine-chondroitin 500-400 mg tablet, Take 2,013 Unspecified by mouth ., Disp: , Rfl: losartan (COZAAR) 50 MG tablet, Take 1 (one) tablet (50 mg total) by mouth daily ., Disp: , Rfl: omeprazole (PRILOSEC) 40 MG capsule, Take 1 (one) capsule (40 mg total) by mouth 2 (two) times a day ., Disp: , Rfl: SHARK CARTILAGE ORAL, Take 2,250 mg by mouth 2 (two) times a day ., Disp: , Rfl: sildenafiL (VIAGRA) 25 MG tablet, Take 3 (three) tablets (75 mg total) by mouth ., Disp: , Rfl: tadalafiL 20 MG tablet, 1 (one) tablet (20 mg total) ., Disp: , Rfl: tamsulosin (FLOMAX) 0.4 mg capsule, Take by mouth ., Disp: , Rfl: Allergies Allergen Reactions [id number] Reductase Inhibitors Other (See Comments) Intolerant Past Surgical History: Procedure Laterality Date BACK SURGERY 2002 COLONOSCOPY 1995 NASAL SEPTAL BUTTON ROTATOR CUFF REPAIR Right 02/21/2013 SINUS SURGERY TEMPOROMANDIBULAR JOINT SURGERY 1992 Social History Socioeconomic History Marital status: Tobacco Use Smoking status: Never Smokeless tobacco: Never Family History Problem Relation Age of Onset Hypertension Mother Diabetes Mother Heart disease Mother Cancer Father Iron Overload Father Hypertension Sister Diabetes Sister PHYSICAL EXAM: The patient was examined today 02/18/2024 with findings as follows: CONSTITUTIONAL: General Appearance: well-appearing, nontoxic, alert, no acute distress Communication: understanding at normal conversational tones, normal voicing, speech intelligible HEAD/FACE: Head: atraumatic, normocephalic, no lesions Facial Inspection: no lesions, healthy skin Facial Strength: motor strength normal, symmetric strength, symmetric movement Sinuses: no sinus tenderness Salivary Glands: no enlargements of parotid glands, no tenderness of parotid glands, no masses of parotid glands, clear salivary flow on palpation from Stensen's ducts, no duct stones of Stensen's duct, no enlargement of submandibular glands, no tenderness of submandibular glands, no masses of submandibular glands, clear salivary flow from Tomás's ducts, no stones of Tomás's ducts Temporomandibular Joint: no crepitus with motion, no tenderness on palpation, no trismus, motion symmetric EYES: Pupils: PERRLA, extra-ocular movements intact, no nystagmus, sclera white, no redness of eyes, no watering of eyes NOSE: Nasal Skin: no lesions, no lacerations, no scars Nasal Dorsum: symmetric with no visible or palpable deformities Nasal Tip: normal symmetric nasal tip, normal nasal valves Nasal Mucosa: normal, pink and moist Septum: not markedly deformed, midline, no exposed vessels, no bleeding, no septal granuloma, perforation with button in place, debris removed Turbinates: normal size and conformation Nasopharynx: normal SKIN: General Appearance: no lesions, warm and dry, normal turgor, no bruising NEUROLOGICAL SYSTEM: Orientation: oriented to time, oriented to place, oriented to person Cranial Nerves: Cranial Nerves II-XII intact, normal facial movement PSYCHIATRIC: Mood and affect: normal mood, (more content not included)...[facility]12-09-2024 History of Present illness Narrative* Stacie Chase MD - 02/18/2024 10:38 AM EST [facility] [address] [facility] [place] [address] [facility] [address] Dept: [phone] MD Alphonso Gamino 74 y.o. male Patient presents with a chief complaint of 6mo f/u nasal septal button Temp 97.6 F (36.4 C) (Temporal) Ht 5' 9 Wt 92.4 kg (203 lb 11.2 oz) BMI 30.08 kg/m History of Presenting Illness: The patient/caregiver reports a history of complaint with the following features: He presents for follow-up of his nasal septal button. He has no complaints. This continues to give him good relief. He uses saline nasal rinses to keep it clear of debris. He reports that he has occasional bleeding from the left with vigorous nose blowing, but that this is infrequent. Review of systems covering 10 systems is reviewed and pertinent positives and negatives are noted as above. Past Medical History: Diagnosis Date Cellulitis ED (erectile dysfunction) Fracture of nasal bones GERD (gastroesophageal reflux disease) Hemochromatosis History of colonic polyps Nosebleed Sinusitis Skin lesion of back and of ear Tinnitus TMJ dysfunction Current Outpatient Medications: calcium carbonate (OS-SAMANTHA) 600 mg calcium (1,500 mg) tablet, Take 2 (two) tablets (1,200 mg total) by mouth ., Disp: , Rfl: celecoxib (CELEBREX) 200 MG capsule, Take 1 (one) capsule (200 mg total) by mouth daily TAKE WITH FOOD ., Disp: , Rfl: cyanocobalamin (B-12) 1000 MCG tablet, Take 1 (one) tablet (1,000 mcg total) by mouth ., Disp: , Rfl: DULoxetine (CYMBALTA) 30 MG capsule, Take 1 (one) capsule (30 mg total) by mouth daily ., Disp: , Rfl: finasteride (PROSCAR) 5 mg tablet, Take 1 (one) tablet (5 mg total) by mouth daily ., Disp: , Rfl: fish oil-omega-3 fatty acids 1,000 mg capsule, Take 1 Unspecified by mouth ., Disp: , Rfl: glucosamine-chondroitin 500-400 mg tablet, Take 2,013 Unspecified by mouth ., Disp: , Rfl: losartan (COZAAR) 50 MG tablet, Take 1 (one) tablet (50 mg total) by mouth daily ., Disp: , Rfl: omeprazole (PRILOSEC) 40 MG capsule, Take 1 (one) capsule (40 mg total) by mouth 2 (two) times a day ., Disp: , Rfl: SHARK CARTILAGE ORAL, Take 2,250 mg by mouth 2 (two) times a day ., Disp: , Rfl: sildenafiL (VIAGRA) 25 MG tablet, Take 3 (three) tablets (75 mg total) by mouth ., Disp: , Rfl: tadalafiL 20 MG tablet, 1 (one) tablet (20 mg total) ., Disp: , Rfl: tamsulosin (FLOMAX) 0.4 mg capsule, Take by mouth ., Disp: , Rfl: Allergies Allergen Reactions [id number] Reductase Inhibitors Other (See Comments) Intolerant Past Surgical History: Procedure Laterality Date BACK SURGERY 2001 COLONOSCOPY 1995 NASAL SEPTAL BUTTON ROTATOR CUFF REPAIR Right 02/21/2013 SINUS SURGERY TEMPOROMANDIBULAR JOINT SURGERY 1992 Social History Socioeconomic History Marital status: Tobacco Use Smoking status: Never Smokeless tobacco: Never Family History Problem Relation Age of Onset Hypertension Mother Diabetes Mother Heart disease Mother Cancer Father Iron Overload Father Hypertension Sister Diabetes Sister PHYSICAL EXAM: The patient was examined today 02/18/2024 with findings as follows: CONSTITUTIONAL: General Appearance: well-appearing, nontoxic, alert, no acute distress Communication: understanding at normal conversational tones, normal voicing, speech intelligible HEAD/FACE: Head: atraumatic, normocephalic, no lesions Facial Inspection: no lesions, healthy skin Facial Strength: motor strength normal, symmetric strength, symmetric movement Sinuses: no sinus tenderness Salivary Glands: no enlargements of parotid glands, no tenderness of parotid glands, no masses of parotid glands, clear salivary flow on palpation from Stensen's ducts, no duct stones of Stensen's duct, no enlargement of submandibular glands, no tenderness of submandibular glands, no masses of subma ndibular glands, clear salivary flow from Portland's ducts, no stones of [place]'s ducts Temporomandibular Joint: no crepitus with motion, no tenderness on palpation, no trismus, motion symmetric EYES: Pupils: PERRLA, extra-ocular movements intact, no nystagmus, sclera white, no redness of eyes, no watering of eyes NOSE: Nasal Skin: no lesions, no lacerations, no scars Nasal Dorsum: symmetric with no visible or palpable deformities Nasal Tip: normal symmetric nasal tip, normal nasal valves Nasal Mucosa: normal, pink and moist Septum: not markedly deformed, midline, no exposed vessels, no bleeding, no septal granuloma, perforation with button in place, debris removed Turbinates: normal size and conformation Nasopharynx: normal SKIN: General Appearance: no lesions, warm and dry, normal turgor, no bruising NEUROLOGICAL SYSTEM: Orientation: oriented to time, oriented to place, oriented to person Cranial Nerves: Cranial Nerves II-XII intact, normal facial movement PSYCHIATRIC: Mood and affect: normal mood, normal affect Assessment and Plan: He continues with very good relief with his septal button. This is cleared of dry mucous today. Periodic return for cleaning is advised. I see no obvious bleeding site in the left nostril. If this becomes more persistent, return with active or recently bleeding to determine the location is suggested. The patient and/or caregiver is advised on the application of anterior nasal pressure for the control of repeat bleeding and is able to demonstrate this in the office. I have advised the use of saline nasal rinses for moisturization of the nasal cavities and an informational sheet on the preparation and use of saline is provided. We have discussed the topical application of Bacitracin or other antibiotic ointment to the anterior nasal septum twice daily as well as the maintenance of proper humidity in the home and the avoidance of nasal trauma to prevent further bleeding. The patient and/or caregiver is to notify the office if no improvement or worsening of symptoms is noted prior to the chiqui eduled follow-up for sooner evaluation. The patient and/or caregiver is able to state an understanding of these recommendations and is agreeable to the treatment plan. 1. Nasal septal perforation 2. Nasal dryness 3. Epistaxis Return in about 6 months (around 08/18/2024). The patient and/or caregiver is to notify the office if no improvement or worsening of symptoms is noted prior to the scheduled follow-up for sooner evaluation. The patient and/or caregiver is able to state an understanding of these recommendations and is agreeable to the treatment plan. --Stacie Chase MD on 02/18/2024 at 10:42 AM An electronic signature was used to authenticate this note. * Radha Adan MA - 02/18/2024 10:08 AM EST Review of Systems Constitutional: Negative. HENT: Negative. Eyes: Positive for visual disturbance. Respiratory: Negative. Cardiovascular: Negative. Gastrointestinal: Negative. Endocrine: Negative. Genitourinary: Negative. Musculoskeletal: Negative. Skin: Negative. Allergic/Immunologic: Negative. Neurological: Negative. Hematological: Negative. Psychiatric/Behavioral: Negative. documented in this [id number] NoteHNO ID: [id number] Author: MARÍA VALLE APRN.[facility] [employer] [facility] [employer] Service: ? Author Type: Nurse Practitioner Type: Progress Notes Filed: 12/13/2023 09:14 Note Text: Chief Complaint Patient presents with: Established Patient HPI: José Bowles is a 73 year old male who presents here today for follow up HH. Per Dr. Erazo's previous note: H/o who had iron studies done due to family h/o hemochromatosis. Patient's father had hemochromatosis, but patient didn't know the details of his father's history. Nonfasting iron studies revealed TIBC 145 ug/dL, iron 68 ug/dL and saturation 46.9% with ferritin 1007 ng/mL. 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 Has been undergoing routine phlebotomy since 11/28/10. Not seen since 2019. Came in for phlebotomy. Had Covid 2019. Was diagnosed with cirrhosis. Saw Dr. Werner--MRI liver-- Says he had colonoscopy and EGD. No new concerns today. Appetite:Too good. Energy level:It's the motivation part. Denies fevers or recent illness. Resp:denies cough or sob Cardiac:denies chest pain/palpitations GI:denies abd pain, n/v, moving bowels regularly-occ. constipation-taking prunes :denies dysuria/hematuria Extrem:chronic back pain-followed by pain mgmt.-having back inj next week by Dr. Crawford. 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 Past medical history, appointments, medications, allergies reviewed. No changes. EXAM: BP 139/93 Pulse 78 Temp 36.4 ?C (97.5 ?F) (Temporal) Wt 94.1 kg (207 lb 7.3 oz) SpO2 97% BMI 29.37 kg/m? APPEARANCE Well appearing, alert, in no acute distress, well-hydrated, well nourished. HEART RRR with normal S1 and S2, no murmurs LUNG clear to auscultation LYMPH NODES No cervical lymphadenopathy, No supraclavicular lymphadenopathy, and No axillary lymphadenopathy. ABDOMEN bowel sounds normoactive, soft, non-tender EXTREMITIES No edema NEURO Awake, alert and oriented x 3, Normal gait, and No involuntary motions. SKIN Skin color, texture, turgor normal, no suspicious rashes or lesions LABS: Latest Ref Rng 06/28/2023 09/20/2023 12/13/2023 WBC 3.70 - 11.00 k/uL 4.05 5.53 3.89 RBC 4.20 - 6.00 m/uL 4.95 4.84 4.78 Hemoglobin 13.0 - 17.0 g/dL 12.6 (L) 12.8 (L) 12.7 (L) Hematocrit 39.0 - 51.0 % 39.6 40.4 39.4 MCV 80.0 - 100.0 fL 80.0 83.5 82.4 MCH 26.0 - 34.0 pg 25.5 (L) 26.4 26.6 MCHC 30.5 - 36.0 g/dL 31.8 31.7 32.2 RDW-CV 11.5 - 15.0 % 15.7 (H) 15.8 (H) 14.7 Platelet Count 150 - 400 k/uL 204 201 185 MPV 9.0 - 12.7 fL 9.8 9.9 9.7 Neut% % 52.9 63.7 51.4 Abs Neut (ANC) 1.45 - 7.50 k/uL 2.14 3.52 2.00 Lymph% % 30.6 26.0 32.9 Abs Lymph 1.00 - 4.00 k/uL 1.24 1.44 1.28 Kent% % 12.3 8.1 11.3 Abs Kent <0.87 k/uL 0.50 0.45 0.44 Eosin% % 3.2 1.3 3.6 Abs Eosin <0.46 k/uL 0.13 0.07 0.14 Baso% % 1.0 0.7 0.8 Abs Baso <0.11 k/uL 0.04 0.04 0.03 Immature Gran % % 0.0 0.2 0.0 IMMATURE GRANS (ABS) <0.10 k/uL <0.03 <0.03 <0.03 NRBC /100 WBC 0.0 0.0 0.0 Absolute nRBC <0.01 k/uL <0.01 <0.01 <0.01 DTYPE Auto Auto Auto Ferritin: Pending ASSESSMENT/PLAN: 1. Hereditary hemochromatosis (HCC) - ICD9: 275.01, ICD10: E83.[address] Erazo's previous note: Assessment: -Tolerating periodic phlebotomy well. -Ferritin consistently under 50 ng/mL over the last year. Reviewed trend with him. -Question GI blood loss. -Diagnosed with cirrhosis since last seen 3 years ago. Plan: -Obtain MRI report and records from Dr. Werner. -Change to every 3 month possible phlebotomy. -Threshold for phlebotomy hematocrit 45%. -OV in a year. - No concerning findings on exam. - Reviewed CBC with pt. - Ferritin pending. - Continue current medications. - Continue follow up with PCP/specialists. - No phlebotomy needed today. Hct. 39.4% today. - CBC/ferritin/possible phlebotomy every 3 months. - Follow up with Dr. Erazo in one year. - Pt. aware to call office with any questions/concerns. The patient indicates understanding of these issues and agrees with the plan. All documentation from previous visit of 01/12/23-Dr. Erazo was copied and pasted, documentation has been reviewed and edited as necessary for today's visit. María Valle APRN.[facility]10-03-2024 History of Present illness Narrative* María Valle APRN.[employer] EDUCATION CONSULTANT - 12/13/2023 8:44 AM EDT Chief Complaint Patient presents with: Established Patient HPI: José Bowles is a 73 year old male who presents here today for follow up HH. Per Dr. Erazo's previous note: H/o who had iron studies done due to family h/o hemochromatosis. Patient's father had hemochromatosis, but patient didn't know the details of his father's history. Nonfasting iron studies revealed TIBC 145 ug/dL, iron 68 ug/dL and saturation 46.9% with ferritin 1007 ng/mL. 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 Has been undergoing routine phlebotomy since 11/28/10. Not seen since 2019. Came in for phlebotomy. Had Covid 2019. Was diagnosed with cirrhosis. Saw Dr. Werner--MRI liver-- Says he had colonoscopy and EGD. No new concerns today. Appetite:Too good. Energy level:It's the motivation part. Denies fevers or recent illness. Resp:denies cough or sob Cardiac:denies chest pain/palpitations GI:denies abd pain, n/v, moving bowels regularly-occ. constipation-taking prunes :denies dysuria/hematuria Extrem:chronic back pain-followed by pain mgmt.-having back inj next week by Dr. Crawford. 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 Past medical history, appointments, medications, allergies reviewed. No changes. EXAM: BP 139/93 Pulse 78 Temp 36.4 C (97.5 F) (Temporal) Wt 94.1 kg (207 lb 7.3 oz) SpO2 97% BMI 29.37 kg/m APPEARANCE Well appearing, alert, in no acute distress, well-hydrated, well nourished. HEART RRR with normal S1 and S2, no murmurs LUNG clear to auscultation LYMPH NODES No cervical lymphadenopathy, No supraclavicular lymphadenopathy, and No axillary lymphadenopathy. ABDOMEN bowel sounds normoactive, soft, non-tender EXTREMITIES No edema NEURO Awake, alert and oriented x 3, Normal gait, and No involuntary motions. SKIN Skin color, texture, turgor normal, no suspicious rashes or lesions LABS: Latest Ref Rng 06/28/2023 09/20/2023 12/13/2023 WBC 3.70 - 11.00 k/uL 4.05 5.53 3.89 RBC 4.20 - 6.00 m/uL 4.95 4.84 4.78 Hemoglobin 13.0 - 17.0 g/dL 12.6 (L) 12.8 (L) 12.7 (L) Hematocrit 39.0 - 51.0 % 39.6 40.4 39.4 MCV 80.0 - 100.0 fL 80.0 83.5 82.4 MCH 26.0 - 34.0 pg 25.5 (L) 26.4 26.6 MCHC 30.5 - 36.0 g/dL 31.8 31.7 32.2 RDW-CV 11.5 - 15.0 % 15.7 (H) 15.8 (H) 14.7 Platelet Count 150 - 400 k/uL 204 201 185 MPV 9.0 - 12.7 fL 9.8 9.9 9.7 Neut% % 52.9 63.7 51.4 Abs Neut (ANC) 1.45 - 7.50 k/uL 2.14 3.52 2.00 Lymph% % 30.6 26.0 32.9 Abs Lymph 1.00 - 4.00 k/uL 1.24 1.44 1.28 Kent% % 12.3 8.1 11.3 Abs Kent <0.87 k/uL 0.50 0.45 0.44 Eosin% % 3.2 1.3 3.6 Abs Eosin <0.46 k/uL 0.13 0.07 0.14 Baso% % 1.0 0.7 0.8 Abs Baso <0.11 k/uL 0.04 0.04 0.03 Immature Gran % % 0.0 0.2 0.0 IMMATURE GRANS (ABS) <0.10 k/uL <0.03 <0.03 <0.03 NRBC /100 WBC 0.0 0.0 0.0 Absolute nRBC <0.01 k/uL <0.01 <0.01 <0.01 DTYPE Auto Auto Auto Ferritin: Pending ASSESSMENT/PLAN: 1. Hereditary hemochromatosis (HCC) - ICD9: 275.01, ICD10: E83.[address] Erazo's previous note: Assessment: -Tolerating periodic phlebotomy well. -Ferritin consistently under 50 ng/mL over the last year. Reviewed trend with him. -Question GI blood loss. -Diagnosed with cirrhosis since last seen 3 years ago. Plan: -Obtain MRI report and records from Dr. Werner. -Change to every 3 month possible phlebotomy. -Threshold for phlebotomy hematocrit 45%. -OV in a year. - No concerning findings on exam. - Reviewed CBC with pt. - Ferritin pending. - Continue current medications. - Continue follow up with PCP/specialists. - No phlebotomy needed today. Hct. 39.4% today. - CBC/ferritin/possible phlebotomy every 3 months. - Follow up with Dr. Erazo in one year. - Pt. aware to call office with any questions/concerns. The patient indicates understanding of these issues and agrees with the plan. All documentation from previous visit of 01/12/23-Dr. Erazo was copied and pasted, documentation hasbeen reviewed and edited as necessary for today's visit. María Valle APRN.[employer] EDUCATION CONSULTANT [facility] History of Present illness Narrative* Stacie Chase MD - 08/14/2023 8:43 AM EDT [facility] [address] [facility] [place] [address] [facility] [id number] Dept: [phone] MD Alphonso Gamino 73 y.o. male Patient presents with a chief complaint of Nasal septal perforation (1 yr f/u nasal septum button) Temp 98.3 F (36.8 C) (Temporal) Ht 5' 9 Wt 94.1 kg (207 lb 8 oz) BMI 30.64 kg/m History of Presenting Illness: The patient/caregiver reports a history of complaint with the following features: He presents for follow-up of his nasal septal button. He has no complaints. This continues to give him good relief. He uses saline nasal rinses to keep it clear of debris. He reports that he has beenhaving some imbalance with quick turns and on ladders. He has been developing numbness in his feet secondary to some spinal stenosis that is under treatment with injections. Review of systems covering 10 systems is reviewed and pertinent positives and negatives are noted as above. Past Medical History: Diagnosis Date Cellulitis ED (erectile dysfunction) Fracture of nasal bones GERD (gastroesophageal reflux disease) Hemochromatosis History of colonic polyps Nosebleed Sinusitis Skin lesion of back and of ear Tinnitus TMJ dysfunction Current Outpatient Medications: calcium carbonate (OS-SAMANTHA) 600 mg calcium (1,500 mg) tablet, Take 2 (two) tablets (1,200 mg total) by mouth ., Disp: , Rfl: celecoxib (CELEBREX) 200 MG capsule, Take 1 (one) capsule (200 mg total) by mouth daily TAKE WITH FOOD ., Disp: , Rfl: cyanocobalamin (B-12) 1000 MCG tablet, Take 1 (one) tablet (1,000 mcg total) by mouth ., Disp: , Rfl: DULoxetine (CYMBALTA) 30 MG capsule, Take 1 (one) capsule (30 mg total) by mouth daily ., Disp: , Rfl: finasteride (PROSCAR) 5 mg tablet, Take 1 (one) tablet (5 mg total) by mouth daily ., Disp: , Rfl: fish oil-omega-3 fatty acids 1,000 mg capsule, Take 1 Unspecified by mouth ., Disp: , Rfl: glucosamine-chondroitin 500-400 mg tablet, Take 2,013 Unspecified by mouth ., Disp: , Rfl: losartan (COZAAR) 50 MG tablet, Take 1 (one) tablet (50 mg total) by mouth daily ., Disp: , Rfl: omeprazole (PRILOSEC) 40 MG capsule, Take 1 (one) capsule (40 mg total) by mouth 2 (two) times a day ., Disp: , Rfl: SHARK CARTILAGE ORAL, Take 2,250 mg by mouth 2 (two) times a day ., Disp: , Rfl: sildenafiL (VIAGRA) 25 MG tablet, Take 3 (three) tablets (75 mg total) by mouth ., Disp: , Rfl: tadalafiL 20 MG tablet, 1 (one) tablet (20 mg total) ., Disp: , Rfl: tamsulosin (FLOMAX) 0.4 mg capsule, Take by mouth ., Disp: , Rfl: Allergies Allergen Reactions [id number] Reductase Inhibitors Other (See Comments) Intolerant Past Surgical History: Procedure Laterality Date BACK SURGERY 2002 COLONOSCOPY 1995 NASAL SEPTAL BUTTON ROTATOR CUFF REPAIR Right 02/21/2013 SINUS SURGERY TEMPOROMANDIBULAR JOINT SURGERY 1991 Social History Socioeconomic History Marital status: Tobacco Use Smoking status: Never Smokeless tobacco: Never Family History Problem Relation Age of Onset Hypertension Mother Diabetes Mother Heart disease Mother Cancer Father Iron Overload Father Hypertension Sister Diabetes Sister PHYSICAL EXAM: The patient was examined today 08/14/2023 with findings as follows: CONSTITUTIONAL: General Appearance: well-appearing, nontoxic, alert, no acute distress Communication: understanding at normal conversational tones, normal voicing, speech intelligible HEAD/FACE: Head: atraumatic, normocephalic, no lesions Facial Inspection: no lesions, healthy skin Facial Strength: motor strength normal, symmetric strength, symmetric movement Sinuses: no sinus tenderness Salivary Glands: no enlargements of parotid glands, no tenderness of parotid glands, no masses of parotid glands, clear salivary flow on palpation from Stensen's ducts, no duct stones of Stensen's duct, no enlargement of submandibular glands, no tenderness of submandibular glands, no masses of subma ndibular glands, clear salivary flow from Tomás's ducts, no stones of Tomás's ducts Temporomandibular Joint: no crepitus with motion, no tenderness on palpation, no trismus, motion symmetric EYES: Pupils: PERRLA, extra-ocular movements intact, no nystagmus, sclera white, no redness of eyes, no watering of eyes NOSE: Nasal Skin: no lesions, no lacerations, no scars Nasal Dorsum: symmetric with no visible or palpable deformities Nasal Tip: normal symmetric nasal tip, normal nasal valves Nasal Mucosa: normal, pink and moist Septum: not markedly deformed, midline, no exposed vessels, no bleeding, no septal granuloma, perforation with button in place, debris removed Turbinates: normal size and conformation Nasopharynx: normal SKIN: General Appearance: no lesions, warm and dry, normal turgor, no bruising NEUROLOGICAL SYSTEM: Orientation: oriented to time, oriented to place, oriented to person Cranial Nerves: Cranial Nerves II-XII intact, normal facial movement PSYCHIATRIC: Mood and affect: normal mood, normal affect Assessment and Plan: He continues with very good relief with his septal button. This is cleared of dry mucous today. Periodic return for cleaning is advised. We have discussed that a sensation of imbalance with ambulation is common in the presence of peripheral neuropathy. This is not vestibular in nature. He may benefit from using his upper body input bytouching a stable object or use of a walking stick for greater stability. Refrain from ladders and work at height is encouraged. If her would develop spinning, especially with rolling over in bed, return for evaluation of positional vertigo is encouraged. I have advised the patient and/or caregiver that the symptoms and exam findings are most consistentwith vertigo of uncertain cause. We have discussed that the symptoms can arise from abnormalities of the balance organ of the ear, vision impairment, poor coordination of movements by the brain, weakness or reduced sensation of the extremities, or other causes related to metabolic abnormalities or circulatory problems. We have discussed that other evaluation may be needed and that ongoing follow-up is recommended. The patient and/or caregiver is to notify me of any acute change or worsening of symptoms for sooner evaluation. We have discussed that physical therapy for vestibular rehabilitation can sometimes be helpful when no other treatable cause is identified. The patient and/or caregiveris able to state an understanding of these recommendations and is agreeable to the treatment plan. 1. Nasal septal perforation 2. Nasal dryness 3. Vertigo Return in about 6 months (around 02/13/2024). The patient and/or caregiver is to notify the office if no improvement or worsening of symptoms is noted prior to the scheduled follow-up for sooner evaluation. The patient and/or caregiver is able to state an understanding of these recommendations and is agreeable to the treatment plan. --Stacie Chase MD on 08/14/2023 at 8:56 AM An electronic signature was used to authenticate this note. * Rosemary Brennan MA - 08/14/2023 8:34 AM EDT Review of Systems Constitutional: Negative. HENT: Negative. Eyes: Negative. Respiratory: Negative. Cardiovascular: Negative. Gastrointestinal: Negative. Endocrine: Negative. Genitourinary: Negative. Musculoskeletal: Negative. Skin: Negative. Neurological: Positive for dizziness. When moving fast Hematological: Negative. Psychiatric/Behavioral: Negative. documented in this [id number] History of Present illness Narrative* Diana Rhodes RN - 01/12/2023 11:43 AM EDT OV with Dr Erazo today did not meet parameters for phlebotomy. Diana Rhodes RN [facility] History of Present illness Narrative* Stacie Chase MD - 08/14/2022 8:49 AM EDT [facility] [address] [facility] [place] [address] [facility] [id number] Dept: [phone] MD Alphonso Gamino 72 y.o. male Patient presents with a chief complaint of Follow-up (Nasal surgery 6 month check) Temp 97.9 F (36.6 C) Ht 5' 9 Wt 94.3 kg (208 lb) BMI 30.72 kg/m History of Presenting Illness: The patient/caregiver reports a history of complaint with the following features: He presents for follow-up of his nasal septal button. He has no complaints. Review of systems covering 10 systems is reviewed and pertinent positives and negatives are noted as above. Past Medical History: Diagnosis Date Cellulitis ED (erectile dysfunction) Fracture of nasal bones GERD (gastroesophageal reflux disease) Hemochromatosis History of colonic polyps Nosebleed Sinusitis Skin lesion of back and of ear Tinnitus TMJ dysfunction Current Outpatient Medications: calcium carbonate (OS-SAMANTHA) 600 mg calcium (1,500 mg) tablet, Take 2 (two) tablets (1,200 mg total) by mouth ., Disp: , Rfl: cyanocobalamin (B-12) 1000 MCG tablet, Take 1 (one) tablet (1,000 mcg total) by mouth ., Disp: , Rfl: finasteride (PROSCAR) 5 mg tablet, Take 1 (one) tablet (5 mg total) by mouth daily ., Disp: , Rfl: fish oil-omega-3 fatty acids 1,000 mg capsule, Take 1 Unspecified by mouth ., Disp: , Rfl: glucosamine-chondroitin 500-400 mg tablet, Take 2,013 Unspecified by mouth ., Disp: , Rfl: losartan (COZAAR) 50 MG tablet, Take 1 (one) tablet (50 mg total) by mouth daily ., Disp: , Rfl: omeprazole (PRILOSEC) 40 MG capsule, Take 1 (one) capsule (40 mg total) by mouth 2 (two) times a day ., Disp: , Rfl: SHARK CARTILAGE ORAL, Take 2,250 mg by mouth 2 (two) times a day ., Disp: , Rfl: sildenafiL (VIAGRA) 25 MG tablet, Take 3 (three) tablets (75 mg total) by mouth ., Disp: , Rfl: tadalafiL 20 MG tablet, 1 (one) tablet (20 mg total) ., Disp: , Rfl: tamsulosin (FLOMAX) 0.4 mg capsule, Take by mouth ., Disp: , Rfl: Allergies Allergen Reactions Ezmixcq-Ggh-Ker Reductase Inhibitors Other (See Comments) Intolerant Past Surgical History: Procedure Laterality Date BACK SURGERY 2001 COLONOSCOPY 1995 NASAL SEPTAL BUTTON ROTATOR CUFF REPAIR Right 02/21/2013 SINUS SURGERY TEMPOROMANDIBULAR JOINT SURGERY 1992 Social History Socioeconomic History Marital status: Tobacco Use Smoking status: Never Smokeless tobacco: Never Family History Problem Relation Age of Onset Hypertension Mother Diabetes Mother Heart disease Mother Cancer Father Iron Overload Father Hypertension Sister Diabetes Sister PHYSICAL EXAM: The patient was examined today 08/14/2022 with findings as follows: CONSTITUTIONAL: General Appearance: well-appearing, nontoxic, alert, no acute distress Communication: understanding at normal conversational tones, normal voicing, speech intelligible HEAD/FACE: Head: atraumatic, normocephalic, no lesions Facial Inspection: no lesions, healthy skin Facial Strength: motor strength normal, symmetric strength, symmetric movement Sinuses: no sinus tenderness Salivary Glands: no enlargements of parotid glands, no tenderness of parotid glands, no masses of parotid glands, clear salivary flow on palpation from Stensen's ducts, no duct stones of Stensen's duct, no enlargement of submandibular glands, no tenderness of submandibular glands, no masses of subma ndibular glands, clear salivary flow from Portland's ducts, no stones of Portland's ducts Temporomandibular Joint: no crepitus with motion, no tenderness on palpation, no trismus, motion symmetric EYES: Pupils: PERRLA, extra-ocular movements intact, no nystagmus, sclera white, no redness of eyes, no watering of eyes NOSE: Nasal Skin: no lesions, no lacerations, no scars Nasal Dorsum: symmetric with no visible or palpable deformities Nasal Tip: normal symmetric nasal tip, normal nasal valves Nasal Mucosa: normal, pink and moist Septum: not markedly deformed, midline, no exposed vessels, no bleeding, no septal granuloma, perforation with button in place, debris removed Turbinates: normal size and conformation Nasopharynx: normal SKIN: General Appearance: no lesions, warm and dry, normal turgor, no bruising NEUROLOGICAL SYSTEM: Orientation: oriented to time, oriented to place, oriented to person Cranial Nerves: Cranial Nerves II-XII intact, normal facial movement PSYCHIATRIC: Mood and affect: normal mood, normal affect Assessment and Plan: He continues with very good relief with his septal button. This is cleared of dry mucous today. Periodic return for cleaning is advised. 1. Nasal septal perforation Return in about 1 year (around 08/15/2023). The patient and/or caregiver is to notify the office if no improvement or worsening of symptoms is noted prior to the scheduled follow-up for sooner evaluation. The patient and/or caregiver is able to state an understanding of these recommendations and is agreeable to the treatment plan. --Stacie Chase MD on 08/14/2022 at 8:56 AM An electronic signature was used to authenticate this note. * Lola Navas MA - 08/14/2022 8:36 AM EDT Review of Systems Constitutional: Negative. HENT: Negative. Eyes: Positive for pain and discharge. Respiratory: Negative. Cardiovascular: Negative. Gastrointestinal: Negative. Endocrine: Negative. Genitourinary: Negative. Musculoskeletal: Negative. Allergic/Immunologic: Positive for environmental allergies. Neurological: Negative. Hematological: Negative. Psychiatric/Behavioral: Negative. documented in this [id number] Miscellaneous Notes* Telephone Encounter - Marisa Mullins - 07/19/2022 9:23 AM EDT Patient's schedule has been updated as requested below. Thank you Marisa Mullins * Telephone Encounter - Castro Erazo DO - 07/18/2022 4:55 PM EDT He should continue every 3-month CBC/ferritin/phlebotomy. Can check CMP and AFP when he is next year. Schedule for ultrasound and office visit sometime later this fall. Castro Erazo DO * Telephone Encounter - Anuradha Coleman LPN - 07/18/2022 4:10 PM EDT AVS from last visit stated. 10/16/2019 CBC/CMP/Ferritin/AFP US liver then OV/Possible phlebotomy in about a year. Ultrasound was done ,but office visit was cancelled, and not rescheduled. Not sure what Dr. Erazo would like to do. Anuradha Coleman LPN * Telephone Encounter - Dania Ross Pss - 07/18/2022 3:46 PM EDT Does patient need OV with office? He is currently having Q3MO ?Phlebo. Last OV was 2019. [facility] History of Present illness Narrative* Stacie Chase MD - 02/13/2022 1:19 PM EST [facility] [address] [facility] [place] [address] [facility] [id number] Dept: [phone] MD Alphonso Gamino Bowles 72 y.o. male Patient presents with a chief complaint of Follow up BP (!) 157/87 Pulse 71 Temp 98.6 F (37 C) Wt 92.5 kg (204 lb) SpO2 95% History of Presenting Illness: The patient/caregiver reports a history of complaint with the following features: Onset: worse this year than recent years Timing: ongoing Duration: several months Quality: nasal drainage Location: nasal Severity: pain none Risk factors: septal perforation with septal button Alleviating factors: saline rinses, septal button Aggravating factors: nothing makes I worse Associated factors: no nosebleeds, no sinus pain Review of systems covering 10 systems is reviewed and pertinent positives and negatives are noted as above. Past Medical History: Diagnosis Date Fracture of nasal bones GERD (gastroesophageal reflux disease) Nosebleed Sinusitis Tinnitus TMJ dysfunction Current Outpatient Medications: calcium carbonate (OS-SAMANTHA) 600 mg calcium (1,500 mg) tablet, Take 2 (two) tablets (1,200 mg total) by mouth ., Disp: , Rfl: cyanocobalamin (B-12) 1000 MCG tablet, Take 1 (one) tablet (1,000 mcg total) by mouth ., Disp: , Rfl: finasteride (PROSCAR) 5 mg tablet, Take 1 (one) tablet (5 mg total) by mouth daily ., Disp: , Rfl: fish oil-omega-3 fatty acids 1,000 mg capsule, Take 1 Unspecified by mouth ., Disp: , Rfl: glucosamine-chondroitin 500-400 mg tablet, Take 2,013 Unspecified by mouth ., Disp: , Rfl: omeprazole (PRILOSEC) 40 MG capsule, Take 1 (one) capsule (40 mg total) by mouth 2 (two) times a day ., Disp: , Rfl: SHARK CARTILAGE ORAL, Take 2,250 mg by mouth 2 (two) times a day ., Disp: , Rfl: sildenafiL (VIAGRA) 25 MG tablet, Take 3 (three) tablets (75 mg total) by mouth ., Disp: , Rfl: tadalafiL 20 MG tablet, 1 (one) tablet (20 mg total) ., Disp: , Rfl: Allergies Allergen Reactions Ybyckri-Sxz-Oyl Reductase Inhibitors Other (See Comments) Intolerant Past Surgical History: Procedure Laterality Date NASAL SEPTAL BUTTON SINUS SURGERY TEMPOROMANDIBULAR JOINT SURGERY Social History Socioeconomic History Marital status: Tobacco Use Smoking status: Never Smokeless tobacco: Never No family history on file. PHYSICAL EXAM: The patient was examined today 02/13/2022 with findings as follows: CONSTITUTIONAL: General Appearance: well-appearing, nontoxic, alert, no acute distress Communication: understanding at normal conversational tones, normal voicing, speech intelligible HEAD/FACE: Head: atraumatic, normocephalic, no lesions Facial Inspection: no lesions, healthy skin Facial Strength: motor strength normal, symmetric strength, symmetric movement Sinuses: no sinus tenderness Salivary Glands: no enlargements of parotid glands, no tenderness of parotid glands, no masses of parotid glands, clear salivary flow on palpation from Stensen's ducts, no duct stones of Stensen's duct, no enlargement of submandibular glands, no tenderness of submandibular glands, no masses of subma ndibular glands, clear salivary flow from Tomás's ducts, no stones of Portland's ducts Temporomandibular Joint: no crepitus with motion, no tenderness on palpation, no trismus, motion symmetric EYES: Pupils: PERRLA, extra-ocular movements intact, no nystagmus, sclera white, no redness of eyes, no watering of eyes NOSE: Nasal Skin: no lesions, no lacerations, no scars Nasal Dorsum: symmetric with no visible or palpable deformities Nasal Tip: normal symmetric nasal tip, normal nasal valves Nasal Mucosa: normal, pink and moist Septum: septal button in place, adherent crusts removed, midline, no exposed vessels, no bleeding, no septal granuloma Turbinates: normal size and conformation Nasopharynx: normal SKIN: General Appearance: no lesions, warm and dry, normal turgor, no bruising NEUROLOGICAL SYSTEM: Orientation: oriented to time, oriented to place, oriented to person Cranial Nerves: Cranial Nerves II-XII intact, normal facial movement PSYCHIATRIC: Mood and affect: normal mood, normal affect Assessment and Plan: He reports some recent nasal irritation. This appears to be due to adherent dry crusts on his septal button that are removed today with immediate improvement noted. Ongoing use of saline rinses as well as topical ointment in the dry winter months to reduce crusting is encouraged. Overall, this appears to be giving good relief of his septal perforation and the silastic button remains in good position. 1. Nasal septal perforation 2. Nasal dryness Return in about 6 months (around 08/14/2022). The patient and/or caregiver is to notify the office if no improvement or worsening of symptoms is noted prior to the scheduled follow-up for sooner evaluation. The patient and/or caregiver is able to state an understanding of these recommendations and is agreeable to the treatment plan. --Stacie Chase MD on 02/13/2022 at 1:34 PM An electronic signature was used to authenticate this note. * Nell Christiansen LPN - 02/13/2022 1:15 PM EST Review of Systems Constitutional: Negative. HENT: Negative. Eyes: Positive for visual disturbance. Respiratory: Negative. Cardiovascular: Negative. Gastrointestinal: Negative. Endocrine: Negative. Genitourinary: Negative. Musculoskeletal: Negative. Skin: Negative. Allergic/Immunologic: Negative. Neurological: Negative. Hematological: Negative. Psychiatric/Behavioral: Negative. documented in this [id number] History of Past illness Narrative* Problem Noted Date Resolved Date Hemochromatosis 11/21/2010 02/19/2015 documented as of this encounter (statuses as of 06/01/2021) [address]12-[address] History of Past illness Narrative* Problem Noted Date Resolved Date Hemochromatosis 11/21/2010 02/19/2015 documented as of this encounter (statuses as of 06/02/2021) [address] History of Past illness Narrative* Problem Noted Date Resolved Date Hemochromatosis 11/21/2010 02/19/2015 documented as of this encounter (statuses as of 08/24/2021) [address] History of Past illness Narrative* Problem Noted Date Resolved Date Hemochromatosis 11/21/2010 02/19/2015 documented as of this encounter (statuses as of 08/25/2021) [address] History of Past illness Narrative* Problem Noted Date Resolved Date Hemochromatosis 11/21/2010 02/19/2015 documented as of this encounter (statuses as of 11/17/2021) [address] History of Past illness Narrative* Problem Noted Date Resolved Date Hemochromatosis 11/21/2010 02/19/2015 documented as of this encounter (statuses as of 02/09/2022) [address] History of Past illness Narrative* Problem Noted Date Resolved Date Hemochromatosis 11/21/2010 02/19/2015 documented as of this encounter (statuses as of 07/19/2022) [address] History of Past illness Narrative* Problem Noted Date Diagnosed Date Resolved Date Hemochromatosis 11/21/2010 02/19/2015 documented as of this encounter (statuses as of 01/13/2023) [address] History of Past illness Narrative* Problem Noted Date Diagnosed Date Resolved Date Hemochromatosis 11/21/2010 02/19/2015 documented as of this encounter (statuses as of 06/28/2023) [address] History of Past illness Narrative* Problem Noted Date Diagnosed Date Resolved Date Hemochromatosis 11/21/2010 02/19/2015 documented as of this encounter (statuses as of 06/28/2023) [facility] note* Diagnosis Hereditary hemochromatosis (HCC)- Primary Hereditary hemochromatosis documented in this encounter [facility] note* Diagnosis Hereditary hemochromatosis (HCC)- Primary Hereditary hemochromatosis documented in this encounter [facility] note* Diagnosis Hereditary hemochromatosis (HCC)- Primary Hereditary hemochromatosis documented in this encounter [facility] note* Diagnosis Hereditary hemochromatosis (HCC)- Primary Hereditary hemochromatosis documented in this encounter [facility] note* Diagnosis Hereditary hemochromatosis (HCC)- Primary Hereditary hemochromatosis documented in this encounter [facility] noteNo assessment information availableWRegency Hospital Company Work Phone: evaluation note* Diagnosis Nasal septal perforation- Primary Other diseases of nasal cavity and sinuses Nasal dryness Other diseases of nasal cavity and sinuses [facility]* Diagnosis Onset Date Resolution Status Essential hypertension acute Mixed hyperlipidemia acute Shortness of breath chronic Chest pain, unspecified reso lved Syncope resolved [facility] Work Phone: Evaluation note* Diagnosis Hereditary hemochromatosis (HCC)- Primary Hereditary hemochromatosis documented in this encounter [facility] note* Diagnosis Nasal septal perforation- Primary Other diseases of nasal cavity and sinuses [facility]* Diagnosis Hereditary hemochromatosis (HCC)- Primary Hereditary hemochromatosis documented in this encounter [facility] note* Diagnosis Hereditary hemochromatosis (HCC)- Primary Hereditary hemochromatosis documented in this encounter [facility] note* Diagnosis Nasal septal perforation- Primary Other diseases of nasal cavity and sinuses Nasal dryness Other diseases of nasal cavity and sinuses Vertigo Dizziness and giddiness [facility]* Diagnosis Hereditary hemochromatosis (HCC)- Primary Hereditary hemochromatosis [facility]* Diagnosis Hereditary hemochromatosis (HCC)- Primary Hereditary hemochromatosis documented in this encounter [facility] note* Diagnosis Nasal septal perforation- Primary Other diseases of nasal cavity and sinuses Nasal dryness Other diseases of nasal cavity and sinuses Epistaxis [facility]* Diagnosis Hereditary hemochromatosis (HCC)- Primary Hereditary hemochromatosis [facility] this [facility]* Diagnosis Hereditary hemochromatosis- Primary documented in this encounter [facility] note* Diagnosis Nasal septal perforation- Primary Other diseases of nasal cavity and sinuses documented in this encounter [facility] note* Diagnosis Onset Date Resolution Status Admit Date B12 deficiency chronic October 8:12am Peripheral neuropathy chronic Oct 8:12am [facility] Work Phone: Evaluation note* Diagnosis Hereditary hemochromatosis- Primary documented in this encounter [facility] note* Diagnosis Hereditary hemochromatosis- Primary documented in this encounter [facility]* Name Dates Details Patient Instructions Indication:Encounter for well adult exam with abnormal findings Start:08-Feb-2021 Instruction Type:Provider Instructions for Treatment How to Access Health Informa tion Online using Patient Portal and [employer] Apps Indication:Encounter for well adult exam with abnormal findings Start:08-Feb-2021 Instruction Type:Patient Education [facility]; [facility] Work Phone: [email or web address]* Name Dates Details Patient Instructions Indication:Encounter for well adult exam with abnormal findings Start:08-Feb-2021 Instruction Type:Provider Instructions for Treatment How to Access Health Informa tion Online using Patient Portal and [employer] Apps Indication:Encounter for well adult exam with abnormal findings Start:08-Feb-2021 Instruction Type:Patient Education [facility]; [facility] Work Phone: instructions* Name Dates Details Patient Instructions Indication:Encounter for well adult exam with abnormal findings Start:08-Feb-2021 Instruction Type:Provider Instructions for Treatment How to Access Health Informa tion Online using Patient Portal and [employer] Apps Indication:Encounter for well adult exam with abnormal findings Start:08-Feb-2021 Instruction Type:Patient Education [facility]; [facility] Work Phone: instructions* Name Dates Details Patient Instructions Indication:Encounter for well adult exam with abnormal findings Start:08-Feb-2021 Instruction Type:Provider Instructions for Treatment How to Access Health Informa tion Online using Patient Portal and [employer] Apps Indication:Encounter for well adult exam with abnormal findings Start:08-Feb-2021 Instruction Type:Patient Education [facility]; [facility] Work Phone: Instructions* Name Dates Details Patient Instructions Indication:Encounter for well adult exam with abnormal findings Start:08-Feb-2021 Instruction Type:Provider Instructions for Treatment How to Access Health Informa tion Online using Patient Portal and [employer] Apps Indication:Encounter for well adult exam with abnormal findings Start:08-Feb-2021 Instruction Type:Patient Education [facility]; [facility] Work Phone: instructions* Name Dates Details Patient Instructions Indication:Encounter for well adult exam with abnormal findings Start:08-Feb-2021 Instruction Type:Provider Instructions for Treatment How to Access Health Informa tion Online using Patient Portal and [employer] Apps Indication:Encounter for well adult exam with abnormal findings Start:08-Feb-2021 Instruction Type:Patient Education [facility]; [facility] Work Phone: instructions* Name Dates Details Patient Instructions Indication:Encounter for well adult exam with abnormal findings Start:06-Jun-2021 Instruction Type:Provider Instructions for Treatment How to Access Health Informa tion Online using Patient Portal and [employer] Apps Indication:Encounter for well adult exam with abnormal findings Start:06-Jun-2021 Instruction Type:Patient Education Patient Instructions Indication:Encounter for well adult exam with abnormal findings Start:08-Feb-2021 Instruction Type:Provider Instructions for Treatment How to Access Health Informa tion Online using Patient Portal and [employer] Apps Indication:Encounter for well adult exam with abnormal findings Start:08-Feb-2021 Instruction Type:Patient Education [facility]; [facility] Work Phone: instructions* Name Dates Details Patient Instructions Indication:Encounter for well adult exam with abnormal findings Start:06-Jun-2021 Instruction Type:Provider Instructions for Treatment How to Access Health Informa tion Online using Patient Portal and [employer] Apps Indication:Encounter for well adult exam with abnormal findings Start:06-Jun-2021 Instruction Type:Patient Education Patient Instructions Indication:Encounter for well adult exam with abnormal findings Start:08-Feb-2021 Instruction Type:Provider Instructions for Treatment How to Access Health Informa tion Online using Patient Portal and [employer] Apps Indication:Encounter for well adult exam with abnormal findings Start:08-Feb-2021 Instruction Type:Patient Education [facility]; [facility] Work Phone: instructions* Name Dates Details Patient Instructions Indication:Osteoarthritis of lumbar spine Start:06-Oct-2021 Instruction Type:Provider Instructions for Treatment Patient Instructions Indication:Encounter for well adult exam with abnormal findings Start:06-Jun-2021 Instruction Type:Provider Instructions for Treatment How to Access Health Informa tion Online using Patient Portal and [employer] Apps Indication:Encounter for well adult exam with abnormal findings Start:06-Jun-2021 Instruction Type:Patient Education Patient Instructions Indication:Encounter for well adult exam with abnormal findings Start:08-Feb-2021 Instruction Type:Provider Instructions for Treatment How to Access Health Informa tion Online using Patient Portal and [employer] Apps Indication:Encounter for well adult exam with abnormal findings Start:08-Feb-2021 Instruction Type:Patient Education [facility]; [facility] Work Phone: [email or web address]* Name Dates Details Patient Instructions Indication:Osteoarthritis of lumbar spine Start:06-Oct-2021 Instruction Type:Provider Instructions for Treatment Patient Instructions Indication:Encounter for well adult exam with abnormal findings Start:06-Jun-2021 Instruction Type:Provider Instructions for Treatment How to Access Health Informa tion Online using Patient Portal and [employer] Apps Indication:Encounter for well adult exam with abnormal findings Start:06-Jun-2021 Instruction Type:Patient Education Patient Instructions Indication:Encounter for well adult exam with abnormal findings Start:08-Feb-2021 Instruction Type:Provider Instructions for Treatment How to Access Health Informa tion Online using Patient Portal and [employer] Apps Indication:Encounter for well adult exam with abnormal findings Start:08-Feb-2021 Instruction Type:Patient Education [facility]; [facility] Work Phone: instructions* Name Dates Details Patient Instructions Indication:Osteoarthritis of lumbar spine Start:06-Oct-2021 Instruction Type:Provider Instructions for Treatment Patient Instructions Indication:Encounter for well adult exam with abnormal findings Start:06-Jun-2021 Instruction Type:Provider Instructions for Treatment How to Access Health Informa tion Online using Patient Portal and [employer] Apps Indication:Encounter for well adult exam with abnormal findings Start:06-Jun-2021 Instruction Type:Patient Education Patient Instructions Indication:Encounter for well adult exam with abnormal findings Start:08-Feb-2021 Instruction Type:Provider Instructions for Treatment How to Access Health Informa tion Online using Patient Portal and [employer] Apps Indication:Encounter for well adult exam with abnormal findings Start:08-Feb-2021 Instruction Type:Patient Education [facility]; [facility] Work Phone: Instructions* Name Dates Details How to Access Health Informa tion Online using Patient Portal and [employer] Apps Indication:Non-smoker Start:23-Feb-2022 Instruction Type:Patient Education Patient Instructions Indication:Non-smoker Start:23-Feb-2022 Instruction Type:Provider Instructions for Treatment Patient Instructions Indication:Osteoarthritis of lumbar spine Start:06-Oct-2021 Instruction Type:Provider Instructions for Treatment Patient Instructions Indication:Encounter for well adult exam with abnormal findings Start:06-Jun-2021 Instruction Type:Provider Instructions for Treatment How to Access Health Informa tion Online using Patient Portal and [employer] Apps Indication:Encounter for well adult exam with abnormal findings Start:06-Jun-2021 Instruction Type:Patient Education Patient Instructions Indication:Encounter for well adult exam with abnormal findings Start:08-Feb-2021 Instruction Type:Provider Instructions for Treatment How to Access Health Informa tion Online using Patient Portal and [employer] Apps Indication:Encounter for well adult exam with abnormal findings Start:08-Feb-2021 Instruction Type:Patient Education [facility]; [facility] Work Phone: Instructions* Name Dates Details Patient Instructions Indication:BMI 29.0-29.9,adult Start:14-Mar-2022 Instruction Type:Provider Instructions for Treatment How to Access Health Informa tion Online using Patient Portal and [employer] Indication:BMI 29.0-29.9,adult Start:14-Mar-2022 Instruction Type:Patient Education How to Access Health Informa tion Online using Patient Portal and [employer] Indication:Non-smoker Start:23-Feb-2022 Instruction Type:Patient Education Patient Instructions Indication:Non-smoker Start:23-Feb-2022 Instruction Type:Provider Instructions for Treatment Patient Instructions Indication:Osteoarthritis of lumbar spine Start:06-Oct-2021 Instruction Type:Provider Instructions for Treatment Patient Instructions Indication:Encounter for well adult exam with abnormal findings Start:06-Jun-2021 Instruction Type:Provider Instructions for Treatment How to Access Health Informa tion Online using Patient Portal and [employer] Apps Indication:Encounter for well adult exam with abnormal findings Start:06-Jun-2021 Instruction Type:Patient Education Patient Instructions Indication:Encounter for well adult exam with abnormal findings Start:08-Feb-2021 Instruction Type:Provider Instructions for Treatment How to Access Health Informa tion Online using Patient Portal and [employer] Apps Indication:Encounter for well adult exam with abnormal findings Start:08-Feb-2021 Instruction Type:Patient Education [facility]; [facility] Work Phone: instructions* Name Dates Details Patient Instructions Indication:BMI 29.0-29.9,adult Start:14-Mar-2022 Instruction Type:Provider Instructions for Treatment How to Access Health Informa tion Online using Patient Portal and [employer] Apps Indication:BMI 29.0-29.9,adult Start:14-Mar-2022 Instruction Type:Patient Education How to Access Health Informa tion Online using Patient Portal and [employer] Apps Indication:Non-smoker Start:23-Feb-2022 Instruction Type:Patient Education Patient Instructions Indication:Non-smoker Start:23-Feb-2022 Instruction Type:Provider Instructions for Treatment Patient Instructions Indication:Osteoarthritis of lumbar spine Start:06-Oct-2021 Instruction Type:Provider Instructions for Treatment Patient Instructions Indication:Encounter for well adult exam with abnormal findings Start:06-Jun-2021 Instruction Type:Provider Instructions for Treatment How to Access Health Informa tion Online using Patient Portal and [employer] Apps Indication:Encounter for well adult exam with abnormal findings Start:06-Jun-2021 Instruction Type:Patient Education Patient Instructions Indication:Encounter for well adult exam with abnormal findings Start:08-Feb-2021 Instruction Type:Provider Instructions for Treatment How to Access Health Informa tion Online using Patient Portal and [employer] Apps Indication:Encounter for well adult exam with abnormal findings Start:08-Feb-2021 Instruction Type:Patient Education [facility]; [facility] Work Phone: Instructions* Name Dates Details Patient Instructions Indication:BMI 29.0-29.9,adult Start:18-Apr-2022 Instruction Type:Provider Instructions for Treatment How to Access Health Informa tion Online using Patient Portal and [employer] Apps Indication:BMI 29.0-29.9,adult Start:18-Apr-2022 Instruction Type:Patient Education Patient Instructions Indication:BMI 29.0-29.9,adult Start:14-Mar-2022 Instruction Type:Provider Instructions for Treatment How to Access Health Informa tion Online using Patient Portal and [employer] Apps Indication:BMI 29.0-29.9,adult Start:14-Mar-2022 Instruction Type:Patient Education How to Access Health Informa tion Online using Patient Portal and [employer] Apps Indication:Non-smoker Start:23-Feb-2022 Instruction Type:Patient Education Patient Instructions Indication:Non-smoker Start:23-Feb-2022 Instruction Type:Provider Instructions for Treatment Patient Instructions Indication:Osteoarthritis of lumbar spine Start:06-Oct-2021 Instruction Type:Provider Instructions for Treatment Patient Instructions Indication:Encounter for well adult exam with abnormal findings Start:06-Jun-2021 Instruction Type:Provider Instructions for Treatment How to Access Health Informa tion Online using Patient Portal and [employer] Apps Indication:Encounter for well adult exam with abnormal findings Start:06-Jun-2021 Instruction Type:Patient Education Patient Instructions Indication:Encounter for well adult exam with abnormal findings Start:08-Feb-2021 Instruction Type:Provider Instructions for Treatment How to Access Health Informa tion Online using Patient Portal and [employer] Apps Indication:Encounter for well adult exam with abnormal findings Start:08-Feb-2021 Instruction Type:Patient Education [facility]; [facility] Work Phone: Instructions* Name Dates Details Patient Instructions Indication:BMI 29.0-29.9,adult Start:18-Apr-2022 Instruction Type:Provider Instructions for Treatment How to Access Health Informa tion Online using Patient Portal and [employer] Apps Indication:BMI 29.0-29.9,adult Start:18-Apr-2022 Instruction Type:Patient Education Patient Instructions Indication:BMI 29.0-29.9,adult Start:14-Mar-2022 Instruction Type:Provider Instructions for Treatment How to Access Health Informa tion Online using Patient Portal and [employer] Apps Indication:BMI 29.0-29.9,adult Start:14-Mar-2022 Instruction Type:Patient Education How to Access Health Informa tion Online using Patient Portal and [employer] Apps Indication:Non-smoker Start:23-Feb-2022 Instruction Type:Patient Education Patient Instructions Indication:Non-smoker Start:23-Feb-2022 Instruction Type:Provider Instructions for Treatment Patient Instructions Indication:Osteoarthritis of lumbar spine Start:06-Oct-2021 Instruction Type:Provider Instructions for Treatment Patient Instructions Indication:Encounter for well adult exam with abnormal findings Start:06-Jun-2021 Instruction Type:Provider Instructions for Treatment How to Access Health Informa tion Online using Patient Portal and [employer] Apps Indication:Encounter for well adult exam with abnormal findings Start:06-Jun-2021 Instruction Type:Patient Education Patient Instructions Indication:Encounter for well adult exam with abnormal findings Start:08-Feb-2021 Instruction Type:Provider Instructions for Treatment How to Access Health Informa tion Online using Patient Portal and [employer] Apps Indication:Encounter for well adult exam with abnormal findings Start:08-Feb-2021 Instruction Type:Patient Education [facility]; [facility] Work Phone: Instructions* Name Dates Details Patient Instructions Indication:BMI 29.0-29.9,adult Start:18-Apr-2022 Instruction Type:Provider Instructions for Treatment How to Access Health Informa tion Online using Patient Portal and [employer] Apps Indication:BMI 29.0-29.9,adult Start:18-Apr-2022 Instruction Type:Patient Education Patient Instructions Indication:BMI 29.0-29.9,adult Start:14-Mar-2022 Instruction Type:Provider Instructions for Treatment How to Access Health Informa tion Online using Patient Portal and [employer] Apps Indication:BMI 29.0-29.9,adult Start:14-Mar-2022 Instruction Type:Patient Education How to Access Health Informa tion Online using Patient Portal and [employer] Apps Indication:Non-smoker Start:23-Feb-2022 Instruction Type:Patient Education Patient Instructions Indication:Non-smoker Start:23-Feb-2022 Instruction Type:Provider Instructions for Treatment Patient Instructions Indication:Osteoarthritis of lumbar spine Start:06-Oct-2021 Instruction Type:Provider Instructions for Treatment Patient Instructions Indication:Encounter for well adult exam with abnormal findings Start:06-Jun-2021 Instruction Type:Provider Instructions for Treatment How to Access Health Informa tion Online using Patient Portal and [employer] Apps Indication:Encounter for well adult exam with abnormal findings Start:06-Jun-2021 Instruction Type:Patient Education Patient Instructions Indication:Encounter for well adult exam with abnormal findings Start:08-Feb-2021 Instruction Type:Provider Instructions for Treatment How to Access Health Informa tion Online using Patient Portal and [employer] Apps Indication:Encounter for well adult exam with abnormal findings Start:08-Feb-2021 Instruction Type:Patient Education [facility]; [facility] Work Phone: Instructions* Name Dates Details Patient Instructions Indication:BMI 29.0-29.9,adult Start:17-Jul-2022 Instruction Type:Provider Instructions for Treatment How to Access Health Informa tion Online using Patient Portal and [employer] Apps Indication:BMI 29.0-29.9,adult Start:17-Jul-2022 Instruction Type:Patient Education Patient Instructions Indication:BMI 29.0-29.9,adult Start:18-Apr-2022 Instruction Type:Provider Instructions for Treatment How to Access Health Informa tion Online using Patient Portal and [employer] Apps Indication:BMI 29.0-29.9,adult Start:18-Apr-2022 Instruction Type:Patient Education Patient Instructions Indication:BMI 29.0-29.9,adult Start:14-Mar-2022 Instruction Type:Provider Instructions for Treatment How to Access Health Informa tion Online using Patient Portal and [employer] Apps Indication:BMI 29.0-29.9,adult Start:14-Mar-2022 Instruction Type:Patient Education How to Access Health Informa tion Online using Patient Portal and [employer] Apps Indication:Non-smoker Start:23-Feb-2022 Instruction Type:Patient Education Patient Instructions Indication:Non-smoker Start:23-Feb-2022 Instruction Type:Provider Instructions for Treatment Patient Instructions Indication:Osteoarthritis of lumbar spine Start:06-Oct-2021 Instruction Type:Provider Instructions for Treatment Patient Instructions Indication:Encounter for well adult exam with abnormal findings Start:06-Jun-2021 Instruction Type:Provider Instructions for Treatment How to Access Health Informa tion Online using Patient Portal and [employer] Apps Indication:Encounter for well adult exam with abnormal findings Start:06-Jun-2021 Instruction Type:Patient Education Patient Instructions Indication:Encounter for well adult exam with abnormal findings Start:08-Feb-2021 Instruction Type:Provider Instructions for Treatment How to Access Health Informa tion Online using Patient Portal and [employer] Apps Indication:Encounter for well adult exam with abnormal findings Start:08-Feb-2021 Instruction Type:Patient Education [facility]; [facility] Work Phone: Instructions* Name Dates Details Patient Instructions Indication:BMI 29.0-29.9,adult Start:17-Jul-2022 Instruction Type:Provider Instructions for Treatment How to Access Health Informa tion Online using Patient Portal and [employer] Apps Indication:BMI 29.0-29.9,adult Start:17-Jul-2022 Instruction Type:Patient Education Patient Instructions Indication:BMI 29.0-29.9,adult Start:18-Apr-2022 Instruction Type:Provider Instructions for Treatment How to Access Health Informa tion Online using Patient Portal and [employer] Apps Indication:BMI 29.0-29.9,adult Start:18-Apr-2022 Instruction Type:Patient Education Patient Instructions Indication:BMI 29.0-29.9,adult Start:14-Mar-2022 Instruction Type:Provider Instructions for Treatment How to Access Health Informa tion Online using Patient Portal and [employer] Apps Indication:BMI 29.0-29.9,adult Start:14-Mar-2022 Instruction Type:Patient Education How to Access Health Informa tion Online using Patient Portal and [employer] Apps Indication:Non-smoker Start:23-Feb-2022 Instruction Type:Patient Education Patient Instructions Indication:Non-smoker Start:23-Feb-2022 Instruction Type:Provider Instructions for Treatment Patient Instructions Indication:Osteoarthritis of lumbar spine Start:06-Oct-2021 Instruction Type:Provider Instructions for Treatment Patient Instructions Indication:Encounter for well adult exam with abnormal findings Start:06-Jun-2021 Instruction Type:Provider Instructions for Treatment How to Access Health Informa tion Online using Patient Portal and [employer] Apps Indication:Encounter for well adult exam with abnormal findings Start:06-Jun-2021 Instruction Type:Patient Education Patient Instructions Indication:Encounter for well adult exam with abnormal findings Start:08-Feb-2021 Instruction Type:Provider Instructions for Treatment How to Access Health Informa tion Online using Patient Portal and [employer] Apps Indication:Encounter for well adult exam with abnormal findings Start:08-Feb-2021 Instruction Type:Patient Education [facility]; [facility] Work Phone: Instructions* Name Dates Details How to Access Health Informa tion Online using Patient Portal and [employer] Apps Indication:BMI 29.0-29.9,adult Start:02-Jan-2023 Instruction Type:Patient Education Patient Instructions Indication:BMI 29.0-29.9,adult Start:02-Jan-2023 Instruction Type:Provider Instructions for Treatment Patient Instructions Indication:BMI 29.0-29.9,adult Start:17-Jul-2022 Instruction Type:Provider Instructions for Treatment How to Access Health Informa tion Online using Patient Portal and [employer] Apps Indication:BMI 29.0-29.9,adult Start:17-Jul-2022 Instruction Type:Patient Education Patient Instructions Indication:BMI 29.0-29.9,adult Start:18-Apr-2022 Instruction Type:Provider Instructions for Treatment How to Access Health Informa tion Online using Patient Portal and [employer] Apps Indication:BMI 29.0-29.9,adult Start:18-Apr-2022 Instruction Type:Patient Education Patient Instructions Indication:BMI 29.0-29.9,adult Start:14-Mar-2022 Instruction Type:Provider Instructions for Treatment How to Access Health Informa tion Online using Patient Portal and [employer] Apps Indication:BMI 29.0-29.9,adult Start:14-Mar-2022 Instruction Type:Patient Education How to Access Health Informa tion Online using Patient Portal and [employer] Apps Indication:Non-smoker Start:23-Feb-2022 Instruction Type:Patient Education Patient Instructions Indication:Non-smoker Start:23-Feb-2022 Instruction Type:Provider Instructions for Treatment Patient Instructions Indication:Osteoarthritis of lumbar spine Start:06-Oct-2021 Instruction Type:Provider Instructions for Treatment Patient Instructions Indication:Encounter for well adult exam with abnormal findings Start:06-Jun-2021 Instruction Type:Provider Instructions for Treatment How to Access Health Informa tion Online using Patient Portal and [employer] Apps Indication:Encounter for well adult exam with abnormal findings Start:06-Jun-2021 Instruction Type:Patient Education Patient Instructions Indication:Encounter for well adult exam with abnormal findings Start:08-Feb-2021 Instruction Type:Provider Instructions for Treatment How to Access Health Informa tion Online using Patient Portal and [employer] Apps Indication:Encounter for well adult exam with abnormal findings Start:08-Feb-2021 Instruction Type:Patient Education [facility]; [facility] Work Phone: reason for referral (narrative)* Diagnostic Procedure Only (Routine) - Pending Review Specialty Diagnoses / Procedures Referred By Jg power Referred To Contact US IMAGING Diagnoses Hereditary hemochromatosis (HCC) Procedures US ABD RIGHT UPPER QUADRANT US ABDOMINAL REAL TIME W/IMAGE LIMITED Castro Erazo DO [address] [place] [address] Us Imaging Referral ID Status Reason Start Date Expiration Date Visits Requested Visits Authorized [id number] Pending Review Auto-Generat ed Referral 07/18/2022 08/17/2023 [facility]No reason for referral information availableWRegency Hospital Company Work Phone: Family History No Family History Records FoundUnknown Family Member Name Dates Details Brother 1 Comments:christensen and far left. n o talk with him. congenital kidney abnormality. Status:Active Father Comments:pancreatic cancer h emochromatosis Status:Active Mother Comments:CAD, HTN, diabetes Status:Active Sister 1 Comments:DM II of heart attack 63yo some form of cancer ? uterine Status:Active Sister 2 Comments:HTN Status:Active Sister 3 Status:Active Sister 4 Status:Active Unknown Family Member Name Dates Details Brother 1 Comments:christensen and far left. n o talk with him. congenital kidney abnormality. Status:Active Father Comments:pancreatic cancer h emochromatosis Status:Active Mother Comments:CAD, HTN, diabetes Status:Active Sister 1 Comments:DM II of heart attack 63yo some form of cancer ? uterine Status:Active Sister 2 Comments:HTN Status:Active Sister 3 Status:Active Sister 4 Status:Active Unknown Family Member Name Dates Details Brother 1 Comments:christensen and far left. n o talk with him. congenital kidney abnormality. Status:Active Father Comments:pancreatic cancer h emochromatosis Status:Active Mother Comments:CAD, HTN, diabetes Status:Active Sister 1 Comments:DM II of heart attack 63yo some form of cancer ? uterine Status:Active Sister 2 Comments:HTN Status:Active Sister 3 Status:Active Sister 4 Status:Active Unknown Family Member Name Dates Details Brother 1 Comments:christensen and far left. n o talk with him. congenital kidney abnormality. Status:Active Father Comments:pancreatic cancer h emochromatosis Status:Active Mother Comments:CAD, HTN, diabetes Status:Active Sister 1 Comments:DM II of heart attack 63yo some form of cancer ? uterine Status:Active Sister 2 Comments:HTN Status:Active Sister 3 Status:Active Sister 4 Status:Active Unknown Family Member Name Dates Details Brother 1 Comments:christensen and far left. n o talk with him. congenital kidney abnormality. Status:Active Father Comments:pancreatic cancer h emochromatosis Status:Active Mother Comments:CAD, HTN, diabetes Status:Active Sister 1 Comments:DM II of heart attack 63yo some form of cancer ? uterine Status:Active Sister 2 Comments:HTN Status:Active Sister 3 Status:Active Sister 4 Status:Active Unknown Family Member Name Dates Details Brother 1 Comments:christensen and far left. n o talk with him. congenital kidney abnormality. Status:Active Father Comments:pancreatic cancer h emochromatosis Status:Active Mother Comments:CAD, HTN, diabetes Status:Active Sister 1 Comments:DM II of heart attack 63yo some form of cancer ? uterine Status:Active Sister 2 Comments:HTN Status:Active Sister 3 Status:Active Sister 4 Status:Active Unknown Family Member Name Dates Details Brother 1 Comments:christensen and far left. n o talk with him. congenital kidney abnormality. Status:Active Father Comments:pancreatic cancer h emochromatosis Status:Active Mother Comments:CAD, HTN, diabetes Status:Active Sister 1 Comments:DM II of heart attack 63yo some form of cancer ? uterine Status:Active Sister 2 Comments:HTN Status:Active Sister 3 Status:Active Sister 4 Status:Active Unknown Family Member Name Dates Details Brother 1 Comments:christensen and far left. n o talk with him. congenital kidney abnormality. Status:Active Father Comments:pancreatic cancer h emochromatosis Status:Active Mother Comments:CAD, HTN, diabetes Status:Active Sister 1 Comments:DM II of heart attack 63yo some form of cancer ? uterine Status:Active Sister 2 Comments:HTN Status:Active Sister 3 Status:Active Sister 4 Status:Active Unknown Family Member Name Dates Details Brother 1 Comments:christensen and far left. n o talk with him. congenital kidney abnormality. Status:Active Father Comments:pancreatic cancer h emochromatosis Status:Active Mother Comments:CAD, HTN, diabetes Status:Active Sister 1 Comments:DM II of heart attack 63yo some form of cancer ? uterine Status:Active Sister 2 Comments:HTN Status:Active Sister 3 Status:Active Sister 4 Status:Active Relationship Condition Age at Onset Recorded Date/T kamila mother Cardiac disease Unknown Hypertension Unknown Coronary artery disease Unknown Diabetes mellitus Unknown father Malignant neoplasm Unknown Unknown Family Member Name Dates Details Brother 1 Comments:christensen and far left. n o talk with him. congenital kidney abnormality. Status:Active Father Comments:pancreatic cancer h emochromatosis Status:Active Mother Comments:CAD, HTN, diabetes Status:Active Sister 1 Comments:DM II of heart attack 63yo some form of cancer ? uterine Status:Active Sister 2 Comments:HTN Status:Active Sister 3 Status:Active Sister 4 Status:Active Unknown Family Member Name Dates Details Brother 1 Comments:christensen and far left. n o talk with him. congenital kidney abnormality. Status:Active Father Comments:pancreatic cancer h emochromatosis Status:Active Mother Comments:CAD, HTN, diabetes Status:Active Sister 1 Comments:DM II of heart attack 63yo some form of cancer ? uterine Status:Active Sister 2 Comments:HTN Status:Active Sister 3 Status:Active Sister 4 Status:Active Unknown Family Member Name Dates Details Brother 1 Comments:christensen and far left. n o talk with him. congenital kidney abnormality. Status:Active Father Comments:pancreatic cancer h emochromatosis Status:Active Mother Comments:CAD, HTN, diabetes Status:Active Sister 1 Comments:DM II of heart attack 63yo some form of cancer ? uterine Status:Active Sister 2 Comments:HTN Status:Active Sister 3 Status:Active Sister 4 Status:Active Unknown Family Member Name Dates Details Brother 1 Comments:christensen and far left. n o talk with him. congenital kidney abnormality. Status:Active Father Comments:pancreatic cancer h emochromatosis Status:Active Mother Comments:CAD, HTN, diabetes Status:Active Sister 1 Comments:DM II of heart attack 63yo some form of cancer ? uterine Status:Active Sister 2 Comments:HTN Status:Active Sister 3 Status:Active Sister 4 Status:Active Unknown Family Member Name Dates Details Brother 1 Comments:christensen and far left. n o talk with him. congenital kidney abnormality. Status:Active Father Comments:pancreatic cancer h emochromatosis Status:Active Mother Comments:CAD, HTN, diabetes Status:Active Sister 1 Comments:DM II of heart attack 63yo some form of cancer ? uterine Status:Active Sister 2 Comments:HTN Status:Active Sister 3 Status:Active Sister 4 Status:Active Unknown Family Member Name Dates Details Brother 1 Comments:christensen and far left. n o talk with him. congenital kidney abnormality. Status:Active Father Comments:pancreatic cancer h emochromatosis Status:Active Mother Comments:CAD, HTN, diabetes Status:Active Sister 1 Comments:DM II of heart attack 63yo some form of cancer ? uterine Status:Active Sister 2 Comments:HTN Status:Active Sister 3 Status:Active Sister 4 Status:Active Unknown Family Member Name Dates Details Brother 1 Comments:christensen and far left. n o talk with him. congenital kidney abnormality. Status:Active Father Comments:pancreatic cancer h emochromatosis Status:Active Mother Comments:CAD, HTN, diabetes Status:Active Sister 1 Comments:DM II of heart attack 63yo some form of cancer ? uterine Status:Active Sister 2 Comments:HTN Status:Active Sister 3 Status:Active Sister 4 Status:Active Unknown Family Member Name Dates Details Brother 1 Comments:christensen and far left. n o talk with him. congenital kidney abnormality. Status:Active Father Comments:pancreatic cancer h emochromatosis Status:Active Mother Comments:CAD, HTN, diabetes Status:Active Sister 1 Comments:DM II of heart attack 63yo some form of cancer ? uterine Status:Active Sister 2 Comments:HTN Status:Active Sister 3 Status:Active Sister 4 Status:Active Unknown Family Member Name Dates Details Brother 1 Comments:christensen and far left. n o talk with him. congenital kidney abnormality. Status:Active Father Comments:pancreatic cancer h emochromatosis Status:Active Mother Comments:CAD, HTN, diabetes Status:Active Sister 1 Comments:DM II of heart attack 63yo some form of cancer ? uterine Status:Active Sister 2 Comments:HTN Status:Active Sister 3 Status:Active Sister 4 Status:Active Unknown Family Member Name Dates Details Brother 1 Comments:christensen and far left. n o talk with him. congenital kidney abnormality. Status:Active Father Comments:pancreatic cancer h emochromatosis Status:Active Mother Comments:CAD, HTN, diabetes Status:Active Sister 1 Comments:DM II of heart attack 63yo some form of cancer ? uterine Status:Active Sister 2 Comments:HTN Status:Active Sister 3 Status:Active Sister 4 Status:Active Unknown Family Member Name Dates Details Brother 1 Comments:christensen and far left. n o talk with him. congenital kidney abnormality. Status:Active Father Comments:pancreatic cancer h emochromatosis Status:Active Mother Comments:CAD, HTN, diabetes Status:Active Sister 1 Comments:DM II of heart attack 63yo some form of cancer ? uterine Status:Active Sister 2 Comments:HTN Status:Active Sister 3 Status:Active Sister 4 Status:Active Advance Directives No Advanced Directives Records Found Name Dates Details Living Will - Effective on . Expiration date unspecified. Scanned Document is available upon request. Effective:23-Dec-2020 [facility] [place] - Effective on 02/08/2021. Expiration date unspecified Effective:08-Feb-2021 Name Dates Details Living Will - Effective on . Expiration date unspecified. Scanned Document is available upon request. Effective:23-Dec-2020 [facility] [place] - Effective on 02/08/2021. Expiration date unspecified Effective:08-Feb-2021 Name Dates Details Living Will - Effective on . Expiration date unspecified. Scanned Document is available upon request. Effective:23-Dec-2020 [facility] [place] - Effective on 02/08/2021. Expiration date unspecified Effective:08-Feb-2021 Name Dates Details Living Will - Effective on . Expiration date unspecified. Scanned Document is available upon request. Effective:23-Dec-2020 [facility] [place] - Effective on 02/08/2021. Expiration date unspecified Effective:08-Feb-2021 Name Dates Details Living Will - Effective on . Expiration date unspecified. Scanned Document is available upon request. Effective:23-Dec-2020 [facility] [place] - Effective on 02/08/2021. Expiration date unspecified Effective:08-Feb-2021 Name Dates Details Living Will - Effective on . Expiration date unspecified. Scanned Document is available upon request. Effective:23-Dec-2020 [facility] [place] - Effective on 02/08/2021. Expiration date unspecified Effective:08-Feb-2021 Name Dates Details Living Will - Effective on . Expiration date unspecified. Scanned Document is available upon request. Effective:23-Dec-2020 [facility] [place] - Effective on 02/08/2021. Expiration date unspecified Effective:08-Feb-2021 Name Dates Details Living Will - Effective on . Expiration date unspecified. Scanned Document is available upon request. Effective:23-Dec-2020 [facility] [place] - Effective on 02/08/2021. Expiration date unspecified Effective:08-Feb-2021 Name Dates Details Living Will - Effective on . Expiration date unspecified. Scanned Document is available upon request. Effective:23-Dec-2020 [facility] [place] - Effective on 02/08/2021. Expiration date unspecified Effective:08-Feb-2021 Name Dates Details Living Will - Effective on . Expiration date unspecified. Scanned Document is available upon request. Effective:23-Dec-2020 [facility] [place] - Effective on 02/08/2021. Expiration date unspecified Effective:08-Feb-2021 Name Dates Details Living Will - Effective on . Expiration date unspecified. Scanned Document is available upon request. Effective:23-Dec-2020 [facility] [place] - Effective on 02/08/2021. Expiration date unspecified Effective:08-Feb-2021 Name Dates Details Living Will - Effective on . Expiration date unspecified. Scanned Document is available upon request. Effective:23-Dec-2020 [facility] [place] - Effective on 02/08/2021. Expiration date unspecified Effective:08-Feb-2021 Name Dates Details Living Will - Effective on . Expiration date unspecified. Scanned Document is available upon request. Effective:23-Dec-2020 Immunization [facility] [place] - Effective on 02/08/2021. Expiration date unspecified Effective:08-Feb-2021 Name Dates Details Living Will - Effective on . Expiration date unspecified. Scanned Document is available upon request. Effective:23-Dec-2020 Immun[facility] [place] - Effective on 02/08/2021. Expiration date unspecified Effective:08-Feb-2021 Name Dates Details Living Will - Effective on . Expiration date unspecified. Scanned Document is available upon request. Effective:23-Dec-2020 Immunization [facility] [place] - Effective on 02/08/2021. 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 Expiration date unspecified. Scanned Document is available upon request. Effective:23-Dec-2020 Immunization [facility] [place] - Effective on 02/08/2021. Expiration date unspecified Effective:08-Feb-2021 Name Dates Details Living Will - Effective on 1 . Expiration date unspecified. Scanned Document is available upon request. Effective:23-Dec-2020 [facility] [place] - Effective on 02/08/2021. Expiration date unspecified Effective:08-Feb-2021 Name Dates Details Living Will - Effective on 1 . Expiration date unspecified. Scanned Document is available upon request. Effective:23-Dec-2020 Immunization [facility] [place] - Effective on 02/08/2021. 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 021 9:09am Advance Directive Response Recorded Date/ Time Advance Directives No August 27 11:30am Chief Complaint and Reason for Visit Chief Complaint 1 Y FU LEFT HIP PAIN Reason for Visit Essential hypertensi on Mixed hyperlipidemia Shortness of breath Chest pain, unspecified Syncope Chief Complaint BMP,CBC WITH DIFF Chief Complaint Admit Date Radiculopathy, lumbosacral region Februa 2024 7:51am LUMBAR SPINE May 15, 2024 11:5 2am RM 2 May 15, 2024 12:0 7pm BLE; Anesthesia of skin May 21, 2024 6:47am BLE; Anesthesia of skin May 21, 2024 2:25pm Reason for Visit Admit Date Balance problem May 15, 2024 11:5 2am Neuropathy May 15, 2024 11:5 2am Spinal stenosis of lumbar region with ne urogenic claudication May 15, 2024 11:52am Spondylolisthesis, lumbar region May 152024 11:52am Chief Complaint Admit Date POLYNEUROPATHY October 13, 2024 8:1 2am Reason for Visit Admit Date B12 deficiency October 13, 2024 8:1 2am Peripheral neuropathy October 13, 2024 8 :12am Summary Purpose Additional Source Comments Source Comments (unrecognize d section and content) In the event this informatio n is protected by the Federal Confidentiality of Alcohol and Drug Abuse Patient Records regulations: The Federal rules restrict any use of the information to criminally investigate or prosecute any alcohol or drug abuse patient.[facility] the event this information is protected by the Federal Confidentiality of Alcohol and Drug Abuse Patient Records regulations: The Federal rules restrict any use of the information to criminally investigate or prosecute any alcohol or drug abuse patient.[facility] the event this information is protected by the Federal Confidentiality of Alcohol and Drug Abuse Patient Records regulations: The Federal rules restrict any use of the information to criminally investigate or prosecute any alcohol or drug abuse patient.[facility] the event this information is protected by the Federal Confidentiality of Alcohol and Drug Abuse Patient Records regulations: The Federal rules restrict any use of the information to criminally investigate or prosecute any alcohol or drug abuse patient.[facility] the event this information is protected by the Federal Confidentiality of Alcohol and Drug Abuse Patient Records regulations: The Federal rules restrict any use of the information to criminally investigate or prosecute any alcohol or drug abuse patient.[facility] the event this information is protected by the Federal Confidentiality of Alcohol and Drug Abuse Patient Records regulations: The Federal rules restrict any use of the information to criminally investigate or prosecute any alcohol or drug abuse patient.[facility] the event this information is protected by the Federal Confidentiality of Alcohol and Drug Abuse Patient Records regulations: The Federal rules restrict any use of the information to criminally investigate or prosecute any alcohol or drug abuse patient.[facility] the event this information is protected by the Federal Confidentiality of Alcohol and Drug Abuse Patient Records regulations: The Federal rules restrict any use of the information to criminally investigate or prosecute any alcohol or drug abuse patient.[facility] the event this information is protected by the Federal Confidentiality of Alcohol and Drug Abuse Patient Records regulations: The Federal rules restrict any use of the information to criminally investigate or prosecute any alcohol or drug abuse patient.[facility] the event this information is protected by the Federal Confidentiality of Alcohol and Drug Abuse Patient Records regulations: The Federal rules restrict any use of the information to criminally investigate or prosecute any alcohol or drug abuse patient.[facility] the event this information is protected by the Federal Confidentiality of Alcohol and Drug Abuse Patient Records regulations: The Federal rules restrict any use of the information to criminally investigate or prosecute any alcohol or drug abuse patient.[facility] Hospital[facility] the event this information is protected by the Federal Confidentiality of Alcohol and Drug Abuse Patient Records regulations: The Federal rules restrict any use of the information to criminally investigate or prosecute any alcohol or drug abuse patient.[facility] HospitalIn the event this information is protected by the Federal Confidentiality of Alcohol and Drug Abuse Patient Records regulations: The Federal rules restrict any use of the information to criminally investigate or prosecute any alcohol or drug abuse patient.[facility] the event this information is protected by the Federal Confidentiality of Alcohol and Drug Abuse Patient Records regulations: The Federal rules restrict any use of the information to criminally investigate or prosecute any alcohol or drug abuse patient.[facility] the event this information is protected by the Federal Confidentiality of Alcohol and Drug Abuse Patient Records regulations: The Federal rules restrict any use of the information to criminally investigate or prosecute any alcohol or drug abuse patient.[facility] HospitalIn the event this information is protected by the Federal Confidentiality of Alcohol and Drug Abuse Patient Records regulations: The Federal rules restrict any use of the information to criminally investigate or prosecute any alcohol or drug abuse patient.[facility] HospitalIn the event this information is protected by the Federal Confidentiality of Alcohol and Drug Abuse Patient Records regulations: The Federal rules restrict any use of the information to criminally investigate or prosecute any alcohol or drug abuse patient.[facility] Care Teams (unrecognized sec tion and content) Community Leader Relationship Specialty Start Date End Date Duy Valverde MD [address] [place] [address] 2 [place] [address] PCP - General Internal Medicine 03/01/21 Community Leader Relationship Specialty Start Date End Date Duy Valverde MD [address] [place] [address] 2 [place] [address] PCP - General Internal Medicine 03/01/21 Community Leader Relationship Specialty Start Date End Date Duy Valverde MD [address] [place] [address] 2 [place] [address] PCP - General Internal Medicine 03/01/21 Community Leader Relationship Specialty Start Date End Date Duy Valverde MD [address] [place] [address] 2 [place] [address] PCP - General Internal Medicine 02/13/22 Team Status: Active Member Role Status Dates Dr. John Benavidez MD Family Provider Active Dr. Duy Valverde MD Primary Care Provider Active Team Status: Inactive Member Role Status Dates Dr. Duy Valverde MD Primary Care Provider, Referring Provider Active Dr. Castro lOea MD Attending Provider Active Team Status: Inactive Member Role Status Dates Dr. Duy Valverde MD Primary Care Provider Active Dr. Macario Torres MD Attending Provider, Referring Provider Active Community Leader Relationship Specialty Start Date End Date Duy Valverde MD [address] [facility] 2 [place] [address] PCP - General Internal Medicine 03/01/21 Community Leader Relationship Specialty Start Date End Date Duy Valverde MD [address] [place] [address] [address] [place] [address] PCP - General Internal Medicine 02/13/22 Community Leader Relationship Specialty Start Date End Date Duy Valverde MD [address] [place] [address] 2 [place] [address] PCP - General Internal Medicine 03/01/21 Durga Werner MD [address] [facility] [address] [place] [address] Gastroenterology 01/12/23 Team Status: Inactive Member Role Status Dates Dr. 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 Karen Yoo Attending Provider, Referring Provid er Active Community Leader Relationship Specialty Start Date End Date Duy Valverde MD [address] [place] [address] 2 [place], [place] [phone] PCP - General Internal Medicine 03/01/21 Durga Werner MD [address] [facility] [place] [address] [place] [address] Gastroenterology 01/12/23 Community Leader Relationship Specialty Start Date End Date Duy Valverde MD [facility] [address] [place], [place] [address] PCP - General Internal Medicine 02/13/22 Community Leader Relationship Specialty Start Date End Date Duy Valverde MD [address] [place] [address] [address] [place], [place] [phone] PCP - General Internal Medicine 03/01/21 Durga Werner MD [address] [facility] [place] [address] [place], [place] [address] Gastroenterology 01/12/23 Community Leader Relationship Specialty Start Date End Date Duy Valverde MD [address] [place] [address] 2 [place] [address] PCP - General Internal Medicine 03/01/21 Durga Werner MD [address] [facility] [address] [place], [place] [address] Gastroenterology 01/12/23 Community Leader Relationship Specialty Start Date End Date Duy Valverde MD [address] [place] [address] [address] [place], [place] [id number] PCP - General Internal Medicine 02/13/22 Team Status: Active Member Role Status Dates Dr. Duy Valverde MD Primary Care Provider Active Team Status: Inactive Member Role Status Dates Dr. Duy Valverde MD Primary Care Provider Active Start: April 12, 2024 End: April 12, 2024 Dr. Macario Torres MD Attending Provider Active Start: April 12, 2024 End: April 12, 2024 Dr. Macario Torres MD Referring Provider Active Start: April 12, 2024 End: April 12, 2024 Team Status: Inactive Member Role Status Dates Dr. Duy Valverde MD Primary Care Provider Active Start: May 15, 2024 End: May 15, 2024 Dr. Duy Valverde MD Referring Provider Active Start: May 15, 2024 End: May 15, 2024 Dr. Carlos Richter MD Attending Provider Active Start: May 15, 2024 End: May 15, 2024 Team Status: Inactive Member Role Status Dates Dr. Duy Valverde MD Primary Care Provider Active Start: May 15, 2024 End: May 15, 2024 Dr. Shaji Ambriz MD Attending Provider Active S tart: May 15, 2024 End: May 15, 2024 Team Status: Inactive Member Role Status Dates Dr. Duy Valverde MD Primary Care Provider Active Start: May 21, 2024 End: May 21, 2024 Dr. Carlos Richter MD Attending Provider Active Start: May 21, 2024 End: May 21, 2024 Dr. Carlos Richter MD Referring Provider Active Start: May 21, 2024 End: May 21, 2024 Team Status: Active Member Role Status Dates Dr. Duy Valverde MD Primary Care Provider Active Start: May 21, 2024 Dr. Carlos Richter MD Referring Provider Active Start: May 21, 2024 Dr. Carlos Richter MD Other Provider Active Star t: May 21, 2024 Dr. Jaime Cabrera MD Attending Provider Active S tart: May 21, 2024 Team Status: Active Member Role/Relationship Status Dates Dr. Duy Valverde MD Primary Care Provider Active Team Status: Inactive Member Role/Relationship Status Dates Dr. Duy Valverde MD Primary Care Provider Active Start: October 13, 2024 End: October 13, 2024 Dr. Duy Valverde MD Referring Provider Active Start: October 13, 2024 End: October 13, 2024 Dr. Sathish Murray MD Attending Provider Active Start: October 13, 2024 End: October 13, 2024 Community Leader Relationship Specialty Start Date End Date Duy Valverde MD [address] [facility] 2 [place] [address] PCP - General Internal Medicine 03/01/21 Durga Werner MD [address] [place] [address] Gastroenterology 01/12/23 Reason for Visit (unrecogniz ed section and content) Reason Comments Phlebotomy Specialty Diagnoses / Procedures Referred By Jg t Referred To Contact Hematology/Oncology / HEMATOLOGY/ONCOLOGY Diagnoses Q3MO PHLEBO/LAB&OV EARLY* PREF THURS Procedures 1 HR [place] [address], [address] [place] [address] Phone: tel: fax: Hematology/Oncology [address] [place] [address] Phone: tel: fax: Referral ID Status Reason Start Date Expiration Date V isits Requested Visits Authorized [id number] New Request 11/13/2024 02/11/2025 1 1 Reason Comments Follow up Reason Comments Appointment Reason Comments Follow-up Nasal surgery 6 jung h check Reason Comments Phlebotomy Not needed per anna eters Reason Comments Nasal septal perforation 1 yr f/u nasal septum button Reason Comments Established Patient Reason Comments 6mo f/u nasal septal button Goals (unrecognized section and content) Goals may be documented in a n alternate sectionGoals may be documented in an alternate sectionGoals may be documented in an alternate sectionGoals may be documented in an alternate sectionGoals may be documented in an alternate section (unrecognized sect ion and content) No Status Records FoundNo Status Records FoundNo Status Records FoundNo Status Records Found INFORMATION SOURCE (unrecogn ized section and content) DATE CREATED AUTHOR 07/18/2022 [facility] DATE CREATED AUTHOR AUTHOR'S ORGANIZ ATION 08/29/2024 [facility] DATE CREATED AUTHOR AUTHOR'S ORGANIZ ATION 11/15/2024 [facility] DATE CREATED AUTHOR AUTHOR'S ORGANIZ ATION 11/28/2024 [facility] FOR RECORDS PERTAINING TO PATIENTS WHO ARE OR HAVE BEEN ENROLLED IN A CHEMICAL DEPENDENCY/SUBSTANCEABUSE PROGRAM, SOME INFORMATION MAY BE OMITTED. This clinical summary was aggregated from multiple sources. Caution should be exercised in using it in the provision of clinical care. This summary normalizes information from multiple sources, and as a consequence, information in this document may materially change the coding, format and clinical context of patient data. In addition, data may be omitted in some cases. CLINICAL DECISIONS SHOULD BE BASED ON THE PRIMARY CLINICAL RECORDS. [employer] [facility]. provides no warranty or guarantee of the accuracy or completeness of information in this document.
== END | disposition home or self-care (01) ==
LOC: MRI 10:08
PROVIDERS: PCP Internal Medicine; Referring Provider Otolaryngology; Visit Provider Otolaryngology
DX: H93.292 Other abnormal auditory perceptions, left ear (principal); H90.3 Sensorineural hearing loss, bilateral
CPT/HCPCS: 70553; A9575